=== PATIENT | female | born 1975 | race Caucasian/White ===

== ENCOUNTER → 2018-01-20 16:18 | Outpatient (CLI) | payer OTHER, SELFPAY ==
[2018-01-27 12:24] LABS: HPV Reflexed? NOT INDICATED
== END ==
PROVIDERS: Visit Provider Obstetrics & Gynecology
DX: Z12.4 Encounter for screening for malignant neoplasm of cervix (principal)
CPT/HCPCS: 88175; G0145

== ENCOUNTER → 2018-04-05 16:50 | Outpatient (CLI) | payer OTHER, SELFPAY ==
--- NOTE | 2018-04-05 16:53 | BI_ITS ---
MAMMOGRAPHY - BILATERAL SCREENING REASON FOR EXAM: Female, 42 years old. Routine annual screening examination. PERTINENT HISTORY: Non-contributory. TECHNIQUE: Digital bilateral breast josie (3D mammographic acquisition) in the CC and MLO projections. 2-D mediolateral oblique (MLO) and craniocaudad (CC) views of both breasts were obtained. CAD: Full Field Digital Mammography with Computer Added Detection was performed. COMPARISON: Comparison is made with prior outside examination dated April 24, 2005. FINDINGS: Breast Composition: The breasts are heterogeneously dense, which may obscure small masses. There are no dominant masses or suspicious calcifications. No other significant abnormalities are identified. There has been no significant change since the prior study. BI/SCREENING MAMM (CAD), BILAT IMPRESSION: Stable bilateral screening mammogram. Yearly follow-up mammogram recommended. (A) ASSESSMENT CATEGORY: BIRADS Category 1: Negative. A letter regarding these results will be sent to the patient by the facility within 30 days. Approximately 10% of breast cancers are not detected by mammography. A normal mammogram should not delay biopsy of a clinically suspicious abnormality. [id number] Electronically Signed: Danny Ochoa MD at 8:13 EDT Tel [phone], Service support ,
== END ==
PROVIDERS: Family Provider Internal Medicine; PCP Internal Medicine; Visit Provider Obstetrics & Gynecology
DX: Z12.31 Encounter for screening mammogram for malignant neoplasm of breast (principal)
CPT/HCPCS: 77063; 77067

== ENCOUNTER → 2018-07-13 10:51 | Outpatient (CLI) | payer OTHER, SELFPAY | PROVIDERS: Family Provider Internal Medicine; PCP Internal Medicine | DX: I77.810 Thoracic aortic ectasia (principal) | CPT/HCPCS: 93306 ==

== ENCOUNTER → 2019-05-16 12:18 | Outpatient (CLI) | payer OTHER, SELFPAY ==
[2019-01-16 15:40] VITALS: BMI 39.8
--- NOTE | 2019-05-16 12:21 | BI_ITS ---
MAMMOGRAPHY - BILATERAL SCREENING REASON FOR EXAM: Female, 43 years old. Routine annual screening examination. PERTINENT HISTORY: Non-contributory. TECHNIQUE: Digital bilateral breast andrew (3D mammographic acquisition) in the CC and MLO projections. 2-D mediolateral oblique (MLO) and craniocaudad (CC) views of both breasts were obtained. CAD: Full Field Digital Mammography with Computer Added Detection was performed. COMPARISON: Comparison is made with prior study dated April 05, 2018. FINDINGS: Breast Composition: The breasts are heterogeneously dense, which may obscure small masses. There are no dominant masses or suspicious calcifications. No other significant abnormalities are identified. There has been no significant change since the prior study. BI/SCREEN MAMM (CAD) W/ANDREW BILAT IMPRESSION: Stable bilateral screening mammogram. Yearly follow-up mammogram recommended. (A) ASSESSMENT CATEGORY: BIRADS Category 1: Negative. A letter regarding these results will be sent to the patient by the facility within 30 days. Approximately 10% of breast cancers are not detected by mammography. A normal mammogram should not delay biopsy of a clinically suspicious abnormality. [id number] Electronically Signed: Danny Ochoa, at 13:47 EDT , Service support ,
== END ==
PROVIDERS: Family Provider Internal Medicine; PCP Internal Medicine; Referring Provider Obstetrics & Gynecology; Visit Provider Obstetrics & Gynecology
DX: Z12.31 Encounter for screening mammogram for malignant neoplasm of breast (principal)
CPT/HCPCS: 77063; 77067

== ENCOUNTER → 2020-06-14 15:11 | Outpatient (CLI) | payer OTHER, SELFPAY ==
[2019-01-16 15:40] VITALS: BMI 39.8
[2020-06-19 20:21] LABS: HPV Reflexed? NOT INDICATED
== END ==
PROVIDERS: PCP Internal Medicine; Visit Provider Obstetrics & Gynecology
DX: Z12.4 Encounter for screening for malignant neoplasm of cervix (principal)
CPT/HCPCS: 88175; G0145

== ENCOUNTER → 2021-08-19 15:57 | Outpatient (CLI) | payer OTHER, SELFPAY ==
[2021-08-19 17:38] LABS: Hematocrit 35.9 % (37-47); Hemoglobin 11.3 g/dL (12.0-15.0); Mean Corp Hgb Conc 31.5 g/dL (32-36); Mean Corpuscular Hgb 27.4 pg (27.0-32.0); Mean Corpuscular Volume 86.9 fL (81-99); Platelet Count 267 K/mm3 (150-450); RBC Distribution Width CV 15.8 % (11.6-14.6); Red Blood Count 4.13 M/mm3 (4.2-5.4); White Blood Count 5.9 K/mm3 (4.4-11.0)
[2021-08-19 18:06] LABS: ALB/GLOB Ratio 0.9 RATIO (0.9-2.4); AST(SGOT) 17 U/L (15-37); Alanine Aminotransfer ALT/SGPT 25 U/L (13-56); Albumin, Serum 3.2 g/dL (3.2-5.0); Alkaline Phosphatase 62 U/L (45-117); Anion Gap 7 (5-15); BUN 16 mg/dL (7-18); BUN/Creat Ratio 18.7 RATIO (10-20); Calcium,Total 8.7 mg/dL (8.5-10.1); Chloride 105 mmol/L (98-107); Creatinine, Serum 0.86 mg/dL (0.55-1.02); EST Glomerular Filtration Rate 76 mL/min (>60); Est Glom Filt Rate - Afr Amer 92 mL/min (>60); Ferritin 7 ng/mL (8-252); Globulin 3.7 g/dL (2.2-4.2); Glucose 97 mg/dL (74-106); Iron 26 ug/dL (50-170); Magnesium 2.1 mg/dL (1.6-2.6); Protein, Total 6.9 g/dL (6.4-8.2); Sodium Level 141 mmol/L (136-145)
== END ==
PROVIDERS: PCP Internal Medicine; Referring Provider Nurse Practitioner Family; Visit Provider Nurse Practitioner Family
DX: G25.81 Restless legs syndrome (principal); E61.1 Iron deficiency
CPT/HCPCS: 36415; 80053; 82728; 83540; 83735; 85027

== ENCOUNTER 2024-06-30 09:22 | Outpatient (CLI) | payer SELFPAY ==
[2024-06-30] MEDS: 0.9% NaCl Peripheral Flush Adult/Peds IV (10:09)
[2024-06-30] MEDS: 0.9% Normal Saline (100mL Bag) 100 ML 15 ML IV (10:10)
[2024-06-30] MEDS: Ferric Carboxymaltose (Injectafer) 750 MG in 0.9% NaCl 250 ML 795 MG IV (10:10)
[2024-06-30 10:11] VITALS: BP 97/64; PULSE 66; RESP 16; O2SAT 100
[2024-06-30 11:12] VITALS: BP 97/51; PULSE 61; RESP 16
== END 2024-06-30 23:59 | disposition home or self-care (01) ==
PROVIDERS: PCP Internal Medicine; Referring Provider Internal Medicine; Visit Provider Internal Medicine
DX: D50.9 Iron deficiency anemia, unspecified (principal)
CPT/HCPCS: 96365; J1439; J7050; A4216

== ENCOUNTER 2024-07-14 10:48 | Outpatient (CLI) | payer SELFPAY ==
[2024-07-14 11:15] VITALS: BP 98/59; PULSE 70; RESP 16; TEMP 36.8; O2SAT 97; BMI 39.4
[2024-07-14] MEDS: 0.9% NaCl Peripheral Flush Adult/Peds IV (11:17)
[2024-07-14] MEDS: Ferric Carboxymaltose (Injectafer) 750 MG in 0.9% NaCl 250 ML 795 MG IV (11:43)
[2024-07-14] MEDS: 0.9% NaCl IVPB Med Flush (250 mL) 15 ML IV (11:43)
[2024-07-14 12:17] VITALS: BP 89/55; PULSE 62; RESP 16; O2SAT 100
== END 2024-07-14 23:59 | disposition home or self-care (01) ==
PROVIDERS: PCP Internal Medicine; Referring Provider Internal Medicine; Visit Provider Internal Medicine
DX: D50.9 Iron deficiency anemia, unspecified (principal)
CPT/HCPCS: 96365; J1439; J7050; A4216

== ENCOUNTER → 2024-11-07 | Outpatient (CLI) | payer MEDICAID, SELFPAY | END | disposition home or self-care (01) | PROVIDERS: PCP Internal Medicine; Referring Provider Physician Assistant Surgical; Visit Provider Physician Assistant Surgical | DX: R30.0 Dysuria (principal) | CPT/HCPCS: 87086; 87088 ==

== ENCOUNTER 2025-05-04 06:47 | Outpatient (CLI) | payer MEDICAID, SELFPAY ==
--- OUTSIDE RECORDS SUMMARY | 2025-05-04 06:52 | XMS RPT_ITS | CCD ---
Author Organization [facility] Care Team Providers Care Registered Radiographer Name Role Phone SivanMindyBessy Unavailable Silvano Schultz R Unavailable Unavailab le Messenger, Heather Unavailable Unavailable LongMarcion L Unavailable Unavailable Manchak, Savannah Unavailable Unavailable Unavailable Unavailable Sivan, Bessy Unavailable Vadmi Lemons Unavailable Silvano Schultz R Unavailable Unavailab le Gravius, Evelia Unavailable Unavailable LongMarcion L Unavailable Unavailable Manchak, Savannah Unavailable Unavailable Messenger, Heather Unavailable Unavailable Unavailable Unavailable Gravius, Evelia Unavailable Unavailable LongMarcion L Unavailable Unavailable Manchak, Savannah Unavailable Unavailable Messenger, Heather Unavailable Unavailable Sivan DO Bessy Unavailable Vadim Lemons Unavailable Vikas Schultzoster R Unavailable Unavailab le Gravius DRIVER ENGINEER, Evelia Unavailable Unavailable Chinyere Link RN Unavailable Unavailable Manchak PURVI Savannah Unavailable Unavailable Messenger RNHeather Unavailable Unavailable Unavailable Unavailable Sivan DO Bessy Unavailable Slarb BI ARCHITECT, Ashlie Unavailable Unavailable Lalitha Irvin CNP Unavailable Lalitha Irvin CNP Unavailable [place] BI ARCHITECT, Johnnie Unavailable Unavailable Sivan DO Bessy K Primary Care Provider [phone] BESSY FINNEGAN Primary Care Unavailable BEAU THEODORE Attending Unavailable EBSSY FINNEGAN Primary Care Unavailable BEAU THEODORE Referring Unavailable BEAU THEODORE Attending Unavailable Earnest Kohlery Attending Unavailable Tico WHITEHEAD, Thee Referring Unavailable Sivan, Bessy Primary Care Unavailable Sivan, Bessy Attending Unavailable Sivan, Bessy Referring Unavailable Sivan, Bessy Primary Care Unavailable Sivan, Bessy Attending Unavailable Sivan, Bessy Referring Unavailable Sivan, Bessy Primary Care Unavailable Sivan, Bessy Attending Unavailable Sivan, Bessy Primary Care Unavailable Karen Loving Attending Unavailable Sivan, Bessy Referring Unavailable Sivan, Bessy Primary Care Unavailable Humphrey Brush Attending Unavailable Sivan, Bessy Referring Unavailable Sivna, Bessy Primary Care Unavailable Tico WHITEHEAD, Thee Attending Unavailable Sivan, Bessy Referring Unavailable Sivan, Bessy Primary Care Unavailable Sivan DO, Bessy Watkins Primary Care Provider Abigail ALEJANDRE, Beau Merino Unavailable DEBBIE PRESCOTT Attending Unavailable SIVAN, BESSY WATKINS Primary Care Unavailab le Allergies Allergy Classification Reported Allergen(s) Allergy Type Date of Onset Reaction(s) Facility (20 sources) NSAIDs; Translations: [NSAIDs] allergy to substance 09-08-20 [facility] Work Phone: (2 sources) NSAIDs; Translations: [NSAIDS (NON-STEROIDAL ANTI-INFLAMMATO RY DRUG)] Drug Intolerance 09-08-20 24 Other: See Comments [facility] NEGATED: Highlighted row has been ruled out! (1 source) allergy to substance 05-30-20 13 [facility] Work Phone: NEGATED: Highlighted row has been ruled out! (1 source) drug allergy 02-02-20 17 [facility] Work Phone: Medications Current Medications Medication Drug Class(es) Dates Sig (Normalized) Sig (Original) Calcium Citrate / Vitamin D (3 sources) take 1260 mg by mouth once Calcium Citrate-Vitamin D (CALCIUM CITRATE + PO) Take 1,260 mg by mouth. Active Cyanocobalamin 1500 MCG tablet dispersible (3 sources) Cyanocobalamin 1 500 MCG tablet dispersible Take by mouth. Active ergocalciferol 0.05 mg oral capsule (3 sources) Provitamin D2 Compound take 1 capsule by mouth once daily ergocalciferol (Vitamin D-2) 50 MCG (1999) capsule Take 5,000 Units by mouth daily. Active hydroCHLOROthiazide 25 mg oral tablet (20 sources) Thiazide Diuretic Start: take 2 tablets by mouth once daily hydroCHLOROthiazide 25 mg oral tablet 2 (two) Tablet qd for 180 days Quantity: 90 {Tablet} Refills: 0 Ordered: 23-Jul-2023 Sivan DOBessy DOEricaBessy Start : 23-Jul-2023 Active Start: 06-18-2023 take 2 tablets by ne [facility] once daily hydroCHLOROthiazide 25 mg oral tablet 2 (two) Tablet qd for 180 days Quantity: 90 {Tablet} Refills: 0 Ordered: 18-Jun-2023 Sivan DOBessy DOEricaBessy Start : 18-Jun-2023 Active Start: 05-28-2023 take 2 tablets by [facility] once daily hydroCHLOROthiazide 25 mg oral tablet 2 (two) Tablet qd for 180 days Quantity: 90 {Tablet} Refills: 0 Ordered: 28-May-2023 Sivan DOBessy DOEricaBessy Start : 28-May-2023 Active Start: 03-03-2023 take 2 tablets by [facility] once daily hydroCHLOROthiazide 25 mg oral tablet 2 (two) Tablet qd for 180 days Quantity: 90 {Tablet} Refills: 0 Ordered: 03-Mar-2023 Sivan DOBessy DOEricaBessy Start : 03-Mar-2023 Active Start: 01-12-2022 take 2 tablets by [facility] once daily hydroCHLOROthiazide 25 MG Oral Tablet 2 (two) Tablet qd for 180 days Quantity: 90 {Tablet} Refills: 3 Ordered: 12-Jan-2022 Evelia Marin CMA Start : 12-Jan-2022 Active Start: 12-09-2021 take 2 tablets by ne ut once daily hydroCHLOROthiazide 25 MG Oral Tablet 2 (two) Tablet qd for 90 days Quantity: 180 {Tablet} Refills: 0 Ordered: 09-Dec-2021 Sivan DOeBssy DO Bessy Start : 09-Dec-2021 Active Comments: Mail order. Start: 07-10-2020 take 2 tablets by ne [facility] once daily hydroCHLOROthiazide 25 MG Oral Tablet 2 (two) Tablet qd for 90 days Quantity: 180 {Tablet} Refills: 3 Ordered: 10-Jul-2020 Bessy Finnegan DO, DO, Kathleen Start : 10-Jul-2020 Active Comments: Mail order. Start: 07-10-2019 take 2 tablets by mo [facility] once daily hydroCHLOROthiazide 25 MG Oral Tablet 2 (two) Tablet qd for 90 days Quantity: 180 {Tablet} Refills: 3 Ordered: 10-Jul-2019 Bessy Finnegan DO, DO, Kathleen Start : 10-Jul-2019 Active Comments: Mail order. Start: 07-06-2018 End: 08-05-2018 take 2 tablets by mouth once daily HydroCHLOROthiazide 25 MG Oral Tablet 2 (two) Tablet qd for 0 days Quantity: 180 {Tablet} Refills: 3 Ordered: 06-Jul-2018 Bessy Finnegan DO, DO, Kathleen Start : 06-Jul-2018 End : 05-Aug-2018 Inactive Comments: Mail order. take 1 tablet by [facility] once daily hydrochlorothiazide 25 mg tablet Take 25 mg by mouth once daily. 1 1/2 pills daily Active hydroCHLOROthiaz riya (HYDRODiuril) 25 MG tablet Indications: Calcium Nephrolithiasis Take 12.5 mg by mouth daily. Active Comment on above: Mail order. Magnesium (1 source) take 1 tablet by mouth twice daily Magnesium 200 mg tab Take 1 tablet by mouth twice daily. Active rOPINIRole 0.5 mg oral tablet (3 sources) Nonergot Dopamine Agonist Start: 4 take 1 tablet by mouth three times daily rOPINIRole (Requip) 0.5 MG tablet Take 0.5 mg by mouth 3 times daily. 08/13/2024 Active traZODone hydrochloride 50 mg oral tablet (1 source) Serotonin Reuptake Inhibitor Start: 5 traZODone (DESYREL) 50 mg tablet 04/26/2025 Active Completed/Discontinued Medications Medication Drug Class(es) Dates Sig (Normalized) Sig (Original) acetaminophen 500 mg / diphenhydrAMINE hydrochloride 25 mg oral tablet (20 sources) Histamine-1 Receptor Antagonist Start: 02-01-2017 End: 02-03-2017 take 1 tablet by mouth every eight hours in the evening Tylenol PM Extra Strength 500-25 MG Oral Tablet 1 (one) Tablet q8hrs for 2 days Refills: 0 Ordered: 15-Apr-2017 Charlette Walton Start : 01-Feb-2017 End : 03-Feb-2017 Inactive acetaminophen 300 mg / HYDROcodone bitartrate 5 mg oral tablet (20 sources) Opioid Agonist Start: 05-10-2013 End: 05-30-2013 take 1 tablet by mouth every six hours as needed VICODIN, 5-300MG (Oral Tablet) 1 Tablet q 6 hours prn for 0 days Quantity: 20 {Tablet} Refills: 0 Ordered: 30-May-2013 Start : 10-May-2013 End : 30-May-2013 Inactive Comments: twenty Comment on above: twenty amitriptyline hydrochloride 25 mg oral tablet (20 sources) Tricyclic Antidepressant Start: 05-04-2016 take 1 tablet by mouth once daily Amitriptyline HCl 25 MG Oral Tablet 1 (one) Tablet qd for 90 days Quantity: 90 {Tablet} Refills: 1 Ordered: 12-Jan-2022 Bessy Finnegan DO, DO, Kathleen Start : 12-Jan-2022 Active take 1 tablet by jenniffer th once daily at bedtime amitriptyline 50 mg tablet Take 50 mg by mouth daily at bedtime. Active amoxicillin 875 mg / clavulanate 125 mg oral tablet (20 sources) Penicillin-class Antibacterial Start: 09-19-2020 End: 09-29-2020 take 1 tablet by mouth twice daily Amoxicillin-Pot Clavulanate 875-125 MG Oral Tablet 1 (one) Tablet bid for 10 days Quantity: 20 {Tablet} Refills: 0 Ordered: 19-Sep-2020 Bessy Finnegan DO, DO, Kathleen Start : 19-Sep-2020 End : 29-Sep-2020 Inactive Start: 09-01-2016 End: 09-15-2016 take 1 tablet by mouth twice daily Augmentin 875-125 MG Oral Tablet 1 (one) Tablet bid for 14 days Quantity: 28 {Tablet} Refills: 0 Ordered: 01-Sep-2016 Charlette Walton Start : 01-Sep-2016 End : 15-Sep-2016 Inactive 24 hr buPROPion hydrochloride 150 mg extended release oral tablet (20 sources) Aminoketone Start: 07-20-2023 take 1 tablet by mouth once daily Wellbutrin XL 150 mg oral Tablet, Extended Release 24 hr 1 Tablet ER 24HR qd for 90 days Quantity: 90 {Tablet} Refills: 0 Ordered: 20-Jul-2023 Sivan Bessy SivanBessy tamez DO Start : 20-Jul-2023 Active Start: 08-20-2022 take 1 tablet by jenniffer th once daily Wellbutrin XL 150 MG Oral Tablet Extended Release 24 Hour 1 Tablet ER 24HR qd for 90 days Quantity: 90 {Tablet} Refills: 3 Ordered: 20-Aug-2022 Sivan Bessy SivanBessy tamez DO Start : 20-Aug-2022 Active Start: 01-12-2022 take 1 tablet by jenniffer th once daily Wellbutrin XL 150 MG Oral Tablet Extended Release 24 Hour 1 Tablet ER 24HR qd for 90 days Quantity: 90 {Tablet} Refills: 3 Ordered: 12-Jan-2022 Evelia Marin CMA Start : 12-Jan-2022 Active Start: 09-19-2018 take 1 tablet by jenniffer th once daily Wellbutrin XL 150 MG Oral Tablet Extended Release 24 Hour 1 Tablet ER 24HR qd for 90 days Quantity: 90 {Tablet} Refills: 0 Ordered: 09-Dec-2021 SivanBessy tamez DO SivanBessy tamez DO Start : 09-Dec-2021 Active Comments: Mail order. Comment on above: Mail order. cefdinir 300 mg oral capsule (20 sources) Cephalosporin Antibacterial Start: 02-02-20 17 End: 02-09-20 17 take 1 capsule by mouth twice daily Cefdinir 300 MG Oral Capsule 1 (one) Capsule bid for 7 days Quantity: 14 {QS} Refills: 0 Ordered: 01-Feb-2017 Isabelle Charlette Start : 01-Feb-2017 End : 08-Feb-2017 Inactive cholecalciferol 0.125 mg oral tablet (20 sources) Vitamin D Start: 07-18-20 14 End: 08-17-20 14 take 1 tablet by mouth once daily VITAMIN D3, 5000UNIT (Oral Tablet Chewable) 1 (one) Tablet Chewable qd for 30 days Refills: 0 Ordered: 21-Sep-2014 SivanBessy tamez DO, DO, Kathleen Start : 18-Jul-2014 End : 17-Aug-2014 Inactive Start: 07-18-2014 End: 08-17-2014 take 1 tablet by mouth once daily VITAMIN D3, 5000UNIT (Oral Tablet Chewable) 1 (one) Tablet Chewable qd for 30 days Refills: 0 Ordered: 21-Sep-2014 Bessy Finnegan DO, DO, Kathleen Start : 18-Jul-2014 End : 17-Aug-2014 Inactive ciprofloxacin 500 mg oral tablet (20 sources) Quinolone Antimicrobial Start: 05-10-2013 End: 05-24-2013 take 1 tablet by mouth twice daily CIPRO, 500MG (Oral Tablet) 1 Tablet bid for 0 days Quantity: 20 {Tablet} Refills: 0 Ordered: 24-May-2013 Heather Basilio RN Start : 10-May-2013 End : 24-May-2013 Inactive desoximetasone 0.5 mg/ml topical cream (20 sources) Corticosteroid Start: 04-28-2017 End: 06-30-2017 Topicort 0.05 % External Cream 1 (one) Cream apply to affected area bid for 0 days Quantity: 15 {Gram} Refills: 0 Ordered: 30-Jun-2017 Heather Basilio RN Start : 28-Apr-2017 End : 30-Jun-2017 Inactive 24 hr desvenlafaxine succinate 100 mg extended release oral tablet (20 sources) Serotonin and Norepinephrine Reuptake Inhibitor Start: 08-17-2022 take 1 tablet by mouth once daily in the morning Pristiq 100 MG Oral Tablet Extended Release 24 Hour 1 (one) Tablet qam for 90 days Quantity: 90 {Tablet} Refills: 3 Ordered: 17-Aug-2022 Bessy Finnegan DO, DO, Kathleen Start : 17-Aug-2022 Active Start: 01-12-2022 take 1 tablet by jenniffer th once daily in the morning Pristiq 100 MG Oral Tablet Extended Release 24 Hour 1 (one) Tablet qam for 90 days Quantity: 90 {Tablet} Refills: 3 Ordered: 12-Jan-2022 Evelia Marin CMA Start : 12-Jan-2022 Active Start: 12-09-2021 take 1 tablet by jenniffer th once daily in the morning Pristiq 100 MG Oral Tablet Extended Release 24 Hour 1 (one) Tablet qam for 90 days Quantity: 90 {Tablet} Refills: 0 Ordered: 09-Dec-2021 Bessy Finnegan DO, DO, Kathleen Start : 25-Fei-2022 Active Comments: Mail order. Start: 01-14-2021 take 1 tablet by jenniffer th once daily in the morning Pristiq 100 MG Oral Tablet Extended Release 24 Hour 1 (one) Tablet qam for 0 days Quantity: 90 {Tablet} Refills: 1 Ordered: 14-Jan-2021 Sivan Bessy SivanMindy tamez DOeen Start : 14-Jan-2021 Active Comments: Mail order. total dose is 150 mg Start: 07-26-2020 take 1 tablet by jenniffer th once daily in the morning Pristiq 100 MG Oral Tablet Extended Release 24 Hour 1 (one) Tablet qam for 0 days Quantity: 90 {Tablet} Refills: 1 Ordered: 26-Jul-2020 Sivan DO, Bessy SivanMindy tamez DOeen Start : 26-Jul-2020 Active Comments: Mail order. total dose is 150 mg Start: 07-10-2020 take 1 tablet by jenniffer th once daily in the morning Pristiq 100 MG Oral Tablet Extended Release 24 Hour 1 (one) Tablet qam for 0 days Quantity: 90 {Tablet} Refills: 1 Ordered: 10-Jul-2020 Sivan , Bessy SivanMindy tamez DOeen Start : 10-Jul-2020 Active Comments: Mail order. Start: 06-28-2020 take 1 tablet by jenniffer th once daily in the morning Pristiq 100 MG Oral Tablet Extended Release 24 Hour 1 (one) Tablet qam for 0 days Quantity: 30 {Tablet} Refills: 3 Ordered: 28-Jun-2020 Sivan DO, Bessy Sivan DO, Bessy Start : 28-Jun-2020 Active Start: 09-13-2018 End: 01-12-2022 take 1 tablet by mouth once daily Pristiq 50 MG Oral Tablet Extended Release 24 Hour 1 (one) Tablet qd for 0 days Quantity: 30 {Tablet} Refills: 3 Ordered: 12-Jan-2022 Evelia Marin CMA Start : 26-Jul-2020 End : 12-Jan-2022 Inactive Comments: total dose is 150mg Comment on above: pt has a copay card and it actually cheeper for name brand vs generic. So as long as her copay card works she wants to keep th rx at [facility]. Mail order. Mail order. total do se is 150 mg total dose is 150mg docusate sodium 100 mg oral capsule (20 sources) Start: 05-04-2016 End: 01-12-2022 take 1-2 capsules by mouth once daily as needed Colace 100 MG Oral Capsule 1-2 Capsule Capsule qd prn for 0 days Quantity: 60 {Capsule} Refills: 0 Ordered: 12-Jan-2022 Evelia Marin CMA Start : 04-May-2016 End : 12-Jan-2022 Inactive End: 04-30-2025 take 1 capsule by mouth every twelve hours as needed docusate sodium (COLACE) 100 mg capsule Take 100 mg by mouth twice daily as needed. 04/30/2025 Discontinued (Course of therapy completed) ferrous sulfate 325 mg oral tablet (20 sources) Start: 07-05-2017 End: 01-12-2022 take 1 tablet by mouth once daily Iron 325 (65 Fe) MG Oral Tablet 1 (one) Tablet Tablet daily for 0 days Quantity: 30 {Tablet} Refills: 5 Ordered: 12-Jan-2022 Evelia Marin CMA Start : 05-Jul-2017 End : 12-Jan-2022 Inactive fluconazole 150 mg oral tablet (20 sources) Azole Antifungal Start: 12-18-2015 End: 09-01-2016 Fluconazole 150 MG Oral Tablet 1 (one) Tablet Tablet take times one then repeat in 2days for 0 days Quantity: 2 {Tablet} Refills: 0 Ordered: 01-Sep-2016 Ashlie Mart LPN Start : 18-Dec-2015 End : 01-Sep-2016 Discontinued frovatriptan 2.5 mg oral tablet (20 sources) Serotonin-1b and Serotonin-1d Receptor Agonist Start: 01-28-2015 End: 09-01-2016 Frova 2.5 MG Oral Tablet 4 Tablet uad for 30 days Refills: 0 Ordered: 01-Sep-2016 Ashlie Mart LPN Start : 28-Jan-2015 End : 01-Sep-2016 Discontinued Comments: takes 4 days prior to period Comment on above: takes 4 days prior t o period ketoprofen 75 mg oral capsule (20 sources) Nonsteroidal Anti-inflammatory Drug Start: 01-12-2022 Ketoprofen 75 MG Oral Capsule 1 (one) Capsule prn for 30 days Refills: 0 Ordered: 12-Jan-2022 Bessy Finnegan DO, DO, Kathleen Start : 12-Jan-2022 Active Start: 01-22-2014 KETOPROFEN, 75 MG (Oral Capsule) 1 (one) Capsule prn for 30 days Refills: 0 Ordered: 22-Jan-2014 Bessy Finnegan DO, DO, Kathleen Start : 22-Jan-2014 Active KETOPROFEN ORAL Take by mouth. Active magnesium oxide 200 mg oral tablet (20 sources) Start: 07-18-2014 End: 05-15-2022 take 1 tablet by mouth twice daily Mag-200 200 MG Oral Tablet 1 (one) Tablet Tablet bid for 0 days Quantity: 60 {Tablet} Refills: 0 Ordered: 15-May-2022 Ashlie Mart LPN Start : 18-Jul-2014 End : 15-May-2022 Inactive meclizine hydrochloride 12.5 mg oral tablet (20 sources) Antiemetic Start: 05-30-2013 End: 09-01-2016 ANTIVERT, 12.5MG (Oral Tablet) 1 Tablet Tablet q 6-8 hrs prn for dizziness for 0 days Quantity: 30 {Tablet} Refills: 0 Ordered: 30-May-2013 David Mart LPNa Start : 30-May-2013 End : 01-Sep-2016 Discontinued Comments: This order discontinued per [facility]. Comment on above: This order discontin ued per [facility]. meperidine hydrochloride 50 mg oral tablet (20 sources) Opioid Agonist Start: 05-24-2013 End: 05-30-2013 DEMEROL, 50MG (Oral Tablet) 1 Tablet X 1 for 0 days Quantity: 1 {Tablet} Refills: 0 Ordered: 30-May-2013 Start : 24-May-2013 End : 30-May-2013 Inactive Comments: ONE Comment on above: ONE mometasone furoate 0.05 mg/actuat metered dose nasal spray (20 sources) Corticosteroid Start: 05-30-2013 End: 01-22-2014 NASONEX, 50MCG/ACT (Nasal Suspension) 2 (two) Puff(s) daily for 0 days Quantity: 1 {Suspension} Refills: 0 Ordered: 22-Jan-2014 Heather Basilio RN Start : 30-May-2013 End : 22-Jan-2014 Inactive MVI (1 source) MVI Active nadolol 20 mg oral tablet (20 sources) beta-Adrenergic Maris Start: 01-12-2022 take 0.5 tablet by mouth once daily Nadolol 20 MG Oral Tablet 1/2 Tablet qd for 30 days Refills: 0 Ordered: 12-Jan-2022 Bessy Finnegan DO Sivan Bessy LEE Start : 12-Jan-2022 Active Start: 06-30-2017 End: 10-21-2017 take 0.5 tablet by mouth once daily Nadolol 20 MG Oral Tablet 1/2 Tablet qd for 30 days Refills: 0 Ordered: 21-Oct-2017 Chinyere Link RN Start : 30-Jun-2017 End : 21-Oct-2017 Inactive Start: 07-12-2016 nadolol (CORGA RD) 40 mg tablet 07/12/2016 Active take 1 tablet by jenniffer th once daily nadolol (Corgard) 20 MG tablet Take 20 mg by mouth daily. Active naratriptan 2.5 mg oral tablet (1 source) Serotonin-1b and Serotonin-1d Receptor Agonist Start: 06-30-2016 End: 04-30-2025 naratriptan (AMERGE) 2.5 mg tablet 06/30/2016 04/30/2025 Discontinued (Course of therapy completed) nystatin (20 sources) Polyene Antifungal Start: 07-11-2015 End: 09-01-2016 Nystatin Powder apply to affected areas Powder Powder bid for 0 days Quantity: 1 {Bottle} Refills: 0 Ordered: 01-Sep-2016 David Mart LPNa Start : 11-Jul-2015 End : 01-Sep-2016 Discontinued polyethylene glycol 3350 648653 mg / potassium chloride 2980 mg / sodium bicarbonate 6720 mg / sodium chloride 5840 mg / sodium sulfate 01326 mg powder for oral solution (1 source) Osmotic Laxative Start: 04-30-2025 End: 04-30-2025 peg 3350-electrolytes (GAVILYTE-C) 240-22.72-6.72 -5.84 gram solution Indications: Special screening for malignant neoplasms, colon Take 4,000 mL by mouth one time only for 1 dose. 4000 mL 04/30/2025 04/30/2025 Discontinued (Clinical Decision) microencapsulated potassium chloride 20 meq extended release oral tablet (20 sources) Start: 05-11-2016 End: 06-10-2016 take 1 tablet by mouth once daily KLOR-CON M20, 20MEQ (Oral Tablet Extended Release) 1 (one) Tablet ER qd for 30 days Quantity: 30 {Tablet} Refills: 0 Ordered: 02-Jul-2016 Bessy Finnegan DO, DO, Kathleen Start : 11-May-2016 End : 10-Jun-2016 Inactive predniSONE 10 mg oral tablet (20 sources) Start: 07-24-2016 End: 07-31-2016 take 3 tablets by mouth once daily at mealtime PredniSONE 10 MG Oral Tablet 3 (three) Tablet daily for 7 days Quantity: 21 {Tablet} Refills: 0 Ordered: 24-Jul-2016 Charlette Walton Start : 24-Jul-2016 End : 31-Jul-2016 Inactive Comments: with food Start: 07-11-2015 End: 07-23-2015 PREDNISONE, 20MG (Oral Table t) 1 (one) Tablet bid for 2 days then qd for 4 days then 1/2 tab daily for 4days for 12 days Quantity: 12 {Tablet} Refills: 0 Ordered: 11-Jul-2015 Bessy Finnegan DO, DO, Kathleen Start : 11-Jul-2015 End : 23-Jul-2015 Inactive Comment on above: with food prochlorperazine 10 mg oral tablet (20 sources) Phenothiazine Start: 01-22-2014 End: 09-01-2016 take 1 tablet by mouth once daily COMPAZINE, 10MG (Oral Tablet) 1 (one) Tablet qd for 30 days Refills: 0 Ordered: 04-May-2016 Kimo Savannah LOJA Start : 28-Jan-2015 End : 04-May-2016 Inactive End: 04-30-2025 take 1 tablet by mouth every six hours as needed prochlorperazine 10 mg tablet Take 10 mg by mouth every 6 hours as needed. 04/30/2025 Discontinued (Course of therapy completed) promethazine hydrochloride 25 mg oral tablet (20 sources) Phenothiazine Start: 05-24-2013 End: 05-30-2013 take 1 tablet by mouth every eight hours as needed PROMETHAZINE HCL, 25MG (Oral Tablet) 1 Tablet Q 8 HR PRN for 0 days Quantity: 1 {Tablet} Refills: 0 Ordered: 30-May-2013 Start : 24-May-2013 End : 30-May-2013 Inactive rizatriptan 10 mg oral tablet (20 sources) Serotonin-1b and Serotonin-1d Receptor Agonist Start: 01-12-2022 take 9 mg by mouth every month Maxalt 10 MG Oral Tablet 1 Tablet qd for migraine for 90 days Quantity: 27 {Tablet} Refills: 0 Ordered: 12-Jan-2022 Sivan LEE Bessy Finnegan DO Bessy Start : 12-Jan-2022 Active Comments: or up to 9 monthly pt wants dissolvable Start: 06-05-2013 take 9 mg by mouth every month MAXALT, 10MG (Oral Tablet) 1 Tablet qd for migraine for 90 days Quantity: 27 {Tablet} Refills: 0 Ordered: 05-Jun-2013 Sivan LEE Bessy Finnegan DO Bessy Start : 05-Jun-2013 Active Comments: or up to 9 monthly pt wants dissolvable Start: 01-09-2008 End: 04-30-2025 rizatriptan benzoate(MAXALT- PLUMBER MAINTENANCE 10 MG TAB, RAPID DISSOLVE) Indications: Migraine, unspecified, without mention of intractable migraine without mention of status migrainosus as directed 9 2 01/09/2008 04/30/2025 Discontinued (Course of therapy completed) Comment on above: or up to 9 monthly p t wants dissolvable sulfamethoxazole 800 mg / trimethoprim 160 mg oral tablet (20 sources) Dihydrofolate Reductase Inhibitor Antibacterial, Sulfonamide Antimicrobial Start: 05-15-20 End: 05-25-20 take 1 tablet by mouth twice daily Bactrim DS 800-160 MG Oral Tablet 1 (one) Tablet twice daily for 10 days for 10 days Quantity: 20 {Tablet} Refills: 0 Ordered: 15-May-2022 Lalitha Irvin CNP Start : 15-May-2022 End : 25-May-2022 Inactive Start: 12-23-2015 End: 01-02-2016 take 1 tablet by mouth twice daily BACTRIM DS, 800-160MG (Oral Tablet) 1 (one) Tablet bid for 10 days Quantity: 20 {Tablet} Refills: 0 Ordered: 23-Dec-2015 Chinyere Link RN Start : 23-Dec-2015 End : 02-Jan-2016 Inactive 0.5 ml SUMAtriptan 12 mg/ml jet injector (2 sources) Serotonin-1b and Serotonin-1d Receptor Agonist Start: 01-22-2014 End: 09-01-2016 Sumavel DosePro 6 MG/0.5ML Subcutaneous Solution Jet-injector 1 (one) Device qd for 30 days Refills: 0 Ordered: 01-Sep-2016 Barron BYRNESDavida Start : 22-Jan-2014 End : 01-Sep-2016 Discontinued End: 04-30-2025 SUMATRIPTAN SUCCINATE (SUMAV EL DOSEPRO SUBCUTANEOUS) Inject subcutaneously. 04/30/2025 Discontinued (Course of therapy completed) Sumavel DosePro 6 MG/0.5ML Subcutaneous Solution Jet-injector (20 sources) Start: 01-22-2014 End: 09-01-2016 Sumavel DosePro 6 MG/0.5ML Subcutaneous Solution Jet-injector 1 (one) Device qd for 30 days Refills: 0 Ordered: 01-Sep-2016 Barron BYRNES Ashlie Start : 22-Jan-2014 End : 01-Sep-2016 Discontinued terconazole 8 mg/ml vaginal cream (20 sources) Azole Antifungal Start: 12-18-2015 End: 06-30-2017 Terconazole 0.8 % Vaginal Cream apply to skin Cream Cream bid for 0 days Quantity: 15 {Gram} Refills: 0 Ordered: 30-Jun-2017 Heather Basilio RN Start : 18-Dec-2015 End : 30-Jun-2017 Inactive triamcinolone acetonide 1 mg/ml topical cream (20 sources) Corticosteroid Start: 09-20-2018 Triamcinolone Acetonide 0.1 % External Cream apply to affectede area Cream bid sparingly for 0 days Quantity: 15 {Gram} Refills: 1 Ordered: 20-Sep-2018 Savannah Malin CMA Start : 20-Sep-2018 Active Start: 06-30-2017 Triamcinolone Acetonide 0.1 % External Cream apply to affectede area Cream bid sparingly for 0 days Quantity: 15 {Gram} Refills: 1 Ordered: 30-Jun-2017 Bessy Finnegan DO, DO, Kathleen Start : 30-Jun-2017 Active Start: 02-01-2017 End: 06-30-2017 Triamcinolone Acetonide 0.1 % External Ointment 1 (one) Ointment daily prn for 0 days Quantity: 1 {Tube} Refills: 1 Ordered: 30-Jun-2017 Heather Basilio RN Start : 01-Feb-2017 End : 30-Jun-2017 Inactive Problems Active Problems Problem Classification Problem Date Documented Date Episodic/Chronic Abdominal pain (20 sources) Left flank pain; Translations: [Left flank pain] 01-05-2018 Episodic Adjustment disorders (16 sources) Grief finding; Translations: [Grieving] Onset: 6 01-12-2022 Chronic Administrative/social admission (3 sources) First encounter by subject; Translations: [Persons encountering health services in other specified circumstances] Onset: 4 09-08-2024 Episodic Allergic reactions (20 sources) Contact dermatitis due to poison yessica; Translations: [Poison yessica] 01-05-2018 Episodic Anxiety disorders (20 sources) Anxiety; Translations: [Anxiety] 08-21-2015 Chronic Comment on above: stable seeing counselor Aortic; peripheral; and visceral artery aneurysms (20 sources) Thoracic aneurysm without mention of rupture; Translations: [Dilatation of thoracic aorta] Onset: 8 01-05-2018 Chronic Comment on above: followed by cardio - dr Tyler Cardiac and circulatory congenital anomalies (20 sources) Cerebral arteriovenous malformation; Translations: [Arteriovenous malformation of brain] 01-05-2018 Chronic Comment on above: sees neurology -Tiana diana and manages migraines too Complications of surgical procedures or medical care (20 sources) Other and unspecified postsurgical nonabsorption; Translations: [NONABSORPTION, INTESTINAL POSTSURGICAL] 01-05-2018 Chronic Complications of surgical procedures or medical care (20 sources) Other iatrogenic hypotension Episodic Conditions associated with dizziness or vertigo (20 sources) Vertigo; Translations: [VERTIGO] 01-05-2018 Episodic Deficiency and other anemia (18 sources) Iron deficiency anemia; Translations: [Iron Deficiency Anemia,Unspecified (280.9)] Episodic Diabetes mellitus without complication (20 sources) Hyperglycemia Episodic Fluid and electrolyte disorders (20 sources) Hypokalemia; Translations: [Hypopotassemia] Resolved: 9 01-05-2018 Episodic Headache, including migraine (20 sources) Migraine with aura; Translations: [Migraine with aura and without status migrainosus, not intractable] Onset: 8 01-05-2018 Chronic Comment on above: stable - sees neuro Headache, including migraine (20 sources) Headache, including migraine Immunizations and screening for infectious disease (2 sources) Patient encounter status; Translations: [Encounter for screening for human papillomavirus (HPV)] Onset: 5 04-30-2025 Episodic Malaise and fatigue (16 sources) Fatigue; Translations: [Chronic fatigue] 09-19-2020 Chronic Comment on above: h/o mono in past, ge t back on keto, stress managment Malaise and fatigue (20 sources) Fatigue; Translations: [Fatigue] Onset: 5 Resolved: 9 01-05-2018 Episodic Comment on above: h/o mono=-- chronic fatigue?-- seenotes under hyperparathyroid, chronic pain fatiguing ?- with jt pain h/o mono in past, ge t back on keto, stress managment Menopausal disorders (2 sources) Perimenopausal state; Translations: [Menopausal and female climacteric states] 04-30-2025 Chronic Mood disorders (20 sources) Depressive disorder; Translations: [Depressive disorder] 01-05-2018 Chronic Comment on above: stalbe Mycoses (20 sources) Candidiasis of skin; Translations: [Yeast dermatitis] 01-05-2018 Episodic Nonspecific chest pain (8 sources) Precordial pain; Translations: [Precordial pain] Onset: 4 09-08-2024 Episodic Nutritional deficiencies (20 sources) Vitamin D deficiency; Translations: [Vitamin D deficiency] 01-05-2018 Chronic Open wounds of extremities (13 sources) Injury of lower extremity; Translations: [Leg wound, right, initial encounter] 05-15-2022 Episodic Comment on above: -start bactrim-f/u i f symptoms worsen or develop fever, do warm compresses, elevation, continue bactroban topicalhit on [place] while on scooter, has been 5 days and feels warmer, getting more red. Other circulatory disease (20 sources) Iatrogenic hypotension; Translations: [Other iatrogenic hypotension] Resolved: 7 01-05-2018 Episodic Comment on above: due to bp med used f or other reasons : migraine adn kidney stones - given by specialist Other connective tissue disease (20 sources) Olecranon bursitis, left elbow; Translations: [Bursitis of olecranon of left elbow] Resolved: 7 01-05-2018 Episodic Comment on above: red hot tender, will treat as if bursitis, add antibiotic empirically and antiinflammatory Other connective tissue disease (20 sources) Pain in right leg; Translations: [Pain in bilateral legs] Resolved: 8 01-05-2018 Episodic Comment on above: thinking potassuim r eplacement will do-- wear panty hose style support stockings tjo support varicositiies and see if helps - assure drinking enough water vascular?-with vein picture she showed me - nerve? not classic presnetation. will get veins eval first then see what that sees Other ear and sense organ disorders (20 sources) Otalgia; Translations: [Otalgia] Resolved: 2 09-19-2020 Episodic Other endocrine disorders (20 sources) Hyperparathyroidism; Translations: [Hyperparathyroidism] 01-05-2018 Chronic Comment on above: can get really hot a nd bp spikes at that time -- ck PTH -- related to fatigue? can get really hot a nd bp spikes at that time -- ck PTH -- related to fatigue?saw endo - on water pill no more kidney stones Other endocrine disorders (3 sources) Secondary hyperparathyroidism of nonrenal origin; Translations: [Secondary hyperparathyroidism, not elsewhere classified] Onset: 6 08-27-2022 Chronic Other gastrointestinal disorders (20 sources) Constipation, unspecified; Translations: [Acute constipation] Resolved: 7 06-30-2017 Episodic Other hematologic conditions (20 sources) Abnormality of globulin; Translations: [Increased globulin] Resolved: 7 06-30-2017 Episodic Other infections (20 sources) History of glandular fever; Translations: [History of mononucleosis] 01-05-2018 Episodic Comment on above: based on IgG labs Other liver diseases (20 sources) ALT (SGPT) level raised; Translations: [Elevated ALT measurement] Resolved: 7 06-30-2017 Episodic Other lower respiratory disease (20 sources) Cough; Translations: [Cough] Resolved: 7 06-30-2017 Episodic Other non-traumatic joint disorders (20 sources) Hip pain; Translations: [Hip pain, bilateral] Resolved: 9 01-05-2018 Episodic Other non-traumatic joint disorders (20 sources) Multiple joint pain; Translations: [Pain, joint, multiple sites] Resolved: 9 01-05-2018 Episodic Other non-traumatic joint disorders (12 sources) Pain in right knee; Translations: [Pain in both knees, unspecified chronicity] Resolved: 9 04-06-2019 Episodic Other nutritional; endocrine; and metabolic disorders (20 sources) Hypomagnesemia; Translations: [Hypomagnesemia] 01-05-2018 Chronic Other nutritional; endocrine; and metabolic disorders (20 sources) Body mass index 30+ - obesity; Translations: [BMI 34.0-34.9,adult] Resolved: 0 01-05-2018 Chronic Other nutritional; endocrine; and metabolic disorders (20 sources) Body mass index 40+ - severely obese; Translations: [BMI 40.0-44.9, adult] 04-20-2019 Chronic Other nutritional; endocrine; and metabolic disorders (3 sources) Obesity; Translations: [Obesity, unspecified] Onset: 6 08-27-2022 Chronic Other skin disorders (20 sources) Folliculitis; Translations: [Folliculitis] Resolved: 6 05-04-2016 Episodic Comment on above: mrsa carrier and she is getting random lesion then they scar - even on hand Other skin disorders (20 sources) Eruption; Translations: [Rash] Resolved: 8 01-05-2018 Episodic Other skin disorders (20 sources) Disorder of pigmentation, unspecified; Translations: [Disorder of skin color] 04-20-2019 Episodic Other skin disorders (10 sources) Finding of color of limb; Translations: [Discoloration of skin of lower leg] 05-15-2022 Episodic Other upper respiratory disease (20 sources) Allergic rhinitis; Translations: [Allergic rhinitis] Resolved: 7 06-30-2017 Chronic Other upper respiratory disease (20 sources) Pain in throat Episodic Other upper respiratory infections (20 sources) Sore throat symptom; Translations: [Acute sinusitis] 01-05-2018 Episodic Comment on above: will treat as if str ep with all positive around her Otitis media and related conditions (20 sources) Allergic otitis media; Translations: [Non-recurrent acute allergic otitis media of both ears] 09-19-2020 Episodic Residual codes; unclassified (20 sources) Family history of diabetes mellitus; Translations: [Family history of diabetes mellitus] Episodic Residual codes; unclassified (20 sources) FH: Diabetes mellitus; Translations: [Family history of diabetes mellitus] 01-05-2018 Episodic Residual codes; unclassified (20 sources) Altered mental status; Translations: [Altered mental status] 01-05-2018 Episodic Comment on above: transient- 15 secs - confused after wards but only for about 10 secs - witnessed by 14 y/o son-- IS THIS SZ RELATED ACTIVITY FROM MIGRAINE OR AV MAL VS JUST ATYPICAL MIGRAINE Residual codes; unclassified (20 sources) Non-smoker; Translations: [Non-smoker] 04-20-2019 Episodic Unclassified (20 sources) Finding of abnormal level of heavy metals in blood; Translations: [Abnormal iron profile] Onset: 5 Resolved: 6 05-04-2016 Episodic Unclassified (20 sources) H/O: section; Translations: [FH: Diabetes mellitus] 01-05-2018 Episodic Comment on above: transient- 15 secs - confused after wards but only for about 10 secs - witnessed by 14 y/o son-- IS THIS SZ RELATED ACTIVITY FROM MIGRAINE OR AV MAL VS JUST ATYPICAL MIGRAINE Unclassified (20 sources) Unclassified (20 sources) History of mononucleosis Unclassified (20 sources) NONABSORPTION, INTESTINAL POSTSURGICAL (579.3) Unclassified (20 sources) Dilatation of thoracic aorta (441.2) Unclassified (20 sources) Pain in both knees, unspecified chronicity Unclassified (20 sources) Hip pain, bilateral Unclassified (20 sources) Arteriovenous malformation of brain Unclassified (20 sources) Migraine with aura and without status migrainosus, not intractable Unclassified (20 sources) Elevated serum globulin level Unclassified (20 sources) Constipation, acute Unclassified (20 sources) Rash of perineum Unclassified (20 sources) Non-smoker; Translations: [Non-smoker] 01-05-2018 Unclassified (20 sources) Abnormal result of iron profile testing Unclassified (20 sources) Leg pain, bilateral Unclassified (20 sources) BMI 34.0-34.9,adult Unclassified (20 sources) Calcium nephrolithiasis Unclassified (20 sources) BMI 37.0-37.9, adult Unclassified (20 sources) Nephrolithiasis (274.11) Unclassified (20 sources) BMI 40.0-44.9, adult Unclassified (20 sources) Chronic fatigue Unclassified (20 sources) Discoloration of skin of lower leg Unclassified (16 sources) Headache,Migraine (346.00) Unclassified (3 sources) Grieving Past or Other Problems Problem Classification Problem Date Documented Da te Episodic/Chronic Calculus of urinary tract (20 sources) Calcium renal calculus ; Translations: [Calcium nephrolithiasis] Onset: 6 01-05-2018 Episodic Deficiency and other anemia (20 sources) Iron deficiency anemia, unspecified; Translations: [Iron deficiency anemia] Onset: 4 01-05-2018 Episodic Genitourinary symptoms and ill-defined conditions (20 sources) Dysuria; Translations: [Dysuria] Onset: 5 01-05-2018 Episodic Other connective tissue disease (11 sources) Bursitis of olecranon of left elbow; Translations: [Olecranon bursitis of left elbow] Resolved: 7 01-05-2018 Comment on above: red hot tender, will treat as if bursitis, add antibiotic empirically and antiinflammatory Other connective tissue disease (20 sources) Pain in bilateral legs; Translations: [Leg pain, bilateral] Resolved: 8 04-20-2019 Comment on above: vascular?-with vein picture she showed me - nerve? not classic presnetation. will get veins eval first then see what that sees thinking potassuim r eplacement will do-- wear panty hose style support stockings tjo support varicositiies and see if helps - assure drinking enough water Other gastrointestinal disorders (3 sources) History of bypass of stomach; Translations: [Bariatric surgery status] Onset: 6 08-27-2022 Episodic Other non-traumatic joint disorders (20 sources) Knee pain; Translations: [Pain in both knees, unspecified chronicity] Resolved: 9 01-05-2018 Episodic Other screening for suspected conditions (not mental disorders or infectious disease) (11 sources) Abnormal iron profile; Translations: [Abnormal result of iron profile testing] Resolved: 6 05-04-2016 Otitis media and related conditions (8 sources) Otitis media and related conditions Unclassified (20 sources) Potassium deficiency Unclassified (20 sources) Gastric bypass 01-05-2018 Comment on above: 11/11/10 Unclassified (20 sources) Unspecified Diagnosis 01-05-2018 Unclassified (20 sources) BMI 36.0-36.9,adult Unclassified (20 sources) Elevated ALT measurement Unclassified (20 sources) Pain, joint, multiple sites Unclassified (20 sources) Rash Unclassified (20 sources) Poison yessica Unclassified (20 sources) Yeast dermatitis Unclassified (20 sources) SINUSITIS, ACUTE NOS (461.9) Unclassified (19 sources) Pregnancies (); Translations: [Pregnancies ()] 01-05-2018 Comment on above: 3. Unclassified (20 sources) Arteriovenous malformation of brain (747.81) Unclassified (20 sources) Olecranon bursitis of left elbow Unclassified (19 sources) Abortions/Miscarriages ; Translations: [Abortions/Miscarriage s] 01-05-2018 Comment on above: 1. Unclassified (20 sources) Patient encounter status; Translations: [Encounter for routine adult medical examination] 01-05-2018 Unclassified (20 sources) EXAMINATION, ROUTINE MEDICAL (V70.0) Unclassified (20 sources) Non-smoker; Translations: [Non-smoker] 01-05-2018 Unclassified (10 sources) Abortions/Miscarriages ; Translations: [Abortions/Miscarriage s] 09-19-2020 Comment on above: 1. Unclassified (10 sources) Pregnancies (); Translations: [Pregnancies ()] 09-19-2020 Comment on above: 3. Unclassified (1 source) Leg wound, right, initial encounter Urinary tract infections (20 sources) Acute cystitis; Translations: [ACUTE CYSTITIS] Onset: 4 Resolved: 5 01-28-2015 Episodic Urinary tract infections (10 sources) Urinary tract infections Results Test Name Value Interpretation Reference Range Facility [facility] 04-27-2025 CNOV Office Visit (OBGYWM ) ----- LUNA MAYERS ([id number]) 1975 F Date Time Provider Department 04/27/25 2:00 PM DEBBIE PRESCOTT During your visit today, we recorded the following information about you: Blood pressure Weight Height Last Period 102/64 91.2 kg 1.645 m 04/07/25 Debbie Prescott APRN.CNM 04/30/2025 12:15 PM Signed Luna is a 49 year old who presents for an annual gynecologic exam. Obstetrics and Gynecology [place] Annual Exam Subjective Recording using ambient AI software for draft documentation of the visit was discussed with the patient/authorized admissions representative; all questions welcomed and answered. Patient/authorized admissions representative agreed to proceed CHIEF COMPLAINT: Annual exam HPI: The patient is a 49-year-old female presenting for an annual exam. The patient reports regular menses, lasting 2 days each month, with intermenstrual spotting occurring approximately 2 weeks after her period, lasting a couple of days. The spotting is described as light and pinkish in color. She denies heavy bleeding, excessive pain, or discomfort. She has been experiencing hot flashes and night sweats for years, which are frequent at night but do not disrupt her sleep. She was previously prescribed progesterone in her late 30s to early 40s, which she discontinued due to worsening symptoms. She is sexually active and engaged, with no dyspareunia, postcoital bleeding, vaginal discharge, pruritus, burning, or odor. She declines STD testing. She has four children, two biological and two adopted. Her in 2020. She is currently on tirzepatide and maintains a high-protein diet, consuming 30 grams of protein with each meal. She has a history of gastric bypass surgery and has previously required iron transfusions. Previously seen by and not seen in the last several years. Age at Menarche: unknown Still get period: Yes LMP: 04/07/2025 Menses: cycles every 28 days and 3-4 days of flow Menstrual flow: Moderate Bleeding amount bothersome: No Bleeding between periods: Yes spotting in between, very light and pink Period symptoms: Breast tenderness Sexually active: Yes Contraception: Tubal Ligation Contraception frequency: Always HPV vaccine: No HPV:negative Last pap smear: unknown History of abnormal pap: No Colposcopy: No. Leep: No. Cone biopsy: No. Bothersome pelvic pain: No Last mammogram: thinks HISTORY: OB History Gravida4 Para2 Term2 Preterm0 AB2 Living4 SAB2 IAB0 Ectopic0 Multiple0 Live Births2 Network Support Specialist History LMP: 04/07/2025 (Exact Date), Having periods Age at Menarche: Age at First : Age at Menopause: Network Support Specialist History Comments: Sexual Activity: Yes; Male Contraception: Tubal Ligation PAST MEDICAL HISTORY Diagnosis Date Adjustment disorder with depressed mood Arteriovenous malformation of brain (HCC) Chronic fatigue Hyperparathyroidism (HCC) Hypomagnesemia Iron deficiency anemia Kidney stone Leg pain Other and unspecified hyperlipidemia Other forms of migraine PAST SURGICAL HISTORY Procedure Laterality Date ADENOIDECTOMY HX DELIVERY ONLY , low cervical x2 CHOLECYSTECTOMY GASTRIC BYPASS HX 11/11/2010 TUBAL LIGATION FAMILY HISTORY Problem Relation Age of Onset COPD Mother smoker other (bone cancer) Father 72 Diabetes Paternal Grandfather Social History Tobacco Use Smoking status: Never Smokeless tobacco: Never Vaping Use Vaping status: Never Used Substance Use Topics Alcohol use: No Drug use: No Current Outpatient Medications Medication Sig traZODone (DESYREL) 50 mg tablet ferrous sulfate (IRON) 325 mg (65 mg iron) tablet Take 325 mg by mouth daily with breakfast. Magnesium 200 mg tab Take 1 tablet by mouth twice daily. nadolol (CORGARD) 40 mg tablet buPROPion XL (WELLBUTRIN XL) 150 mg 24 hr tablet Take 150 mg by mouth once daily. amitriptyline 50 mg tablet Take 50 mg by mouth daily at bedtime. hydrochlorothiazide 25 mg tablet Take 25 mg by mouth once daily. 1 1/2 pills daily KETOPROFEN ORAL Take by mouth. desvenlafaxine (PRISTIQ) 50 mg ORAL 24 hr tablet Take 50 mg by mouth once daily. No current facility-administered medications for this visit. ALLERGIES Allergen Reactions Nsaids (Non-Steroid* Other: See Comments Hx of gastric bypass REVIEW OF SYSTEMS: Abdomen: No abdominal pain, nausea, vomiting, diarrhea, or constipation. No bloating, early satiety, indigestion, or increased flatulence. Bladder: No dysuria, gross hematuria, urinary frequency, urinary urgency, or incontinence. Breast: No breast lumps, nipple d/c, overlying skin changes, redness or skin retraction. Objective SENSITIVE EXAM: The sensitive examination was discussed with the Patient or Patient's Authorized Slasher Machine Operator. As applicable, any other physician (more content not included)... Normal [facility] HIGH RISK HUMAN PAPILLOMA USHA (HPV), PCR FOR DETECTION AND GENOTYPINGon 04-27-2025 HPV 16 Ag Ql (Unsp spec) Not detected Normal Not detected [facility] Comment on above: Order Comment: Speci men Type: FLUID SPECIMEN Ordering Facility: [facility] Address: [address] [place] [address] Performed By: #### H PVHRT #### [facility] CLIA [id number] [address] [place] [address] [place] HPV 18 Ag Ql (Unsp spec) Not detected Normal Not detected [facility] Comment on above: Order Comment: Speci men Type: FLUID SPECIMEN Ordering Facility: [facility] Address: [address] [place] [address] Performed By: #### H PVHRT #### [facility] CLIA [id number] [address] [place] [address] [place] HPV 31+33+35+39+45+51+52+ 56+58+59+66+68 DNA GABRIEL+probe Ql (Cvx) Not detected Normal Not detected [facility] Comment on above: Order Comment: Speci men Type: FLUID SPECIMEN Ordering Facility: [facility] Address: [address] [place] [address] Result Comment: High Risk HPV Other Type includes HPV types 31, 33, 35, 39, 45, 51, 52, 56, 58, 59, 66 and 68. Performed By: #### H PVHRT #### [facility] CLIA [id number] [address] [place] [address] [place] PAP TESTon 04-27-2025 ADEQUACY Normal [facility] Comment on above: Order Comment: Speci men Type: FLUID SPECIMEN Ordering Facility: [facility] Address: [address] [place] [address] Result Comment: Sati sfactory for interpretation. Transformation zone present Performed By: #### L [id number] #### [facility] CLIA [id number] [address] [place] [address] [place] CASE REPORT Normal [facility] Comment on above: Order Comment: Speci men Type: FLUID SPECIMEN Ordering Facility: [facility] Address: [address] [place] [address] Result Comment: Gyne cologic Cytology Report Case: [id number] Authorizing Provider: Debbie Prescott APRN.CNM Collected: 04/27/2025 02:34 PM Ordering Location: OB/Gynecology Received: 04/27/2025 04:38 PM First Screen: Jessi Castillo, CT, ASCP Specimen: Pap Test, ThinPrep, Cervix Performed By: #### L [id number] #### [facility] CLIA [id number] [address] [place] [address] [place] CLINICAL HISTORY, CYTOLOGY, HISTOPATH TECH Routine Exam Normal [facility] Comment on above: Order Comment: Speci men Type: FLUID SPECIMEN Ordering Facility: [facility] Address: [address] [place] [address] Performed By: #### L [id number] #### [facility] CLIA [id number] [address] [place] [address] [place] FINAL PERFORMING LAB Normal [facility] Comment on above: Order Comment: Speci men Type: FLUID SPECIMEN Ordering Facility: [facility] Address: [address] [place] [address] Result Comment: Tech nical component, secondary special education teacher screening performed at: [facility], [address] [place], [place] [id number] CLIA: [id number] Diagnostic interpretation performed at: [facility], [address] [place], [place] [address] CLIA# [id number] Grocery Clerk Checking: Tony Torres MD Performed By: #### L [id number] #### [facility] CLIA [id number] [address] [place], [place] [address] [place] INTERPRETATION, CYTOLOGY, HISTOPATH TECH Normal [facility] Comment on above: Order Comment: Speci men Type: FLUID SPECIMEN Ordering Facility: [facility] Address: [address] [place] [address] Result Comment: Nega tive for intraepithelial lesion or malignancy. at 1625 EDT Performed By: #### L [id number] #### [facility] CLIA [id number] [address] [place] [address] [place] LMP 04/07/2025 Normal [facility] Comment on above: Order Comment: Speci men Type: FLUID SPECIMEN Ordering Facility: [facility] Address: [address] [place] [address] Performed By: #### L [id number] #### [facility] CLIA [id number] [address] [place], [place] [id number] [place] PAP DISCLAIMER COMMENT The Pap Smear is a screening test for cervical cancer. False negative results occur with all screening tests, emphasizing the need for rescreening at recommended intervals, and clinical correlation. Normal [facility] Comment on above: Order Comment: Speci men Type: FLUID SPECIMEN Ordering Facility: [facility] Address: [address] [place] [address] Performed By: #### L [id number] #### [facility] CLIA [id number] [address] [place], [place] [id number] [place] PAP DIESEL TECHN[employer] INSTRUCTOR COMMENT This specimen has be en analyzed by the FDA-approved MegaHoot System, which uses digital imaging and an enhanced artificial intelligence image analysis algorithm to identify jenog of interest on the microscopic slide, to assist the electric motor analyst and pathologist in evaluating cells on ThinPrep Pap tests. Following analysis, jeong of interest on the microscopic slide selected by the algorithm are reviewed by a electric motor analyst. If a sample requires hierarchical review, the pathologist will review the same jeong of interest selected by the algorithm prior to final interpretation. Normal [facility] Comment on above: Order Comment: Speci men Type: FLUID SPECIMEN Ordering Facility: [facility] Address: [address] [place] [address] Performed By: #### L [id number] #### [facility] CLIA [id number] [address] [place] [address] [place] [address] [place] Neurology Visit Reporton Neurology Visit Report [facility] [address] [place] [address], [address] [place] [address] OFFICE VISIT Date of Service: 02/08/25 MR#: [id number] Acct: [id number] Name: LUNA MAYERS Rep #: [id number] : 1975 Provider: Dr. Humphrey may MD Age/Sex: 49/F Location: [facility] Status: Signed HPI HPI Chief Complaint: Details: Interim History: Luna returns today for follow-up. She has a history of depression, renal calculi, iron deficiency, gastric bypass surgery (2009), and migraine headaches. She has had headaches since she was a teenager. Her headaches are throbbing and vary in location over the calvarium. She has had headaches in the frontal head region, occipital head region and, at times, her headaches are unilateral. She has associated photophobia, phonophobia and nausea. Headaches last 1 day each. Emotional stress and menses have been triggers for her headaches. She has had visual scintillations prior to her headaches, lasting about 10 minutes. In years past, her headaches occurred about 10 days/month. She has had a significant reduction of her headache frequency with the use of nadolol and amitriptyline for headache prophylaxis. She has had about headaches since her last visit in February 2024 and these were less severe than headaches in the past. Naratriptan is of benefit for her headaches. She has previously used ketoprofen for her headaches and this was effective. She has tolerated her medications well. She has a history of depression and anxiety for which she takes Pristiq and bupropion. She has nighttime leg restlessness that is temporarily alleviated by walking. Her leg restlessness is well controlled with ropinirole 0.5 mg nightly and an [id number] iron supplementation. She has a history of iron deficiency and mild anemia. She took a course of prescription iron supplementation in the past. She reports having insomnia. She does not snore at night. She at times does not feel well rested when she awakens in the morning. She occasionally feels sleepy near the end of the day. She states that in years past she was diagnosed with sleep apnea and was treated with CPAP for a period of time. Following her gastric bypass surgery and significant weight loss, she had a follow-up sleep study and the patient reports that sleep apnea was no longer noted and CPAP was discontinued. Physical Exam: Neuro: The patient is awake and alert and responds appropriately; speech is fluent Heart: Regular rate and rhythm Supplemental Info From office records of her prior neurologist: CTA of brain/neck with/without contrast (05/20/2013): Normal. MRI brain with/without contrast (06/21/2013): Several small scattered white matter hyperintensities bilaterally that likely indicate chronic small vessel disease. Incidental finding of hypoplastic pituitary. MRA brain (06/21/2013): Negative. CMP, lipid profile, magnesium, iron, ferritin, B12, vitamin D, folate, homocystine, TSH, phosphorus (07/03/2017): Iron 48 (low), ferritin 7 (low) calcium 8.4 (low). Echo 07/13/18: Interpretation Summary The estimated ejection fraction is 65 %. Normal diastology for age. Hypermobile posterior mitral leaflet without evidence of prolapse. Trivial tricuspid valve insufficiency. Right ventricular systolic pressure estimated to be 32 mmHg. Bicuspid aortic valve with fused raphe of left and right coronary cusps. Trivial to mild aortic valve insufficiency. Mildly dilated aortic root at 3.8 cm. Compared to echo report dated 07/08/2016, aortic insufficiency and LV function have remained about the same. Aortic root has increased from 3.5 to 3.8 cm. Labs (08/19/2021): CBC: RBC 4.13 (L), Hbg 11.3 (L), Hct 35.9 (L) CMP: normal Iron: 26 (L) Ferritin: 7 (L) Magnesium: normal Assessment and Plan Assessment and Plan (1) Migraine headache with aura: Status: Chronic Qualifiers: Status migrainosus presence: without status migrainosus Intractability: not intractable Qualified Code(s): G43.109 - Migraine with aura, not intractable, without status migrainosus (2) Restless leg syndrome: Status: Chronic (3) Insomnia: Status: Acute Medications: New trazodone 50 mg PO QHS PRN 90 tabs 1RF insomnia Refilled amitriptyline take 1 tablet by mouth at bedtime 90 tabs 3RF nadolol take 1 tablet by mouth once daily 90 tabs 3RF naratriptan 2.5 mg PO every 4 hours as needed for migraine headaches up to two tablets per day. 9 tabs 0RF migraine headache ropinirole 0.5 mg PO QHS 90 tabs 3RF Plan Details Additional Comments: The patient has migraine headaches with visual aura.??? Her headaches have decreased in frequency with the use of nadolol and amitriptyline. Naratriptan is of benefit for symptomatic therapy. She has had 2 headaches since her last visit in February 2024 and these headaches were less severe than headaches in the past. She is satisfied with (more content not included)... Normal [facility] Urgent Care Visit Reporton 0 12-23-2024 Urgent Care Visit Report [facility] [address], [address] [place] [address] OFFICE VISIT Date of Service: 12/23/24 MR#: [id number] Acct: [id number] Name: LUNA MAYERS Rep #: [id number] : 1975 Provider: TANK Loving Age/Sex: 49/F Location: [facility] Status: Signed Intake Vital Signs 11/07/24 09:59 Height 5 ft 4 in Intake Visit Reasons: EAR PAIN Accompanied by: Self Is patient in pain?: Yes Pain scale (1-10): 7 Allergies No Known Allergies Allergy (Verified 12/23/24 11:32) Medications ???Medication ???Instructions ???Recorded ???Confirmed ???Type bupropion HCl 150 mg 24 hr tablet, 150 mg PO DAILY 90 days #90 tabs 02/12/21 12/23/24 History extended release hydrochlorothiazide 25 mg tablet 50 mg PO DAILY 90 days #180 tabs 0 02/12/21 12/23/24 History desvenlafaxine succinate 50 mg 100 mg PO DAILY 02/13/21 12/23/24 History tablet,extended release 24 hr amitriptyline 25 mg tablet See Rx Instructions .Route 4 12/23/24 Rx .COMPLEX #90 tabs nadolol 20 mg tablet See Rx Instructions .Route 4 12/23/24 Rx .COMPLEX #90 tabs naratriptan 2.5 mg tablet 2.5 mg PO .COMPLEX PRN migraine 12/23/24 Rx headache #27 tabs ropinirole 0.5 mg tablet 0.5 mg PO QHS #90 tabs 02/14/24 Rx ferrous sulfate 325 mg (65 mg 325 mg PO BID 06/30/24 12/23/24 Hi story iron) tablet (Feosol) Nurse's Note: Patient has Bilateral ear pain. left is the worse. Patient states Wednesday she notice like she was on a air plane and wed she started having pain in her ears. [facility] Medical History Anemia Chronic migraine Depression Fatigue History of kidney stones Iron deficiency Parathyroid abnormality Restless leg syndrome Rheumatoid arthritis Severe headache Shortness of breath Surgical History History of History of cholecystectomy History of gastric bypass Social History (Updated 07/14/22 @ 16:29 by Anisha Esparza) Smoking Status: Never smoker Electronic Cigarette Use: not used second hand exposure: No alcohol intake: current alcohol intake frequency: holidays/special occasions only Alcohol type: wine substance use type: does not use diego/denominational: [employer]ar[employer] seatbelt use: always HPI HPI Details: LUNA MAYERS, is a 49 F who presents to the office today for ear pain -sx started Wednesday/Wednesday will ears feeling clogged now with pain -Both ears left feels worse -no recent uri -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 Mild erythema) Face and sinus: normal facial exam, sinuses nontender and face symmetric Mouth: oral mucosae normal, lip normal, tongue normal, oropharynx normal and moist mucous membranes Throat: posterior oropharynx normal, tonsils normal, uvula midline and postnasal drainage Neck Neck: normal visual inspection, full ROM and no lymphadenopathy Resp Effort Inspection: normal respiratory effort, able to speak in complete sentences and symmetric chest movement Auscultation: Bilateral: Clear to Auscultation, Left: Clear to Auscultation and Right: Clear to Auscultation Cardio Rate: regular rate Rhythm: regular rhythm Heart Sounds: S1 normal and S2 normal GI Auscultation: normal bowel sounds Palpation: soft Skin General: no rashes or lesions noted and turgor normal Neuro General: patient alert, patient awake and patient oriented x3 Cognition: normal cognition Speech: speech normal Psych Appearance: grossly normal Mental Status: mental status grossly normal Attitude: cooperative Thought Process: normal Thought Content: normal Coding Level of Care Code Off vis,est,level 3 Diagnoses Nasal congestion R09.81 Acute pain of both ears H92.03 Assessment and Plan Assessment and Plan (1) Nasal congestion: Status: Acute Plan: -saline nasal spray 2 squirts each nostril every 2 hours as needed, Flonase nasal spray 1 squirt once a day, cetirizine (Zyrtec) one daily, cool mist humidifier, Tylenol and or ibuprofen as needed for fever or discomfort. -Please follow up with your Primary Care Physician for ongoing chronic problems. If symptoms change or worsen, please present to Emergency Room for further evaluation 1. See visi (more content not included)... Normal [facility] Urine Cultureon 11-09-2024 URC Mixed Gram Pos Gram Neg Org Silt Count 50,000-80,000 MIXC Mixed contaminants. Submit a new specimen if indicated. Normal [facility] Comment on above: Performed By: #### M [id number] #### [facility] [address] [place], [place], [id number] Urgent Care Visit Reporton 1 01-08-2024 Urgent Care Visit Report [facility] [address], [address] [place] [address] OFFICE VISIT Date of Service: 11/07/24 MR#: [id number] Acct: [id number] Name: LUNA MAYERS Rep #: [id number] : 1975 Provider: CHARLEY Lazo Age/Sex: 48/F Location: [facility] Status: Signed Intake Vital Signs 07/14/24 11:15 11/07/24 09:59 Height 5 ft 4 in 5 ft 4 in Intake Visit Reasons: CONCERN FOR UTI Allergies No Known Allergies Allergy (Verified 11/07/24 10:00) Medications ???Medication ???Instructions ???Recorded ???Confirmed ???Type bupropion HCl 150 mg 24 hr tablet, 150 mg PO DAILY 90 days #90 tabs 02/12/21 11/07/24 History extended release hydrochlorothiazide 25 mg tablet 50 mg PO DAILY 90 days #180 tabs 02/12/21 11/07/24 History Amberen 2 tablet PO DAILY 02/13/21 07/14/24 History desvenlafaxine succinate 50 mg 100 mg PO DAILY 02/13/21 11/07/24 History tablet,extended release 24 hr amitriptyline 25 mg tablet See Rx Instructions .Route 02/14/24 11/07/24 Rx .COMPLEX #90 tabs nadolol 20 mg tablet See Rx Instructions .Route 02/14/24 11/07/24 Rx .COMPLEX #90 tabs naratriptan 2.5 mg tablet 2.5 mg PO .COMPLEX PRN migraine 02/14/24 11/07/24 Rx headache #27 tabs ropinirole 0.5 mg tablet 0.5 mg PO QHS #90 tabs 02/14/24 11/07/24 Rx ferrous sulfate 325 mg (65 mg 325 mg PO BID 06/30/24 11/07/24 History iron) tablet (Feosol) nitrofurantoin 1 cap PO Q12H 7 days #14 caps 11/07/24 11/07/24 Rx monohydrate/macrocrystals 100 mg capsule phenazopyridine 200 mg tablet 200 mg PO TID PRN pain 6 doses #7 11/07/24 11/07/24 Rx (Pyridium) tabs Nurse's Note: Patient has burning, frequency and painful with urination for 2 days. [facility] Medical History Anemia Chronic migraine Depression Fatigue History of kidney stones Iron deficiency Parathyroid abnormality Restless leg syndrome Rheumatoid arthritis Severe headache Shortness of breath Surgical History History of History of cholecystectomy History of gastric bypass Social History (Updated 07/14/22 @ 16:29 by Anisha Esparza) Smoking Status: Never smoker Electronic Cigarette Use: not used second hand exposure: No alcohol intake: current alcohol intake frequency: holidays/special occasions only Alcohol type: wine substance use type: does not use diego/denominational: [employer]ar[employer] seatbelt use: always HPI HPI Details: LUNA MAYERS, is a 48 F who presents to the office today for complaint of burning with urination for the past 3 to 4 days. Patient denies hematuria or loss of bladder control. No fever, chills, sweats. No nausea, vomiting or diarrhea. No pelvic or abdominal pain. No other associated symptoms or alleviating/aggravating factors. ROS Const Constitutional: No other (6 system ROS completed with pertinent findings in the HPI otherwise normal.) Exam Const General: cooperative and healthy appearing Resp Effort Inspection: normal respiratory effort Auscultation: Bilateral: Clear to Auscultation Cardio Rate: regular rate Rhythm: regular rhythm GI Auscultation: normal bowel sounds General: No CVA tenderness Psych Appearance: grossly normal Mental Status: mental status grossly normal Coding Level of Care Code Off vis,new,level 3 Diagnoses Cystitis N30.90 Assessment and Plan Assessment and Plan (1) Cystitis: Status: Acute Plan: Macrobid as prescribed today. Encouraged to get plenty of rest, drink lots of clear liquids, and use Tylenol or Ibuprofen (unless contraindicated) for fever and comfort. Patient also educated on other symptomatic management techniques. To be seen in 7-10 days if no improvement; sooner if worsening of symptoms. Patient advised of potential red flags and when appropriate to report to the ED. Patient verbalized understanding and agreement with all the above. Orders: Orders POC Urinalysis Dip (Clinic) Today R30.0 - Dysuria Culture, Urine Today R30.0 - Dysuria Medications: New phenazopyridine (Pyridium) 200 mg PO TID PRN 7 tabs 0RF pain nitrofurantoin monohyd/m-cryst 100 mg administer with a meal/food; swallow whole; do not open, crush, dissolve , or chew 1 cap PO Q12H 7 days 14 caps 0RF 11/07/24 1014 Date Thee Ravi Signature: Date (if applicable) CC: Normal [facility] 36on 10-10-2024 36 Called patient and l eft message with echo results per Dr. Theodore's note. Left call back number for any questions. Normal [facility] 36 ----- Message from Beau Theodore MD sent at 10/09/2024 10:13 AM EST ----- The echo looks good other than the aorta is dilated, similar to slightly more than prior ones. Will repeat an echo next year to watch for stability. Stay on same medications. Normal [facility] Progress Noteon 10-06-2024 Progress Note The echo looks good other than the aorta is dilated, similar to slightly more than prior ones. Will repeat an echo next year to watch for stability. Stay on same medications. Normal [facility] US Heart TransthoracicOrdere d By: Matt Parker on 10-06-2024 Ao Root Index 1.57 cm/m2 [facility] Work Phone: Aortic Arch 3.1 cm [facility] [employer] [facility] Work Phone: Aortic Root 3.4 cm [facility] [facility] Work Phone: Aortic Sinus Valsalva 3.4 cm [facility] Work Phone: Aortic Sinus Valsalva Index 1.57 cm/m2 [facility] [facility] Work Phone: AR Max Velocity PISA 3.1 m/s [facility] Work Phone: AR PHT 461 ms [facility] Work Phone: Ascending Aorta 4.2 cm [facility] Work Phone: Ascending Aorta Index 1.94 cm/m2 [facility] Work Phone: AV Area by Peak Velocity 2.3 cm2 [facility] Work Phone: AV Area by VTI 2.6 cm2 [facility] Work Phone: AV Mean Gradient 5 mmHg [facility] Work Phone: AV Mean Velocity 1 m/s [facility] Work Phone: AV Peak Gradient 8 mmHg [facility] Work Phone: AV Peak Velocity 1.4 m/s [facility] Work Phone: AV Velocity Ratio 0.57 [facility] Work Phone: AV VTI 30.4 cm [facility] Work Phone: RAYA/BSA Peak Velocity 1.1 cm2/m2 [facility] Work Phone: RAYA/BSA VTI 1.2 cm2/m2 [facility] Work Phone: E/E' Lateral 7.25 [facility] Work Phone: E/E' Ratio (Averaged) 7.98 [facility] Work Phone: E/E' Septal 8.7 [facility] Work Phone: EF BP 67 % 55 - 100 % [facility] Work Phone: Fractional Shortening 2D 28 % 28 - 44 % [facility] Work Phone: Global Longitudinal Strain -17.9 % [facility] Work Phone: Global Longitudinal Strain -22.7 % [facility] Work Phone: Global Longitudinal Strain -21.1 % [facility] Work Phone: Global Longitudinal Strain -20.6 % [facility] Work Phone: Interpretation and review of laboratory results Abnormal [facility] Work Phone: IVC Diameter 2 cm [facility] Work Phone: IVSd 0.9 cm 0.6 - 0.9 cm [facility] Work Phone: LA Diameter 3.8 cm [facility] Work Phone: LA Size Index 1.76 cm/m2 [facility] [employer] Work Phone: LA Volume 2C 48 mL 22 - 52 mL [facility] Work Phone: LA Volume 4C 54 mL Abnormal 22 - 52 mL [facility] Work Phone: LA Volume A/L 54 mL [facility] [employer] Work Phone: LA Volume BP 52 mL 22 - 52 mL [facility] Work Phone: LA Volume Index 2C 22 mL/m2 16 - 34 mL/m2 [facility] Work Phone: LA Volume Index 4C 25 mL/m2 16 - 34 mL/m2 [facility] Work Phone: LA Volume Index A/L 25 mL/m2 16 - 34 mL/m2 [facility] Work Phone: LA Volume Index BP 24 ml/m2 16 - 34 ml/m2 [facility] Work Phone: LA/AO Root Ratio 1.12 [facility] Work Phone: LV E' Lateral Velocity 12 cm/s [facility] Work Phone: LV E' Septal Velocity 10 cm/s [facility] Work Phone: LV EDV A2C 124 mL [facility] Work Phone: LV EDV A4C 126 mL [facility] Work Phone: LV EDV BP 128 mL Abnormal 56 - 104 mL [facility] Work Phone: LV EDV Index A2C 57 mL/m2 [facility] Work Phone: LV EDV Index A4C 58 mL/m2 [facility] Work Phone: LV EDV Index BP 59 mL/m2 [facility] Work Phone: LV Ejection Fraction A2C 65 % [facility] Work Phone: LV Ejection Fraction A4C 71 % [facility] Work Phone: LV ESV A2C 43 mL [facility] Work Phone: LV ESV A4C 37 mL [facility] Work Phone: LV ESV BP 41 mL 19 - 49 mL [facility] Work Phone: LV ESV Index A2C 20 mL/m2 [facility] Work Phone: LV ESV Index A4C 17 mL/m2 [facility] Work Phone: LV ESV Index BP 19 mL/m2 [facility] Work Phone: LV Mass 2D 122.3 g 67 - 162 g [facility] Work Phone: LV Mass 2D Index 56.6 g/m2 43 - 95 g/m2 [facility] Work Phone: LV RWT Ratio 0.3 [facility] Work Phone: LVIDd 4.7 cm 3.9 - 5.3 cm [facility] Work Phone: LVIDd Index 2.18 cm/m2 [facility] Work Phone: LVIDs 3.4 cm [facility] Work Phone: LVIDs Index 1.57 cm/m2 [facility] Work Phone: LVOT Area 4.2 cm2 [facility] Work Phone: LVOT Cardiac Output 6.1 liter/mi nu te [facility] Work Phone: LVOT Diameter 2.3 cm [facility] Work Phone: LVOT Mean Gradient 2 mmHg [facility] Work Phone: LVOT Peak Gradient 3 mmHg [facility] Work Phone: LVOT Peak Velocity 0.8 m/s [facility] Work Phone: LVOT Stroke Volume Index 37.7 mL/m2 [facility] Work Phone: LVOT SV 81.4 ml [facility] Work Phone: LVOT VTI 19.6 cm [facility] Work Phone: LVOT:AV VTI Index 0.64 [facility] Work Phone: LVPWd 0.7 cm 0.6 - 0.9 cm [facility] Work Phone: MV A Velocity 0.39 m/s [facility] Work Phone: MV E Velocity 0.87 m/s [facility] Work Phone: MV E Wave Deceleration Time 228.4 ms [facility] Work Phone: MV E/A 2.23 [facility] Work Phone: Pulmonary Artery EDP 3 mmHg [facility] Work Phone: RA Area 4C 21.9 mL [facility] Work Phone: RA Area 4C 21.4 mL [facility] Work Phone: RV Basal Dimension 3.1 cm [facility] Work Phone: RV Free Wall Peak S' 14 cm/s [facility] Work Phone: RV Mid Dimension 2.1 cm [facility] Work Phone: Sinotubular Junction 3.4 cm [facility] Work Phone: TAPSE 2.1 cm 1.7 cm [facility] Work Phone: TR Max Velocity 2.15 m/s [facility] Work Phone: TR Peak Gradient 19 mmHg [employer] [facility] Work Phone: [facility] [facility] Work Phone: US Heart Transthoracicon Left Ventricle: Left ventricle size is normal. Normal wall thickness. Normal left ventricular systolic function. The EF by visual approximation is 65%. Normal wall motion. Right Ventricle: Right ventricle size is normal. Normal systolic function. Aortic Valve: Trileaflet. No cusp thickening. No cusp calcification. Trace regurgitation. Aorta: Normal sized sinuses of Valsalva. Mildly dilated ascending aorta. Ao ascending diameter is 4.2 cm. Normal sized STJ. Left Ventricle Left ventricle size is normal. Normal wall thickness. Normal left ventricular systolic function. The EF by visual approximation is 65%. Normal wall motion. Right Ventricle Right ventricle size is normal. Normal systolic function. Left Atrium Left atrium size is normal. Right Atrium Right atrium size is normal. IVC/SVC IVC diameter is normal and decreases greater than 50% during inspiration; therefore the estimated right atrial pressure is normal (~3 mmHg). Mitral Valve Valve structure is normal. Mild (1+) regurgitation. No stenosis noted. Tricuspid Valve Valve structure is normal. Trace regurgitation. Aortic Valve Trileaflet. No cusp thickening. No cusp calcification. Trace regurgitation. No stenosis. Pulmonic Valve Valve structure is normal. Mild (1+) regurgitation. Ascending Aorta Normal sized sinuses of Valsalva. Mildly dilated ascending aorta. Ao ascending diameter is 4.2 cm. Normal sized STJ. Pericardium No pericardial effusion. Septum No interatrial shunt visualized on color Doppler. Study Details Image quality: good. Additional technique includes myocardial strain. Blood pressure: 114/60 mmHg. No contrast was given. CV CPACS ECG 12 lead - CLINIC PERFORM EDon 09-08-2024 Sinus Bradycardia NORMAL [facility] [facility] Visiton 09-08-2024 Follow-up visit [id number] Jerel Mayers 1975 F Date Provider Department Center 09/08/2024 [id number] None Family History Problem Relation Age of Onset Diabetes Maternal Grandfather Diabetes Paternal Grandfather Family Status - Relation Status Age at Maternal Grandfather Paternal Grandfather Father Alive Mother Alive Level of Service:36125 [place] OFFICE/OUTPATIENT NEW MODERATE MDM 45 MINUTES Reason for Visit and Comments: New Patient [542] Normal [facility] Progress Noteon 09-08-2024 Progress Note [facility] Cardiology [facility] [place] [facility] [address] [facility] [address] Dept: [phone] Dept Visit type: New : 1975 Chief Complaint: Chief Complaint Patient presents with New Patient History of Present Illness: Luna Mayers is a 48 y.o. female with a history of mildly dilated ascending aorta up to 4 cm, hyperlipidemia, obesity with gastric bypass surgery in 2009, sleep apnea and migraine headaches who is coming to see me for the first time in 6 years to re-establish care. She states she has had orthostatic symptoms with low BP and she was anemic and received iron transfusions and this has helped. She also has had chest pain symptoms which is a pressure sensation in the upper left chest, which comes on randomly and is worse since her suddenly 3 years ago. She is still dealing with stress due to this. She says the chest pain occurs about once a week and lasts only 1-2 minutes when it occurs. 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 She denies any exertional component to these symptoms. EKG shows sinus bradycardia 57 beats a minute, normal QRS, normal ST and T wave segments. Past Medical History: Past Medical History: Diagnosis Date Anxiety Ascending aorta dilatation (HCC) Chest pain Depression Fatigue Headache Hyperlipidemia Hyperparathyroidism (HCC) Kidney stones Obesity Palpitations Sleep apnea Thoracic aortic aneurysm without rupture (HCC) Past Surgical History Past Surgical History: Procedure Laterality Date SECTION (HISTORICAL) CHOLECYSTECTOMY GASTRIC BYPASS KIDNEY STONE SURGERY TONSILLECTOMY AND ADENOIDECTOMY (HISTORICAL) TUBAL LIGATION Family History Family History Problem Relation Name Age of Onset Diabetes Maternal Grandfather Diabetes Paternal Grandfather Social History Social History Tobacco Use Smoking status: Never Smokeless tobacco: Never Substance Use Topics Alcohol use: No Drug use: No Allergies: Allergies Allergen Reactions Nsaids Hx of gastric bypass Medications: Current Outpatient Medications: amitriptyline (Elavil) 25 MG tablet, Take 25 mg by mouth Nightly., Disp: , Rfl: buPROPion XL (Wellbutrin XL) 150 MG 24 hr tablet, Take 150 mg by mouth daily., Disp: , Rfl: Calcium Citrate-Vitamin D (CALCIUM CITRATE + PO), Take 1,260 mg by mouth., Disp: , Rfl: Cyanocobalamin 1500 MCG tablet dispersible, Take by mouth., Disp: , Rfl: desvenlafaxine (Pristiq) 50 MG 24 hr tablet, Take 50 mg by mouth daily. Do not crush, chew, or split., Disp: , Rfl: ergocalciferol (Vitamin D-2) 50 MCG (2000 UT) capsule, Take 5,000 Units by mouth daily., Disp: , Rfl: ferrous sulfate 325 (65 Fe) MG tablet, Take 325 mg by mouth daily (with breakfast)., Disp: , Rfl: hydroCHLOROthiazide (HYDRODiuril) 25 MG tablet, Take 12.5 mg by mouth daily., Disp: , Rfl: nadolol (Corgard) 20 MG tablet, Take 20 mg by mouth daily., Disp: , Rfl: rOPINIRole (Requip) 0.5 MG tablet, Take 0.5 mg by mouth 3 times daily., Disp: , Rfl: Review of Systems: Review of Systems Constitutional: Positive for fatigue (Due to low iron, had 2 transfusions in June) and unexpected weight change (up 14 pounds in past 6 years). 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 Respiratory: Negative for apnea (resolved after bariatric surgery> lost 150 pounds) and shortness of breath. Cardiovascular: Positive for chest pain (Left sided ache, random onset, for the last three years since passed) and palpitations (Few times a week when laying down). Negative for leg swelling. Musculoskeletal: Negative for arthralgias and gait problem. Neurological: Positive for light-headedness (has low BP and orthostatic hypotension symptoms better after iron transfusions) and headaches (Chronic migraines). Negative for dizziness, syncope and weakness. Hematological: Does not bruise/bleed easily. Psychiatric/Behavioral: Positive for dysphoric mood (Since 3 years ago). The patient is not nervous/anxious. All other systems reviewed and are negative. Physical Examination: Vitals: Vitals: 09/08/24 1417 BP: 114/66 BP Location: Left arm Patient Position: Sitting BP Cuff Size: Large adult Pulse: 57 Weight: 245 lb 4.8 oz (111 kg) Height: 5' 5 (1.651 m) Body mass index is 40.82 kg/m?. Physical Exam Vitals reviewed. Constitutional: General: She is not in acute distress. Appearance: She is well-developed. She is morbidly obese. She is not ill-appearing. HENT: Mouth/Throat: Mouth: Mucous membranes are moist. Neck: Vascular: No carotid bruit, hepatojugular reflux or JVD. Cardiovascular: Rate and Rhythm: Normal rate and regular rhythm. Pulses: Normal pulses. Carotid pulses are 2+ on the right side and 2+ on the (more content not included)... Normal [employer] [facility] ASSAY, HOMOCYSTINE (66356)Or dered By: Farm Products Shipper on 06-28-2020 Homocysteine [Moles/Vol] 8.8 umol/L Normal 0.0-14.5 [facility] Work Phone: Comment on above: Please note refere nce interval change Test(s) 299906-Kcypx ium, Plasma; 807032-Mbip, Plasma or Serumwas developed and its performance characteristics determinedby [employer]. It has not been cleared or approved by the Foodand Drug Administration.PATIENT NOT FASTINGPERFORMED BY: CB LabCoTheFormTool Tultyk5584 [facility] [id number] BY: BN [facility] [address] [id number] CALCIFEDIOL (41021)Ordered B y: Farm [employer] Shipper on 06-28-2020 25-Hydroxyvitamin D2+25-Hydroxyvitamin D3 [Mass/Vol] 46.8 ng/mL Normal 30.0-100.0 [facility] Work Phone: Comment on above: Vitamin D deficiency has been defined by the [place] of[place] and an Endocrine Society practice guideline as alevel of serum 25-OH vitamin D less than 20 ng/mL (1,2).The Endocrine Society went on to further define vitamin Dinsufficiency as a level between 21 and 29 ng/mL (2).1. IOM ([place] of [employer]). 2010. Dietary reference intakes for calcium and D. [place]: The National Academies Press.2. Karlos MF, Alice CERNA, Marina JENKINS, et al. Evaluation, treatment, and prevention of vitamin D deficiency: an Endocrine Society clinical practice guideline. JCEM. 2010; 96(7):1911-30. Test(s) 532071-Wraxy ium, Plasma; 783605-Gqlv, Plasma or Serumwas developed and its performance characteristics determinedby [employer]. It has not been cleared or approved by the Foodand Drug Administration.PATIENT NOT FASTINGPERFORMED BY: [employer] [place] [id number] BY: [employer] [address] [id number] CBC, PLATELETS & AUT DIFF (2 3406)Ordered By: Farm Products Shipper on 06-28-2020 Basophils (Bld) [#/Vol] 0.0 {x10E3/uL} Normal 0.0-0.2 [facility] Work Phone: Comment on above: Test(s) 794775-Ksgpl ium, Plasma; 004611-Ryoa, Plasma or Serumwas developed and its performance characteristics determinedby [employer]. It has not been cleared or approved by the Foodand Drug Administration.PATIENT NOT FASTINGPERFORMED BY: CahootifyJane [facility] [id number] BY: Me[employer] [id number] Basophils (Bld) [#/Vol] 0.0 10*3/uL Normal 0.0-0.2 [facility]; [facility] Work Phone: Comment on above: Test(s) 461908-Pgjwc ium, Plasma; 900086-Aplc, Plasma or Serumwas developed and its performance characteristics determinedby [employer]. It has not been cleared or approved by the Foodand Drug Administration.PATIENT NOT FASTINGPERFORMED BY: Everimaging TechnologySampson Regional Medical Center [id number] BY: LabCo[address] [id number] Basophils/100 WBC (Bld) 0 % Normal [facility] Work Phone: Comment on above: Test(s) 932918-Harna ium, Plasma; 790148-Gopr, Plasma or Serumwas developed and its performance characteristics determinedby [employer]. It has not been cleared or approved by the Foodand Drug Administration.PATIENT NOT FASTINGPERFORMED BY: [employer] [address] [id number] BY: [employer] [address] [id number] Eosinophils (Bld) [#/Vol] 0.2 {x10E3/uL} Normal 0.0-0.4 [facility] Work Phone: Comment on above: Test(s) 664966-Immsi ium, Plasma; 983263-Rfep, Plasma or Serumwas developed and its performance characteristics determinedby [employer]. It has not been cleared or approved by the Foodand Drug Administration.PATIENT NOT FASTINGPERFORMED BY: [employer] [address] [id number] BY: X[employer] [id number] Eosinophils (Bld) [#/Vol] 0.2 10*3/uL Normal 0.0-0.4 [facility]; [facility] Work Phone: Comment on above: Test(s) 621595-Pssrp ium, Plasma; 596647-Xlra, Plasma or Serumwas developed and its performance characteristics determinedby [employer]. It has not been cleared or approved by the Foodand Drug Administration.PATIENT NOT FASTINGPERFORMED BY: [employer] [address] [id number] BY: Xradia[address] [id number] Eosinophils/100 WBC (Bld) 2 % Normal [facility] Work Phone: Comment on above: Test(s) 888063-Wgypp ium, Plasma; 313711-Jppj, Plasma or Serumwas developed and its performance characteristics determinedby [employer]. It has not been cleared or approved by the Foodand Drug Administration.PATIENT NOT FASTINGPERFORMED BY: LabCoRobert Wood Johnson [facility] Hospital at RahwayQcsraw0245 [facility] [id number] BY: [place] [id number] Erythrocyte distribution width (RBC) [Ratio] 13.4 % Normal 11.7-15.4 [facility] Work Phone: Comment on above: Test(s) 274115-Uonjx ium, Plasma; 483920-Mcuo, Plasma or Serumwas developed and its performance characteristics determinedby LabSopheon. It has not been cleared or approved by the Foodand Drug Administration.PATIENT NOT FASTINGPERFORMED BY: XradiaRobert Wood Johnson University Hospital at RahwayZfjyxv1144 [facility] [id number] BY: X[employer]ia[address] [id number] Hematocrit (Bld) [Volume fraction] 43.0 % Normal 34.0-46.6 [facility] Work Phone: Comment on above: Test(s) 885680-Wmfpy ium, Plasma; 091656-Rvhv, Plasma or Serumwas developed and its performance characteristics determinedby [employer]. It has not been cleared or approved by the Foodand Drug Administration.PATIENT NOT FASTINGPERFORMED BY: XradiaRobert Wood Johnson University Hospital at RahwayHkdhsp6625 [facility] [id number] BY: Memvu[address] [id number] Hemoglobin (Bld) [Mass/Vol] 14.4 g/dL Normal 11.1-15.9 [facility] Work Phone: Comment on above: Test(s) 382719-Jasgy ium, Plasma; 496158-Dkif, Plasma or Serumwas developed and its performance characteristics determinedby LabSopheon. It has not been cleared or approved by the Foodand Drug Administration.PATIENT NOT FASTINGPERFORMED BY: XradiaSarah [place] [id number] [facility] [id number] BY: Xradia[address] [id number] Immature granulocytes (Bld) [#/Vol] 0.0 {x10E3/uL} Normal 0.0-0.1 [facility] Work Phone: Comment on above: Test(s) 870071-Bfhib ium, Plasma; 494189-Wxvl, Plasma or Serumwas developed and its performance characteristics determinedby [employer]. It has not been cleared or approved by the Foodand Drug Administration.PATIENT NOT FASTINGPERFORMED BY: Xradia[address] [id number] BY: [employer] [address] [id number] Immature granulocytes (Bld) [#/Vol] 0.0 10*3/uL Normal 0.0-0.1 [facility]; [facility] Work Phone: Comment on above: Test(s) 048011-Itgoq ium, Plasma; 762725-Xrpa, Plasma or Serumwas developed and its performance characteristics determinedby [employer]. It has not been cleared or approved by the Foodand Drug Administration.PATIENT NOT FASTINGPERFORMED BY: Xradia[address] [id number] BY: Xradia[address] [id number] Immature granulocytes/100 WBC (Bld) 0 % Normal [facility] Work Phone: Comment on above: Test(s) 689073-Oitcv ium, Plasma; 737421-Wckm, Plasma or Serumwas developed and its performance characteristics determinedby [employer]. It has not been cleared or approved by the Foodand Drug Administration.PATIENT NOT FASTINGPERFORMED BY: Xradia[address] [id number] BY: X[employer]ia[address] [id number] Lymphocytes (Bld) [#/Vol] 1.7 {x10E3/uL} Normal 0.7-3.1 [facility] Work Phone: Comment on above: Test(s) 132779-Mzevv ium, Plasma; 585130-Ocgl, Plasma or Serumwas developed and its performance characteristics determinedby LabSopheon. It has not been cleared or approved by the Foodand Drug Administration.PATIENT NOT FASTINGPERFORMED BY: [employer]6370 [facility] [id number] BY: Xradia[address] [id number] Lymphocytes (Bld) [#/Vol] 1.7 10*3/uL Normal 0.7-3.1 [facility]; [facility] Work Phone: Comment on above: Test(s) 908945-Wpwid ium, Plasma; 063053-Xvag, Plasma or Serumwas developed and its performance characteristics determinedby LabSopheon. It has not been cleared or approved by the Foodand Drug Administration.PATIENT NOT FASTINGPERFORMED BY: [employer] Vuwlvg1033 [facility] [id number] BY: Xradia[address] [id number] Lymphocytes/100 WBC (Bld) 25 % Normal [facility] Work Phone: Comment on above: Test(s) 108864-Pvvpr ium, Plasma; 323548-Xvjc, Plasma or Serumwas developed and its performance characteristics determinedby [employer]. It has not been cleared or approved by the Foodand Drug Administration.PATIENT NOT FASTINGPERFORMED BY: [employer] Dsdusy3747 [facility] [id number] BY: Xradia[address] [id number] MCH (RBC) [Entitic mass] 30.8 pg Normal 26.6-33.0 [facility] Work Phone: Comment on above: Test(s) 856782-Etwqo ium, Plasma; 560165-Yyqe, Plasma or Serumwas developed and its performance characteristics determinedby [employer]. It has not been cleared or approved by the Foodand Drug Administration.PATIENT NOT FASTINGPERFORMED BY: CB [employer] Jsuajm7136 [facility] [id number] BY: Xradia[address] [id number] MCHC (RBC) [Mass/Vol] 33.5 g/dL Normal 31.5-35.7 [facility] Work Phone: Comment on above: Test(s) 372067-Dibuw ium, Plasma; 725152-Gmvb, Plasma or Serumwas developed and its performance characteristics determinedby [employer]. It has not been cleared or approved by the Foodand Drug Administration.PATIENT NOT FASTINGPERFORMED BY: twtMoblin6370 [facility] [id number] BY: Xradia[address] [id number] MCV (RBC) [Entitic vol] 92 fL Normal 79-97 [facility] Work Phone: Comment on above: Test(s) 855335-Wwpmf ium, Plasma; 813664-Yilm, Plasma or Serumwas developed and its performance characteristics determinedby [employer]. It has not been cleared or approved by the Foodand Drug Administration.PATIENT NOT FASTINGPERFORMED BY: 3D Sports TechnologyRobert Wood Johnson University Hospital at RahwayEhiqsp2051 [facility] [id number] BY: Xradia[address] [id number] Monocytes (Bld) [#/Vol] 0.5 {x10E3/uL} Normal 0.1-0.9 [facility] Work Phone: Comment on above: Test(s) 750491-Ywywi ium, Plasma; 623225-Ulzq, Plasma or Serumwas developed and its performance characteristics determinedby [employer]. It has not been cleared or approved by the Foodand Drug Administration.PATIENT NOT FASTINGPERFORMED BY: XradiaRobert Wood Johnson University Hospital at RahwayOoyggs5956 [facility] [id number] BY: Xradia[address] [id number] Monocytes (Bld) [#/Vol] 0.5 10*3/uL Normal 0.1-0.9 [facility]; [facility] Work Phone: Comment on above: Test(s) 490342-Zejmy ium, Plasma; 134949-Ckaj, Plasma or Serumwas developed and its performance characteristics determinedby LabSopheon. It has not been cleared or approved by the Foodand Drug Administration.PATIENT NOT FASTINGPERFORMED BY: [employer] [facility] [id number] BY: Xradia[address] [id number] Monocytes/100 WBC (Bld) 8 % Normal [facility] Work Phone: Comment on above: Test(s) 787572-Vpqko ium, Plasma; 405226-Ibbi, Plasma or Serumwas developed and its performance characteristics determinedby [employer]. It has not been cleared or approved by the Foodand Drug Administration.PATIENT NOT FASTINGPERFORMED BY: [employer] [facility] [id number] BY: Xradia[address] [id number] Neutrophils (Bld) [#/Vol] 4.3 {x10E3/uL} Normal 1.4-7.0 [facility] Work Phone: Comment on above: Test(s) 825130-Hcnwa ium, Plasma; 793772-Ftix, Plasma or Serumwas developed and its performance characteristics determinedby LabSophe[employer]. It has not been cleared or approved by the Foodand Drug Administration.PATIENT NOT FASTINGPERFORMED BY: twtMoblin6370 [facility] [id number] BY: Xradia[address] [id number] Neutrophils (Bld) [#/Vol] 4.3 10*3/uL Normal 1.4-7.0 [facility]; [facility] Work Phone: Comment on above: Test(s) 082114-Sbdpl ium, Plasma; 208308-Kpfy, Plasma or Serumwas developed and its performance characteristics determinedby [employer]. It has not been cleared or approved by the Foodand Drug Administration.PATIENT NOT FASTINGPERFORMED BY: [facility] Xxjcvw6938 [facility] [id number] BY: LabCoGrace [place] [id number] Neutrophils/100 WBC (Bld) 65 % Normal [facility] Work Phone: Comment on above: Test(s) 378096-Mdwpd ium, Plasma; 791304-Hqho, Plasma or Serumwas developed and its performance characteristics determinedby [employer]. It has not been cleared or approved by the Foodand Drug Administration.PATIENT NOT FASTINGPERFORMED BY: [facility] Vzphpz6403 [facility] [id number] BY: MemvuCo[address] [id number] Platelets (Bld) [#/Vol] 274 {x10E3/uL} Normal 150-450 [facility] Work Phone: Comment on above: Test(s) 635445-Cxlln ium, Plasma; 021194-Admq, Plasma or Serumwas developed and its performance characteristics determinedby [employer]. It has not been cleared or approved by the Foodand Drug Administration.PATIENT NOT FASTINGPERFORMED BY: [facility] Brojeq6725 [facility] [id number] BY: LabCo[address] [id number] Platelets (Bld) [#/Vol] 274 10*3/uL Normal 150-450 [facility]; [facility] Work Phone: Comment on above: Test(s) 976926-Cexrt ium, Plasma; 312302-Htup, Plasma or Serumwas developed and its performance characteristics determinedby [employer]. It has not been cleared or approved by the Foodand Drug Administration.PATIENT NOT FASTINGPERFORMED BY: CB [facility] Redggu9109 [facility] [id number] BY: LabKreeda Games[address] [id number] RBC (Bld) [#/Vol] 4.67 {x10E6/uL} Normal 3.77-5.28 [facility] Internal Medicine Work Phone: Comment on above: Test(s) 013190-Kamyc ium, Plasma; 665438-Ctpt, Plasma or Serumwas developed and its performance characteristics determinedby LabSopheon. It has not been cleared or approved by the Foodand Drug Administration.PATIENT NOT FASTINGPERFORMED BY: [employer]6370 [facility] [id number] BY: [employer] [id number] RBC (Bld) [#/Vol] 4.67 10*6/uL Normal 3.77-5.28 [facility]; [facility] Work Phone: Comment on above: Test(s) 425139-Qptbc ium, Plasma; 238167-Bkik, Plasma or Serumwas developed and its performance characteristics determinedby [employer]. It has not been cleared or approved by the Foodand Drug Administration.PATIENT NOT FASTINGPERFORMED BY: [employer]70 [facility] [id number] BY: Xradia[address] [id number] WBC (Bld) [#/Vol] 6.7 {x10E3/uL} Normal 3.4-10.8 [facility] Internal [facility] Work Phone: Comment on above: Test(s) 371798-Wcwab ium, Plasma; 923103-Tkvi, Plasma or Serumwas developed and its performance characteristics determinedby [employer]. It has not been cleared or approved by the Foodand Drug Administration.PATIENT NOT FASTINGPERFORMED BY: [employer]6370 [facility] [id number] BY: X[employer]ia[address] [id number] WBC (Bld) [#/Vol] 6.7 10*3/uL Normal 3.4-10.8 [facility]; [facility] Work Phone: Comment on above: Test(s) 265792-Jsctk ium, Plasma; 958023-Xush, Plasma or Serumwas developed and its performance characteristics determinedby [employer]. It has not been cleared or approved by the Foodand Drug Administration.PATIENT NOT FASTINGPERFORMED BY: [employer] Xbwril7942 [place].com[place] [id number] BY: [employer] [id number] FERRITIN (77485)Ordered By: Farm Products Shipper on 06-28-2020 Ferritin [Mass/Vol] 23 ng/mL Normal 15-150 [facility] Internal [facility] Work Phone: Comment on above: Test(s) 084432-Pmxzn ium, Plasma; 995960-Jbhe, Plasma or Serumwas developed and its performance characteristics determinedby [employer]. It has not been cleared or approved by the Foodand Drug Administration.PATIENT NOT FASTINGPERFORMED BY: [employer] Enufgr8647 [place] Softwareblin [place] [id number] BY: [employer] [place] [address] [id number] Folic Acid Serum (15506)Orde red By: Farm Products Shipper on 06-28-2020 Folate [Mass/Vol] ng/mL Normal [facility] Work Phone: Comment on above: A serum folate lori ntration of less than 3.1 ng/mL isconsidered to represent clinical deficiency. Test(s) 448967-Lwtbg ium, Plasma; 818854-Leom, Plasma or Serumwas developed and its performance characteristics determinedby [employer]. It has not been cleared or approved by the Foodand Drug Administration.PATIENT NOT FASTINGPERFORMED BY: [employer] Sdosfx7949 [place] [place] [id number] BY: [employer] [id number] IRON BINDING CAPACITY (TIBC) (32512)Ordered By: Farm Products Shipper on 06-28-2020 Iron [Mass/Vol] 75 ug/dL Normal 27-159 [facility] Internal Medicine Work Phone: Comment on above: Test(s) 991889-Kjcil ium, Plasma; 337890-Auoi, Plasma or Serumwas developed and its performance characteristics determinedby LabSopheon. It has not been cleared or approved by the Foodand Drug Administration.PATIENT NOT FASTINGPERFORMED BY: [facility] Svmtjb2597 GloboforceJane [facility] [id number] BY: [employer] [address] [id number] Iron binding capacity [Mass/Vol] 371 ug/dL Normal 250-450 [facility] Internal Medicine Work Phone: Comment on above: Test(s) 196711-Ddydt ium, Plasma; 232596-Ugll, Plasma or Serumwas developed and its performance characteristics determinedby LabSopheon. It has not been cleared or approved by the Foodand Drug Administration.PATIENT NOT FASTINGPERFORMED BY: [employer] Technologyrp Pgcoln4382 Aplos SoftwareSampson Regional Medical Center [id number] BY: [employer] [id number] Iron binding capacity.unsaturated [Mass/Vol] 296 ug/dL Normal 131-425 [facility] Internal Medicine Work Phone: Comment on above: Test(s) 637993-Louzv ium, Plasma; 335780-Nbwr, Plasma or Serumwas developed and its performance characteristics determinedby [facility]S[employer]. It has not been cleared or approved by the Foodand Drug Administration.PATIENT NOT FASTINGPERFORMED BY: [facility] Gxknri7965 Aplos SoftwareSampson Regional Medical Center [id number] BY: [employer] [address] [id number] Iron saturation [Mass fraction] 20 % Normal 15-55 [facility] Internal Medicine Work Phone: Comment on above: Test(s) 299280-Zhycn ium, Plasma; 080956-Utpd, Plasma or Serumwas developed and its performance characteristics determinedby LabSopheon. It has not been cleared or approved by the Foodand Drug Administration.PATIENT NOT FASTINGPERFORMED BY: [employer] Aterjq8335 [facility] [id number] BY: [employer] [address] [id number] Lipid Panel (54392)Ordered B y: Farm Products Shipper on 06-28-2020 Cholesterol [Mass/Vol] 181 mg/dL Normal 100-199 [facility] Work Phone: Comment on above: Test(s) 639017-Qmkuh ium, Plasma; 192395-Eutv, Plasma or Serumwas developed and its performance characteristics determinedby [employer]. It has not been cleared or approved by the Foodand Drug Administration.PATIENT NOT FASTINGPERFORMED BY: [employer]6370 Boats.comUNC Hospitals Hills[facility] [id number] BY: [employer] [address] [id number] Cholesterol in HDL [Mass/Vol] 57 mg/dL Normal [facility] Work Phone: Comment on above: Test(s) 297406-Bdcfn ium, Plasma; 882777-Lcvg, Plasma or Serumwas developed and its performance characteristics determinedby [employer]. It has not been cleared or approved by the Foodand Drug Administration.PATIENT NOT FASTINGPERFORMED BY: [employer]6370 Aplos SoftwareSampson Regional Medical Center [id number] BY: [employer] [address] [id number] Cholesterol in LDL [Mass/Vol] 100 mg/dL Abnormal 0-99 [facility] Work Phone: Comment on above: Test(s) 594006-Etqth ium, Plasma; 129509-Fovv, Plasma or Serumwas developed and its performance characteristics determinedby [employer]. It has not been cleared or approved by the Foodand Drug Administration.PATIENT NOT FASTINGPERFORMED BY: [employer]6370 ReidStackIQUNC Hospitals Hillsborough [facility] [id number] BY: Camileon Heels[address] [id number] Cholesterol in LDL/Cholesterol in HDL [Mass ratio] 1.8 {ratio} Normal 0.0-3.2 [facility] Work Phone: Comment on above: LDL/HDL Ratio Men Wo men 1/2 Avg.Risk 1.0 1.5 Avg.Risk 3.6 3.2 2X Avg.Risk 6.2 5.0 3X Avg.Risk 8.0 6.1 Test(s) 225581-Uicsg ium, Plasma; 540777-Mqbz, Plasma or Serumwas developed and its performance characteristics determinedby [employer]. It has not been cleared or approved by the Foodand Drug Administration.PATIENT NOT FASTINGPERFORMED BY: [employer]70 Aplos SoftwareSampson Regional Medical Center [id number] BY: [employer] [address] [id number] Cholesterol in VLDL [Mass/Vol] 24 mg/dL Normal 5-40 [facility] Work Phone: Comment on above: Test(s) 927690-Lzqlf ium, Plasma; 653286-Qadk, Plasma or Serumwas developed and its performance characteristics determinedby [employer]. It has not been cleared or approved by the [employer] Drug Administration.PATIENT NOT FASTINGPERFORMED BY: [employer]70 Boats.comUNC Hospitals Hillsborough [facility] [id number] BY: [employer] [address] [id number] Triglyceride [Mass/Vol] 121 mg/dL Normal 0-149 [facility] Work Phone: Comment on above: Test(s) 710115-Vqdrp ium, Plasma; 328417-Owca, Plasma or Serumwas developed and its performance characteristics determinedby [employer]. It has not been cleared or approved by the Foodand Drug Administration.PATIENT NOT FASTINGPERFORMED BY: [employer]70 [facility] [id number] BY: [employer] [id number] MAGNESIUM (54698)Ordered By: Farm Products Shipper on 06-28-2020 Magnesium [Mass/Vol] 2.1 mg/dL Normal 1.6-2.3 [facility] Internal Medicine Work Phone: Comment on above: Test(s) 734735-Pmcwt ium, Plasma; 903564-Kogm, Plasma or Serumwas developed and its performance characteristics determinedby [employer]. It has not been cleared or approved by the Foodand Drug Administration.PATIENT NOT FASTINGPERFORMED BY: 3D Sports TechnologyRobert Wood Johnson University Hospital at RahwayIefyyv1496 [facility] [id number] BY: [employer] [id number] Metabolic Panel, Comprehensi ve (77990)Ordered By: Farm Products Shipper on 06-28-2020 Albumin [Mass/Vol] 4.2 g/dL Normal 3.8-4.8 [facility] Internal Medicine Work Phone: Comment on above: Test(s) 158994-Dbibk ium, Plasma; 814831-Cygg, Plasma or Serumwas developed and its performance characteristics determinedby [employer]. It has not been cleared or approved by the Foodand Drug Administration.PATIENT NOT FASTINGPERFORMED BY: [employer]70 [facility] [id number] BY: [employer] [id number] Albumin/Globulin [Mass ratio] 1.7 {ratio} Normal 1.2-2.2 [facility] Internal Medicine Work Phone: Comment on above: Test(s) 467852-Kmbmj ium, Plasma; 211062-Kwgz, Plasma or Serumwas developed and its performance characteristics determinedby [employer]. It has not been cleared or approved by the Foodand Drug Administration.PATIENT NOT FASTINGPERFORMED BY: 3D Sports TechnologyRobert Wood Johnson University Hospital at RahwayYlzcqm0350 [facility] [id number] BY: [employer] [id number] ALP [Catalytic activity/Vol] 64 [iU]/L Normal 39-117 [facility] Internal Medicine Work Phone: Comment on above: Test(s) 071082-Llvos ium, Plasma; 229225-Egno, Plasma or Serumwas developed and its performance characteristics determinedby [employer]. It has not been cleared or approved by the Foodand Drug Administration.PATIENT NOT FASTINGPERFORMED BY: [facility] Kegjpa4494 [facility] [id number] BY: [place]radiaGrace [place] [id number] ALP [Catalytic activity/Vol] 64 U/L Normal 39-117 [facility]; [facility] Work Phone: Comment on above: Test(s) 557556-Kdpdp ium, Plasma; 428241-Gtmx, Plasma or Serumwas developed and its performance characteristics determinedby [employer]. It has not been cleared or approved by the Foodand Drug Administration.PATIENT NOT FASTINGPERFORMED BY: [facility] Bjjuei0667 [facility] [id number] BY: [employer] [id number] ALT [Catalytic activity/Vol] 20 [iU]/L Normal 0-32 [facility] Work Phone: Comment on above: Test(s) 977683-Eaail ium, Plasma; 487434-Gwfi, Plasma or Serumwas developed and its performance characteristics determinedby [employer]. It has not been cleared or approved by the Foodand Drug Administration.PATIENT NOT FASTINGPERFORMED BY: [facility] Tamosz8436 [facility] [id number] BY: [employer] [id number] ALT [Catalytic activity/Vol] 20 U/L Normal 0-32 [facility]; [facility] Work Phone: Comment on above: Test(s) 422116-Vypsx ium, Plasma; 371451-Ktpj, Plasma or Serumwas developed and its performance characteristics determinedby [employer]. It has not been cleared or approved by the Foodand Drug Administration.PATIENT NOT FASTINGPERFORMED BY: [facility] Iaykvv3050 [facility] [id number] BY: Memvu[address] [id number] AST [Catalytic activity/Vol] 22 [iU]/L Normal 0-40 [facility] Work Phone: Comment on above: Test(s) 835582-Xxkmj ium, Plasma; 885679-Vypj, Plasma or Serumwas developed and its performance characteristics determinedby LabSopheon. It has not been cleared or approved by the Foodand Drug Administration.PATIENT NOT FASTINGPERFORMED BY: [employer]6370 [facility] [id number] BY: [employer] [id number] AST [Catalytic activity/Vol] 22 U/L Normal 0-40 [facility]; [facility] Internal Medicine Work Phone: Comment on above: Test(s) 611673-Zayix ium, Plasma; 352991-Pzzb, Plasma or Serumwas developed and its performance characteristics determinedby [employer]Sophe[employer]. It has not been cleared or approved by the Foodand Drug Administration.PATIENT NOT FASTINGPERFORMED BY: [employer]6370 [facility] [id number] BY: X[employer] [id number] Bilirubin [Mass/Vol] 0.2 mg/dL Normal 0.0-1.2 [facility] Internal Medicine Work Phone: Comment on above: Test(s) 818948-Cikdh ium, Plasma; 648153-Huny, Plasma or Serumwas developed and its performance characteristics determinedby [employer]. It has not been cleared or approved by the Foodand Drug Administration.PATIENT NOT FASTINGPERFORMED BY: [employer] Aralya7428 [facility] [id number] BY: X[employer]ia[address] [id number] Calcium [Mass/Vol] 9.5 mg/dL Normal 8.7-10.2 [facility] Internal Medicine Work Phone: Comment on above: Test(s) 372787-Ahnim ium, Plasma; 339837-Srez, Plasma or Serumwas developed and its performance characteristics determinedby [employer]. It has not been cleared or approved by the Foodand Drug Administration.PATIENT NOT FASTINGPERFORMED BY: [facility] Fsytop9703 [facility] [id number] BY: [employer] [id number] Chloride [Moles/Vol] 102 mmol/L Normal 96-106 [facility] Work Phone: Comment on above: Test(s) 567427-Ndquu ium, Plasma; 391272-Vspi, Plasma or Serumwas developed and its performance characteristics determinedby [employer]Sophe[employer]. It has not been cleared or approved by the Foodand Drug Administration.PATIENT NOT FASTINGPERFORMED BY: [facility] Ajcjwh9170 [facility] [id number] BY: [employer] [id number] CO2 [Moles/Vol] 26 mmol/L Normal 20-29 [facility] Internal Medicine Work Phone: Comment on above: Test(s) 888329-Cnqae ium, Plasma; 172773-Cxxo, Plasma or Serumwas developed and its performance characteristics determinedby [employer]. It has not been cleared or approved by the Foodand Drug Administration.PATIENT NOT FASTINGPERFORMED BY: [facility] Ecdych6217 [facility] [id number] BY: [employer] [id number] Creatinine [Mass/Vol] 1.11 mg/dL Abnormal 0.57-1.00 [facility] Internal Medicine Work Phone: Comment on above: Test(s) 928270-Lduyp ium, Plasma; 129316-Pisp, Plasma or Serumwas developed and its performance characteristics determinedby [employer]. It has not been cleared or approved by the Foodand Drug Administration.PATIENT NOT FASTINGPERFORMED BY: CB [facility] Pffxts2061 [facility] [id number] BY: X[employer]ia[address] [id number] GFR/1.73 sq M predicted among blacks CKD-EPI (S/P/Bld) [Vol rate/Area] 70 mL/min/1.73 Normal [facility] Work Phone: Comment on above: Test(s) 401074-Qenlg ium, Plasma; 679689-Kxyv, Plasma or Serumwas developed and its performance characteristics determinedby [employer]. It has not been cleared or approved by the Foodand Drug Administration.PATIENT NOT FASTINGPERFORMED BY: Everimaging TechnologySampson Regional Medical Center [id number] BY: [employer] [address] [id number] GFR/1.73 sq M predicted among non-blacks CKD-EPI (S/P/Bld) [Vol rate/Area] 61 mL/min/1.73 Normal [facility] Work Phone: Comment on above: Test(s) 097668-Ayyvx ium, Plasma; 662743-Yxxm, Plasma or Serumwas developed and its performance characteristics determinedby [employer]. It has not been cleared or approved by the Foodand Drug Administration.PATIENT NOT FASTINGPERFORMED BY: H2Mob ReidStackIQUNC [facility] [id number] BY: [employer] [id number] Globulin (S) [Mass/Vol] 2.5 g/dL Normal 1.5-4.5 [facility] Internal Medicine Work Phone: Comment on above: Test(s) 366288-Bunun ium, Plasma; 528036-Bqlg, Plasma or Serumwas developed and its performance characteristics determinedby [employer]. It has not been cleared or approved by the Foodand Drug Administration.PATIENT NOT FASTINGPERFORMED BY: [employer] [facility] [id number] BY: Camileon Heels[address] [id number] Glucose [Mass/Vol] 100 mg/dL Abnormal 65-99 [facility] Internal Medicine Work Phone: Comment on above: Test(s) 108835-Txlrk ium, Plasma; 029274-Bebq, Plasma or Serumwas developed and its performance characteristics determinedby LabKreeda Gamesrp. It has not been cleared or approved by the Foodand Drug Administration.PATIENT NOT FASTINGPERFORMED BY: LabKreeda GamesRobert Wood Johnson University Hospital at RahwayFiyhdh3243 [facility] [id number] BY: [address] [id number] Potassium [Moles/Vol] 3.7 mmol/L Normal 3.5-5.2 [facility] Internal Medicine Work Phone: Comment on above: Test(s) 988565-Uenct ium, Plasma; 557587-Tuny, Plasma or Serumwas developed and its performance characteristics determinedby LabSopheon. It has not been cleared or approved by the Foodand Drug Administration.PATIENT NOT FASTINGPERFORMED BY: XradiaRobert Wood Johnson University Hospital at RahwayIxkigt1695 [facility] [id number] BY: [employer] [id number] Protein [Mass/Vol] 6.7 g/dL Normal 6.0-8.5 [facility] Internal Medicine Work Phone: Comment on above: Test(s) 633373-Dofjk ium, Plasma; 854921-Ired, Plasma or Serumwas developed and its performance characteristics determinedby LabKreeda Gamesrp. It has not been cleared or approved by the Foodand Drug Administration.PATIENT NOT FASTINGPERFORMED BY: XradiaRobert Wood Johnson University Hospital at RahwayBlykba1516 [facility] [id number] BY: Memvu[address] [id number] Sodium [Moles/Vol] 141 mmol/L Normal 134-144 [facility] Internal Medicine Work Phone: Comment on above: Test(s) 844731-Qbsqm ium, Plasma; 347830-Jypu, Plasma or Serumwas developed and its performance characteristics determinedby [employer]Sopheon. It has not been cleared or approved by the Foodand Drug Administration.PATIENT NOT FASTINGPERFORMED BY: XradiaRobert Wood Johnson University Hospital at RahwayXwdhbl8303 [facility] [id number] BY: BN [facility] [address] [id number] Urea nitrogen [Mass/Vol] 15 mg/dL Normal 6-24 [facility] Work Phone: Comment on above: Test(s) 127602-Jfevw ium, Plasma; 776612-Brhp, Plasma or Serumwas developed and its performance characteristics determinedby [employer]. It has not been cleared or approved by the Foodand Drug Administration.PATIENT NOT FASTINGPERFORMED BY: [employer] [facility] [id number] BY: [employer] [address] [id number] Urea nitrogen/Creatinine [Mass ratio] 14 mg/mg Normal 9-23 [facility] Work Phone: Comment on above: Test(s) 389641-Zjbmb ium, Plasma; 681630-Hwhe, Plasma or Serumwas developed and its performance characteristics determinedby [employer]. It has not been cleared or approved by the Foodand Drug Administration.PATIENT NOT FASTINGPERFORMED BY: [employer] [facility] [id number] BY: [employer] [address] [id number] PARATHORMONE (38456)Ordered By: Farm Products Shipper on 06-28-2020 Parathyrin.intact [Mass/Vol] 34 pg/mL Normal 15-65 [facility] Internal Medicine Work Phone: Comment on above: Test(s) 055284-Tmcri ium, Plasma; 138849-Ffcw, Plasma or Serumwas developed and its performance characteristics determinedby [employer]. It has not been cleared or approved by the Foodand Drug Administration.PATIENT NOT FASTINGPERFORMED BY: [employer]70 [facility] [id number] BY: Camileon Heels[address] [id number] Phosphorus (72380)Ordered By : Farm Products Shipper on 06-28-2020 Phosphate [Mass/Vol] 2.8 mg/dL Abnormal 3.0-4.3 [facility] Internal Medicine Work Phone: Comment on above: Test(s) 710114-Idgwb ium, Plasma; 117184-Znjt, Plasma or Serumwas developed and its performance characteristics determinedby [employer]. It has not been cleared or approved by the Foodand Drug Administration.PATIENT NOT FASTINGPERFORMED BY: [employer] Ohwfte4304 Boats.comUNC Hospitals Hillsborough Campus [id number] BY: [employer] [id number] RETICULOCYTE COUNT MANUL (85 044)Ordered By: Farm Products Shipper on 06-28-2020 Reticulocytes/100 RBC (Bld) 0.8 % Normal 0.6-2.6 [facility] Internal Medicine Work Phone: Comment on above: Test(s) 935377-Rggcx ium, Plasma; 686734-Pkzh, Plasma or Serumwas developed and its performance characteristics determinedby [employer]. It has not been cleared or approved by the Foodand Drug Administration.PATIENT NOT FASTINGPERFORMED BY: twtMoblin6370 Boats.comUNC Hospitals Hillsborough Campus [id number] BY: [employer] [id number] TSH (58969)Ordered By: [email or web address] International Guest Coordinator on 06-28-2020 TSH Qn 1.200 {uIU/mL} Normal 0.450-4.50 0 [facility] Internal Medicine Work Phone: Comment on above: Test(s) 253208-Johcw ium, Plasma; 913954-Rdyi, Plasma or Serumwas developed and its performance characteristics determinedby [employer]. It has not been cleared or approved by the Foodand Drug Administration.PATIENT NOT FASTINGPERFORMED BY: [employer] Nwlbvw6481 Boats.comUNC Hospitals Hills[facility] Campus [id number] BY: [employer] [address] [id number] VITAMIN A (76173)Ordered By: Farm Products Shipper on 06-28-2020 Retinol [Mass/Vol] 54.8 ug/dL Normal 20.1-62.0 [facility] Internal Medicine Work Phone: Comment on above: Reference intervals for vitamin A determined from [facility] internal[facility]. Individuals with vitamin A less than 20 ug/dL are consideredvitamin A deficient and those with serum concentrations less than10 ug/dL are considered severely deficient. .This test was developed and its performance characteristicsdetermined by [employer]. It has not been cleared or approvedby the Food and Drug Administration. Test(s) 251231-Bzobx ium, Plasma; 291159-Dztc, Plasma or Serumwas developed and its performance characteristics determinedby [employer]. It has not been cleared or approved by the Foodand Drug Administration.PATIENT NOT FASTINGPERFORMED BY: [employer]ang[employer]6370 Aplos Softwareblin [place] [id number] BY: Xradia[address] [id number] VITAMIN B-12 (CYANOCOBALAMIN ) (62966)Ordered By: Farm Products Shipper on 06-28-2020 Cobalamin (Vitamin B12) [Mass/Vol] 838 pg/mL Normal 232-1245 [facility] Internal Medicine Work Phone: Comment on above: Test(s) 299373-Vwqur ium, Plasma; 374140-Opln, Plasma or Serumwas developed and its performance characteristics determinedby [employer]. It has not been cleared or approved by the Foodand Drug Administration.PATIENT NOT FASTINGPERFORMED BY: twtMoblin6370 Boats.comDublin [place] [id number] BY: Xradia[address] [id number] ZINC, BLOOD (71210)Ordered B y: Farm Products Shipper on 06-28-2020 Zinc [Mass/Vol] 63 ug/dL Normal 56-134 [facility] Internal Medicine Work Phone: Comment on above: Detection Limit = 5 Test(s) 213520-Ebznq ium, Plasma; 862950-Gtan, Plasma or Serumwas developed and its performance characteristics determinedby [employer]. It has not been cleared or approved by the Foodand Drug Administration.PATIENT NOT FASTINGPERFORMED BY: [employer] Ctncku4161 Reid RoadDublin [place] [id number] BY: LabCoHealthSouth - Specialty Hospital of UnionJcxretissq8544 [facility] [id number] PROGRESSon 05-09-2019 Protein mass conc HNO ID: [id number] Author: Horacio Hernandez Service: ? Author Type: Physician Type: Progress Notes Filed: 05/09/2019 7:42 AM Note Text: I spent 20+ minutes in the visit, with more than 50% of the total bbfv-so-izgl time of the visit in counseling / coordination of care. She presents with complaints of discoloration of the lower extremities and discomfort. Most of her discomfort is being described as her bones aching generally femoral and somewhat tibial levels. Discoloration seems to be more in the lateral aspects of the thighs. Past history includes gastric bypass surgery and a history of some palpitations and slightly enlarged ascending aorta. There is also a history of headaches. On exam she is an obese area pleasant woman, BMI in the 38 range. She complains of discoloration on the lateral aspects of her thighs and indeed has some venous distention and some of these areas is very superficial. Not quite sure if this is just a lot of reticular veins or varicosities that are fairly small. Doesn't seem to make much difference in terms of distention how she positioned herself. From an arterial standpoint she has adequate perfusion to her feet and palpable pedal pulses. From a body habitus standpoint she has very heavy thighs with more normal shape to the calf and feet level. Mild edema is probably present at the ankle level. There is no varicosities below the knee and really not much in terms of venous abnormalities below the knee although she does have a fairly good Palm at this point. We talked a lot about her discomfort and the only suggestion I have for her is continued weight loss as well as possibility of some compression stockings. These would need to be thigh high would definitely be difficult to fit and where given her body habitus. She could have a venous reflux study but she would be a very difficult patient to get any meaningful information due to her size. At some junction she has a lot more varicosities that are present on a daily basis we might give reflux ultrasound to try but currently her best bet is just to stick with some compression stockings she can find something that comes close to fitting. We'll be happy to see her in the future but right now more of a neuropathy or musculoskeletal issues and anything from a circulatory standpoint. Record created with voice recognition technology The patient is currently taking a statin: No. Reason: Not being treated for arterial disease The patient is currently taking aspirin: No not being treated for arterial disease Normal [facility] CNOVon 05-04-2019 CNOV Office Visit (KIMBERLYNA ) ----- LUNA MAYERS ([id number]) 1975 F Date Time Provider Department 05/04/19 3:30 PM HORACIO HERNANDEZ During your visit today, we recorded the following information about you: Pulse Respiration Blood pressure Weight 74/minute 16/minute 108/70 104.3 kg Height 1.651 m Horacio Hernandez MD 05/09/2019 7:42 AM Signed I spent 20+ minutes in the visit, with more than 50% of the total hlhz-ly-dchz time of the visit in counseling / coordination of care. She presents with complaints of discoloration of the lower extremities and discomfort. Most of her discomfort is being described as her bones aching generally femoral and somewhat tibial levels. Discoloration seems to be more in the lateral aspects of the thighs. Past history includes gastric bypass surgery and a history of some palpitations and slightly enlarged ascending aorta. There is also a history of headaches. On exam she is an obese area pleasant woman, BMI in the 38 range. She complains of discoloration on the lateral aspects of her thighs and indeed has some venous distention and some of these areas is very superficial. Not quite sure if this is just a lot of reticular veins or varicosities that are fairly small. Doesn't seem to make much difference in terms of distention how she positioned herself. From an arterial standpoint she has adequate perfusion to her feet and palpable pedal pulses. From a body habitus standpoint she has very heavy thighs with more normal shape to the calf and feet level. Mild edema is probably present at the ankle level. There is no varicosities below the knee and really not much in terms of venous abnormalities below the knee although she does have a fairly good Palm at this point. We talked a lot about her discomfort and the only suggestion I have for her is continued weight loss as well as possibility of some compression stockings. These would need to be thigh high would definitely be difficult to fit and where given her body habitus. She could have a venous reflux study but she would be a very difficult patient to get any meaningful information due to her size. At some junction she has a lot more varicosities that are present on a daily basis we might give reflux ultrasound to try but currently her best bet is just to stick with some compression stockings she can find something that comes close to fitting. We'll be happy to see her in the future but right now more of a neuropathy or musculoskeletal issues and anything from a circulatory standpoint. Record created with voice recognition technology The patient is currently taking a statin: No. Reason: Not being treated for arterial disease The patient is currently taking aspirin: No not being treated for arterial disease Referring Provider: BESSY FINNEGAN [[id number]] Allergies As of Date: 05/04/2019 (No Known Allergies) Date Reviewed: 05/04/2019 Reviewed by: Rolanda Ventura LPN - Fully Assessed Reason for Visit: New Patient Evaluation [154] Cmt: Rfd by Dr. Finnegan for leg pain,swelling AND discoloration. Primary Visit Diagnosis:Pain in both lower extremities [M79.604, M79.605] Other Visit Diagnosis:Discoloration of skin of lower leg [L81.9] Prescriptions as of 05/04/2019 Sig: MAGNESIUM 200 MG TABLET Take 1 tablet by mouth twice * NADOLOL 40 MG TABLET NARATRIPTAN 2.5 MG TABLET BUPROPION XL 150 MG TAB Take 150 mg by mouth once rima* AMITRIPTYLINE 50 MG TABLET Take 50 mg by mouth daily at * HYDROCHLOROTHIAZIDE 25 MG TAB* Take 25 mg by mouth once mayra* KETOPROFEN ORAL Take by mouth. PROCHLORPERAZINE MALEATE 10 M* Take 10 mg by mouth every 6 h* DESVENLAFAXINE SUCCINATE ER 5* Take 50 mg by mouth once mayra* MAXALT-PLUMBER MAINTENANCE 10 MG DISINTEGRATI* as directed FERROUS SULFATE 325 MG (65 MG* Take 325 mg by mouth daily wi* DOCUSATE SODIUM 100 MG CAPSULE Take 100 mg by mouth twice da* SUMAVEL DOSEPRO SUBCUTANEOUS Inject subcutaneously. Problem List As Of Date 05/04/2019 Noted Resolved ADJUSTMENT DISORDER WITH DEPRESSED MOOD [F43.21]INVALID FOR* COMMON MIGRAINE W/O MENTN INTRACT [G43.009] INVALID FOR* Disposition: Return if symptoms worsen or fail to improve. Follow-up and Disposition History Recorded Letter Text Encounter Status:Closed by HORACIO HERNANDEZ MD on 05/09/19 Normal [facility] CALCIFEDIOL (03875)Ordered B y: Farm Products Shipper on 04-06-2019 25-Hydroxyvitamin D2+25-Hydroxyvitamin D3 mass conc 40.4 ng/mL Normal 30.0-100.0 [facility] Work Phone: Comment on above: Vitamin D deficiency has been defined by the [place] of[place]icine and an Endocrine Society practice guideline as alevel of serum 25-OH vitamin D less than 20 ng/mL (1,2).The Endocrine Society went on to further define vitamin Dinsufficiency as a level between 21 and 29 ng/mL (2).1. IOM ([place] of Medicine). 2010. Dietary reference intakes for calcium and D. [place]: The National Academies Press.2. Karlos MF, [place], Marina JENKINS, et al. Evaluation, treatment, and prevention of vitamin D deficiency: an Endocrine Society clinical practice guideline. JCEM. 2010; 96(7):1911-30. PATIENT NOT FASTINGP ERFORMED BY: [employer]70 Aplos SoftwareSampson Regional Medical Center [id number] BY: Meus[employer] [id number] Ferritin (91932)Ordered By: Farm Products Shipper on 04-06-2019 Ferritin mass conc 29 ng/mL Normal 15-150 [facility] Internal Medicine Work Phone: Comment on above: PATIENT NOT FASTINGP ERFORMED BY: [employer] Tjnvuo1482 [address] [facility] [id number] BY: Me[employer] [id number] Folic Acid Serum (76072)Orde red By: Farm Products Shipper on 04-06-2019 Folate mass conc ng/mL Normal Comprehe nsive Internal Medicine Work Phone: Comment on above: A serum folate lori ntration of less than 3.1 ng/mL isconsidered to represent clinical deficiency. PATIENT NOT FASTINGP ERFORMED BY: CB [facility] Zqxydk3669 Reid RoadDublin [place] [id number] BY: Memvu[address] [id number] Iron Binding Capacity (TIBC) (86887)Ordered By: Farm Products Shipper on 04-06-2019 Iron binding capacity mass conc 363 ug/dL Normal 250-450 [facility] Work Phone: Comment on above: PATIENT NOT FASTINGP ERFORMED BY: CB [facility] Cwisap5546 Reid RoadDublin [place] [id number] BY: Memvu[address] [id number] Iron binding capacity.unsaturated mass conc 170 ug/dL Normal 131-425 [facility] Work Phone: Comment on above: PATIENT NOT FASTINGP ERFORMED BY: CB [facility] Mvuhyg2207 Reid RoadDublin [place] [id number] BY: Lab[address] [id number] Iron mass conc 193 ug/dL Abnormal 27-159 Comprehens velma Internal Medicine Work Phone: Comment on above: PATIENT NOT FASTINGP ERFORMED BY: CB [facility] Cqfpna7180 Reid RoadDublin [place] [id number] BY: [facility] [address] [id number] Iron saturation mass fraction 53 % Normal 15-55 [facility] Work Phone: Comment on above: PATIENT NOT FASTINGP ERFORMED BY: CB [facility] Bdxnwr8238 Reid RoadDublin [place] [id number] BY: [address] [id number] Methymalonic Acid, Serum (83 921)Ordered By: Farm Products Shipper on 04-06-2019 Methylmalonate molar conc 178 nmol/L Normal 0-378 [facility] Work Phone: Comment on above: PATIENT NOT FASTINGP ERFORMED BY: SOFIE Archuleta6370 [facility] [id number] BY: Xradia[address] [id number] Methymalonic Acid, Serum (31748) [facility] Normal [facility] Work Phone: Comment on above: This test was develo ped and its performance characteristicsdetermined by [employer]. It has not been cleared or approvedby the Food and Drug Administration. PATIENT NOT FASTINGP ERFORMED BY: SOFIE RowleyKreeda Gamesgely ArchuletaUceild1528 [facility] [id number] BY: Xradia[address] [id number] TSH (THYROID STIMULATING HOR YAAKOV) (47106)Ordered By: Farm Products Shipper on 04-06-2019 Thyrotropin Qn 1.060 {uIU/mL} Normal 0.450-4.50 0 [facility] Work Phone: Comment on above: PATIENT NOT FASTINGP ERFORMED BY: SOFIE Archuleta6370 [facility] [id number] BY: Xradia[address] [id number] Vitamin B-12 (cyanocobalamin ) (42341)Ordered By: Farm Products Shipper on 04-06-2019 Cobalamin (Vitamin B12) mass conc 1472 pg/mL Abnormal 232-1245 [facility] Work Phone: Comment on above: PATIENT NOT FASTINGP ERFORMED BY: SOFIE [employer] Lgnklm7331 [facility] [id number] BY: Xradia[address] [id number] Metabolic Panel, Basic (8004 8)Ordered By: Farm Products Shipper on 02-16-2018 Calcium mass conc 9.0 mg/dL Normal 8.7-10.2 Compreh ensive Internal Medicine Work Phone: Comment on above: PATIENT NOT FASTINGP ERFORMED BY: CB [facility] Tbqtoj4921 Reid RoadDublin [place] [id number] Chloride molar conc 100 mmol/L Normal 96-106 Compr ehensive Internal Medicine Work Phone: Comment on above: PATIENT NOT FASTINGP ERFORMED BY: CB [facility] Zdjsoa1722 [address] Roadblin [place] [id number] CO2 molar conc 25 mmol/L Normal 18-29 Comprehens velma Internal Medicine Work Phone: Comment on above: PATIENT NOT FASTINGP ERFORMED BY: CB [facility] Rorfac9921 [address] Roadblin [place] [id number] Creatinine mass conc 1.12 mg/dL Abnormal 0.57-1.00 Comp rehensive Internal Medicine Work Phone: Comment on above: PATIENT NOT FASTINGP ERFORMED BY: CB [facility] Ippqqe1851 [address] [facility] [place] [id number] GFR/1.73 sq M predicted among blacks CKD-EPI vol rate/area (S/P/Bld) 71 mL/min/1.73 Normal Comprehensiv e Internal Medicine Work Phone: Comment on above: PATIENT NOT FASTINGP ERFORMED BY: CB [facility] Kwhloo3718 [address] RoadCritical Access Hospitalin [place] [id number] GFR/1.73 sq M predicted among non-blacks CKD-EPI vol rate/area (S/P/Bld) 61 mL/min/1.73 Normal [facility] Work Phone: Comment on above: PATIENT NOT FASTINGP ERFORMED BY: CB [facility] Nfbcpx6817 [address] RoadCritical Access Hospitalin [place] [id number] Glucose mass conc 82 mg/dL Normal 65-99 Compreh ensive Internal Medicine Work Phone: Comment on above: PATIENT NOT FASTINGP ERFORMED BY: CB [facility] Izjorf3237 [address] Roadblin [place] [id number] Potassium molar conc 3.7 mmol/L Normal 3.5-5.2 Comp rehensive Internal Medicine Work Phone: Comment on above: PATIENT NOT FASTINGP ERFORMED BY: CB [facility] Lplqwd2678 [address] RoadDublin [place] [id number] Sodium molar conc 141 mmol/L Normal 134-144 Compreh ensive Internal Medicine Work Phone: Comment on above: PATIENT NOT FASTINGP ERFORMED BY: CB [facility] Umqdus3799 [address] RoadDublin [place] [id number] Urea nitrogen mass conc 17 mg/dL Normal 6-24 [facility] Work Phone: Comment on above: PATIENT NOT FASTINGP ERFORMED BY: CB [facility] Nwumvm1021 [address] RoadDublin [place] [id number] Urea nitrogen/Creatinine mass ratio 15 mg/mg Normal 9-23 [facility] Work Phone: Comment on above: PATIENT NOT FASTINGP ERFORMED BY: CB [facility] Tktite4019 [address] RoadDublin [place] [id number] PARATHORMONE (78036)Ordered By: Farm Products Shipper on 02-16-2018 Parathyrin.intact mass conc 27 pg/mL Normal 15-65 [facility] Work Phone: Comment on above: PATIENT NOT FASTINGP ERFORMED BY: CB [facility] Pbvmmr1382 [address] RoadDublin [place] [id number] URVASHI (ANTINUCLEAR ANTIBODY) ( 19931)Ordered By: Farm Products Shipper on 10-21-2017 Nuclear Ab Ql (S) Negative Normal Compreh ensive Internal Medicine Work Phone: Comment on above: PATIENT NOT FASTINGP ERFORMED BY: CB [facility] Ahbbcp5008 Reid RoadDublin [place] [id number] BY: [address] [id number] Nuclear Ab Ql (S) Negative Normal Compreh ensive Internal Medicine; [facility] Work Phone: Comment on above: PATIENT NOT FASTINGP ERFORMED BY: CB [facility] Rtemeg3193 [address] RoadDublin [place] [id number] BY: [facility] [address] [id number] C-REACTIVE PROTEIN (43644)Or dered By: Farm Products Shipper on 10-21-2017 CRP mass conc 0.4 mg/L Normal 0.0-4.9 Comprehensi Internal Medicine Work Phone: Comment on above: PATIENT NOT FASTINGP ERFORMED BY: [employer]70 [facility] [id number] BY: Xradia[address] [id number] CALCIFIDIOL (10354) VIT D 25 Ordered By: Farm Products Shipper on 10-21-2017 25-Hydroxyvitamin D2+25-Hydroxyvitamin D3 mass conc 39.8 ng/mL Normal 30.0-100.0 [facility] Internal Medicine Work Phone: Comment on above: Vitamin D deficiency has been defined by the [place] ofMer[facility] Hospitalcine and an Endocrine Society practice guideline as alevel of serum 25-OH vitamin D less than 20 ng/mL (1,2).The Endocrine Society went on to further define vitamin Dinsufficiency as a level between 21 and 29 ng/mL (2).1. IOM ([place] of [place]). 2010. Dietary reference intakes for calcium and D. [place]: The National Academies Press.2. Karlos MF, Alice CERNA, Marina JENKINS, et al. Evaluation, treatment, and prevention of vitamin D deficiency: an Endocrine Society clinical practice guideline. JCEM. 2010; 96(7):1911-30. PATIENT NOT FASTINGP ERFORMED BY: [employer]6370 [facility] [id number] BY: Xradia[address] [id number] CBC (AUTO) (92172)Ordered By : Farm Products Shipper on 10-21-2017 Erythrocyte distribution width Auto Ratio (RBC) 14.2 % Normal 12.3-15.4 [facility] Internal Medicine Work Phone: Erythrocyte distribution width Ratio (RBC) 14.2 % Normal 12.3-15.4 [facility] Internal Medicine Work Phone: Comment on above: PATIENT NOT FASTINGP ERFORMED BY: [employer] Azdobb6779 [facility] [id number] BY: Xradia[address] [id number] Hematocrit Auto Volume Fraction (Bld) 40.6 % Normal 34.0-46.6 Comprehens [facility] Internal Medicine Work Phone: Hematocrit Volume Fraction (Bld) 40.6 % Normal 34.0-46.6 [facility] Work Phone: Comment on above: PATIENT NOT FASTINGP ERFORMED BY: SOFIE XradiaSarah [place] [id number] [facility] [id number] BY: Xradia[address] [id number] Hemoglobin mass conc (Bld) 13.5 g/dL Normal 11.1-15.9 [facility] Work Phone: Comment on above: Please note refere nce interval change PATIENT NOT FASTINGP ERFORMED BY: SOFIE [employer]ia Yocwfb3014 [facility] [id number] BY: Xradia[address] [id number] MCH Auto Entitic mass (RBC) 28.6 pg Normal 26.6-33.0 [facility] Work Phone: MCH Entitic mass (RBC) 28.6 pg Normal 26.6-33.0 [facility] Work Phone: Comment on above: PATIENT NOT FASTINGP ERFORMED BY: SOFIE XradiaSarah [place] [id number] [facility] [id number] BY: Xradia[address] [id number] MCHC Auto mass conc (RBC) 33.3 g/dL Normal 31.5-35.7 [facility] Work Phone: MCHC mass conc (RBC) 33.3 g/dL Normal 31.5-35.7 Comp rehensive Internal Medicine Work Phone: Comment on above: PATIENT NOT FASTINGP ERFORMED BY: SOFIE XradiaSarah [place] [id number] [facility] [id number] BY: [address] [id number] MCV Auto Entitic volume (RBC) 86 fL Normal 79-97 [facility] Work Phone: MCV Entitic volume (RBC) 86 fL Normal 79-97 [facility] Work Phone: Comment on above: PATIENT NOT FASTINGP ERFORMED BY: SOFIE [facility] Ybuiuj5274 [facility] [id number] BY: [address] [id number] Platelets #/vol (Bld) 321 {x10E3/uL} Normal 150-379 [facility] Work Phone: Comment on above: PATIENT NOT FASTINGP ERFORMED BY: SOFIE [employer]Co Mxqvkl8545 [facility] [id number] BY: [address] [id number] Platelets (Bld) [#/Vol] 321 10*3/uL Normal 150-379 [facility]; [facility] Work Phone: Comment on above: PATIENT NOT FASTINGP ERFORMED BY: SOFIE [employer]Co Jlcqyn9868 [facility] [id number] BY: [address] [id number] Platelets Auto #/vol (Bld) 321 {x10E3/uL} Normal 150-379 [facility] Work Phone: RBC #/vol (Bld) 4.72 {x10E6/uL} Normal 3.77-5.28 Comp [facility] Internal Medicine Work Phone: Comment on above: PATIENT NOT FASTINGP ERFORMED BY: SOFIE [facility] Bsdten1881 [facility] [id number] BY: [address] [id number] RBC (Bld) [#/Vol] 4.72 10*6/uL Normal 3.77-5.28 [facility]; [facility] Work Phone: Comment on above: PATIENT NOT FASTINGP ERFORMED BY: SOFIE HalleyKreeda Games Uzggrh0515 [facility] [id number] BY: [address] [id number] RBC Auto #/vol (Bld) 4.72 {x10E6/uL} Normal 3.77-5.28 [facility] Work Phone: WBC #/vol (Bld) 7.8 {x10E3/uL} Normal 3.4-10.8 [facility] Internal Medicine Work Phone: Comment on above: PATIENT NOT FASTINGP ERFORMED BY: XradiaSarah [place] [id number] [facility] [id number] BY: [address] [id number] WBC (Bld) [#/Vol] 7.8 10*3/uL Normal 3.4-10.8 [facility]; [facility] Internal Medicine Work Phone: Comment on above: PATIENT NOT FASTINGP ERFORMED BY: SOFIE Xradia Wirivc3424 [facility] [id number] BY: [address] [id number] WBC Auto #/vol (Bld) 7.8 {x10E3/uL} Normal 3.4-10.8 [facility] Work Phone: CCP ANTIBODY ([id number])Ordered By: Farm Products Shipper on 10-21-2017 Cyclic citrullinated peptide IgA+IgG IA Qn 6 {units} Normal 0-19 Comprehens [facility] Internal Medicine Work Phone: Comment on above: Negative <20 Weak po sitive 20 - 39 Moderate positive 40 - 59 Strong positive >59 PATIENT NOT FASTINGP ERFORMED BY: LabKreeda Games Nmcumu2575 [facility] [id number] BY: Camileon Heels[address] [id number] CMV IGM ANTBDY (64009)Ordere d By: Farm Products Shipper on 10-21-2017 CMV IgM IA Qn <30.0 Normal 0.0-29.9 Comprehensi Internal Medicine Work Phone: Comment on above: Negative <30.0 Equiv ocal 30.0 - 34.9 Positive >34.9 A positive result is generally indicative of acute infection, reactivation or persistent IgM production. PATIENT NOT FASTINGP ERFORMED BY: [employer]70 [address] [facility] [id number] BY: [employer] [address] [id number] EB ANTIBODY VIRAL CAPSID (86 665) [id number] By: Farm Products Shipper on 10-21-2017 EBV capsid IgG IA Qn (S) 579.0 U/mL Abnormal 0.0-17.9 [facility] Internal Medicine Work Phone: Comment on above: Negative <18.0 Equiv ocal 18.0 - 21.9 Positive >21.9 PATIENT NOT FASTINGP ERFORMED BY: [employer] Tllmtd7192 [facility] [id number] BY: Camileon Heels[address] [id number]; can review on 10/28 EBV capsid IgM IA Qn (S) <36.0 Normal 0.0-35.9 [facility] Work Phone: Comment on above: Negative <36.0 Equiv ocal 36.0 - 43.9 Positive >43.9 PATIENT NOT FASTINGP ERFORMED BY: [employer]6370 [facility] [id number] BY: Xradia[address] [id number]; can review on 10/28 EBV early IgG Qn (S) <9.0 Normal 0.0-8.9 [facility] Work Phone: Comment on above: Negative < 9.0 Equiv ocal 9.0 - 10.9 Positive >10.9 PATIENT NOT FASTINGP ERFORMED BY: [employer]70 [address] [facility] [id number] BY: Xradia[address] [id number]; can review on 10/28 EBV nuclear IgG IA Qn (S) 93.9 U/mL Abnormal 0.0-17.9 [facility] Work Phone: Comment on above: Negative <18.0 Equiv ocal 18.0 - 21.9 Positive >21.9 PATIENT NOT FASTINGP ERFORMED BY: Searchd[employer]on [facility] [id number] BY: Xradia[address] [id number]; can review on 10/28 Service comment Interp (Unsp spec) SPRCS Normal [facility] Work Phone: Comment on above: EBV Interpretation C walsh . Interpretation EBV-IgM EA(D)-IgG VCA-IgG EBNA-IgG . EBV Seronegative - - - - Early Phase + - - - Acute Primary + +or- + - Infection Convalescence/Past - +or- + + Infection Reactivated +or- + + + Infection + Antibody Present - Antibody Absent PATIENT NOT FASTINGP ERFORMED BY: [employer]6370 [facility] [id number] BY: Xradia[address] [id number]; can review on 10/28 Folate ([id number])Ordered By: stem [employer] Guest Coordinator on 10-21-2017 Folate mass conc ng/mL Normal Comprehe nsive Internal Medicine Work Phone: Comment on above: A serum folate lori ntration of less than 3.1 ng/mL isconsidered to represent clinical deficiency. PATIENT NOT FASTINGP ERFORMED BY: [employer]6370 [facility] [id number] BY: Xradia[address] [id number] METABOLIC PANEL, COMPREHENSI VE (46637)Ordered By: Farm Products Shipper on 10-21-2017 Albumin mass conc 4.3 g/dL Normal 3.5-5.5 Compreh ensive Internal Medicine Work Phone: Comment on above: PATIENT NOT FASTINGP ERFORMED BY: CB [facility] Aeojes8862 [address] RoadDublin [place] [id number] BY: Lab[address] [id number] Albumin/Globulin mass ratio 1.4 {ratio} Normal 1.2-2.2 [facility] Work Phone: Comment on above: PATIENT NOT FASTINGP ERFORMED BY: CB [facility] Dbgfjr9139 Reid RoadDublin [place] [id number] BY: LabCo[address] [id number] ALP [Catalytic activity/Vol] 60 U/L Normal 39-117 [facility]; [facility] Work Phone: Comment on above: PATIENT NOT FASTINGP ERFORMED BY: CB [facility] Ecbotc3253 [address] RoadDublin [place] [id number] BY: Lab[address] [id number] ALP enzyme act/vol 60 [iU]/L Normal 39-117 Compre [facility] Internal Medicine Work Phone: Comment on above: PATIENT NOT FASTINGP ERFORMED BY: CB [facility] Xyvaze9801 [address] RoadDuin [place] [id number] BY: [facility] [address] [id number] ALT [Catalytic activity/Vol] 34 U/L Abnormal 0-32 [facility]; [facility] Work Phone: Comment on above: PATIENT NOT FASTINGP ERFORMED BY: CB [facility] Qyujyu7773 [address] RoadDublin [place] [id number] BY: Lab[address] [id number] ALT enzyme act/vol 34 [iU]/L Abnormal 0-32 Compre hensive Internal Medicine Work Phone: Comment on above: PATIENT NOT FASTINGP ERFORMED BY: SOFIE [facility] Kpacjn6789 [address] RoadDublin [place] [id number] BY: LabCo[address] [id number] AST [Catalytic activity/Vol] 25 U/L Normal 0-40 [facility]; [facility] Work Phone: Comment on above: PATIENT NOT FASTINGP ERFORMED BY: SOFIE [facility] Fkmzmz0405 [address] RoadDublin [place] [id number] BY: Lab[address] [id number] AST enzyme act/vol 25 [iU]/L Normal 0-40 [facility] Internal Medicine Work Phone: Comment on above: PATIENT NOT FASTINGP ERFORMED BY: SOFIE [facility] Skbfvy5429 Reid RoadUNC Hospitals Hillsborough Campus [id number] BY: Lab[address] [id number] Bilirubin [Mass/Vol] mg/dL Normal 0.0-1.2 [facility]; [facility] Internal Medicine Work Phone: Comment on above: PATIENT NOT FASTINGP ERFORMED BY: SOFIE [facility] [id number] Reid Roadblin [place] [id number] BY: [address] [id number] Bilirubin mass conc mg/dL Normal 0.0-1.2 [facility] Internal Medicine Work Phone: Comment on above: PATIENT NOT FASTINGP ERFORMED BY: SOFIE [facility] Ejaneh[address] [facility] [place] [id number] BY: [address] [id number] Calcium mass conc 9.1 mg/dL Normal 8.7-10.2 [facility] Internal Medicine Work Phone: Comment on above: PATIENT NOT FASTINGP ERFORMED BY: SOFIE [facility] [id number] [address] [facility] [id number] BY: [facility] [address] [id number] Chloride molar conc 99 mmol/L Normal 96-106 Compr ehensive Internal Medicine Work Phone: Comment on above: PATIENT NOT FASTINGP ERFORMED BY: CB [facility] Lncinl5618 Reid RoadUNC Hospitals Hillsborough Campus [id number] BY: BN [facility] [address] [id number] CO2 molar conc 25 mmol/L Normal 18-29 Comprehens [facility] Internal Medicine Work Phone: Comment on above: PATIENT NOT FASTINGP ERFORMED BY: CB [facility] Ebters0981 Reid RoadUNC Hospitals Hills[facility] [id number] BY: [facility] [address] [id number] Creatinine mass conc 0.98 mg/dL Normal 0.57-1.00 [facility] Work Phone: Comment on above: PATIENT NOT FASTINGP ERFORMED BY: CB [facility] [id number] [address] [facility] [id number] BY: [facility] [address] [id number] GFR/1.73 sq M predicted among blacks CKD-EPI vol rate/area (S/P/Bld) 83 mL/min/1.73 Normal Comprehensiv e Internal Medicine Work Phone: Comment on above: PATIENT NOT FASTINGP ERFORMED BY: CB [facility] [id number] [address] [facility] [id number] BY: [facility] [address] [id number] GFR/1.73 sq M predicted among non-blacks CKD-EPI vol rate/area (S/P/Bld) 72 mL/min/1.73 Normal [facility] Medicine Work Phone: Comment on above: PATIENT NOT FASTINGP ERFORMED BY: CB [facility] Nsxrpx7421 Reid [facility] [place] [id number] BY: [address] [id number] Globulin Calculated mass conc (S) 3.0 g/dL Normal 1.5-4.5 [facility] Work Phone: Globulin mass conc (S) 3.0 g/dL Normal 1.5-4.5 [facility] Work Phone: Comment on above: PATIENT NOT FASTINGP ERFORMED BY: [place] [id number] [facility] [id number] BY: [address] [id number] Glucose mass conc 84 mg/dL Normal 65-99 Compreh ensive Internal Medicine Work Phone: Comment on above: PATIENT NOT FASTINGP ERFORMED BY: [place] [id number] [facility] [id number] BY: [address] [id number] Potassium molar conc 3.4 mmol/L Abnormal 3.5-5.2 Comp rehensive Internal Medicine Work Phone: Comment on above: Client Requested [place] g PATIENT NOT FASTINGP ERFORMED BY: [place] [id number] [facility] [id number] BY: [address] [id number] Protein mass conc 7.3 g/dL Normal 6.0-8.5 Compreh ensive Internal Medicine Work Phone: Comment on above: PATIENT NOT FASTINGP ERFORMED BY: LabYesenia [place] [id number] [facility] [id number] BY: [address] [id number] Sodium molar conc 142 mmol/L Normal 134-144 Compreh ensive Internal Medicine Work Phone: Comment on above: PATIENT NOT FASTINGP ERFORMED BY: Lab[address] Streetblin [place] [id number] BY: LabCo[address] [id number] Urea nitrogen mass conc 19 mg/dL Normal 6-24 [facility] Internal Medicine Work Phone: Comment on above: PATIENT NOT FASTINGP ERFORMED BY: SOFIE [facility] Endgrz3063 Reid RoadDublin [place] [id number] BY: [facility] [address] [id number] Urea nitrogen/Creatinine mass ratio 19 mg/mg Normal 9- [facility] Internal Medicine Work Phone: Comment on above: PATIENT NOT FASTINGP ERFORMED BY: SOFIE [facility] [id number] [address] [facility] [id number] BY: [facility] [address] [id number] RHEUMATOID FACTOR-QUANT (869 11)Ordered By: Farm Products Shipper on 10-21-2017 Rheumatoid factor Qn [IU]/mL Normal 0.0-13.9 [facility] Work Phone: Comment on above: PATIENT NOT FASTINGP ERFORMED BY: SOFIE [facility] [id number] [address] [facility] [id number] BY: LabCo[address] [id number] Rheumatoid factor Qn [IU]/mL Normal 0.0-13.9 Comp rehensive Internal Medicine; [facility] Internal Medicine Work Phone: Comment on above: PATIENT NOT FASTINGP ERFORMED BY: CB [facility] Hjpkoy1289 Reid RoadDuSampson Regional Medical Center [id number] BY: LabCo[address] [id number] SED RATE ERYTHROCYTE ([id number]) Ordered By: Farm Products Shipper on 10-21-2017 ESR Velocity (Bld) 9 mm/h Normal 0-32 Compre [facility] Internal Medicine Work Phone: Comment on above: PATIENT NOT FASTINGP ERFORMED BY: SOFIE [facility] Kawphq6450 Reid [facility]in [place] [id number] BY: Camileon HeelsKenneth V[place] 559717 [facility] [id number] TSH ([id number])Ordered By: StorPooldominick m [employer] Guest Coordinator on 10-21-2017 Thyrotropin Qn 0.766 {uIU/mL} Normal 0.450-4.50 0 [facility] Internal Medicine Work Phone: Comment on above: PATIENT NOT FASTINGP ERFORMED BY: [employer] [id number] [facility] [id number] BY: [employer] [id number] VITAMIN B-12 (CYANOCOBALAMIN ) ([id number])Ordered By: Farm Products Shipper on 10-21-2017 Cobalamin (Vitamin B12) mass conc 902 pg/mL Normal 232-1245 [facility] Medicine Work Phone: Comment on above: Please note refere nce interval change PATIENT NOT FASTINGP ERFORMED BY: [employer] Gaaexh5436 [facility] [id number] BY: Camileon Heels [id number] [id number] Comprehensive Metabolic Prof ilOrdered By: Farm Products Shipper on 07-03-2017 Comprehensive metabolic 2000 panel 0.85 mg/dL Normal 0.55-1.02 Comprehensi ve Internal Medicine Work Phone: Comment on above: The validity of the calculated GFR AND GFRAA in patients over70 years has not been determined. Clinical correlation isessential. Comprehensive metabolic 2000 panel 3.5 mmol/L Normal 3.5-5.1 Comprehensi ve Internal Medicine Work Phone: Comprehensive metabolic 2000 panel 140 mmol/L Normal 136-145 Comprehensi ve Internal Medicine Work Phone: Comprehensive metabolic 2000 panel 0.30 mg/dL Normal 0.20-1.00 Comprehensi ve Internal Medicine Work Phone: Comprehensive metabolic 2000 panel 30 U/L Normal 12-78 Comprehensi ve Internal Medicine Work Phone: Comprehensive metabolic 2000 panel 51 U/L Normal 45-117 Comprehensi ve Internal Medicine Work Phone: Comprehensive metabolic 1999 panel 19 U/L Normal 15-37 Comprehensi ve Internal Medicine Work Phone: Comprehensive metabolic 1999 panel 8.4 mg/dL Abnormal 8.5-10.1 Comprehensi ve Internal Medicine Work Phone: Comprehensive metabolic 1999 panel 95 mL/min Normal Comprehensi ve Internal Medicine Work Phone: Comment on above: GFR Calc Comprehensive metabolic 1999 panel 106 mmol/L Normal 98-107 Comprehensi ve Internal Medicine Work Phone: Comprehensive metabolic 1999 panel 14 mg/dL Normal 7-18 Comprehensi ve Internal Medicine Work Phone: Comprehensive metabolic 1999 panel 84 mg/dL Normal 70-110 Comprehensi ve Internal Medicine Work Phone: Comprehensive metabolic 1999 panel 1.0 {RATIO} Normal 0.9-2.4 Comprehensi ve Internal Medicine Work Phone: Comprehensive metabolic 1999 panel 4 1 Abnormal 5-15 Comprehensi ve Internal Medicine Work Phone: Comprehensive metabolic 1999 panel 3.4 g/dL Normal 2.3-3.5 Comprehensi ve Internal Medicine Work Phone: Comprehensive metabolic 1999 panel 3.3 g/dL Abnormal 3.4-5.0 Comprehensi ve Internal Medicine Work Phone: Comprehensive metabolic 1999 panel 6.7 g/dL Normal 6.4-8.2 Comprehensi ve Internal Medicine Work Phone: Comprehensive metabolic 1999 panel 16.4 {RATIO} Normal 10-20 Comprehensi ve Internal Medicine Work Phone: Comprehensive metabolic 1999 panel 78 mL/min Normal Comprehensi ve Internal Medicine Work Phone: Comment on above: Non- GFR Calc Comprehensive metabolic 1999 panel 30.0 mmol/L Normal 21.0-32.0 Comprehensi ve Internal Medicine Work Phone: FerritinOrdered By: Wolfgang francis on 07-03-2017 Ferritin mass conc 7 ng/mL Abnormal 8-252 Compre hensive Internal Medicine Work Phone: Folates, (Folic Acid)Ordered By: Farm Products Shipper on 07-03-2017 FOLATES 24.00 ng/mL Abnormal 3.1-17.5 [facility] Medicine Work Phone: Hemoglobin [id number] By: [employer] Guest Coordinator on 07-03-2017 Hemoglobin A1c/Hemoglobin.total mass fraction (Bld) 5.3 % Normal 4.2-6.3 Comprehensiv e Internal Medicine Work Phone: HomocysteineOrdered By: Syst em [employer] Guest Coordinator on 07-03-2017 HOMOCYSTEINE 6.2 umol/L Normal 3.2-10.7 Comprehensiv e Internal Medicine Work Phone: IronOrdered By: System Manag er on 07-03-2017 Iron mass conc 48 ug/dL Abnormal 50-170 Comprehens [facility] Internal Medicine Work Phone: Lipid ProfileOrdered By: Hayley tem [employer] Guest Coordinator on 07-03-2017 Cholesterol in HDL mass conc 65 mg/dL Normal [facility] Internal Medicine Work Phone: Comment on above: The drugs N-Acetylcy steine and Metamizole may falsely deressthis assay. Reference Range HDL <40 mg/dL Low HDL Cholesterol HDL >or= 60 mg/dL High HDL Cholesterol Cholesterol in LDL mass conc 83 mg/dL Normal 0-130 [facility] Work Phone: Cholesterol in VLDL mass conc 12 mg/dL Normal 5-40 [facility] Medicine Work Phone: Cholesterol mass conc 160 mg/dL Normal Com prehensive Internal Medicine Work Phone: Comment on above: <200 mg/dL Desirable 200-240 mg/dL Borderline >240 mg/dL High Risk Triglyceride mass conc 58 mg/dL Normal [facility] Medicine Work Phone: Comment on above: The drugs N-Acetylcy steine and Metamizole may falsely deressthis assay.Serum Triglycerides Reference Interval Normal <150 mg/dL Borderline high 150 - 199 mg/dL High 200 - 499 mg/dL Very High > or = 500 mg/dL MagnesiumOrdered By: Farm Products Shipper on 07-03-2017 Magnesium mass conc 2.2 mg/dL Normal 1.8-2.4 Compr ensive Internal Medicine Work Phone: Miscellaneous Lab ProcedureO rdered By: [employer] Shipper on 07-03-2017 [facility] LAB TEST Normal Comprehensi Internal Medicine Work Phone: Comment on above: TEST RESULT UNITS RE FERENCE INTERVALChromium, Plasma 1.1 ug/L 0.1 - 2.1 Detection Limit = 0.1 TESTING PERFORMED AT [facility]. ORIGINAL REPORT ON FILE IN LAB CONTAINS ADDITIONAL TEST SITE INFORMATION. PTH,INTACTOrdered By: Farm Products Shipper on 07-03-2017 PTH,Intact 55 pg/mL Normal 14-72 [facility] Internal Medicine Work Phone: PhosphorusOrdered By: Farm [employer] Shipper on 07-03-2017 Phosphate mass conc 3.0 mg/dL Normal 2.5-4.9 Compr [facility] Internal Medicine Work Phone: Thyroid Stim Hormone (TSH)Or dered By: Farm [employer] Shipper on 07-03-2017 Thyrotropin Qn 1.12 {uIU/mL} Normal 0.358-3.74 Compreh ensive Internal Medicine Work Phone: Vitamin A, RetinolOrdered By : Farm Products Shipper on 07-03-2017 Retinol mass conc 53 ug/dL Normal 20-65 Compreh ensive Internal Medicine Work Phone: Comment on above: Performed at: [facility] [address] [id number] Director: Jewel Felipe MD, Phone: [phone] Vitamin Q57Hlazmwd By: Yady merino [employer] Guest Coordinator on 07-03-2017 Cobalamin (Vitamin B12) mass conc 428 pg/mL Normal 211-911 [facility] Internal Medicine Work Phone: Vitamin D,25 HydroxyOrdered By: Farm Products Shipper on 07-03-2017 Vitamin D 25-OH 39.3 ng/mL Normal Comprehen sive Internal Medicine Work Phone: Comment on above: Vitamin D 25(OH) Sta tus Range Deficiency <20 ng/mL (50nmol/L) Insuffciency 20 - 30 ng/mL (50 - 75 nmol/L) Sufficiency 30 - 100 ng/mL (75 - 250 nmol/L) Toxicity >100 ng/mL (>250 nmol/L) Zinc, Plasma or SerumOrdered By: Farm Products Shipper on 07-03-2017 Zinc mass conc 67 ug/dL Normal 56-134 Comprehens [facility] Internal Medicine Work Phone: Comment on above: Detection Limit = 5 PTH,INTACTOrdered By: Farm Products Shipper on 11-02-2016 PTH,Intact 57 pg/mL Normal 14-72 [facility] Internal Medicine Work Phone: Comprehensive Metabolic Prof ilOrdered By: Farm Products Shipper on 10-23-2016 Comprehensive metabolic 2000 panel 7.0 g/dL Normal 6.4-8.2 Comprehensi ve Internal Medicine Work Phone: Comprehensive metabolic 2000 panel 19.0 {RATIO} Normal 10-20 Comprehensi ve Internal Medicine Work Phone: Comprehensive metabolic 2000 panel 75 mL/min Normal Comprehensi ve Internal Medicine Work Phone: Comment on above: GFR Calc Comprehensive metabolic 2000 panel 62 mL/min Normal Comprehensi ve Internal Medicine Work Phone: Comment on above: Non- GFR Calc Comprehensive metabolic 2000 panel 1.05 mg/dL Abnormal 0.55-1.02 Comprehensi ve Internal Medicine Work Phone: Comment on above: The validity of the calculated GFR AND GFRAA in patients over70 years has not been determined. Clinical correlation isessential. Comprehensive metabolic 2000 panel 20 mg/dL Abnormal 7-18 Comprehensi ve Internal Medicine Work Phone: Comprehensive metabolic 2000 panel 89 mg/dL Normal 70-110 Comprehensi ve Internal Medicine Work Phone: Comprehensive metabolic 2000 panel 49 U/L Normal 12-78 Comprehensi ve Internal Medicine Work Phone: Comprehensive metabolic 1999 panel 51 U/L Normal 45-117 Comprehensi ve Internal Medicine Work Phone: Comprehensive metabolic 1999 panel 8 1 Normal 5-15 Comprehensi ve Internal Medicine Work Phone: Comprehensive metabolic 1999 panel 31 U/L Normal 15-37 Comprehensi ve Internal Medicine Work Phone: Comment on above: Slight Hemolysis, Re sult may be falsely increased. Comprehensive metabolic 1999 panel 29.0 mmol/L Normal 21.0-32.0 Comprehensi ve Internal Medicine Work Phone: Comprehensive metabolic 1999 panel 0.30 mg/dL Normal 0.20-1.00 Comprehensi ve Internal Medicine Work Phone: Comprehensive metabolic 1999 panel 140 mmol/L Normal 136-145 Comprehensi ve Internal Medicine Work Phone: Comprehensive metabolic 1999 panel 8.9 mg/dL Normal 8.5-10.1 Comprehensi ve Internal Medicine Work Phone: Comprehensive metabolic 1999 panel 3.5 g/dL Normal 3.4-5.0 Comprehensi ve Internal Medicine Work Phone: Comprehensive metabolic 1999 panel 4.3 mmol/L Normal 3.5-5.1 Comprehensi ve Internal Medicine Work Phone: Comment on above: Slight Hemolysis, Re sult may be falsely increased. Comprehensive metabolic 1999 panel 1.0 {RATIO} Normal 0.9-2.4 Comprehensi ve Internal Medicine Work Phone: Comprehensive metabolic 2000 panel 103 mmol/L Normal 98-107 Comprehensi ve Internal Medicine Work Phone: Vitamin D,25 HydroxyOrdered By: Farm Products Shipper on 10-23-2016 Vitamin D 25-OH 39.2 ng/mL Normal Comprehen [facility] Internal Medicine Work Phone: Comment on above: Vitamin D 25(OH) Sta tus Range Deficiency <20 ng/mL (50nmol/L) Insuffciency 20 - 30 ng/mL (50 - 75 nmol/L) Sufficiency 30 - 100 ng/mL (75 - 250 nmol/L) Toxicity >100 ng/mL (>250 nmol/L) CHICHO CULTURE-OTHER (35451)Ord ered By: Farm Products Shipper on 09-01-2016 Bacteria identified Respiratory culture Nom (Unsp spec) Final report Normal [facility] Medicine Work Phone: Comment on above: PATIENT NOT FASTINGP ERFORMED BY: LabKre[employer] [id number] [facility] [id number] Information: SRC:TH Bacteria identified Respiratory culture Nom (Unsp spec) RRF Normal [facility] Internal Medicine Work Phone: Comment on above: Routine respiratory kurt PATIENT NOT FASTINGP ERFORMED BY: LabK[employer] [id number] [facility] [id number] Information: SRC:TH Rapid Strep Test, Office ([phone])on 09-01-2016 S. pyogenes Ag EIA Ql (Throat) Negative Normal [facility]; [facility] Work Phone: Rapid Strep Test, Office ([phone])Ordered By: Jay Ward on 09-01-2016 S. pyogenes Ag IA Ql (Unsp spec) Negative Normal [facility] Medicine Work Phone: CBC W/Diff, AutomatedOrdered By: Farm Products Shipper on 05-09-2016 Absolute Lymph 1.46 {X10_3/ul} Normal 0.83-4.51 Compr ehensive Internal Medicine Work Phone: Absolute Neut 4.4 {X10_3/uL} Normal 2.0-7.7 Compreh ensive Internal Medicine Work Phone: Basophils/100 WBC Auto (Bld) 0.3 % Normal 0-1 [facility] Work Phone: Eosinophils/100 WBC Auto (Bld) 2.0 % Normal 0-5 [facility] Work Phone: Erythrocyte distribution width Auto Ratio (RBC) 13.8 % Normal 11.6-14.6 [facility] Work Phone: Hematocrit Auto Volume Fraction (Bld) 43.7 % Normal 37-47 Comprehens [facility] Internal Medicine Work Phone: Hemoglobin mass conc (Bld) 15.1 g/dL Abnormal 12.0-15.0 [facility] Internal Medicine Work Phone: IM GRAN % 0.200 % Normal 0.0-0.9 [facility] Internal Medicine Work Phone: Comment on above: IG% - Immature Granu locytes (promyelocytes, myelocytes andmetamyelocytes) > 1% indicates that a LEFT SHIFT is Present. Lymphocytes/100 WBC Auto (Bld) 22.4 % Normal 19-41 [facility] Internal Medicine Work Phone: MCH Auto Entitic mass (RBC) 30.8 pg Normal 27.0-32.0 [facility] Internal Medicine Work Phone: MCHC Auto mass conc (RBC) 34.6 {g/gl} Normal 32-36 [facility] Internal Medicine Work Phone: MCV Auto Entitic volume (RBC) 89.2 fL Normal 81-99 [facility] Work Phone: Monocytes/100 WBC Auto (Bld) 8.1 % Normal 0-10 [facility] Internal Medicine Work Phone: Neutrophils/100 WBC Auto (Bld) 67.0 % Normal 47-70 [facility] Internal Medicine Work Phone: Platelet mean volume Auto Entitic volume (Bld) 10.2 fL Normal 6.2-12.0 [facility] Internal Medicine Work Phone: Platelets Auto #/vol (Bld) 258 10*3/uL Normal 150-450 [facility] Internal Medicine Work Phone: RBC Auto #/vol (Bld) 4.90 {M/mm3} Normal 4.2-5.4 Co mprehensive Internal Medicine Work Phone: RDW SD 44.2 fL Abnormal 35.1-43.9 [facility] Internal Medicine Work Phone: WBC Auto #/vol (Bld) 6.5 10*3/uL Normal 4.4-11.0 [facility] prehensive Internal Medicine Work Phone: Comprehensive Metabolic Prof ilOrdered By: Farm Products Shipper on 05-09-2016 metabolic 1999 panel 1.0 {RATIO} Normal 0.9-2.4 Comprehensi ve Internal Medicine Work Phone: Comprehensive metabolic 1999 panel 82 mg/dL Normal 70-110 Comprehensi ve Internal Medicine Work Phone: Comprehensive metabolic 1999 panel 6 1 Normal 5-15 Comprehensi ve Internal Medicine Work Phone: Comprehensive metabolic 1999 panel 30.0 mmol/L Normal 21.0-32.0 Comprehensi ve Internal Medicine Work Phone: Comprehensive metabolic 1999 panel 104 mmol/L Normal 98-107 Comprehensi ve Internal Medicine Work Phone: Comprehensive metabolic 1999 panel 3.4 mmol/L Abnormal 3.5-5.1 Comprehensi ve Internal Medicine Work Phone: Comprehensive metabolic 1999 panel 140 mmol/L Normal 136-145 Comprehensi ve Internal Medicine Work Phone: Comprehensive metabolic 1999 panel 14 mg/dL Normal 7-18 Comprehensi ve Internal Medicine Work Phone: Comprehensive metabolic 1999 panel 0.60 mg/dL Normal 0.20-1.00 Comprehensi ve Internal Medicine Work Phone: Comprehensive metabolic 1999 panel 62 U/L Normal 12-78 Comprehensi ve Internal Medicine Work Phone: Comprehensive metabolic 1999 panel 54 U/L Normal 50-136 Comprehensi ve Internal Medicine Work Phone: Comprehensive metabolic 1999 panel 33 U/L Normal 15-37 Comprehensi ve Internal Medicine Work Phone: Comprehensive metabolic 1999 panel 0.90 mg/dL Normal 0.55-1.20 Comprehensi ve Internal Medicine Work Phone: Comment on above: The validity of the calculated GFR AND GFRAA in patients over70 years has not been determined. Clinical correlation isessential. Comprehensive metabolic 2000 panel 74 mL/min Normal Comprehensi ve Internal Medicine Work Phone: Comment on above: Non- GFR Calc Comprehensive metabolic 1999 panel 8.7 mg/dL Normal 8.5-10.1 Comprehensi ve Internal Medicine Work Phone: Comprehensive metabolic 2000 panel 90 mL/min Normal Comprehensi ve Internal Medicine Work Phone: Comment on above: GFR Calc Comprehensive metabolic 2000 panel 3.6 g/dL Abnormal 2.3-3.5 Comprehensi ve Internal Medicine Work Phone: Comprehensive metabolic 2000 panel 15.6 {RATIO} Normal 10-20 Comprehensi ve Internal Medicine Work Phone: Comprehensive metabolic 2000 panel 7.1 g/dL Normal 6.4-8.2 Comprehensi ve Internal Medicine Work Phone: Comprehensive metabolic 2000 panel 3.5 g/dL Normal 3.4-5.0 Comprehensi ve Internal Medicine Work Phone: FerritinOrdered By: Wolfgang francis on 05-09-2016 Ferritin mass conc 30 ng/mL Normal 8-252 [facility]pre [facility] Internal [facility] Work Phone: Folates, (Folic Acid)Ordered By: Farm Products Shipper on 05-09-2016 FOLATES 39.90 ng/mL Abnormal 3.1-17.5 [facility] Work Phone: HomocysteineOrdered By: Syst em [employer] Guest Coordinator on 05-09-2016 HOMOCYSTEINE 4.5 umol/L Normal 3.2-10.7 Comprehensiv e Internal Medicine Work Phone: Iron Binding Capacity,TotalO rdered By: Farm Products Shipper on 05-09-2016 Iron binding capacity mass conc 343 ug/dL Normal 250-450 [facility] Work Phone: Lipid ProfileOrdered By: Sykalpana tem International Guest Coordinator on 05-09-2016 Cholesterol in HDL mass conc 53 mg/dL Normal [facility] Work Phone: Comment on above: The drugs N-Acetylcy steine and Metamizole may falsely deressthis assay. Reference Range HDL <40 mg/dL Low HDL Cholesterol HDL >or= 60 mg/dL High HDL Cholesterol Cholesterol in LDL mass conc 92 mg/dL Normal 0-130 [facility] Work Phone: Cholesterol in VLDL mass conc 13 mg/dL Normal 5-40 [facility] Work Phone: Cholesterol mass conc 158 mg/dL Normal Com prehensive Internal Medicine Work Phone: Comment on above: <200 mg/dL Desirable 200-240 mg/dL Borderline >240 mg/dL High Risk Triglyceride mass conc 63 mg/dL Normal [facility] Medicine Work Phone: Comment on above: The drugs N-Acetylcy steine and Metamizole may falsely deressthis assay.Serum Triglycerides Reference Interval Normal <150 mg/dL Borderline high 150 - 199 mg/dL High 200 - 499 mg/dL Very High > or = 500 mg/dL MagnesiumOrdered By: Farm Products Shipper on 05-09-2016 Magnesium mass conc 1.9 mg/dL Normal 1.8-2.4 [facility] ehensive Internal Medicine Work Phone: Miscellaneous Lab ProcedureO rdered By: Farm Products Shipper on 05-09-2016 MIS LAB TEST Normal Comprehensi ve Internal Medicine Work Phone: Comment on above: TEST RESULT UNITS RE FERENCE INTERVALChromium, Plasma 0.6 ug/L 0.1 - 2.1The specimen was not submitted to the testing laboratoryin the preferred certified metal free transfer tube. As 2015, serum or plasma samples not submitted in thecertified metal free transfer tubes will be rejected fortrace metal analysis. Detection Limit = 0.1 TESTING PERFORMED AT [facility]. ORIGINAL REPORT ON FILE IN LAB CONTAINS ADDITIONAL TEST SITE INFORMATION. PTH,INTACTOrdered By: Farm Products Shipper on 05-09-2016 PTH,Intact 65 pg/mL Normal 14-72 [facility] Work Phone: PhosphorusOrdered By: Farm Products Shipper on 05-09-2016 Phosphate mass conc 2.9 mg/dL Normal 2.5-4.9 Compr ehensive Internal Medicine Work Phone: Protein Electroph, SOrdered By: Farm Products Shipper on 05-09-2016 Albumin mass conc Normal 3.2-5.6 [facility] [place] ensive Internal Medicine Work Phone: Comment on above: RESULT UNITS REFEREN CE INTERVAL 3.5 g/dL 2.9 - 4.4 Albumin/Globulin mass ratio Normal 0.7-2.0 [facility] Internal Medicine Work Phone: Comment on above: RESULT UNITS REFEREN CE INTERVAL 1.1 0.7 - 1.7Please note:Protein electrophoresis scan will follow via computer, mail,or shop mechanic helper delivery.P E Interpretation, S:The SPE pattern appears essentially unremarkable. Evidenceof monoclonal protein is not apparent. BETA GLOBULIN 1.1 g/dL Normal 0.7-1.3 Comprehensi Internal Medicine Work Phone: Globulin Calculated mass conc (S) Normal 2.0-4.5 [facility] Internal Medicine Work Phone: Comment on above: RESULT UNITS REFEREN CE INTERVAL 3.1 g/dL 2.2 - 3.9 M-SPIKE Normal 0.1-0.4 [facility] Internal Medicine Work Phone: Comment on above: Not Observed RESULT UNITS REFEREN CE INTERVAL 1.2 g/dL 0.4 - 1.8 RESULT UNITS REFEREN CE INTERVAL 0.7 g/dL 0.4 - 1.0 RESULT UNITS REFEREN CE INTERVAL 0.2 g/dL 0.0 - 0.4 NOTE: Comment Normal [facility] Internal Medicine Work Phone: Comment on above: The SPE pattern appe ars essentially unremarkable. Evidenceof monoclonal protein is not apparent. Protein electrophore sis scan will follow via computer,mail, or shop mechanic helper delivery. Protein mass conc Comment Normal [facility] Internal [facility] Work Phone: Comment on above: Protein electrophore sis scan will follow via computer,mail, or shop mechanic helper delivery. Protein mass conc Normal 6.0-8.5 [facility] Internal Medicine Work Phone: Comment on above: RESULT UNITS REFEREN CE INTERVAL 6.6 g/dL 6.0 - 8.5 Thyroid Stim Hormone (TSH)Or dered By: Farm Products Shipper on 05-09-2016 Thyrotropin Qn 1.57 {uIU/mL} Normal 0.358-3.74 Compreh ensive Internal Medicine Work Phone: Vitamin A, RetinolOrdered By : Farm Products Shipper on 05-09-2016 Retinol mass conc 39 ug/dL Normal 20-65 Compreh ensive Internal Medicine Work Phone: Vitamin D05Iglblih By: Yady m [employer] Guest Coordinator on 05-09-2016 Cobalamin (Vitamin B12) mass conc 1085 pg/mL Abnormal 211-911 [facility] Work Phone: Vitamin D,25 HydroxyOrdered By: Farm Products Shipper on 05-09-2016 Vitamin D 25-OH 51.9 ng/mL Normal Comprehen sive Internal Medicine Work Phone: Comment on above: Vitamin D 25(OH) Sta tus Range Deficiency <20 ng/mL (50nmol/L) Insuffciency 20 - 30 ng/mL (50 - 75 nmol/L) Sufficiency 30 - 100 ng/mL (75 - 250 nmol/L) Toxicity >100 ng/mL (>250 nmol/L) Zinc, Plasma or SerumOrdered By: Farm Products Shipper on 05-09-2016 Zinc mass conc 68 ug/dL Normal 56-134 Comprehens velma Internal Medicine Work Phone: Comment on above: The specimen was not submitted to the testing laboratoryin the preferred certified metal free transfer tube. Asof June 15, 2016, serum or plasma samples not submitted inthe certified metal free transfer tubes will be rejectedfor trace metal analysis. Detection Limit = 5 Aerobic Bacterial Culture (8 6101)Ordered By: Farm Products Shipper on 12-19-2015 Bacteria identified Aer cx Nom (Unsp spec) Final report Abnormal [facility] Work Phone: Comment on above: rt upper thigh; KENN ENT NOT FASTINGPERFORMED BY: [facility] Vgxoaf6320 [facility] [id number] Information: SRC:BRIGETTE [id number] RIGHT UPP ER THIGH Bacteria identified Cx Nom (Unsp spec) Staphylococcus aureus Abnormal Compreh ensive Internal Medicine Work Phone: Comment on above: Heavy growthBased on resistance to penicillin and susceptibility to oxacillinthis isolate would be susceptible to:* Penicillinase-stable penicillins; such as: Cloxacillin Dicloxacillin Nafcillin* Beta-lactam/beta-lactamase inhibitor combinations; such as: Amoxicillin-clavulanic acid Ampicillin-sulbactam* Antistaphylococcal cephems; such as: Cefaclor Cefuroxime* Antistaphylococcal carbapenems; such as: Imipenem Meropenem rt upper thigh; KENN ENT NOT FASTINGPERFORMED BY: [facility] Kzgjsh5953 [facility] [id number] Information: SRC:BRIGETTE [id number] RIGHT UPP ER THIGH Other Antibiotic [facility] prehensive Internal Medicine Work Phone: Comment on above: S = Susceptible; I = Intermediate; R = Resistant P = Positive; N = Negative MICS are expressed in micrograms per mL Antibiotic RSLT#1 RSLT#2 RSLT#3 RSLT#4Ciprofloxacin SClindamycin SErythromycin RGentamicin SLevofloxacin SLinezolid SMoxifloxacin SOxacillin SPenicillin RQuinupristin/Dalfopristin SRifampin STetracycline STrimethoprim/Sulfa SVancomycin S rt upper thigh; KENN ENT NOT FASTINGPERFORMED BY: [facility] Dbnjok1288 [facility] [id number] Information: SRC:BRIGETTE Y68694 RIGHT UPP ER THIGH CALCIFIDIOL (65924) VIT D 25 Ordered By: Farm Products Shipper on 08-21-2015 25-Hydroxyvitamin D2+25-Hydroxyvitamin D3 mass conc 47.3 ng/mL Normal 30.0-100.0 [facility] Work Phone: Comment on above: Vitamin D deficiency has been defined by the [place] of[place]icine and an Endocrine Society practice guideline as alevel of serum 25-OH vitamin D less than 20 ng/mL (1,2).The Endocrine Society went on to further define vitamin Dinsufficiency as a level between 21 and 29 ng/mL (2).1. IOM ([place] of Medicine). 2010. Dietary reference intakes for calcium and D. [place]: The National Academies Press.2. Karlos MF, Alice CERNA, Marina JENKINS, et al. Evaluation, treatment, and prevention of vitamin D deficiency: an Endocrine Society clinical practice guideline. JCEM. 2010; 96(7):1911-30. send results to dr valery cid; PATIENT NOT FASTINGPERFORMED BY: CB [facility] Vimqob0553 Reid Roadblin [place] [id number] CBC, PLATELETS & AUT DIFF (6 2094)Ordered By: Farm Products Shipper on 08-21-2015 Basophils #/vol (Bld) 0.0 {x10E3/uL} Normal 0.0-0.2 [facility] Work Phone: Comment on above: PATIENT NOT FASTINGP ERFORMED BY: CB [facility] Zdgzsp5800 Reid RoadDublin [place] [id number] Information: [id number] Basophils (Bld) [#/Vol] 0.0 10*3/uL Normal 0.0-0.2 [facility]; [facility] Work Phone: Comment on above: PATIENT NOT FASTINGP ERFORMED BY: CB [facility] Sebtub1027 Reid RoadCritical Access Hospitalin [place] [id number] Information: [id number] Basophils Auto #/vol (Bld) 0.0 {x10E3/uL} Normal 0.0-0.2 [facility] Work Phone: Basophils/100 WBC (Bld) 0 % Normal [facility] Work Phone: Comment on above: PATIENT NOT FASTINGP ERFORMED BY: CB [facility] Xgpfln0106 Reid RoadDublin [place] [id number] Information: [id number] Basophils/100 WBC Auto (Bld) 0 % Normal [facility] Work Phone: Eosinophils #/vol (Bld) 0.2 {x10E3/uL} Normal 0.0-0.4 [facility] Work Phone: Comment on above: PATIENT NOT FASTINGP ERFORMED BY: CB [facility] Moyrwr1081 [address] Planar Antennasblin [place] [id number] Information: [id number] Eosinophils (Bld) [#/Vol] 0.2 10*3/uL Normal 0.0-0.4 [facility]; [facility] Work Phone: Comment on above: PATIENT NOT FASTINGP ERFORMED BY: SOFIE [facility] Fqypyc7187 [facility] [id number] Information: [id number] Eosinophils Auto #/vol (Bld) 0.2 {x10E3/uL} Normal 0.0-0.4 [facility] Work Phone: Eosinophils/100 WBC (Bld) 2 % Normal [facility] Work Phone: Comment on above: PATIENT NOT FASTINGP ERFORMED BY: SOFIE Sibleylin6370 [facility] [id number] Information: [id number] Eosinophils/100 WBC Auto (Bld) 2 % Normal [facility] Work Phone: Erythrocyte distribution width Auto Ratio (RBC) 16.5 % Abnormal 12.3-15.4 [facility] Work Phone: Erythrocyte distribution width Ratio (RBC) 16.5 % Abnormal 12.3-15.4 [facility] Work Phone: Comment on above: PATIENT NOT FASTINGP ERFORMED BY: SOFIE LabDavid SibleyStuusy3393 [facility] [id number] Information: [id number] Hematocrit Auto Volume Fraction (Bld) 39.0 % Normal 34.0-46.6 [facility] Internal Medicine Work Phone: Hematocrit Volume Fraction (Bld) 39.0 % Normal 34.0-46.6 [facility] Internal Medicine Work Phone: Comment on above: PATIENT NOT FASTINGP ERFORMED BY: SOFIE LabRutRobert Wood Johnson University Hospital at RahwayBrjoqh7894 [facility] [id number] Information: [id number] Hemoglobin mass conc (Bld) 12.6 g/dL Normal 11.1-15.9 [facility] Work Phone: Comment on above: PATIENT NOT FASTINGP ERFORMED BY: SOFIE Archuleta6370 [facility] [id number] Information: [id number] Immature granulocytes #/vol (Bld) 0.0 {x10E3/uL} Normal 0.0-0.1 [facility] Work Phone: Comment on above: PATIENT NOT FASTINGP ERFORMED BY: SOFIE [address] [id number] Information: [id number] Immature granulocytes (Bld) [#/Vol] 0.0 10*3/uL Normal 0.0-0.1 [facility]; [facility] Work Phone: Comment on above: PATIENT NOT FASTINGP ERFORMED BY: [address] [id number] Information: [id number],[id number] Immature granulocytes/100 WBC (Bld) 0 % Normal [facility] Work Phone: Comment on above: PATIENT NOT FASTINGP ERFORMED BY: SOFIE Bravo[address] [id number] Information: [id number],[id number] Lymphocytes #/vol (Bld) 2.3 {x10E3/uL} Normal 0.7-3.1 [facility] Work Phone: Comment on above: PATIENT NOT FASTINGP ERFORMED BY: [place] [id number] [facility] [id number] Information: [id number],[id number] Lymphocytes (Bld) [#/Vol] 2.3 10*3/uL Normal 0.7-3.1 [facility]; [facility] Work Phone: Comment on above: PATIENT NOT FASTINGP ERFORMED BY: [address] [id number] Information: [id number] Lymphocytes Auto #/vol (Bld) 2.3 {x10E3/uL} Normal 0.7-3.1 [facility] Work Phone: Lymphocytes/100 WBC (Bld) 29 % Normal [facility] Work Phone: Comment on above: PATIENT NOT FASTINGP ERFORMED BY: SOFIE [place] 1160270 [facility] [id number] Information: [id number] Lymphocytes/100 WBC Auto (Bld) 29 % Normal [facility] Work Phone: MCH Auto Entitic mass (RBC) 25.3 pg Abnormal 26.6-33.0 [facility] Work Phone: MCH Entitic mass (RBC) 25.3 pg Abnormal 26.6-33.0 [facility] Work Phone: Comment on above: PATIENT NOT FASTINGP ERFORMED BY: SOFIE [address] [id number] Information: [id number] MCHC Auto mass conc (RBC) 32.3 g/dL Normal 31.5-35.7 [facility] Work Phone: MCHC mass conc (RBC) 32.3 g/dL Normal 31.5-35.7 [facility] Internal Medicine Work Phone: Comment on above: PATIENT NOT FASTINGP ERFORMED BY: SOFIE [place] [id number] [facility] [id number] Information: [id number] MCV Auto Entitic volume (RBC) 78 fL Abnormal 79-97 [facility] Work Phone: MCV Entitic volume (RBC) 78 fL Abnormal 79-97 [facility] Work Phone: Comment on above: PATIENT NOT FASTINGP ERFORMED BY: SOFIE [place] 1160270 [facility] [id number] Information: [id number] Monocytes #/vol (Bld) 0.7 {x10E3/uL} Normal 0.1-0.9 [facility] Work Phone: Comment on above: PATIENT NOT FASTINGP ERFORMED BY: SOFIE Archuleta6370 [facility] [id number] Information: [id number] Monocytes (Bld) [#/Vol] 0.7 10*3/uL Normal 0.1-0.9 [facility]; [facility] Work Phone: Comment on above: PATIENT NOT FASTINGP ERFORMED BY: SOFIE Bravo Jmgxvm[address] [id number] Information: [id number],[id number] Monocytes Auto #/vol (Bld) 0.7 {x10E3/uL} Normal 0.1-0.9 [facility] Work Phone: Monocytes/100 WBC (Bld) 8 % Normal [facility] Work Phone: Comment on above: PATIENT NOT FASTINGP ERFORMED BY: SOFIE Bravo Fpojzg[address] [id number] Information: [id number] Monocytes/100 WBC Auto (Bld) 8 % Normal [facility] Work Phone: Neutrophils #/vol (Bld) 5.0 {x10E3/uL} Normal 1.4-7.0 [facility] Work Phone: Comment on above: PATIENT NOT FASTINGP ERFORMED BY: SOFIE B[address] [id number] Information: [id number] Neutrophils (Bld) [#/Vol] 5.0 10*3/uL Normal 1.4-7.0 [facility]; [facility] Work Phone: Comment on above: PATIENT NOT FASTINGP ERFORMED BY: SOFIE Bravo Saeyju7688 [facility] [id number] Information: [id number] Neutrophils Auto #/vol (Bld) 5.0 {x10E3/uL} Normal 1.4-7.0 [facility] Work Phone: Neutrophils/100 WBC (Bld) 61 % Normal [facility] Work Phone: Comment on above: PATIENT NOT FASTINGP ERFORMED BY: SOFIE Vera [facility] [id number] Information: [id number] Neutrophils/100 WBC Auto (Bld) 61 % Normal [facility] Work Phone: Platelets #/vol (Bld) 334 {x10E3/uL} Normal 150-379 [facility] Work Phone: Comment on above: PATIENT NOT FASTINGP ERFORMED BY: SOFIE Tran Sibleylin6370 [facility] [id number] Information: [id number] Platelets (Bld) [#/Vol] 334 10*3/uL Normal 150-379 [facility]; [facility] Work Phone: Comment on above: PATIENT NOT FASTINGP ERFORMED BY: SOFIE Tran Sibleylin6370 [facility] [id number] Information: [id number] Platelets Auto #/vol (Bld) 334 {x10E3/uL} Normal 150-379 [facility] Work Phone: RBC #/vol (Bld) 4.99 {x10E6/uL} Normal 3.77-5.28 [facility] Internal Medicine Work Phone: Comment on above: PATIENT NOT FASTINGP ERFORMED BY: SOFIE Bravo Wbxalh1434 [facility] [id number] Information: [id number] RBC (Bld) [#/Vol] 4.99 10*6/uL Normal 3.77-5.28 [facility] Internal Medicine; [facility] Work Phone: Comment on above: PATIENT NOT FASTINGP ERFORMED BY: SOFIE RolweyYesenia [place] [id number] [facility] [id number] Information: [id number] RBC Auto #/vol (Bld) 4.99 {x10E6/uL} Normal 3.77-5.28 [facility] Internal Medicine Work Phone: WBC #/vol (Bld) 8.2 {x10E3/uL} Normal 3.4-10.8 [facility] Internal Medicine Work Phone: Comment on above: PATIENT NOT FASTINGP ERFORMED BY: SOFIE [facility] Pvzqhn7798 [address] RoadDublin [place] [id number] Information: [id number] WBC (Bld) [#/Vol] 8.2 10*3/uL Normal 3.4-10.8 [facility] Internal Medicine; [facility] Internal Medicine Work Phone: Comment on above: PATIENT NOT FASTINGP ERFORMED BY: SOFIE [facility] Vhphai8006 [address] RoadDuin [place] [id number] Information: [id number] WBC Auto #/vol (Bld) 8.2 {x10E3/uL} Normal 3.4-10.8 [facility] Internal Medicine Work Phone: FERRITIN ([id number])Ordered By: Farm Products Shipper on 08-21-2015 Ferritin mass conc 12 ng/mL Abnormal 15-150 [facility] Internal Medicine Work Phone: Comment on above: PATIENT NOT FASTINGP ERFORMED BY: SOFIE [facility] Oryqvt0277 [address] Who-Sells-it.comCritical Access Hospitalin [place] [id number] IRON BINDING CAPACITY (TIBC) (45609)Ordered By: Farm Products Shipper on 08-21-2015 Iron binding capacity mass conc 405 ug/dL Normal 250-450 [facility] Internal Medicine Work Phone: Comment on above: PATIENT NOT FASTINGP ERFORMED BY: CB [facility] Vwysxa7238 [address] RoadDublin [place] [id number] Iron binding capacity.unsaturated mass conc 321 ug/dL Normal 150-375 [facility] Internal Medicine Work Phone: Comment on above: PATIENT NOT FASTINGP ERFORMED BY: CB [facility] Ztmera1650 [address] RoadDublin [place] [id number] Iron mass conc 84 ug/dL Normal 35-155 Comprehens velma Internal Medicine Work Phone: Comment on above: PATIENT NOT FASTINGP ERFORMED BY: CB [facility] Jxthzf4806 [address] RoadDublin [place] [id number] Iron saturation mass fraction 21 % Normal 15-55 [facility] Work Phone: Comment on above: PATIENT NOT FASTINGP ERFORMED BY: CB [facility] Idkcib0898 [address] RoadDublin [place] [id number] METABOLIC PANEL, COMPREHENSI VE ([id number])Ordered By: Farm Products Shipper on 08-21-2015 Albumin mass conc 4.1 g/dL Normal 3.5-5.5 Compreh ensive Internal Medicine Work Phone: Comment on above: send results to dr valery cid; PATIENT NOT FASTINGPERFORMED BY: CB [facility] Szxnig5315 [address] RoadDublin [place] [id number] Albumin/Globulin mass ratio 1.6 {ratio} Normal 1.1-2.5 [facility] Work Phone: Comment on above: send results to dr valery cid; PATIENT NOT FASTINGPERFORMED BY: CB [facility] Nipzmr9656 [address] RoadDublin [place] [id number] ALP [Catalytic activity/Vol] 73 U/L Normal 39-117 [facility]; [facility] Work Phone: Comment on above: send results to dr valery cid; PATIENT NOT FASTINGPERFORMED BY: CB [facility] Sktsue3210 [address] RoadDublin [place] [id number] ALP enzyme act/vol 73 [iU]/L Normal 39-117 [facility]pre [facility] Internal [facility] Work Phone: Comment on above: send results to dr valery cid; PATIENT NOT FASTINGPERFORMED BY: CB [facility] Vxwhgg1246 [address] RoadDublin [place] [id number] ALT [Catalytic activity/Vol] 35 U/L Abnormal 0-32 [facility]; [facility] Work Phone: Comment on above: send results to dr valery cid; PATIENT NOT FASTINGPERFORMED BY: CB [facility] Fynync7721 [address] RoadDublin [place] [id number] ALT enzyme act/vol 35 [iU]/L Abnormal 0-32 [facility] Internal Medicine Work Phone: Comment on above: send results to dr valery cid; PATIENT NOT FASTINGPERFORMED BY: CB [facility] Yzctse9742 [address] RoadDublin [place] [id number] AST [Catalytic activity/Vol] 30 U/L Normal 0-40 [facility]; [facility] Work Phone: Comment on above: send results to dr valery cid; PATIENT NOT FASTINGPERFORMED BY: CB [facility] Dpjloo3132 [address] RoadDublin [place] [id number] AST enzyme act/vol 30 [iU]/L Normal 0-40 [facility] Internal Medicine Work Phone: Comment on above: send results to dr valery cid; PATIENT NOT FASTINGPERFORMED BY: CB [facility] Odscpp5102 [address] RoadDublin [place] [id number] Bilirubin [Mass/Vol] mg/dL Normal 0.0-1.2 [facility]; [facility] Work Phone: Comment on above: send results to dr valery cid; PATIENT NOT FASTINGPERFORMED BY: CB [facility] Dlaleb1541 [address] RoadDublin [place] [id number] Bilirubin mass conc mg/dL Normal 0.0-1.2 [facility] Work Phone: Comment on above: send results to dr valery cid; PATIENT NOT FASTINGPERFORMED BY: CB [facility] Rhvatb0297 [address] RoadDublin [place] [id number] Calcium mass conc 9.3 mg/dL Normal 8.7-10.[address] [facility] Work Phone: Comment on above: send results to dr valery cid; PATIENT NOT FASTINGPERFORMED BY: CB [facility] Cnoiwa0991 [address] RoadDublin [place] [id number] Chloride molar conc 98 mmol/L Normal 97-108 Compr ensive Internal Medicine Work Phone: Comment on above: send results to dr valery cid; PATIENT NOT FASTINGPERFORMED BY: CB [facility] Tbhshl8536 [address] RoadDublin [place] [id number] CO2 molar conc 27 mmol/L Normal 18-29 Comprehens velma Internal Medicine Work Phone: Comment on above: send results to dr valery cid; PATIENT NOT FASTINGPERFORMED BY: CB [facility] Pmbclz9822 [address] RoadDublin [place] [id number] Creatinine mass conc 1.01 mg/dL Abnormal 0.57-1.00 [facility] Internal Medicine Work Phone: Comment on above: send results to dr valery cid; PATIENT NOT FASTINGPERFORMED BY: CB [facility] Llpspe4993 [address] RoadDuin [place] [id number] GFR/1.73 sq M predicted among blacks CKD-EPI vol rate/area (S/P/Bld) 82 mL/min/1.73 Normal Comprehensiv e Internal Medicine Work Phone: Comment on above: send results to dr valery cid; PATIENT NOT FASTINGPERFORMED BY: CB [facility] Tgfvwv7663 [address] RoadDuin [place] [id number] GFR/1.73 sq M predicted among non-blacks CKD-EPI vol rate/area (S/P/Bld) 71 mL/min/1.73 Normal [facility] Work Phone: Comment on above: send results to dr valery cid; PATIENT NOT FASTINGPERFORMED BY: CB [facility] Xchjib6315 [address] RoadDuin [place] [id number] Globulin Calculated mass conc (S) 2.6 g/dL Normal 1.5-4.5 [facility] Work Phone: Globulin mass conc (S) 2.6 g/dL Normal 1.5-4.5 [facility] Work Phone: Comment on above: send results to dr valery cid; PATIENT NOT FASTINGPERFORMED BY: CB [facility] Txlbtk4108 [address] RoadDublin [place] [id number] Glucose mass conc 78 mg/dL Normal 65-99 Compreh ensive Internal Medicine Work Phone: Comment on above: send results to dr valery cid; PATIENT NOT FASTINGPERFORMED BY: CB [facility] Jnxkfl0859 [address] RoadDublin [place] [id number] Potassium molar conc 3.9 mmol/L Normal 3.5-5.2 Comp rehensive Internal Medicine Work Phone: Comment on above: send results to dr valery cid; PATIENT NOT FASTINGPERFORMED BY: CB [facility] Bgaoyh8033 [address] RoadDublin [place] [id number] Protein mass conc 6.7 g/dL Normal 6.0-8.5 Compreh ensive Internal Medicine Work Phone: Comment on above: send results to dr valery cid; PATIENT NOT FASTINGPERFORMED BY: CB [facility] Mririt4834 [address] RoadDublin [place] [id number] Sodium molar conc 140 mmol/L Normal 134-144 Compreh ensive Internal Medicine Work Phone: Comment on above: send results to dr valery cid; PATIENT NOT FASTINGPERFORMED BY: CB [facility] Gvsgvr1600 [address] RoadDublin [place] [id number] Urea nitrogen mass conc 15 mg/dL Normal 6-20 [facility] Work Phone: Comment on above: send results to dr valery cid; PATIENT NOT FASTINGPERFORMED BY: CB [facility] Eslrvh8608 [address] RoadDublin [place] [id number] Urea nitrogen/Creatinine mass ratio 15 mg/mg Normal 8-20 [facility] Work Phone: Comment on above: send results to dr valery cid; PATIENT NOT FASTINGPERFORMED BY: CB [facility] Qoinsj2183 [address] RoadDublin [place] [id number] PARATHORMONE ([id number])Ordered By: Farm Products Shipper on 08-21-2015 Parathyrin.intact mass conc 36 pg/mL Normal 15-65 [facility] Work Phone: Comment on above: send results to dr valery cid; PATIENT NOT FASTINGPERFORMED BY: [facility] Srevws7684 [facility] [id number] CBC, PLATELETS & AUT DIFF (0 9732)Ordered By: Farm Products Shipper on 01-28-2015 Basophils #/vol (Bld) 0.0 {x10E3/uL} Normal 0.0-0.2 [facility] Work Phone: Comment on above: PATIENT NOT FASTINGP ERFORMED BY: LabCoRobert Wood Johnson University Hospital at RahwayJzfddd0831 [facility] [id number] BY: Xradia[address] [id number] Information: [id number] Basophils (Bld) [#/Vol] 0.0 10*3/uL Normal 0.0-0.2 [facility]; [facility] Work Phone: Comment on above: PATIENT NOT FASTINGP ERFORMED BY: LabKreeda GamesRobert Wood Johnson University Hospital at RahwayVyaouz5035 [facility] [id number] BY: Xradia[address] [id number] Information: [id number] Basophils Auto #/vol (Bld) 0.0 {x10E3/uL} Normal 0.0-0.2 Comprehensive Internal Medicine Work Phone: Basophils/100 WBC (Bld) 0 % Normal [facility] Work Phone: Comment on above: PATIENT NOT FASTINGP ERFORMED BY: XradiaRobert Wood Johnson University Hospital at RahwayDfbawj1966 [facility] [id number] BY: Xradia[address] [id number] Information: [id number] Basophils/100 WBC Auto (Bld) 0 % Normal [facility] Work Phone: Eosinophils #/vol (Bld) 0.2 {x10E3/uL} Normal 0.0-0.4 [facility] Work Phone: Comment on above: PATIENT NOT FASTINGP ERFORMED BY: CB [facility] Jxhrcm1021 [facility] [id number] BY: Xradia[address] [id number] Information: [id number] Eosinophils (Bld) [#/Vol] 0.2 10*3/uL Normal 0.0-0.4 [facility]; [facility] Work Phone: Comment on above: PATIENT NOT FASTINGP ERFORMED BY: CB [facility] Adwanp9394 [facility] [id number] BY: Xradia[address] [id number] Information: [id number] Eosinophils Auto #/vol (Bld) 0.2 {x10E3/uL} Normal 0.0-0.4 [facility] Work Phone: Eosinophils/100 WBC (Bld) 2 % Normal [facility] Work Phone: Comment on above: PATIENT NOT FASTINGP ERFORMED BY: CB [facility] Uqonho6721 [facility] [id number] BY: Xradia[address] [id number] Information: 938010,[id number] Eosinophils/100 WBC Auto (Bld) 2 % Normal [facility] Work Phone: Erythrocyte distribution width Auto Ratio (RBC) 16.8 % Abnormal 12.3-15.4 [facility] Work Phone: Erythrocyte distribution width Ratio (RBC) 16.8 % Abnormal 12.3-15.4 [facility] Work Phone: Comment on above: PATIENT NOT FASTINGP ERFORMED BY: CB [facility] Ygyuun1126 [facility] [id number] BY: [address] [id number] Information: [id number],[id number] Hematocrit Auto Volume Fraction (Bld) 34.6 % Normal 34.0-46.6 [facility] Internal Medicine Work Phone: Hematocrit Volume Fraction (Bld) 34.6 % Normal 34.0-46.6 [facility] Work Phone: Comment on above: PATIENT NOT FASTINGP ERFORMED BY: CB [facility] Ffvzmg9822 [facility] [id number] BY: [address] [id number] Information: [id number],[id number] Hemoglobin mass conc (Bld) 10.6 g/dL Abnormal 11.1-15.9 [facility] Work Phone: Comment on above: PATIENT NOT FASTINGP ERFORMED BY: CB [facility] Txefei7196 [facility] [id number] BY: Xradia[address] [id number] Information: 576622,[id number] Immature granulocytes #/vol (Bld) 0.0 {x10E3/uL} Normal 0.0-0.1 [facility] Work Phone: Comment on above: PATIENT NOT FASTINGP ERFORMED BY: CB [facility] Jyzork3179 [facility] [id number] BY: [address] [id number] Information: [id number],[id number] Immature granulocytes (Bld) [#/Vol] 0.0 10*3/uL Normal 0.0-0.1 [facility]; [facility] Work Phone: Comment on above: PATIENT NOT FASTINGP ERFORMED BY: CB [facility] Zfbtdp2510 [facility] [id number] BY: [address] [id number] Information: 994314,[id number] Immature granulocytes/100 WBC (Bld) 0 % Normal [facility] Work Phone: Comment on above: PATIENT NOT FASTINGP ERFORMED BY: Cvent [facility] Mfreoz9627 [facility] [id number] BY: Xradia[address] [id number] Information: [id number],[id number] Lymphocytes #/vol (Bld) 2.2 {x10E3/uL} Normal 0.7-3.1 [facility] Work Phone: Comment on above: PATIENT NOT FASTINGP ERFORMED BY: Cvent [facility] Rzddtv0606 [facility] [id number] BY: Xradia[address] [id number] Information: [id number],[id number] Lymphocytes (Bld) [#/Vol] 2.2 10*3/uL Normal 0.7-3.1 [facility]; [facility] Work Phone: Comment on above: PATIENT NOT FASTINGP ERFORMED BY: [employer] Technologyrp Bkoiys2186 [facility] [id number] BY: Xradia[address] [id number] Information: 905200,[id number] Lymphocytes Auto #/vol (Bld) 2.2 {x10E3/uL} Normal 0.7-3.1 [facility] Work Phone: Lymphocytes/100 WBC (Bld) 29 % Normal [facility] Work Phone: Comment on above: PATIENT NOT FASTINGP ERFORMED BY: [employer] Kgpktk5748 [facility] [id number] BY: Xradia[address] [id number] Information: 500048,Q48484 Lymphocytes/100 WBC Auto (Bld) 29 % Normal [facility] Work Phone: MCH Auto Entitic mass (RBC) 22.2 pg Abnormal 26.6-33.0 [facility] Work Phone: MCH Entitic mass (RBC) 22.2 pg Abnormal 26.6-33.0 [facility] Work Phone: Comment on above: PATIENT NOT FASTINGP ERFORMED BY: [facility] Yhngpk0492 [facility] [id number] BY: [address] [id number] Information: 718696,[id number] MCHC Auto mass conc (RBC) 30.6 g/dL Abnormal 31.5-35.7 [facility] Work Phone: MCHC mass conc (RBC) 30.6 g/dL Abnormal 31.5-35.7 [facility] Internal Medicine Work Phone: Comment on above: PATIENT NOT FASTINGP ERFORMED BY: LabKre[employer] Kkxhfn[address] [id number] BY: [address] [id number] Information: 746119,[id number] MCV Auto Entitic volume (RBC) 72 fL Abnormal 79-97 [facility] Work Phone: MCV Entitic volume (RBC) 72 fL Abnormal 79-97 [facility] Work Phone: Comment on above: PATIENT NOT FASTINGP ERFORMED BY: LabKreeda GamesSarah Ville [id number] [facility] [id number] BY: [address] [id number] Information: 841248,[id number] Monocytes #/vol (Bld) 0.5 {x10E3/uL} Normal 0.1-0.9 [facility] Work Phone: Comment on above: PATIENT NOT FASTINGP ERFORMED BY: [facility] Pwvfpf5923 [facility] [id number] BY: [address] [id number] Information: [id number],[id number] Monocytes (Bld) [#/Vol] 0.5 10*3/uL Normal 0.1-0.9 [facility]; [facility] Work Phone: Comment on above: PATIENT NOT FASTINGP ERFORMED BY: SOFIE [facility] Tkxtzu0134 [facility] [id number] BY: [address] [id number] Information: 129179,[id number] Monocytes Auto #/vol (Bld) 0.5 {x10E3/uL} Normal 0.1-0.9 [facility] Work Phone: Monocytes/100 WBC (Bld) 7 % Normal [facility] Work Phone: Comment on above: PATIENT NOT FASTINGP ERFORMED BY: [facility] Eqrscv7295 [facility] [id number] BY: Memvu[address] [id number] Information: 810733,[id number] Monocytes/100 WBC Auto (Bld) 7 % Normal [facility] Work Phone: Neutrophils #/vol (Bld) 4.7 {x10E3/uL} Normal 1.4-7.0 [facility] Work Phone: Comment on above: PATIENT NOT FASTINGP ERFORMED BY: [facility] Bvcsfy6177 [facility] [id number] BY: [address] [id number] Information: 140400,[id number] Neutrophils (Bld) [#/Vol] 4.7 10*3/uL Normal 1.4-7.0 [facility]; [facility] Work Phone: Comment on above: PATIENT NOT FASTINGP ERFORMED BY: [facility] Vnvmyn1443 [facility] [id number] BY: [address] [id number] Information: 192089,K11486 Neutrophils Auto #/vol (Bld) 4.7 {x10E3/uL} Normal 1.4-7.0 [facility] Work Phone: Neutrophils/100 WBC (Bld) 62 % Normal [facility] Work Phone: Comment on above: PATIENT NOT FASTINGP ERFORMED BY: SOFIE [facility] Odzwac5585 [facility] [id number] BY: Xradia[address] [id number] Information: 507883,O10993 Neutrophils/100 WBC Auto (Bld) 62 % Normal [facility] Work Phone: Platelets #/vol (Bld) 354 {x10E3/uL} Normal 150-379 [facility] Work Phone: Comment on above: PATIENT NOT FASTINGP ERFORMED BY: SOFIE [facility] Aeckdv5426 [facility] [id number] BY: Xradia[address] [id number] Information: 395241,[id number] Platelets (Bld) [#/Vol] 354 10*3/uL Normal 150-379 [facility]; [facility] Work Phone: Comment on above: PATIENT NOT FASTINGP ERFORMED BY: Cvent LabKreeda Gamesrp Jpxdaf8991 [facility] [id number] BY: Xradia[address] [id number] Information: 471695,F74841 Platelets Auto #/vol (Bld) 354 {x10E3/uL} Normal 150-379 [facility] Work Phone: RBC #/vol (Bld) 4.78 {x10E6/uL} Normal 3.77-5.28 Comp rehensive Internal Medicine Work Phone: Comment on above: PATIENT NOT FASTINGP ERFORMED BY: Cvent [facility] Zbnsxi9358 [facility] [id number] BY: [address] [id number] Information: 591472,[id number] RBC (Bld) [#/Vol] 4.78 10*6/uL Normal 3.77-5.28 [facility] Internal Medicine; [facility] Work Phone: Comment on above: PATIENT NOT FASTINGP ERFORMED BY: [facility] Xothzo2378 [facility] [id number] BY: [address] [id number] Information: 090848,[id number] RBC Auto #/vol (Bld) 4.78 {x10E6/uL} Normal 3.77-5.28 [facility] Work Phone: WBC #/vol (Bld) 7.6 {x10E3/uL} Normal 3.4-10.8 [facility] Internal Medicine Work Phone: Comment on above: PATIENT NOT FASTINGP ERFORMED BY: [facility] Kmhqlg0553 [facility] [id number] BY: [address] [id number] Information: 498778,[id number] WBC (Bld) [#/Vol] 7.6 10*3/uL Normal 3.4-10.8 [facility] Internal Medicine; [facility] Internal Medicine Work Phone: Comment on above: PATIENT NOT FASTINGP ERFORMED BY: [facility] Wmubnx1143 [facility] [id number] BY: [address] [id number] Information: 559813,[id number] WBC Auto #/vol (Bld) 7.6 {x10E3/uL} Normal 3.4-10.8 [facility] Work Phone: GERARDO TEST, DIRECT (81914)O rdered By: Farm Products Shipper on 01-28-2015 Direct antiglobulin test.poly specific reagent Ql (RBC) Negative Normal [facility] Work Phone: Comment on above: PATIENT NOT FASTINGP ERFORMED BY: CB [facility] Nzbafc3276 Reid RoadDublin [place] [id number] BY: Xradia[address] [id number] Direct antiglobulin test.poly specific reagent Ql (RBC) Negative Normal [facility]; [facility] Work Phone: Comment on above: PATIENT NOT FASTINGP ERFORMED BY: CB [facility] Woxgtn6238 [facility] RoadUNC [facility] [id number] BY: Xradia[address] [id number] FERRITIN (34604)Ordered By: Farm [employer] Shipper on 01-28-2015 Ferritin mass conc 8 ng/mL Abnormal 15-150 [facility]pre [facility] Internal Medicine Work Phone: Comment on above: PATIENT NOT FASTINGP ERFORMED BY: CB [facility] Exjoxq9766 [facility] [id number] BY: Xradia[address] [id number] FOLIC ACID SERUM (80041)Orde red By: [employer] Shipper on 01-28-2015 Folate mass conc ng/mL Normal Comprehe nsive Internal Medicine Work Phone: Comment on above: A serum folate lori ntration of less than 3.1 ng/mL isconsidered to represent clinical deficiency. PATIENT NOT FASTINGP ERFORMED BY: CB [facility] Fkwdma6357 [facility] [id number] BY: Memvu[address] [id number] HAPTOGLOBIN (21002)Ordered B y: [employer] Shipper on 01-28-2015 Haptoglobin mass conc 117 mg/dL Normal 34-200 Com prehensive Internal Medicine Work Phone: Comment on above: PATIENT NOT FASTINGP ERFORMED BY: CB [facility] Zblynm9625 [facility] [place] [id number] BY: [facility]Corp Mbryuzvgzu7511 [facility] [id number] Hemoglobin Glyclated (HGB A1 C) (25711)Ordered By: [employer] Shipper on 01-28-2015 Hemoglobin A1c/Hemoglobin.total mass fraction (Bld) 5.4 % Normal 4.8-5.6 Comprehensiv e Internal Medicine Work Phone: Comment on above: . Increased risk for diabetes: 5.7 - 6.4 Diabetes: >6.4 Glycemic control for adults with diabetes: <7.0 PATIENT NOT FASTINGP ERFORMED BY: SOFIE [facility] Ibmzwz0672 [facility] [id number] Information: [id number] IRON BINDING CAPACITY (TIBC) (62811)Ordered By: Farm [employer] Shipper on 01-28-2015 Iron binding capacity mass conc 447 ug/dL Normal 250-450 [facility] Work Phone: Comment on above: PATIENT NOT FASTINGP ERFORMED BY: CB [facility] Ekxiia9900 [facility] [id number] BY: [facility] [address] [id number] Iron binding capacity.unsaturated mass conc 425 ug/dL Abnormal 150-375 [facility] Work Phone: Comment on above: PATIENT NOT FASTINGP ERFORMED BY: CB [facility] Ckjluk2066 [facility] [id number] BY: [facility] [address] [id number] Iron mass conc 22 ug/dL Abnormal 35-155 Comprehens velma Internal Medicine Work Phone: Comment on above: PATIENT NOT FASTINGP ERFORMED BY: CB [facility] Xahgxe6636 [facility] [id number] BY: [facility] [address] [id number] Iron saturation mass fraction 5 % Abnormal 15-55 [facility] Work Phone: Comment on above: PATIENT NOT FASTINGP ERFORMED BY: [facility] Krissz9610 [address] Roadblin [place] [id number] BY: [address] [id number] LDH (LD) (LACTATE DEHYDROGEN ASE) (86624)Ordered By: Farm [employer] Shipper on 01-28-2015 LDH [Catalytic activity/Vol] 176 U/L Normal 119-226 [facility]; [facility] Work Phone: Comment on above: PATIENT NOT FASTINGP ERFORMED BY: [facility] Aswumh2520 [facility] [id number] BY: [address] [id number] LDH enzyme act/vol 176 [iU]/L Normal 119-226 [facility] Internal Medicine Work Phone: Comment on above: PATIENT NOT FASTINGP ERFORMED BY: LabKreeda GamesRobert Wood Johnson University Hospital at RahwaySgjonk8134 [facility] [id number] BY: [address] [id number] Methymalonic Acid, Serum (83 921)Ordered By: Farm [employer] Shipper on 01-28-2015 Methylmalonate molar conc 200 nmol/L Normal 0-378 [facility] Work Phone: Comment on above: PATIENT NOT FASTINGP ERFORMED BY: [facility] Wgmtky1971 [facility] [id number] BY: [address] [id number] RETICULOCYTE COUNT [facility] (85 044)Ordered By: Farm [employer] Shipper on 01-28-2015 Reticulocytes/100 RBC (Bld) 1.1 % Normal 0.6-2.6 [facility] Work Phone: Comment on above: PATIENT NOT FASTINGP ERFORMED BY: [facility] Seqqoy9713 [facility] [id number] BY: [address] [id number] Reticulocytes/100 RBC Auto (Bld) 1.1 % Normal 0.6-2.6 [facility] Work Phone: VITAMIN B-12 (CYANOCOBALAMIN ) (83694)Ordered By: Farm [employer] Shipper on 01-28-2015 Cobalamin (Vitamin B12) mass conc 916 pg/mL Normal 211-946 [facility] Work Phone: Comment on above: PATIENT NOT FASTINGP ERFORMED BY: CB [facility] Usqdsl6067 [facility] [id number] BY: BN [facility] Dlmmflhgci4102 [facility] [id number] BMPOrdered By: System Manage r on 10-06-2014 Calcium mass conc 8.9 mg/dL Normal 8.5-10.1 Compreh ensive Internal Medicine Work Phone: Chloride molar conc 106 mmol/L Normal 98-107 Compr ehensive Internal Medicine Work Phone: CO2 molar conc 27.0 mmol/L Normal 21.0-32.0 Comprehen sive Internal Medicine Work Phone: Creatinine mass conc 1.1 mg/dL Abnormal 0.6-1.0 Comp rehensive Internal Medicine Work Phone: GFR/1.73 sq M predicted among non-blacks MDRD vol rate/area (S/P/Bld) 59 mL/min/{1.73_m2} Abnormal Comprehe nsive Internal Medicine Work Phone: Glucose mass conc 83 mg/dL Normal 70-110 Compreh ensive Internal Medicine Work Phone: Potassium molar conc 3.8 mmol/L Normal 3.5-5.1 Comp rehensive Internal Medicine Work Phone: Sodium molar conc 140 mmol/L Normal 136-145 Compreh ensive Internal Medicine Work Phone: Urea nitrogen mass conc 13 mg/dL Normal 7-18 [facility] Work Phone: BMP 7 1 Normal 5-15 [facility] Work Phone: BMP 11.8 {RATIO} Normal 10-20 Comprehensiv e Internal Medicine Work Phone: BMP 72 mL/min Normal [facility] Work Phone: CBCOrdered By: System Manage r on 10-06-2014 Erythrocyte distribution width Auto Ratio (RBC) 17.6 % Abnormal 11.6-14.6 [facility] Work Phone: Hematocrit Auto Volume Fraction (Bld) 33.3 % Abnormal 37-47 Comprehens velma Internal Medicine Work Phone: Hemoglobin mass conc (Bld) 10.1 g/dL Abnormal 12.0-15.0 [facility] Work Phone: MCH Auto Entitic mass (RBC) 22.2 pg Abnormal 27.0-32.0 [facility] Work Phone: MCHC Auto mass conc (RBC) 30.3 {g/gl} Abnormal 32-36 [facility] Work Phone: MCV Auto Entitic volume (RBC) 73.3 fL Abnormal 81-99 [facility] Work Phone: Platelet mean volume Auto Entitic volume (Bld) 10.3 fL Normal 6.2-12.0 [facility] Work Phone: Platelets Auto #/vol (Bld) 332 10*3/uL Normal 150-450 [facility] Work Phone: RBC Auto #/vol (Bld) 4.54 {M/mm3} Normal 4.2-5.4 Co mprehensive Internal Medicine Work Phone: WBC Auto #/vol (Bld) 5.6 10*3/uL Normal 4.4-11.0 [facility] prehensive Internal Medicine Work Phone: CBC 46.1 fL Abnormal 35.1-43.9 [facility] Work Phone: DCOrdered By: Farm [employer] Shipper on 10-06-2014 DC Normal [facility] Work Phone: Comment on above: MICROCYTOSIS 2+ PTOrdered By: Farm [employer] Shipper on 10-06-2014 INR Coag RelTime (PPP) 1.1 {INR} Normal [facility] Work Phone: PT 14.0 s Normal 11.7-14.9 [facility] Work Phone: PTTOrdered By: System Manage r on 10-06-2014 aPTT Coag time (Bld) 28.1 s Normal 24.1-36.2 Comp rehensive Internal Medicine Work Phone: CBC W/AUTO DIFF WBC (21862)O rdered By: [employer] Shipper on 09-21-2014 Basophils #/vol (Bld) 0.0 {x10E3/uL} Normal 0.0-0.2 [facility] Work Phone: Comment on above: PATIENT NOT FASTINGP ERFORMED BY: SOFIE [address] [id number] Information: 455290,M10982 Basophils (Bld) [#/Vol] 0.0 10*3/uL Normal 0.0-0.2 [facility]; [facility] Work Phone: Comment on above: PATIENT NOT FASTINGP ERFORMED BY: SOFIE [place] 1160270 [facility] [id number] Information: 642650,W36397 Basophils Auto #/vol (Bld) 0.0 {x10E3/uL} Normal 0.0-0.2 [facility] Work Phone: Basophils/100 WBC (Bld) 0 % Normal [facility] Work Phone: Comment on above: PATIENT NOT FASTINGP ERFORMED BY: [address] [id number] Information: 108379,N72852 Basophils/100 WBC Auto (Bld) 0 % Normal [facility] Work Phone: Eosinophils #/vol (Bld) 0.2 {x10E3/uL} Normal 0.0-0.4 [facility] Work Phone: Comment on above: PATIENT NOT FASTINGP ERFORMED BY: [place] 4708470 [facility] [id number] Information: 771779,Y68784 Eosinophils (Bld) [#/Vol] 0.2 10*3/uL Normal 0.0-0.4 [facility]; [facility] Work Phone: Comment on above: PATIENT NOT FASTINGP ERFORMED BY: SOFIE Sibleylin6370 [facility] [id number] Information: 594466,C55131 Eosinophils Auto #/vol (Bld) 0.2 {x10E3/uL} Normal 0.0-0.4 [facility] Work Phone: Eosinophils/100 WBC (Bld) 2 % Normal [facility] Work Phone: Comment on above: PATIENT NOT FASTINGP ERFORMED BY: SOFIE Archuleta6370 [facility] [id number] Information: 482712,M34073 Eosinophils/100 WBC Auto (Bld) 2 % Normal [facility] Work Phone: Erythrocyte distribution width Auto Ratio (RBC) 17.1 % Abnormal 12.3-15.4 [facility] Work Phone: Erythrocyte distribution width Ratio (RBC) 17.1 % Abnormal 12.3-15.4 [facility] Work Phone: Comment on above: PATIENT NOT FASTINGP ERFORMED BY: SOFIE [address] [place] [address] [id number] Information: 243261,H07312 Hematocrit Auto Volume Fraction (Bld) 34.9 % Normal 34.0-46.6 [facility] Internal Medicine Work Phone: Hematocrit Volume Fraction (Bld) 34.9 % Normal 34.0-46.6 [facility] Work Phone: Comment on above: PATIENT NOT FASTINGP ERFORMED BY: SOFIE LabDavid SibleyFoervg3864 [facility] [id number] Information: 342640,M11053 Hemoglobin mass conc (Bld) 10.4 g/dL Abnormal 11.1-15.9 [facility] Work Phone: Comment on above: PATIENT NOT FASTINGP ERFORMED BY: [facility]6370 [facility] [id number] Information: 967652,Z97494 Immature granulocytes #/vol (Bld) 0.0 {x10E3/uL} Normal 0.0-0.1 [facility] Work Phone: Comment on above: PATIENT NOT FASTINGP ERFORMED BY: [address] [id number] Information: 730862,[id number] Immature granulocytes (Bld) [#/Vol] 0.0 10*3/uL Normal 0.0-0.1 [facility]; [facility] Work Phone: Comment on above: PATIENT NOT FASTINGP ERFORMED BY: [address] [id number] Information: 303579,X66892 Immature granulocytes/100 WBC (Bld) 0 % Normal [facility] Work Phone: Comment on above: PATIENT NOT FASTINGP ERFORMED BY: [address] [id number] Information: 566201,I26479 Lymphocytes #/vol (Bld) 2.1 {x10E3/uL} Normal 0.7-3.1 [facility] Work Phone: Comment on above: PATIENT NOT FASTINGP ERFORMED BY: [address] [id number] Information: 041109,[id number] Lymphocytes (Bld) [#/Vol] 2.1 10*3/uL Normal 0.7-3.1 [facility]; [facility] Work Phone: Comment on above: PATIENT NOT FASTINGP ERFORMED BY: [place] 4708470 [facility] [id number] Information: 417930,R53823 Lymphocytes Auto #/vol (Bld) 2.1 {x10E3/uL} Normal 0.7-3.1 [facility] Work Phone: Lymphocytes/100 WBC (Bld) 22 % Normal [facility] Work Phone: Comment on above: PATIENT NOT FASTINGP ERFORMED BY: SOFIE HalleyNmgely Mcsjji8373 [facility] [id number] Information: 560734,Z12367 Lymphocytes/100 WBC Auto (Bld) 22 % Normal [facility] Work Phone: MCH Auto Entitic mass (RBC) 21.6 pg Abnormal 26.6-33.0 [facility] Work Phone: MCH Entitic mass (RBC) 21.6 pg Abnormal 26.6-33.0 [facility] Work Phone: Comment on above: PATIENT NOT FASTINGP ERFORMED BY: SOFIE [address] [id number] Information: 892921,J08602 MCHC Auto mass conc (RBC) 29.8 g/dL Abnormal 31.5-35.7 [facility] Work Phone: MCHC mass conc (RBC) 29.8 g/dL Abnormal 31.5-35.7 [facility] Internal Medicine Work Phone: Comment on above: PATIENT NOT FASTINGP ERFORMED BY: [facility] [address] [id number] Information: [id number] MCV Auto Entitic volume (RBC) 73 fL Abnormal 79-97 [facility] Work Phone: MCV Entitic volume (RBC) 73 fL Abnormal 79-97 [facility] Work Phone: Comment on above: PATIENT NOT FASTINGP ERFORMED BY: SOFIE [address] [id number] Information: [id number] Monocytes #/vol (Bld) 0.7 {x10E3/uL} Normal 0.1-0.9 [facility] Work Phone: Comment on above: PATIENT NOT FASTINGP ERFORMED BY: [facility]6370 [facility] [id number] Information: [id number] Monocytes (Bld) [#/Vol] 0.7 10*3/uL Normal 0.1-0.9 [facility]; [facility] Work Phone: Comment on above: PATIENT NOT FASTINGP ERFORMED BY: [place] [id number] [facility] [id number] Information: [id number] Monocytes Auto #/vol (Bld) 0.7 {x10E3/uL} Normal 0.1-0.9 [facility] Work Phone: Monocytes/100 WBC (Bld) 8 % Normal [facility] Work Phone: Comment on above: PATIENT NOT FASTINGP ERFORMED BY: [place] [id number] [facility] [id number] Information: [id number] Monocytes/100 WBC Auto (Bld) 8 % Normal [facility] Work Phone: Neutrophils #/vol (Bld) 6.5 {x10E3/uL} Normal 1.4-7.0 [facility] Work Phone: Comment on above: PATIENT NOT FASTINGP ERFORMED BY: [place] [id number] [facility] [id number] Information: [id number] Neutrophils (Bld) [#/Vol] 6.5 10*3/uL Normal 1.4-7.0 [facility]; [facility] Work Phone: Comment on above: PATIENT NOT FASTINGP ERFORMED BY: [place] [id number] [facility] [id number] Information: [id number] Neutrophils Auto #/vol (Bld) 6.5 {x10E3/uL} Normal 1.4-7.0 [facility] Work Phone: Neutrophils/100 WBC (Bld) 68 % Normal [facility] Work Phone: Comment on above: PATIENT NOT FASTINGP ERFORMED BY: SOFIE Vera [facility] [id number] Information: [id number] Neutrophils/100 WBC Auto (Bld) 68 % Normal [facility] Work Phone: Platelets #/vol (Bld) 364 {x10E3/uL} Normal 150-379 [facility] Work Phone: Comment on above: PATIENT NOT FASTINGP ERFORMED BY: SOFIE Sibleylin6370 [facility] [id number] Information: [id number] Platelets (Bld) [#/Vol] 364 10*3/uL Normal 150-379 [facility]; [facility] Work Phone: Comment on above: PATIENT NOT FASTINGP ERFORMED BY: SOFIE Sibleylin6370 [facility] [id number] Information: [id number] Platelets Auto #/vol (Bld) 364 {x10E3/uL} Normal 150-379 [facility] Work Phone: RBC #/vol (Bld) 4.81 {x10E6/uL} Normal 3.77-5.28 [facility] Internal Medicine Work Phone: Comment on above: PATIENT NOT FASTINGP ERFORMED BY: SOFIE Sibleylin6370 [facility] [id number] Information: [id number] RBC (Bld) [#/Vol] 4.81 10*6/uL Normal 3.77-5.28 [facility] Internal Medicine; [facility] Work Phone: Comment on above: PATIENT NOT FASTINGP ERFORMED BY: SOFIE Sibleylin6370 [facility] [id number] Information: [id number] RBC Auto #/vol (Bld) 4.81 {x10E6/uL} Normal 3.77-5.28 [facility] Work Phone: WBC #/vol (Bld) 9.5 {x10E3/uL} Normal 3.4-10.8 [facility] Phone: Comment on above: PATIENT NOT FASTINGP ERFORMED BY: SOFIE [facility] Odushd[address] RoadCritical Access Hospitalin [place] [id number] Information: [id number] WBC (Bld) [#/Vol] 9.5 10*3/uL Normal 3.4-10.8 [facility] Internal Medicine; [facility] Work Phone: Comment on above: PATIENT NOT FASTINGP ERFORMED BY: SOFIE [facility] [id number] [facility] [id number] Information: [id number] WBC Auto #/vol (Bld) 9.5 {x10E3/uL} Normal 3.4-10.8 [facility] Work Phone: MAGNESIUM ([id number])Ordered By: Farm [employer] Shipper on 09-21-2014 Magnesium mass conc 2.0 mg/dL Normal 1.6-2.6 [facility] Work Phone: Comment on above: PATIENT NOT FASTINGP ERFORMED BY: [facility] [id number] [facility] [id number] URINE CHICHO CULTURE-IDENTIFICA [place] ([id number])Ordered By: [employer] Shipper on 09-21-2014 Bacteria identified Cx Nom (U) Escherichia coli Abnormal [facility] Work Phone: Comment on above: Greater than 100,000 colony forming units per mL PATIENT NOT FASTINGP ERFORMED BY: [facility] Warkyp[address] [facility] [place] [id number] Information: [id number] Bacteria identified Cx Nom (U) Final report Abnormal [facility] Work Phone: Comment on above: PATIENT NOT FASTINGP ERFORMED BY: [facility] [id number] [facility] [place] [id number] Information: [id number] Other Antibiotic susc [facility] prehensive Internal Medicine Work Phone: Comment on above: S = Susceptibl e; I = Intermediate; R = Resistant P = Positive; N = Negative MICS are expressed in micrograms per mL Antibiotic RSLT#1 RSLT#2 RSLT#3 RSLT#4Amoxicillin/Clavulanic Acid SAmpicillin RCefepime SCeftriaxone SCefuroxime SCephalothin RCiprofloxacin RErtapenem SGentamicin SImipenem SLevofloxacin RNitrofurantoin SPiperacillin RTetracycline STobramycin STrimethoprim/Sulfa S PATIENT NOT FASTINGP ERFORMED BY: SOFIE [facility] [id number] Reid RoadDuSampson Regional Medical Center [id number] Information: [id number] Urinalysis, Office ([id number])Or dered By: Heather Basilio on 09-21-2014 Bilirubin Ql (U) Negative Normal Comprehe nsive Internal Medicine Work Phone: Bilirubin Ql (U) Negative Normal Comprehe nsive Internal Medicine; [facility] Work Phone: Glucose Test strip (U) [Mass/Vol] Negative Normal [facility]; [facility] Work Phone: Glucose Test strip mass conc (U) Negative Normal [facility] Work Phone: Hemoglobin Ql (U) Negative Normal Compreh ensive Internal Medicine Work Phone: Hemoglobin Ql (U) Negative Normal Compreh ensive Internal Medicine; [facility] Work Phone: Hemoglobin Test strip Ql (U) Negative Normal [facility] Work Phone: Ketones Ql (U) Negative Normal Comprehens velma Internal Medicine Work Phone: Ketones Ql (U) Negative Normal Comprehens [facility]; [facility] Work Phone: Leukocyte esterase Test strip Ql (U) Moderate Normal [facility] Work Phone: Nitrite Ql (U) Positive Normal Comprehens [facility] Work Phone: Nitrite Ql (U) Positive Normal Comprehens [facility]; [facility] Work Phone: Nitrite Test strip Ql (U) Positive Normal [facility] Work Phone: pH (U) 6.5 [pH] Normal [facility] Work Phone: pH Test strip (U) 6.5 [pH] Normal Compreh ensive Internal Medicine Work Phone: Protein Ql (U) Negative Normal Comprehens [facility] Work Phone: Protein Ql (U) Negative Normal Comprehens [facility]; [facility] Work Phone: Protein Test strip Ql (U) Negative Normal [facility] Work Phone: Specific gravity Relative Density (U) 1.010 1 Normal Comprehensi ve Internal Medicine Work Phone: Urobilinogen mass/time (24H U) Normal Normal [facility] Work Phone: Vitamin D Hydroxy ([id number])Ord ered By: Farm [employer] Shipper on 09-21-2014 25-Hydroxyvitamin D2+25-Hydroxyvitamin D3 mass conc 33.5 ng/mL Normal 30.0-100.0 [facility] Work Phone: Comment on above: Vitamin D deficiency has been defined by the [place] of[place] and an Endocrine Society practice guideline as alevel of serum 25-OH vitamin D less than 20 ng/mL (1,2).The Endocrine Society went on to further define vitamin Dinsufficiency as a level between 21 and 29 ng/mL (2).1. IOM ([place] of [employer]). 2010. Dietary reference intakes for calcium and D. [place]: The National Academies Press.2. Karlos MF, [place], Marina JENKINS, et al. Evaluation, treatment, and prevention of vitamin D deficiency: an Endocrine Society clinical practice guideline. JCEM. 2010; 96(7):1911-30. PATIENT NOT FASTINGP ERFORMED BY: LabCoRobert Wood Johnson University Hospital at RahwayBduuup8162 [facility] [id number] VITAOrdered By: System Manag er on 07-06-2014 NAZ 40 ug/dL Normal 18-77 [facility] Work Phone: Comment on above: Performed at: - L [address] [id number] Director: Jewel Felipe MD, Phone: [phone] [id number] By: System Leho r on 06-30-2014 Hemoglobin A1c/Hemoglobin.total mass fraction (Bld) 4.9 % Normal 4.2-6.3 Comprehensiv e [facility] Medicine Work Phone: Q12Gkwilbu By: System Manage r on 06-30-2014 Cobalamin (Vitamin B12) mass conc 702 pg/mL Normal 211-911 [facility] Work Phone: CBCDOrdered By: [employer] er on 06-30-2014 Erythrocyte distribution width Auto Ratio (RBC) 17.5 % Abnormal 11.6-14.6 [facility] Work Phone: Hematocrit Auto Volume Fraction (Bld) 34.8 % Abnormal 37-47 Comprehens [facility] Work Phone: Hemoglobin mass conc (Bld) 10.4 g/dL Abnormal 12.0-15.0 [facility] Work Phone: MCH Auto Entitic mass (RBC) 22.1 pg Abnormal 27.0-32.0 [facility] Work Phone: MCHC Auto mass conc (RBC) 29.9 {g/gl} Abnormal 32-36 [facility] Work Phone: MCV Auto Entitic volume (RBC) 74.0 fL Abnormal 81-99 [facility] Work Phone: Platelet mean volume Auto Entitic volume (Bld) 9.6 fL Normal 6.2-12.0 [facility] Work Phone: Platelets Auto #/vol (Bld) 303 10*3/uL Normal 150-450 [facility] Work Phone: RBC Auto #/vol (Bld) 4.70 {M/mm3} Normal 4.2-5.4 Co mprehensive [facility] Work Phone: WBC Auto #/vol (Bld) 5.9 10*3/uL Normal 4.4-11.0 Com prehensive Internal Medicine Work Phone: CBCD 2.9 % Normal 0-5 [facility] Work Phone: CBCD 0.2 % Normal 0-1 [facility] Work Phone: CBCD 0.000 % Normal 0.0-0.9 [facility] Work Phone: Comment on above: IG% - Immature Granu locytes (promyelocytes, myelocytes andmetamyelocytes) > 1% indicates that a LEFT SHIFT is Present. CBCD 3.8 {X10_3/uL} Normal 2.0-7.7 Comprehens [facility] Work Phone: CBCD 1.39 {X10_3/ul} Normal 0.83-4.51 Comprehen sive Internal Medicine Work Phone: CBCD COMMENT Normal [facility] Work Phone: Comment on above: 1+ HYPO CBCD 47.4 fL Abnormal 35.1-43.9 [facility] Work Phone: CBCD 65.2 % Normal 47-70 [facility] Work Phone: CBCD 23.7 % Normal 19-41 [facility] Work Phone: CBCD 8.0 % Normal 0-10 [facility] Work Phone: CMPOrdered By: System Manage r on 06-30-2014 Albumin mass conc 3.6 g/dL Normal 3.4-5.0 Compreh ensive Internal Medicine Work Phone: Albumin/Globulin mass ratio 0.9 {RATIO} Normal 0.9-2.4 [facility] Work Phone: ALP enzyme act/vol 79 U/L Normal 45-117 Compre [facility] Work Phone: ALT enzyme act/vol 36 U/L Normal 12-78 Compre [facility] [place] Internal [facility] Work Phone: AST enzyme act/vol 25 U/L Normal 15-37 [facility] [place] Work Phone: Bilirubin mass conc 0.30 mg/dL Normal 0.00-1.00 Compr ehensive Internal Medicine Work Phone: Calcium mass conc 8.8 mg/dL Normal 8.5-10.1 Compreh ensive Internal Medicine Work Phone: Chloride molar conc 107 mmol/L Normal 98-107 Compr ehensive Internal Medicine Work Phone: CO2 molar conc 30.0 mmol/L Normal 21.0-32.0 Comprehen sive Internal Medicine Work Phone: Creatinine mass conc 1.1 mg/dL Abnormal 0.6-1.0 Comp rehensive Internal Medicine Work Phone: GFR/1.73 sq M predicted among non-blacks MDRD vol rate/area (S/P/Bld) 59 mL/min/{1.73_m2} Abnormal Comprehe nsive Internal Medicine Work Phone: Globulin Calculated mass conc (S) 3.8 g/dL Normal 2.7-4.2 [facility] Work Phone: Glucose mass conc 86 mg/dL Normal 70-110 Compreh ensive Internal Medicine Work Phone: Potassium molar conc 3.5 mmol/L Normal 3.5-5.1 Comp rehensive Internal Medicine Work Phone: Protein mass conc 7.4 g/dL Normal 6.4-8.2 Compreh ensive Internal Medicine Work Phone: Sodium molar conc 141 mmol/L Normal 136-145 Compreh ensive Internal Medicine Work Phone: Urea nitrogen mass conc 11 mg/dL Normal 7-18 [facility] Work Phone: Urea nitrogen/Creatinine mass ratio 10.0 {RATIO} Normal 10-20 [facility] Work Phone: CMP 72 mL/min Normal [facility] Work Phone: CMP 4 1 Abnormal 5-15 [facility] Work Phone: FEOrdered By: Farm [employer] Shipper on 06-30-2014 FE 23 ug/dL Abnormal 50-170 [facility] Work Phone: FEROrdered By: System Manage r on 06-30-2014 IAM 5 ng/mL Abnormal 8-252 [facility] Work Phone: FOLOrdered By: System Manage r on 06-30-2014 FOL 30.50 ng/mL Abnormal 3.1-17.5 [facility] Work Phone: HOMOOrdered By: System Manag er on 06-30-2014 HOMO 4.9 umol/L Normal 3.2-10.7 [facility] Work Phone: LIPIDOrdered By: System Kiana cade on 06-30-2014 Cholesterol in HDL mass conc 52 mg/dL Normal [facility] Work Phone: Comment on above: Reference RangeHDL < 40 mg/dL Low HDL CholesterolHDL >or= 60 mg/dL High HDL Cholesterol Cholesterol in LDL mass conc 84 mg/dL Normal 0-130 [facility] Work Phone: Cholesterol mass conc 155 mg/dL Normal Com prehensive Internal Medicine Work Phone: Comment on above: <200 mg/dL Desirable 200-240 mg/dL Borderline>240 mg/dL High Risk Triglyceride mass conc 95 mg/dL Normal 0-199 [facility] Work Phone: Comment on above: Serum Triglycerides Reference IntervalNormal <150 mg/dLBorderline high 150 - 199 mg/dLHigh 200 - 499 mg/dLVery High > or = 500 mg/dL LIPID 19 mg/dL Normal 5-40 [facility] Work Phone: MGOrdered By: [employer] Shipper on 06-30-2014 Magnesium mass conc 1.7 mg/dL Abnormal 1.8-2.4 Compr ehensive Internal Medicine Work Phone: MISCOrdered By: System Manag er on 06-30-2014 MISC Normal [facility] Work Phone: Comment on above: TEST RESULT LIMITSCh romium, Plasma 0.6 ug/L 0.1 - 2.1Detection Limit = 0.1 TEST ING PERFORMED AT [facility]. ORIGINAL REPORT ONFILE IN LAB CONTAINS ADDITIONAL TEST SITE INFORMATION. PHOSOrdered By: System Manag er on 06-30-2014 PHOS 2.9 mg/dL Normal 2.5-4.9 [facility] Work Phone: PTHINOrdered By: System Kiana cade on 06-30-2014 PTHIN 104 pg/mL Abnormal 14-72 [facility] Work Phone: TSHOrdered By: System Manage r on 06-30-2014 Thyrotropin Qn 2.32 {uIU/mL} Normal 0.358-3.74 Compreh ensive Internal Medicine Work Phone: VITDOrdered By: System Manag er on 06-30-2014 VITD 39.9 mg/mL Normal [facility] Work Phone: Comment on above: Vitamin D 25(OH) Sta tus RangeDeficiency <20 ng/mL (50nmol/L)Insuffciency 20 - 30 ng/mL (50 - 75 nmol/L)Sufficiency 30 - 100 ng/mL (75 - 250 nmol/L)Toxicity >100 ng/mL (>250 nmol/L) ZIOrdered By: Farm Products Shipper on 06-30-2014 ZI 96 ug/dL Normal 56-134 [facility] Work Phone: Comment on above: PLASMA NOT FROMCELLS. May cause falseelevation of plasmalevels due to intracellulartransfer into the plasma.It is recommeded tocentrifuge the royal blue-stoppered Vacutainerimmediately after collectionand to separate the plasmafrom the cells. Storeplasma in a plastic trans-iam tube for shipment tot laboratory.Detection Limit = 5 ABDOMEN/PELVIS WITHOUT CONTO rdered By: [employer] Shipper on 05-10-2013 ABDOMEN/PELVIS WITHOUT CONT See Note Normal [facility] Work Phone: Comment on above: PROCEDURE: CT ABDOME N AND PELVIS WITHOUT CONTRAST REASON FOR EXAM: Female, 37 years old. Left flank pain and hematuria. RADIATION DOSAGE (If Supplied By Facility): CTDIvol = ( 23.94 ) mGy, DLP=( 1234.26 ) mGycm TECHNIQUE: Transaxial images were obtained from the dome of thediaphragmto the symphysis pubis without oral contrast, and without intravenouscontrast. Multiplanar coronal and sagittal images were reformatted. COMPARISON: Comparison is made with prior study dated July. FINDINGS:The visualized lung bases are unremarkable. The visualized portions oftheheart are within normal limits. Normal liver. The patient is status post cholecystectomy. Normalspleen.Normal pancreas. Normal bilateral adrenal glands. Normal right kidney. There is a mild degree of left hydronephrosis.Milddegree of left perinephric stranding, as well as dilatation of the leftureter. There is a 4-mm calculus in the distal portion of the leftureterjust proximal to the ureterovesical junction. The patient is status post gastric bypass surgery and subtotalgastrectomy.Normal small intestine. Normal colon. The appendix is visualized andappears normal. Normal abdominal aorta. Normal inferior vena cava. Normalretroperitoneum. Normal urinary bladder. Follicles are seen in the left ovary. Normal abdominal wall. Disk space narrowing at the L5-S1 level. IMPRESSION:Left hydroureter and left hydronephrosis secondary to a 4-mm calculus inthe distal portion of the left ureter just proximal to the ureterovesicaljunction. Signed:Danny Ochoa M.D.May 10, 2013 at 12:12:35 PM [id number] Signed GP/GP If you are the referring physician and would like to consult with theradiologist who provided this interpretation, please contact Brandee Junior at [phone]. If this radiologist is unavailable, youwill be directed to another radiologist to assist. If you are a patient with a question regarding this report, pleasecontactyour referring physician directly. Professional Interpretation Provided By: [employer], Phone , These documents contain legally protected and confidential healthinformation intended only for the use of the individual or entity namedabove. If you are not the intended recipient, you are hereby notifiedthatany disclosure, copying, distribution, or other use of these documents isstrictly prohibited. If you have received this information in error,pleasenotify the sender immediately and arrange for the return or destructionofthese documents. Dictated on 05/10/13 1212 by Gabriela ALEJANDRE,Manuelranscribed on 05/10/13 1226 by ITS IMPORTSign by Danny Ochoa MD on 05/10/13 1227 Sign by: Danny Ochoa MD CBCMDOrdered By: Wolfgang mohamud on 05-10-2013 Erythrocyte distribution width Auto Ratio (RBC) 17.4 % Abnormal 11.6-14.6 [facility] Work Phone: Hematocrit Auto Volume Fraction (Bld) 30.6 % Abnormal 37-47 Comprehens [facility] Work Phone: Hemoglobin mass conc (Bld) 8.8 g/dL Abnormal 12.0-15.0 [facility] Work Phone: MCH Auto Entitic mass (RBC) 21.0 pg Abnormal 27.0-32.0 [facility] Work Phone: MCHC Auto mass conc (RBC) 28.8 g/dL Abnormal 32-36 [facility] Work Phone: MCV Auto Entitic volume (RBC) 73.0 fL Abnormal 81-99 [facility] Work Phone: Platelet mean volume Auto Entitic volume (Bld) 11.1 fL Normal 6.2-12.0 [facility] Work Phone: Platelets Auto #/vol (Bld) 324 10*3/uL Normal 150-450 [facility] Work Phone: RBC Auto #/vol (Bld) 4.19 {M/mm3} Abnormal 4.2-5.4 [facility] Work Phone: WBC Auto #/vol (Bld) 10.2 {k/mm3} Normal 4.4-11.0 Co [facility] Internal Medicine Work Phone: CBCMD 0.4 % Normal 0-1 [facility] Work Phone: CBCMD 45.0 fL Abnormal 35.1-43.9 [facility] Work Phone: CBCMD 71.0 % Abnormal 47-70 [facility] Work Phone: CBCMD 14.9 % Abnormal 19-41 [facility] Work Phone: CBCMD 11.4 % Abnormal 0-10 [facility] Work Phone: CBCMD 2.1 % Normal 0-5 [facility] Work Phone: CBCMD 0.20 % Abnormal 0.0-0.0 [facility] Work Phone: CBCMD 7.3 3/uL Normal 2.0-7.7 [facility] Work Phone: CBCMD ADEQUATE Normal [facility] Work Phone: CBCMD LARGE Normal [facility] Work Phone: CBCMD RARE Normal [facility] Work Phone: CMPOrdered By: System Manage r on 05-10-2013 Albumin mass conc 3.6 g/dL Normal 3.4-5.0 Compreh ensive Internal Medicine Work Phone: ALT enzyme act/vol 25 U/L Normal 12-78 Compre [facility] Internal [facility] Work Phone: AST enzyme act/vol 17 U/L Normal 15-37 Compre [facility] Work Phone: Calcium mass conc 8.8 mg/dL Normal 8.5-10.1 Compreh ensive Internal Medicine Work Phone: Chloride molar conc 108 mmol/L Abnormal 98-107 Compr ehensive Internal Medicine Work Phone: CO2 molar conc 27.0 mmol/L Normal 21.0-32.0 Comprehen sive Internal Medicine Work Phone: Creatinine mass conc 1.0 mg/dL Normal 0.6-1.0 Comp rehensive Internal Medicine Work Phone: GFR/1.73 sq M predicted among non-blacks MDRD vol rate/area (S/P/Bld) 67 mL/min/{1.73_m2} Normal Comprehe nsive Internal Medicine Work Phone: Globulin Calculated mass conc (S) 3.2 g/dL Normal 2.7-4.2 [facility] Work Phone: Glucose mass conc 82 mg/dL Normal 70-110 Compreh ensive Internal Medicine Work Phone: Potassium molar conc 4.4 mmol/L Normal 3.5-5.1 Comp rehensive Internal Medicine Work Phone: Protein mass conc 6.8 g/dL Normal 6.4-8.2 Compreh ensive Internal Medicine Work Phone: Sodium molar conc 144 mmol/L Normal 136-145 Compreh ensive Internal Medicine Work Phone: Urea nitrogen mass conc 8 mg/dL Normal 7-18 [facility] Work Phone: CMP 81 mL/min Normal [facility] Work Phone: CMP 8.0 {RATIO} Abnormal 10-20 [facility] Work Phone: CMP 1.1 {RATIO} Normal 0.9-2.4 [facility] Work Phone: CMP 0.40 mg/dL Normal 0.00-1.00 [facility] Work Phone: CMP 97 U/L Normal 50-136 [facility] Work Phone: CMP 9 1 Normal 5-15 [facility] Work Phone: URINE CHICHO CULTURE-EDUARDA COL C OUNT ([id number])Ordered By: Farm Products Shipper on 05-10-2013 Bacteria identified Cx Nom (U) Escherichia coli Normal [facility] Work Phone: Comment on above: 25,000-50,000 colony forming units per mL PATIENT NOT FASTINGP ERFORMED BY: SOFIE [employer] [address] [facility] [facility] [place] [id number] Information: SRC:UR [id number] Bacteria identified Cx Nom (U) Final report Normal [facility] Work Phone: Comment on above: PATIENT NOT FASTINGP ERFORMED BY: [employer] [id number] [place] [facility] [place] [id number] Information: SRC:UR [id number] Other [facility]iotic [facility]Asp[facility] prehensive Internal [facility] Work Phone: Comment on above: S = Susceptibl e; I = Intermediate; R = Resistant P = Positive; N = Negative MICS are expressed in micrograms per mL Antibiotic RSLT#1 RSLT#2 RSLT#3 RSLT#4Amoxicillin/Clavulanic Acid IAmpicillin RCefazolin SCefepime SCeftriaxone SCefuroxime SCephalothin ICiprofloxacin SESBL NErtapenem SGentamicin SImipenem SLevofloxacin SNitrofurantoin SPiperacillin RTetracycline STobramycin STrimethoprim/Sulfa S PATIENT NOT FASTINGP ERFORMED BY: [employer] [id number] [place] [email or web address] [facility] [id number] Information: SRC:UR [id number] Urinalysis, Office ([id number])Or dered By: Savannah Malin on 05-10-2013 Bilirubin Ql (U) Negative Normal Compre[facility] Work Phone: Bilirubin Ql (U) Negative Normal Comprehe ns[facility]; [facility] Work Phone: Glucose Test strip (U) [Mass/Vol] Negative Normal [facility]; [facility] Work Phone: Glucose Test strip mass conc (U) Negative Normal [facility] Work Phone: Hemoglobin Ql (U) Non Hemolyzed Moderate Normal [facility] Work Phone: Hemoglobin Test strip Ql (U) Non Hemolyzed Moderate Normal Comprehen s[facility] Work Phone: Ketones Ql (U) Negative Normal Comprehens [facility] Work Phone: Ketones Ql (U) Negative Normal [facility]prehens [facility]; [facility] Work Phone: Leukocyte esterase Test strip Ql (U) Large Normal [facility] Work Phone: Nitrite Ql (U) Positive Normal [facility] Work Phone: Nitrite Ql (U) Positive Normal [facility]prehens [facility]; [facility] Work Phone: Nitrite Test strip Ql (U) Positive Normal [facility] Work Phone: pH (U) 6.0 [pH] Normal [facility] Work Phone: pH Test strip (U) 6.0 [pH] Normal Compreh ensive [facility] Work Phone: Protein Ql (U) 100 mg/dL Normal Comprehens [facility] Work Phone: Protein Test strip Ql (U) 100 mg/dL Normal [facility] Work Phone: Specific gravity Relative Density (U) 1.015 1 Normal Comprehensi ve [facility] Work Phone: Urobilinogen mass/time (24H U) Normal Normal [facility] Work Phone: Blood Glucose , Office ([phone])Ordered By: Leela Moreno on 10-24-2012 Glucose Glucometer molar conc (BldC) 108 1 Normal [facility] Work Phone: HgA1C , Office ([id number])Ordere d By: Leela Moreno on 10-24-2012 Hemoglobin A1c/Hemoglobin.total mass fraction (Bld) 5.7 % Normal 4.6 - 7.1 Comprehens[facility] e [facility] Work Phone: LIPIDOrdered By: Wolfgang mohamud on 10-15-2012 Cholesterol in HDL mass conc 49 mg/dL Normal [facility] Work Phone: Comment on above: Reference Range HDL <40 mg/dL Low HDL Cholesterol HDL >or= 60 mg/dL High HDL Cholesterol Cholesterol in LDL mass conc 78 mg/dL Normal 0-130 [facility] Work Phone: Cholesterol in VLDL mass conc 22 mg/dL Normal 5-40 [facility] Work Phone: Cholesterol mass conc 149 mg/dL Normal Com prehensive [facility] Work Phone: Comment on above: <200 mg/dL Desirable 200-240 mg/dL Borderline >240 mg/dL High Risk Triglyceride mass conc 112 mg/dL Normal [facility] Work Phone: Comment on above: Serum Triglycerides Reference Interval Normal <150 mg/dL Borderline high 150 - 199 mg/dL High 200 - 499 mg/dL Very High > or = 500 mg/dL GLUCOSE ([id number])Ordered By: Megan Malik on 06-10-2012 Glucose mass conc 110 mg/dL Abnormal 75 - 105 Compreh ensive [facility] Work Phone: Hemoglobin Glyclated (HGB A1 C) ([id number])Ordered By: Stefany Malik on 06-10-2012 Hemoglobin A1c/Hemoglobin.total mass fraction (Bld) 5.8 % Normal 4.6 - 7.1 Comprehens[facility] e [facility] Work Phone: Vital Signs Date Time Vital Sign Value Performing Clinician Facility 04-27-2025 14:04-0400 Body height 164.5 cm Debbie Prescott APRN.CNM Work Phone: [facility] 04-27-2025 14:04-0400 Body mass index (BMI) [Ratio] 33.71 kg/m2 Debbie Prescott APRN.CNM Work Phone: [facility] 04-27-2025 14:04-0400 Body weight 91.17 kg Debbie Prescott APRN.CNM Work Phone: [facility] 04-27-2025 14:04-0400 Diastolic blood pressure 64 mm[Hg] Debbie Prescott APRN.CNM Work Phone: [facility] 04-27-2025 14:04-0400 Systolic blood pressure 102 mm[Hg] Debbie Prescott APRN.CNM Work Phone: [facility] 10-06-2024 10:47-0500 Body height 165.1 cm Beau Theodore MD Work Phone: [facility] 10-06-2024 10:47-0500 Body mass index (BMI) [Ratio] 40.77 kg/m2 Beau Theodore MD Work Phone: [facility] 10-06-2024 10:47-0500 Body weight 111.13 kg Beau Theodore MD Work Phone: [facility] 09-08-2024 14:17-0400 Body height 165.1 cm Beau Theodore MD Work Phone: [facility] 09-08-2024 14:17-0400 Body mass index (BMI) [Ratio] 40.82 kg/m2 Beau Theodore MD Work Phone: [facility] 09-08-2024 14:17-0400 Body weight 111.27 kg Beau Theodore MD Work Phone: [facility] 09-08-2024 14:17-0400 Diastolic blood pressure 66 mm[Hg] Beau Theodore MD Work Phone: [facility] 09-08-2024 14:17-0400 Heart rate 57 /min Beau Theodore MD Work Phone: [facility] 09-08-2024 14:17-0400 Systolic blood pressure 114 mm[Hg] Beau Theodore MD Work Phone: [facility] 05-28-2023 09:08-0400 Body height 165.1 cm Johnnie Golden LPN [facility]; [facility] Work Phone: 05-28-2023 09:08-0400 Body mass index (BMI) [Ratio] 39.98 kg/m2 [facility]; [facility] Work Phone: 05-28-2023 09:08-0400 Body surface area Derived from formula 2.14 m2 [facility]; [facility] Work Phone: 05-28-2023 09:08-0400 Body temperature 96.9 [degF] [facility]; [facility] Work Phone: 05-28-2023 09:08-0400 Body weight 108.98 kg [facility]; [facility] Work Phone: 05-28-2023 09:08-0400 Diastolic blood pressure 60 mm[Hg] [facility]; [facility] Work Phone: Comment on above: Patient Position: Sitting; Cuff Location : Left Arm; Cuff Size: Standard 05-28-2023 09:08-0400 Heart rate 69 /min [facility]; [facility] Work Phone: Comment on above: Pattern: Regular 05-28-2023 09:08-0400 Respiratory rate 18 /min [facility]; [facility] Work Phone: Comment on above: Pattern: Unlabored 05-28-2023 09:08-0400 SaO2% (BldA) [Mass fraction] 95 % [facility]; [facility] Work Phone: Comment on above: Room air 05-28-2023 09:08-0400 Systolic blood pressure 108 mm[Hg] [facility]; [facility] Work Phone: Comment on above: Patient Position: Sitting; Cuff Location : Left Arm; Cuff Size: Standard 05-15-2022 09:57-0400 Body height 165.1 cm Ashlie Mart [facility]; [facility] Work Phone: 05-15-2022 09:57-0400 Body mass index (BMI) [Ratio] 43.27 kg/m2 Ashlie Carlosrb BI ARCHITECT [facility]; [facility] Work Phone: 05-15-2022 09:57-0400 Body surface area Derived from formula 2.21 m2 Ashlie Gonzalezrb BI ARCHITECT [facility]; [facility] Work Phone: 05-15-2022 09:57-0400 Body temperature 97.3 [degF] Ashlie Gonzalezrb BI ARCHITECT [facility]; [facility] Work Phone: 05-15-2022 09:57-0400 Body weight 117.94 kg Ashlie Carlosrb BI ARCHITECT [facility]; [facility] Work Phone: 05-15-2022 09:57-0400 Diastolic blood pressure 84 mm[Hg] Ashlie Carlosrb BI ARCHITECT [facility]; [facility] Work Phone: Comment on above: Patient Position: Sitting; Cuff Location : Left Arm; Cuff Size: Standard 05-15-2022 09:57-0400 Heart rate 55 /min Ashlie Gonzalezrb BI ARCHITECT [facility]; [facility] Work Phone: Comment on above: Pattern: Regular 05-15-2022 09:57-0400 Respiratory rate 17 /min Ashlie Carlosrb BI ARCHITECT [facility]; [facility] Work Phone: Comment on above: Pattern: Unlabored 05-15-2022 09:57-0400 SaO2% (BldA) [Mass fraction] 99 % Ashlie Slarb BI ARCHITECT [facility]; [facility] Work Phone: Comment on above: Room air 05-15-2022 09:57-0400 Systolic blood pressure 124 mm[Hg] Ashlie Slarb BI ARCHITECT [facility]; [facility] Work Phone: Comment on above: Patient Position: Sitting; Cuff Location : Left Arm; Cuff Size: Standard 01-12-2022 10:22-0500 Body height 165.1 cm Bessy Sivan DO Work Phone: [facility]; [facility] Work Phone: Comment on above: partial vs taken as this is phone encoun ter due to covid 01-12-2022 10:22-0500 Body mass index (BMI) [Ratio] 41.16 kg/m2 Bessy Sivan DO Work Phone: [facility]; [facility] Work Phone: Comment on above: partial vs taken as this is phone encoun ter due to covid 01-12-2022 10:22-0500 Body surface area Derived from formula 2.17 m2 Bessy Arreguinon DO Work Phone: [facility]; [facility] Work Phone: Comment on above: partial vs taken as this is phone encoun ter due to covid 01-12-2022 10:22-0500 Body weight 112.21 kg Bessy Arreguinon DO Work Phone: [facility]; [facility] Work Phone: Comment on above: partial vs taken as this is phone encoun ter due to covid 01-12-2022 10:22-0500 Diastolic blood pressure 80 mm[Hg] Bessy Sivan DO Work Phone: [facility]; [facility] Work Phone: Comment on above: Patient Position: Sitting partial vs taken as this is phone encounter due to covid 01-12-2022 10:22-0500 Heart rate 80 /min Bessy Sivan DO Work Phone: [facility]; [facility] Work Phone: Comment on above: Pattern: Regular partial vs taken as this is phone encounter due to covid 01-12-2022 10:22-0500 Systolic blood pressure 130 mm[Hg] Bsesy Sivan DO Work Phone: [facility]; [facility] Work Phone: Comment on above: Patient Position: Sitting partial vs taken as this is phone encounter due to covid 09-19-2020 13:48-0500 BMI (Body Mass Index) 41.16 kg/m2 E[facility] Work Phone: Comment on above: no vs taken as this is phone encounter d ue to covid 09-19-2020 13:48-0500 Body weight 112.21 kg Evelia Gravius [facility] Work Phone: Comment on above: no vs taken as this is phone encounter d ue to covid 09-19-2020 13:48-0500 BSA (Body Surface Area) 2.17 m2 Evelia Gravius [facility] Work Phone: Comment on above: no vs taken as this is phone encounter d ue to covid 09-19-2020 13:48-0500 Height 165.1 cm Evelia Gravius [facility] Work Phone: Comment on above: no vs taken as this is phone encounter d ue to covid 07-26-2020 13:42-0400 BMI (Body Mass Index) 41.16 kg/m2 Evelia Gravius [facility] Work Phone: Comment on above: no vs taken as this is phone encounter d ue to covid 07-26-2020 13:42-0400 Body weight 112.21 kg Evelia Gravius [facility] Work Phone: Comment on above: no vs taken as this is phone encounter d ue to covid 07-26-2020 13:42-0400 BSA (Body Surface Area) 2.17 m2 Evelia Gravius [facility] Work Phone: Comment on above: no vs taken as this is phone encounter d ue to covid 07-26-2020 13:42-0400 Height 165.1 cm Evelia Gravius [facility] Work Phone: Comment on above: no vs taken as this is phone encounter d ue to covid 06-28-2020 13:37-0400 BMI (Body Mass Index) 41.16 kg/m2 Evelia Gravius [facility] Work Phone: 06-28-2020 13:37-0400 Body Temperature 97.5 [degF] Evelia Marin [facility] Com[facility] e [facility] Work Phone: Comment on above: Method: Infrared 06-28-2020 13:37-0400 Body weight 112.21 kg Evelia Marin CMA [facility] Work Phone: 06-28-2020 13:37-0400 BP Diastolic 68 mm[Hg] Evelia Marin CMA [facility] Work Phone: Comment on above: Patient Position: Sitting; Cuff Location : Left Arm; Cuff Size: Standard 06-28-2020 13:37-0400 BP Systolic 132 mm[Hg] Evelia Marin CMA [facility] Work Phone: Comment on above: Patient Position: Sitting; Cuff Location : Left Arm; Cuff Size: Standard 06-28-2020 13:37-0400 BSA (Body Surface Area) 2.17 m2 Evelia Marin [facility] Work Phone: 06-28-2020 13:37-0400 Height 165.1 cm Evelia Marin CMA [facility] Work Phone: 06-28-2020 13:37-0400 Pulse (Heart Rate) 92 /min Evelia Marin CMA [facility] Work Phone: Comment on above: Pattern: Regular 06-28-2020 13:37-0400 Pulse Oximetry 98 % Bessy Sivan [facility] Work Phone: Comment on above: Room air 06-28-2020 13:37-0400 Respiratory Rate 16 /min Evelia Marin CMA Com[facility] Work Phone: Comment on above: Pattern: Unlabored 06-28-2020 13:37-0400 SaO2% (BldA) [Mass fraction] 98 % Evelia Marin [facility]; [facility] Work Phone: Comment on above: Room air 04-20-2019 10:21-0400 BMI (Body Mass Index) 41.16 kg/m2 Evelia Marin [employer]IVER ENGINE[employer] [facility] Work Phone: 04-20-2019 10:21-0400 Body Temperature 96.7 [degF] Evelia Marin CMA Com[facility] Work Phone: Comment on above: Method: Temporal 04-20-2019 10:0400 Body weight 112.21 kg Evelia Marin CMA [facility] Work Phone: 04-20-2019 10:-0400 BP Diastolic 64 mm[Hg] Evelia Marin CMA [facility] Work Phone: Comment on above: Patient Position: Sitting; Cuff Location : Left Arm; Cuff Size: Standard 04-20-2019 10:0400 BP Systolic 100 mm[Hg] Evelia Marin CMA [facility] Work Phone: Comment on above: Patient Position: Sitting; Cuff Location : Left Arm; Cuff Size: Standard 04-20-2019 10:0400 BSA (Body Surface Area) 2.17 m2 Evelia Marin CMA [facility] Work Phone: 04-20-2019 10:040 Height 165.1 cm Evelia Marin CMA [facility] Work Phone: 04-20-2019 10:-0400 Pulse (Heart Rate) 63 /min Evelia Marin CMA [facility] Work Phone: Comment on above: Pattern: Regular 04-20-2019 10:-0400 Pulse Oximetry 94 % Bessy Finnegan [facility] Work Phone: Comment on above: Room air 04-20-2019 10:0400 Respiratory Rate 18 /min Evelia Marin CMA Com[facility] Work Phone: Comment on above: Pattern: Unlabored 04-20-2019 10:21-0400 SaO2% (BldA) [Mass fraction] 94 % Evelia Marin [facility]; [facility] Work Phone: Comment on above: Room air 04-20-2019 10:0400 Weight 112.21 kg Bessy Finnegan [facility] Work Phone: 01-05-2018 16:04-0500 BMI (Body Mass Index) 37.67 kg/m2 Heather Basilio RN [facility] Work Phone: 01-05-2018 16:04-0500 Body weight 102.68 kg Heather Basilio RN [facility] Work Phone: 01-05-2018 16:04-0500 BP Diastolic 60 mm[Hg] Heather Basilio RN [facility] Work Phone: Comment on above: Patient Position: Sitting; Cuff Location : Left Arm; Cuff Size: Standard 01-05-2018 16:04-0500 BP Systolic 110 mm[Hg] Heather Basilio RN [facility] Work Phone: Comment on above: Patient Position: Sitting; Cuff Location : Left Arm; Cuff Size: Standard 01-05-2018 16:04-0500 BSA (Body Surface Area) 2.09 m2 Heather Basilio RN [facility] Work Phone: 01-05-2018 16:04-0500 Height 165.1 cm Heather Basilio RN [facility] Work Phone: 01-05-2018 16:04-0500 Pulse (Heart Rate) 79 /min Heather Basilio RN [facility] Work Phone: Comment on above: Pattern: Regular 01-05-2018 16:04-0500 Pulse Oximetry 99 % Bessy Finnegan [facility] Work Phone: Comment on above: Room air 01-05-2018 16:04-0500 Respiratory Rate 18 /min Heather Basilio RN Comprehens[facility] Work Phone: Comment on above: Pattern: Unlabored 01-05-2018 16:04-0500 SaO2% (BldA) [Mass fraction] 99 % Heather Basilio RN [facility]; [facility] Work Phone: Comment on above: Room air 01-05-2018 16:04-0500 Weight 102.68 kg Bessy Finnegan [facility] Work Phone: 10-28-2017 12:54-0500 BMI (Body Mass Index) 36.28 kg/m2 Heather Basilio RN [facility] Work Phone: 10-28-2017 12:54-0500 Body weight 98.88 kg Heather Basilio RN [facility] Work Phone: 10-28-2017 12:54-0500 BP Diastolic 78 mm[Hg] Heather Basilio RN [facility] Work Phone: Comment on above: Patient Position: Sitting; Cuff Location : Left Arm; Cuff Size: Large 10-28-2017 12:54-0500 BP Systolic 118 mm[Hg] Heather Basilio RN [facility] Work Phone: Comment on above: Patient Position: Sitting; Cuff Location : Left Arm; Cuff Size: Large 10-28-2017 12:54-0500 BSA (Body Surface Area) 2.05 m2 Heather Basilio RN [facility] Work Phone: 10-28-2017 12:54-0500 Height 165.1 cm Heather Basilio RN [facility] Work Phone: 10-28-2017 12:54-0500 Pulse (Heart Rate) 98 /min Heather Basilio RN [facility] Work Phone: Comment on above: Pattern: Regular 10-28-2017 12:54-0500 Pulse Oximetry 96 % Bessy Finnegan [facility] Work Phone: Comment on above: Room air 10-28-2017 12:54-0500 Respiratory Rate 18 /min Heather Basilio RN Com[facility] Work Phone: Comment on above: Pattern: Unlabored 10-28-2017 12:54-0500 SaO2% (BldA) [Mass fraction] 96 % Heather Basilio RN [facility]; [facility] Work Phone: Comment on above: Room air 10-28-2017 12:54-0500 Weight 98.88 kg Bessy Finnegan [facility] Work Phone: 10-21-2017 13:04-0500 BMI (Body Mass Index) 36.28 kg/m2 Chinyere Link RN [facility] Work Phone: Comment on above: up nine pounds 10-21-2017 13:04-0500 Body Temperature 98 [degF] Chinyere Link RN [facility] Work Phone: Comment on above: Method: Temporal up nine pounds 10-21-2017 13:04-0500 Body weight 98.88 kg Chinyere Link RN [facility] Work Phone: Comment on above: up nine pounds 10-21-2017 13:04-0500 BP Diastolic 72 mm[Hg] Chinyere Link RN [facility] Work Phone: Comment on above: Patient Position: Sitting; Cuff Location : Left Arm; Cuff Size: Standard up nine pounds 10-21-2017 13:04-0500 BP Systolic 124 mm[Hg] Chinyere Link RN [facility] Work Phone: Comment on above: Patient Position: Sitting; Cuff Location : Left Arm; Cuff Size: Standard up nine pounds 10-21-2017 13:04-0500 BSA (Body Surface Area) 2.05 m2 Chinyere Link RN [facility] Work Phone: Comment on above: up nine pounds 10-21-2017 13:04-0500 Height 165.1 cm Chinyere Link RN [facility] Work Phone: Comment on above: up nine pounds 10-21-2017 13:04-0500 Pulse (Heart Rate) 89 /min Chinyere Link RN [facility] Work Phone: Comment on above: Pattern: Regular up nine pounds 10-21-2017 13:04-0500 Pulse Oximetry 97 % Bessy Finnegan [facility] Work Phone: Comment on above: Room air up nine pounds 10-21-2017 13:04-0500 Respiratory Rate 16 /min Chinyere Link RN [facility] Work Phone: Comment on above: Pattern: Unlabored up nine pounds 10-21-2017 13:04-0500 SaO2% (BldA) [Mass fraction] 97 % Chinyere Link RN [facility]; [facility] Work Phone: Comment on above: Room air up nine pounds 10-21-2017 13:04-0500 Weight 98.88 kg Bessy Finnegan [facility] Work Phone: Comment on above: up nine pounds 06-30-2017 16:11-0400 BMI (Body Mass Index) 34.82 kg/m2 Heather Basilio RN [facility] Work Phone: 06-30-2017 16:11-0400 Body Temperature 95.9 [degF] Heather Basilio RN [facility] Work Phone: Comment on above: Method: Temporal 06-30-2017 16:11-0400 Body weight 94.92 kg Heather Basilio RN [facility] Work Phone: 06-30-2017 16:11-0400 BP Diastolic 60 mm[Hg] Heather Basilio RN [facility] Work Phone: Comment on above: Patient Position: Sitting; Cuff Location : Left Arm; Cuff Size: Large 06-30-2017 16:11-0400 BP Systolic 122 mm[Hg] Heather Basilio RN [facility] Work Phone: Comment on above: Patient Position: Sitting; Cuff Location : Left Arm; Cuff Size: Large 06-30-2017 16:11-0400 BSA (Body Surface Area) 2.02 m2 Heather Basilio RN [facility] Work Phone: 06-30-2017 16:11-0400 Height 165.1 cm Heather Basilio RN [facility] Work Phone: 06-30-2017 16:11-0400 Pulse (Heart Rate) 64 /min Heather Basilio RN [facility] Work Phone: Comment on above: Pattern: Regular 06-30-2017 16:11-0400 Pulse Oximetry 98 % Bessy Finnegan [facility] Work Phone: Comment on above: Room air 06-30-2017 16:11-0400 Respiratory Rate 18 /min Heather Basilio RN [facility] Work Phone: Comment on above: Pattern: Unlabored 06-30-2017 16:11-0400 SaO2% (BldA) [Mass fraction] 98 % Heather Basilio RN [facility]; [facility] Work Phone: Comment on above: Room air 06-30-2017 16:11-0400 Weight 94.92 kg Bessy Crespo [facility] Work Phone: 02-01-2017 09:30-0400 BMI (Body Mass Index) 35.16 kg/m2 Savannah Malin [facility] Work Phone: 02-01-2017 09:30-0400 Body weight 95.85 kg Savannah Malin [facility] Work Phone: 02-01-2017 09:30-0400 BP Diastolic 74 mm[Hg] Savannah Malin [facility] Work Phone: Comment on above: Patient Position: Sitting; Cuff Location : Left Arm; Cuff Size: Standard 02-01-2017 09:30-0400 BP Systolic 122 mm[Hg] Savannah Malin [facility] Work Phone: Comment on above: Patient Position: Sitting; Cuff Location : Left Arm; Cuff Size: Standard 02-01-2017 09:30-0400 BSA (Body Surface Area) 2.03 m2 Savannah Malin [facility] Work Phone: 02-01-2017 09:30-0400 Height 165.1 cm Savannah Malin [facility] Work Phone: 02-01-2017 09:30-0400 Pulse (Heart Rate) 68 /min Savannah Malin [facility] Work Phone: Comment on above: Pattern: Regular 02-01-2017 09:30-0400 Pulse Oximetry 97 % Bessy Finnegan [facility] Work Phone: Comment on above: Room air 02-01-2017 09:30-0400 Respiratory Rate 16 /min Savannah Malin [facility] Work Phone: Comment on above: Pattern: Unlabored 02-01-2017 09:30-0400 SaO2% (BldA) [Mass fraction] 97 % Savannah Malin [facility]; [facility] Work Phone: Comment on above: Room air 02-01-2017 09:30-0400 Weight 95.85 kg Bessy Finnegan [facility] Work Phone: 09-01-2016 08:12-0400 BMI (Body Mass Index) 35.11 kg/m2 Ashlie Slarb [employer] ARCHITECT [facility] Internal Medicine Work Phone: 09-01-2016 08:12-0400 Body Temperature 97.7 [degF] Ashlie Slarb BI ARCHITECT [facility] Work Phone: 09-01-2016 08:12-0400 Body weight 95.71 kg Ashlie Slarb BI ARCHITECT [facility] Work Phone: 09-01-2016 08:12-0400 BP Diastolic 76 mm[Hg] Ashlie Slarb BI ARCHITECT [facility] Work Phone: Comment on above: Patient Position: Sitting; Cuff Location : Left Arm; Cuff Size: Standard 09-01-2016 08:12-0400 BP Systolic 112 mm[Hg] Ashlie Slarb BI ARCHITECT [facility] Work Phone: Comment on above: Patient Position: Sitting; Cuff Location : Left Arm; Cuff Size: Standard 09-01-2016 08:12-0400 BSA (Body Surface Area) 2.02 m2 Ashlie Slarb BI ARCHITECT [facility] Work Phone: 09-01-2016 08:12-0400 Height 165.1 cm Ashlie Slarb BI ARCHITECT [facility] Work Phone: 09-01-2016 08:12-0400 Pulse (Heart Rate) 68 /min Ashlie Slarb BI ARCHITECT [facility] Work Phone: Comment on above: Pattern: Regular 09-01-2016 08:12-0400 Pulse Oximetry 97 % Bessy Finnegan [facility] Internal Medicine Work Phone: Comment on above: Room air 09-01-2016 08:12-0400 Respiratory Rate 16 /min Ashlie Slarb BI ARCHITECT [facility] Work Phone: Comment on above: Pattern: Unlabored 09-01-2016 08:12-0400 SaO2% (BldA) [Mass fraction] 97 % Ashlie Slarb BI ARCHITECT [facility]; [facility] Work Phone: Comment on above: Room air 09-01-2016 08:12-0400 Weight 95.71 kg Bessy Finnegan [facility] Work Phone: 07-24-2016 09:11-0400 BMI (Body Mass Index) 37.28 kg/m2 Ashlie Slarb BI ARCHITECT [facility] Work Phone: 07-24-2016 [id number] Body Temperature 97.8 [degF] Ashlie Slarb BI ARCHITECT [facility] Work Phone: 07-24-2016 09:11-0400 Body weight 101.61 kg Ashlie Slarb BI ARCHITECT [facility] Work Phone: 07-24-2016 09:11-0400 BP Diastolic 68 mm[Hg] Ashlie Slarb BI ARCHITECT [facility] Work Phone: Comment on above: Patient Position: Sitting; Cuff Location : Left Arm; Cuff Size: Standard 07-24-2016 09:11-0400 BP Systolic 102 mm[Hg] Ashlie Slarb BI ARCHITECT [facility] Work Phone: Comment on above: Patient Position: Sitting; Cuff Location : Left Arm; Cuff Size: Standard 07-24-2016 09:11-0400 BSA (Body Surface Area) 2.08 m2 Ashlie Slarb BI ARCHITECT [facility] Work Phone: 07-24-2016 09:11-0400 Height 165.1 cm Ashlie Slarb BI ARCHITECT [facility] Work Phone: 07-24-2016 09:11-0400 Pulse (Heart Rate) 64 /min Ashlie Slarb BI ARCHITECT [facility] Work Phone: Comment on above: Pattern: Regular 07-24-2016 09:11-0400 Pulse Oximetry 98 % Bessy Finnegan [facility] Work Phone: Comment on above: Room air 07-24-2016 09:11-0400 Respiratory Rate 17 /min Ashlie Slarb BI ARCHITECT [facility] Work Phone: Comment on above: Pattern: Unlabored 07-24-2016 09:11-0400 SaO2% (BldA) [Mass fraction] 98 % Ashlie Mart LPN [facility]; [facility] Work Phone: Comment on above: Room air 07-24-2016 09:11-0400 Weight 101.61 kg Bessy Finnegan [facility] Internal Medicine Work Phone: 05-04-2016 16:10-0400 BMI (Body Mass Index) 37.28 kg/m2 [facility] Work Phone: 05-04-2016 16:10-0400 Body weight 101.61 [facility] Work Phone: 05-04-2016 16:10-0400 BP Diastolic 68 mm[Hg] [facility] Work Phone: Comment on above: Patient Position: Sitting; Cuff Location : Left Arm; Cuff Size: Standard 05-04-2016 16:10-0400 BP Systolic 114 mm[Hg] [facility] Work Phone: Comment on above: Patient Position: Sitting; Cuff Location : Left Arm; Cuff Size: Standard 05-04-2016 16:10-0400 BSA (Body Surface Area) 2.08 m2 [facility] Work Phone: 05-04-2016 16:10-0400 Height 165.1 cm [facility] Work Phone: 05-04-2016 16:10-0400 Pulse (Heart Rate) 68 /min [facility] Work Phone: Comment on above: Pattern: Regular 05-04-2016 16:10-0400 Pulse Oximetry 97 % Bessy Finnegan [facility] Internal Medicine Work Phone: Comment on above: Room air 05-04-2016 16:10-0400 Respiratory Rate 16 /min [facility] Work Phone: Comment on above: Pattern: Unlabored 05-04-2016 16:10-0400 SaO2% (BldA) [Mass fraction] 97 % Savannah Malin CMA [facility]; [facility] Work Phone: Comment on above: Room air 05-04-2016 16:10-0400 Weight 101.61 kg Bessy Finnegan [facility] Work Phone: 12-18-2015 13:30-0500 BMI (Body Mass Index) 41.27 kg/m2 Heather Basilio RN [facility] Work Phone: 12-18-2015 13:30-0500 Body weight 112.49 kg Heather Basilio RN [facility] Work Phone: 12-18-2015 13:30-0500 BP Diastolic 78 mm[Hg] Heather Basilio RN [facility] Work Phone: Comment on above: Patient Position: Sitting; Cuff Location : Left Arm; Cuff Size: Large 12-18-2015 13:30-0500 BP Systolic 120 mm[Hg] Heather Basilio RN [facility] Work Phone: Comment on above: Patient Position: Sitting; Cuff Location : Left Arm; Cuff Size: Large 12-18-2015 13:30-0500 BSA (Body Surface Area) 2.17 m2 Heather Basilio RN [facility] Work Phone: 12-18-2015 13:30-0500 Height 165.1 cm Heather Basilio RN [facility] Work Phone: 12-18-2015 13:30-0500 Pulse (Heart Rate) 69 /min Heather Basilio RN [facility] Work Phone: Comment on above: Pattern: Regular 12-18-2015 13:30-0500 Pulse Oximetry 94 % Bessy Finnegan [facility] Work Phone: Comment on above: Room air 12-18-2015 13:30-0500 Respiratory Rate 18 /min Heather Basilio RN [facility] Work Phone: Comment on above: Pattern: Unlabored 12-18-2015 13:30-0500 SaO2% (BldA) [Mass fraction] 94 % Heather Basilio RN [facility]; [facility] Work Phone: Comment on above: Room air 12-18-2015 13:30-0500 Weight 112.49 kg Bessy Finnegan [facility] Work Phone: 08-21-2015 11:30-0400 BMI (Body Mass Index) 43.35 kg/m2 Chinyere Link RN [facility] Work Phone: 08-21-2015 11:30-0400 Body Temperature 97.3 [degF] Chinyere Link RN [facility] Work Phone: Comment on above: Method: Temporal 08-21-2015 11:30-0400 Body weight 118.16 kg Chinyere Link RN [facility] Work Phone: 08-21-2015 11:30-0400 BP Diastolic 78 mm[Hg] Chinyere Link RN [facility] Work Phone: Comment on above: Patient Position: Sitting; Cuff Location : Left Arm; Cuff Size: Standard 08-21-2015 11:30-0400 BP Systolic 136 mm[Hg] Chinyere Lnik RN [facility] Work Phone: Comment on above: Patient Position: Sitting; Cuff Location : Left Arm; Cuff Size: Standard 08-21-2015 11:30-0400 BSA (Body Surface Area) 2.21 m2 Chinyere Link RN [facility] Work Phone: 08-21-2015 11:30-0400 Height 165.1 cm Chinyere Link RN [facility] Work Phone: 08-21-2015 11:30-0400 Pulse (Heart Rate) 73 /min Chinyere Link RN [facility] Work Phone: Comment on above: Pattern: Regular 08-21-2015 11:30-0400 Respiratory Rate 16 /min Chinyere Link RN [facility] Work Phone: Comment on above: Pattern: Unlabored 08-21-2015 11:30-0400 Weight 118.16 kg Bessy Arreguinon [facility] Work Phone: 07-11-2015 12:51-0400 BMI (Body Mass Index) 45.01 kg/m2 Chinyere Link RN [facility] Work Phone: 07-11-2015 12:51-0400 Body Temperature 97.3 [degF] Chinyere Link RN [facility] Work Phone: Comment on above: Method: Temporal 07-11-2015 12:51-0400 Body weight 122.7 kg Chinyere Link RN [facility] Work Phone: 07-11-2015 12:51-0400 BP Diastolic 70 mm[Hg] Chinyere Link RN [facility] Work Phone: Comment on above: Patient Position: Sitting; Cuff Location : Left Arm; Cuff Size: Standard 07-11-2015 12:51-0400 BP Systolic 128 mm[Hg] Chinyere Link RN [facility] Work Phone: Comment on above: Patient Position: Sitting; Cuff Location : Left Arm; Cuff Size: Standard 07-11-2015 12:51-0400 BSA (Body Surface Area) 2.25 m2 Chinyere Link RN [facility] Work Phone: 07-11-2015 12:51-0400 Height 165.1 cm Chinyere Link RN [facility] Work Phone: 07-11-2015 12:51-0400 Pulse (Heart Rate) 72 /min Chinyere Link RN [facility] Work Phone: Comment on above: Pattern: Regular 07-11-2015 12:51-0400 Respiratory Rate 16 /min Chinyere Link RN [facility] Work Phone: Comment on above: Pattern: Unlabored 07-11-2015 12:51-0400 Weight 122.7 kg Bessy Finnegan [facility] Work Phone: 01-28-2015 13:05-0400 BMI (Body Mass Index) 45.01 kg/m2 Heather Basilio RN [facility] Work Phone: 01-28-2015 13:05-0400 Body weight 122.7 kg Heather Basilio RN [facility] Work Phone: 01-28-2015 13:05-0400 BP Diastolic 62 mm[Hg] Heather Basilio RN [facility] Work Phone: Comment on above: Patient Position: Sitting; Cuff Location : Left Arm; Cuff Size: Large 01-28-2015 13:05-0400 BP Systolic 118 mm[Hg] Heather Basilio RN [facility] Work Phone: Comment on above: Patient Position: Sitting; Cuff Location : Left Arm; Cuff Size: Large 01-28-2015 13:05-0400 BSA (Body Surface Area) 2.25 m2 Heather Basilio RN [facility] Work Phone: 01-28-2015 13:05-0400 Height 165.1 cm Heather Basilio RN [facility] Work Phone: 01-28-2015 13:05-0400 Pulse (Heart Rate) 52 /min Heather Basilio RN [facility] Work Phone: Comment on above: Pattern: Regular 01-28-2015 13:05-0400 Pulse Oximetry 97 % Bessy Finnegan [facility] Work Phone: Comment on above: Room air 01-28-2015 13:05-0400 Respiratory Rate 20 /min Heather Basilio RN [facility] Work Phone: Comment on above: Pattern: Unlabored 01-28-2015 13:05-0400 SaO2% (BldA) [Mass fraction] 97 % Heather Basilio RN [facility]; [facility] Work Phone: Comment on above: Room air 01-28-2015 13:05-0400 Weight 122.7 kg Bessy Finnegan [facility] Work Phone: 09-21-2014 10:17-0500 BMI (Body Mass Index) 47.49 kg/m2 Heather Basilio RN [facility] Work Phone: 09-21-2014 10:17-0500 Body weight 129.45 kg Heather Basilio RN [facility] Work Phone: 09-21-2014 10:17-0500 BP Diastolic 60 mm[Hg] Heather Basilio RN [facility] Work Phone: Comment on above: Patient Position: Sitting; Cuff Location : Left Arm; Cuff Size: Large 09-21-2014 10:17-0500 BP Systolic 122 mm[Hg] Heather Basilio RN [facility] Work Phone: Comment on above: Patient Position: Sitting; Cuff Location : Left Arm; Cuff Size: Large 09-21-2014 10:17-0500 BSA (Body Surface Area) 2.3 m2 Heather Basilio RN [facility] Work Phone: 09-21-2014 10:17-0500 Height 165.1 cm Heather Basilio RN [facility] Work Phone: 09-21-2014 10:17-0500 Pulse (Heart Rate) 76 /min Heather Basilio RN [facility] Work Phone: Comment on above: Pattern: Regular 09-21-2014 10:17-0500 Pulse Oximetry 96 % Bessy Finnegan [facility] Work Phone: Comment on above: Room air 09-21-2014 10:17-0500 Respiratory Rate 18 /min Heather Basilio RN [facility] Work Phone: Comment on above: Pattern: Unlabored 09-21-2014 10:17-0500 SaO2% (BldA) [Mass fraction] 96 % Heather Basilio RN [facility]; [facility] Work Phone: Comment on above: Room air 09-21-2014 10:17-0500 Weight 129.45 kg Bessy Sivan [facility] Work Phone: 07-18-2014 15:34-0400 BMI (Body Mass Index) 47.49 kg/m2 Bessy Finnegan DO Work Phone: [facility] Work Phone: 07-18-2014 15:34-0400 Body weight 129.45 kg Bessy Finnegan DO Work Phone: [facility] Work Phone: 07-18-2014 15:34-0400 BP Diastolic 64 mm[Hg] Bessy Sivan DO Work Phone: [facility] Work Phone: Comment on above: Patient Position: Sitting; Cuff Location : Left Arm; Cuff Size: Large 07-18-2014 15:34-0400 BP Systolic 120 mm[Hg] Bessy Finnegan DO Work Phone: [facility] Work Phone: Comment on above: Patient Position: Sitting; Cuff Location : Left Arm; Cuff Size: Large 07-18-2014 15:34-0400 BSA (Body Surface Area) 2.3 m2 Bessy Finnegan DO Work Phone: [facility] Work Phone: 07-18-2014 15:34-0400 Height 165.1 cm Bessy Finnegan DO Work Phone: [facility] Work Phone: 07-18-2014 15:34-0400 Pulse (Heart Rate) 79 /min Bessy Finnegan DO Work Phone: [facility] Work Phone: Comment on above: Pattern: Regular 07-18-2014 15:34-0400 Pulse Oximetry 95 % Bessy Finnegan [facility] Work Phone: Comment on above: Room air 07-18-2014 15:34-0400 Respiratory Rate 20 /min Bessy Finnegan DO Work Phone: [facility] Work Phone: Comment on above: Pattern: Unlabored 07-18-2014 15:34-0400 SaO2% (BldA) [Mass fraction] 95 % Bessy Finnegan DO Work Phone: [facility]; [facility] Work Phone: Comment on above: Room air 07-18-2014 15:34-0400 Weight 129.45 kg Bessy Finnegan [facility] Work Phone: 06-27-2014 13:59-0400 BMI (Body Mass Index) 47.79 kg/m2 Heather Basilio RN [facility] Work Phone: 06-27-2014 13:59-0400 Body weight 130.27 kg Heather Basilio RN [facility] Work Phone: 06-27-2014 13:59-0400 BP Diastolic 82 mm[Hg] Heather Basilio RN [facility] Work Phone: Comment on above: Patient Position: Sitting; Cuff Location : Left Arm; Cuff Size: Large 06-27-2014 13:59-0400 BP Systolic 120 mm[Hg] Heather Basilio RN [facility] Work Phone: Comment on above: Patient Position: Sitting; Cuff Location : Left Arm; Cuff Size: Large 06-27-2014 13:59-0400 BSA (Body Surface Area) 2.31 m2 Heather Basilio RN [facility] Work Phone: 06-27-2014 13:59-0400 Height 165.1 cm Heather Basilio RN [facility] Work Phone: 06-27-2014 13:59-0400 Pulse (Heart Rate) 103 /min Heather Basilio RN [facility] Work Phone: Comment on above: Pattern: Regular 06-27-2014 13:59-0400 Pulse Oximetry 98 % Bessy Finnegan [facility] Work Phone: Comment on above: Room air 06-27-2014 13:59-0400 Respiratory Rate 20 /min Heather Basilio RN [facility] Work Phone: Comment on above: Pattern: Unlabored 06-27-2014 13:59-0400 SaO2% (BldA) [Mass fraction] 98 % Heather Basilio RN [facility]; [facility] Work Phone: Comment on above: Room air 06-27-2014 13:59-0400 Weight 130.27 kg Bessy Finnegan [facility] Work Phone: 01-22-2014 13:21-0400 BMI (Body Mass Index) 47.82 kg/m2 Heather Basilio RN [facility] Work Phone: 01-22-2014 13:21-0400 Body weight 130.35 kg Heather Basilio RN [facility] Work Phone: 01-22-2014 13:21-0400 BP Diastolic 62 mm[Hg] Heather Basilio RN [facility] Work Phone: Comment on above: Patient Position: Sitting; Cuff Location : Left Arm; Cuff Size: Large 01-22-2014 13:21-0400 BP Systolic 142 mm[Hg] Heather Basilio RN [facility] Work Phone: Comment on above: Patient Position: Sitting; Cuff Location : Left Arm; Cuff Size: Large 01-22-2014 13:-0400 BSA (Body Surface Area) 2.31 m2 Heather Basilio RN [facility] Work Phone: 01-22-2014 13:040 Height 165.1 cm Heather Basilio RN [facility] Work Phone: 01-22-2014 13:21-0400 Pulse (Heart Rate) 92 /min Heather Basilio RN [facility] Work Phone: Comment on above: Pattern: Regular 01-22-2014 13:-0400 Pulse Oximetry 98 % Bessy Finnegan [facility] Work Phone: Comment on above: Room air 01-22-2014 13:21-0400 Respiratory Rate 18 /min Heather Basilio RN [facility] Work Phone: Comment on above: Pattern: Unlabored 01-22-2014 13:21-0400 SaO2% (BldA) [Mass fraction] 98 % Heather Basilio RN [facility]; [facility] Work Phone: Comment on above: Room air 01-22-2014 13:21-0400 Weight 130.35 kg Bessy Finnegan [facility] Work Phone: 05-30-2013 16:09-0400 BMI (Body Mass Index) 46.18 kg/m2 Bessy Finnegan [facility] Work Phone: 05-30-2013 16:09-0400 Body weight 125.87 kg Bessy Finnegan [facility] Work Phone: 05-30-2013 16:09-0400 BP Diastolic 68 mm[Hg] Bessy Finnegan [facility] Work Phone: Comment on above: Patient Position: Sitting; Cuff Location : Left Arm; Cuff Size: Standard 05-30-2013 16:09-0400 BP Systolic 100 mm[Hg] Bessy Finnegan [facility] Work Phone: Comment on above: Patient Position: Sitting; Cuff Location : Left Arm; Cuff Size: Standard 05-30-2013 16:09-0400 BSA (Body Surface Area) 2.27 m2 Bessy Finnegan [facility] Work Phone: 05-30-2013 16:09-0400 Height 165.1 cm Bessy Finnegan [facility] Work Phone: 05-30-2013 16:09-0400 Pulse (Heart Rate) 87 /min Bessy Finnegan [facility] Work Phone: Comment on above: Pattern: Regular 05-30-2013 16:09-0400 Respiratory Rate 16 /min Bessy Finnegan [facility] Work Phone: 05-30-2013 16:09-0400 Weight 125.87 kg Bessy Finnegan [facility] Work Phone: 05-24-2013 16:41-0400 BMI (Body Mass Index) 46.18 kg/m2 Heather Basilio RN [facility] Work Phone: 05-24-2013 16:41-0400 Body weight 125.87 kg Heather Basilio RN [facility] Work Phone: 05-24-2013 16:41-0400 BP Diastolic 62 mm[Hg] Heather Basilio RN [facility] Work Phone: Comment on above: Patient Position: Sitting; Cuff Location : Left Arm; Cuff Size: Large 05-24-2013 16:41-0400 BP Systolic 118 mm[Hg] Heather Basilio RN [facility] Work Phone: Comment on above: Patient Position: Sitting; Cuff Location : Left Arm; Cuff Size: Large 05-24-2013 16:41-0400 BSA (Body Surface Area) 2.27 m2 Heather Basilio RN [facility] Work Phone: 05-24-2013 16:41-0400 Height 165.1 cm Heather Basilio RN [facility] Work Phone: 05-24-2013 16:41-0400 Pulse (Heart Rate) 60 /min Heather Basilio RN [facility] Work Phone: Comment on above: Pattern: Regular 05-24-2013 16:41-0400 Respiratory Rate 18 /min Heather Basilio RN [facility] Work Phone: Comment on above: Pattern: Unlabored 05-24-2013 16:41-0400 Weight 125.87 kg Bessy Finnegan [facility] Work Phone: 05-10-2013 09:50-0400 BMI (Body Mass Index) 46.93 kg/m2 Gosia Nobles [facility] Work Phone: 05-10-2013 09:50-0400 Body Temperature 98 [degF] Gosia Nobles [facility] Work Phone: 05-10-2013 09:50-0400 Body weight 127.92 kg Gosia Nobles [facility] Work Phone: 05-10-2013 09:50-0400 BP Diastolic 70 mm[Hg] Gosia Nobles [facility] Work Phone: Comment on above: Patient Position: Sitting; Cuff Location : Left Arm; Cuff Size: Large 05-10-2013 09:50-0400 BP Systolic 122 mm[Hg] Gosia Nobles [facility] Medicine Work Phone: Comment on above: Patient Position: Sitting; Cuff Location : Left Arm; Cuff Size: Large 05-10-2013 09:50-0400 BSA (Body Surface Area) 2.29 m2 Gosia Nobles [facility] Work Phone: 05-10-2013 09:50-0400 Height 165.1 cm Gosia Nobles [facility] Work Phone: 05-10-2013 09:50-0400 Pulse (Heart Rate) 66 /min Gosia Guevaraensiv e [facility] Work Phone: Comment on above: Pattern: Regular 05-10-2013 09:50-0400 Respiratory Rate 18 /min Gosia Nobles [facility] Work Phone: Comment on above: Pattern: Unlabored 05-10-2013 09:50-0400 Weight 127.92 kg Bessy Finnegan [facility] Work Phone: 10-24-2012 13:29-0500 BMI (Body Mass Index) 45.15 kg/m2 Heather Basilio RN [facility] Work Phone: 10-24-2012 13:29-0500 Body Temperature 98 [degF] Heather Basilio RN [facility] Work Phone: Comment on above: Method: Oral 10-24-2012 13:29-0500 Body weight 123.07 kg Heather Basilio RN [facility] Work Phone: 10-24-2012 13:29-0500 BP Diastolic 88 mm[Hg] Heather Basilio RN [facility] Work Phone: Comment on above: Patient Position: Sitting; Cuff Location : Left Arm; Cuff Size: Large 10-24-2012 13:29-0500 BP Systolic 138 mm[Hg] Heather Basilio RN [facility] Work Phone: Comment on above: Patient Position: Sitting; Cuff Location : Left Arm; Cuff Size: Large 10-24-2012 13:29-0500 BSA (Body Surface Area) 2.25 m2 Heather Basilio RN [facility] Work Phone: 10-24-2012 13:29-0500 Height 165.1 cm Heather Bsailio RN [facility] Work Phone: 10-24-2012 13:29-0500 Pulse (Heart Rate) 64 /min Heather Basilio RN [facility] Work Phone: Comment on above: Pattern: Regular 10-24-2012 13:29-0500 Respiratory Rate 20 /min Heather Basilio RN [facility] Work Phone: Comment on above: Pattern: Unlabored 10-24-2012 13:29-0500 Weight 123.07 kg Bessy Finnegan [facility] Work Phone: 06-10-2012 13:33-0400 BMI (Body Mass Index) 43.16 kg/m2 Heather Basilio RN [facility] Work Phone: 06-10-2012 13:33-0400 Body weight 117.65 kg Heather Basilio RN [facility] Work Phone: 06-10-2012 13:33-0400 BP Diastolic 82 mm[Hg] Heather Basilio RN [facility] Work Phone: Comment on above: Patient Position: Sitting; Cuff Location : Left Arm; Cuff Size: Large 06-10-2012 13:33-0400 BP Systolic 142 mm[Hg] Heather Basilio RN [facility] Work Phone: Comment on above: Patient Position: Sitting; Cuff Location : Left Arm; Cuff Size: Large 06-10-2012 13:33-0400 BSA (Body Surface Area) 2.21 m2 Heather Basilio RN [facility] Work Phone: 06-10-2012 13:33-0400 Height 165.1 cm Heather Basilio RN [facility] Work Phone: 06-10-2012 13:33-0400 Pulse (Heart Rate) 64 /min Heather Basilio RN [facility] Work Phone: Comment on above: Pattern: Regular 06-10-2012 13:33-0400 Respiratory Rate 18 /min Heather Basilio RN [facility] Work Phone: Comment on above: Pattern: Unlabored 06-10-2012 13:33-0400 Weight 117.65 kg Bessy Finnegan [facility] Work Phone: Encounters Encounter Date Encounter Type Care Provider Facility Start: 04-27-2025 End: 04-27-2025 Patient encounter procedure Debbie Prescott APRN.CNM Work Phone: OB/Gynecology Comment on above: Encounter for gyneco logical examination (general) (routine) without abnormal findings (Primary Dx); Screening for cervical cancer; Encounter for screening for human papillomavirus (HPV); Encounter for screening mammogram for breast cancer; Special screening for malignant neoplasms, colon; Perimenopausal; Vasomotor symptoms due to menopause Start: 04-27-2025 End: 04-27-2025 Patient encounter status Debbie Prescott YUSUF Work Phone: [facility] Start: 04-27-2025 End: 04-27-2025 ambulatory DEBBIE PRESCOTT Facility:[facility] Start: 04-27-2025 Encounter for gynecological examination (general) (routine) without abnormal findings DEBBIE PRESCOTT [facility] Start: 04-27-2025 ambulatory Bessy Finnegan Facilit y:[facility] Start: 02-08-2025 End: 02-08-2025 ambulatory Humphrey Brush Facility[facility] Start: 12-23-2024 End: 12-23-2024 ambulatory Karen Fabienne Facility:[facility] Start: 11-07-2024 End: 11-07-2024 ambulatory Thee WHITEHEAD Facility:[facility] Start: 11-07-2024 End: 11-07-2024 ambulatory Thee WHITEHEAD Facility:[facility] Start: 10-06-2024 End: 10-06-2024 Subsequent hospital visit by physician Beau Theodore MD Work Phone: [facility] Comment on above: Ascending aorta dila tation (HCC); Precordial pain Start: 10-06-2024 End: 10-06-2024 ambulatory BESSY SIVAN [facility] Start: 09-08-2024 End: 09-08-2024 Office outpatient new 45 minutes Beau Theodore MD Work Phone: [facility] - [facility] Comment on above: Precordial pain (Meeta charlette Dx); Encounter to establish care with new doctor; Ascending aorta dilatation (HCC) Start: 09-08-2024 End: 09-08-2024 ambulatory BESSY ARREGUINON [facility] Start: 07-14-2024 End: 07-14-2024 ambulatory Bessy Sivan Facility:[facility] Start: 06-30-2024 End: 06-30-2024 ambulatory Bessycharisma Finnegan Facility:[facility] Start: 05-28-2023 End: 05-28-2023 Office outpatient visit 15 minutes Bessy Sivan DO Work Phone: [facility] Start: 05-15-2022 End: 05-15-2022 Office outpatient visit 10 minutes Bessy Sivan DO Work Phone: [facility] Start: 01-12-2022 End: 01-12-2022 Office outpatient visit 25 minutes Bessy Sivan DO Work Phone: [facility] Start: 01-12-2022 Review Bessy Espinosa n DO Work Phone: [facility] Start: 09-19-2020 End: 09-19-2020 Office outpatient visit 15 minutes Bessy Finnegan [facility] Start: 07-26-2020 End: 07-26-2020 Office outpatient visit 15 minutes Bessy Finnegan [facility] Start: 06-28-2020 End: 06-28-2020 Office outpatient visit 25 minutes Bessy Finnegan [facility] Start: 04-20-2019 End: 04-20-2019 Office outpatient visit 25 minutes Bessy Finnegan [facility] Start: 04-06-2019 End: 04-06-2019 Phone Encounter Bessy Finnegan [facility] Start: 01-05-2018 End: 01-05-2018 Office outpatient visit 25 minutes Bessy Finnegan [facility] Start: 10-28-2017 End: 10-29-2017 Office outpatient visit 15 minutes Bessy Finnegan [facility] Start: 10-21-2017 End: 10-21-2017 Office outpatient visit 15 minutes Bessy Finnegan [facility] Start: 07-05-2017 End: 07-05-2017 Phone Encounter Bessy Finnegan [facility] Start: 06-30-2017 End: 06-30-2017 Office outpatient visit 25 minutes Bessy Finnegan [facility] Start: 04-27-2017 End: 04-27-2017 Phone Encounter Bessy Crespo [facility] Start: 02-01-2017 End: 02-01-2017 Office outpatient visit 15 minutes Bessy Finnegan [facility] Start: 09-01-2016 End: 09-01-2016 Office outpatient visit 15 minutes Bessy Finnegan [facility] Start: 07-24-2016 End: 07-24-2016 Office outpatient visit 10 minutes Bessy Finnegan [facility] Start: 05-11-2016 End: 05-11-2016 Phone Encounter Bessyrigoberto Arreguindashawn Cresp[facility] Start: 05-04-2016 End: 05-04-2016 Office outpatient visit 25 minutes Bessy [facility] Start: 12-23-2015 End: 12-23-2015 Phone Encounter Bessy Finnegan [facility] Start: 12-18-2015 End: 12-18-2015 Phone Encounter Bessyrigoberto Arreguindashawn [facility] Start: 12-18-2015 End: 12-18-2015 Office outpatient visit 15 minutes Bessy [facility] Start: 08-23-2015 End: 08-23-2015 Lab Order Bessy Sivan [facility] Start: 08-21-2015 End: 08-21-2015 Office outpatient visit 25 minutes Bessy [facility] Start: 07-11-2015 End: 07-11-2015 Office outpatient visit 10 minutes Bessy [facility] Start: 01-28-2015 End: 01-28-2015 Office outpatient visit 25 minutes Bessy [facility] Start: 10-09-2014 End: 10-09-2014 Phone Encounter Bessyrigoberto Arreguindashawn Cresp[facility] Start: 09-21-2014 End: 09-21-2014 Office outpatient visit 15 minutes Bessy [facility] Start: 07-18-2014 End: 07-18-2014 Office outpatient visit 15 minutes Bessy Sivan [facility] Start: 06-27-2014 End: 06-27-2014 Office outpatient visit 25 minutes Bessy [facility] Start: 01-22-2014 End: 01-22-2014 Patient encounter Bessyrigoberto Arreguindashawn [facility]resp[facility] Start: 05-30-2013 End: 05-30-2013 Office outpatient visit 25 minutes Bessy [facility] Start: 05-24-2013 End: 05-24-2013 Patient encounter Bessy Sivandashawn Crespo [facility] Start: 05-10-2013 End: 05-11-2013 Patient encounter Bessy Sivandashawn [facility]resp[facility] Start: 10-24-2012 End: 10-24-2012 Patient encounter Bessy Sivan [facility] Start: 06-10-2012 End: 06-10-2012 Patient encounter Bessy Sivandashawn [facility]resp[facility] Start: 06-10-2012 End: 06-10-2012 Patient encounter status Bessy Finnegan DO Work Phone: [facility] Patient encounter status Evelia Guzman MA [facility] Work Phone: Patient encounter status Evelia Guzman MA [facility] Work Phone: Patient encounter status Ashlie Mart BI ARCHITECT [facility] Work Phone: Patient encounter status Johnnie Golden BI ARCHITECT [facility] Work Phone: Procedures Date Procedure Procedure Detail Performing Clinician Start: 10-06-2024 Echo tthrc r-t 2d w/wom-mode compl spec&colr d Beau Theodore MD Work Phone: Start: 09-08-2024 Ecg routine ecg w/least 12 lds w/i&r Beau Theodore MD Work Phone: Start: 05-03-2023 End: 05-03-2023 Neurology Visit Report Procedure Note: See Note; NOTES: [facility] [address], [address] [place] [address] OFFICE VISIT Date of Service: 05/03/23 MR#: [id number] Acct: [id number] Name: LUNA MAYERS Rep #: [id number] : 1975 Provider: Dr. Humphrey may MD Age/Sex: 47/F Location: [facility] Status: Signed Intake Vital Signs 05/03/23 08:55 Height 5 ft 5.5 in Weight: 244 lb 6 oz BMI 40.0 BP 110/64 Blood Pressure Location Lt brachial Position Sitting Respiration 17 Pulse 83 Pulse Source Monitor Temp 98.4 F Temp Source Temporal Pulse Oximetry (%) 94 Oxygen Delivery Method room air Intake Visit Reasons: 6 M FU Chief Complaint: Visual Specialist Required: No Accompanied by: Self Allergies No Known Allergies Allergy (Verified 05/03/23 08:58) PFSH Medical History Anemia Chronic migraine Depression Fatigue History of kidney stones Iron deficiency Parathyroid abnormality Restless leg syndrome Rheumatoid arthritis Severe headache Shortness of breath Surgical History History of History of cholecystectomy History of gastric bypass Social History (Updated 07/14/22 @ 16:29 by Anisha Esparza) Smoking Status: Never smoker Electronic Cigarette Use: not used second hand exposure: No alcohol intake: current alcohol intake frequency: holidays/special occasions only Alcohol type: wine substance use type: does not use diego/denominational: [employer] seatbelt use: always HPI HPI Chief Complaint: Details: Interim History: Luna returns today for follow-up. She has a history of depression, renal calculi, iron deficiency, gastric bypass surgery (2009) and migraines. She has had headaches since she was a teenager. Her headaches are throbbing and vary in location over the calvarium. She has had headaches in the frontal head region, occipital head region and, at times, her headaches are unilateral. She has associated photophobia, phonophobia and nausea. Headaches last 1 day each. Emotional stress and menses are triggers for her headaches. She has had visual scintillations prior to her headaches, lasting about 10 minutes. In years past, her headaches occurred about 10 days/month. She has had a significant reduction of her headache frequency with the use of nadolol and amitriptyline for headache prophylaxis. She has had 1 severe headache since her last visit in June 2022 and mild headaches occur about 1 day/month and are typically associated with her menses. Naratriptan is of benefit for her headaches. She has previously used ketoprofen for her headaches. She is tolerating her medications well. She has a history of depression and anxiety for which she takes Pristiq and bupropion. She has taken magnesium for musculoskeletal pain. She has nighttime leg restlessness that is temporarily alleviated by walking. Her leg restlessness is well controlled with ropinirole 0.5 mg nightly and an awjq-tsi-vchzaql iron supplementation. She has a history of iron deficiency and mild anemia. She took a course of prescription iron supplementation in the past. Physical Exam: Neuro: The patient is awake and alert and responds appropriately; speech is fluent; motor strength is 5/5 in the foot dorsiflexors bilaterally Heart: Regular rate and rhythm Supplemental Info From office records of her prior neurologist: CTA of brain/neck with/without contrast (05/20/2013): Normal. MRI brain with/without contrast (06/21/2013): Several small scattered white matter hyperintensities bilaterally that likely indicate chronic small vessel disease. Incidental finding of hypoplastic pituitary. MRA brain (06/21/2013): Negative. CMP, lipid profile, magnesium, iron, ferritin, B12, vitamin D, folate, homocystine, TSH, phosphorus (07/03/2017): Iron 48 (low), ferritin 7 (low) calcium 8.4 (low). Echo 07/13/18: Interpretation Summary The estimated ejection fraction is 65 %. Normal diastology for age. Hypermobile posterior mitral leaflet without evidence of prolapse. Trivial tricuspid valve insufficiency. Right ventricular systolic pressure estimated to be 32 mmHg. Bicuspid aortic valve with fused raphe of left and right coronary cusps. Trivial to mild aortic valve insufficiency. Mildly dilated aortic root at 3.8 cm. Compared to echo report dated 07/08/2016, aortic insufficiency and LV function have remained about the same. Aortic root has increased from 3.5 to 3.8 cm. Labs (08/19/2021): CBC: RBC 4.13 (L), Hbg 11.3 (L), Hct 35.9 (L) CMP: normal Iron: 26 (L) Ferritin: 7 (L) Magnesium: normal Coding Level of Care Code Off vis,est,level 2 Diagnoses Migraine headache with aura G43.109 Intractability: not intractable Status migrainosus presence: without status migrainosus Restless leg syndrome G25.81 Assessment and Plan Assessment and Plan (1) Migraine headache with aura: Status: Chronic Qualifiers: Intractability: not intractable Status migrainosus presence: without status migrainosus Qualified Code(s): G43.109 - Migraine with aura, not intractable, without status migrainosus (2) Restless leg syndrome: Status: Chronic Medications: New ropinirole 0.5 mg PO QHS 90 tabs 3RF Refilled amitriptyline take 1 tablet by mouth at bedtime 90 tabs 3RF nadolol take 1 tablet by mouth once daily 90 tabs 3RF naratriptan 2.5 mg PO every 4 hours as needed for migraine headaches up to two tablets per day. 9 tabs 3RF migraine headache Discontinued ropinirole Discontinued Reason: Order Changed take 1 tablet by mouth qhs 90 tabs 0RF Plan Details Additional Comments: The patient has migraine headaches with visual aura.??? Her headaches have decreased in frequency with the use of nadolol and amitriptyline. Naratriptan is of benefit for symptomatic therapy. She has had 1 severe headache since her last visit in June 2022. Milder headaches occur about 1 day/month and are associated with her menses. She is satisfied with her current level of headache control. - Amitriptyline 25mg nightly will be continued for headache prophylaxis. - Nadolol 20mg daily will be continued for headache prophylaxis. - Naratriptan 2.5 mg every 4 hours as needed up to 2 tablets/day will be continued. She has nighttime restless leg syndrome which is adequately controlled with ropinirole at an increased dose of 0.5 mg nightly and an iqod-otq-bzxiwgj iron supplement. She has a history of iron deficiency anemia and previously completed a course of prescription ferrous sulfate. - Ropinirole 0.5 mg nightly will be continued. - I will have her continue intermittent use of ckes-sbw-lgwaboc iron supplementation. I will have her return for reassessment in 10 months. 05/03/23 0924 <Electronically signed by Humphrey Brush MD> Date Humphrey Brush MD Cosigner Signature: Date (if applicable) CC: Bessy Finnegan DO Work Phone: Start: 07-14-2022 End: 07-14-2022 Neurology Visit Report Procedure Note: See Note; NOTES: [facility] [address] [place] [address], [address] [place] [address] OFFICE VISIT Date of Service: 07/14/22 MR#: [id number] Acct: [id number] Name: MAYERSLUNA Rep #: [id number] 1 : 1975 Provider: Dr. Humphrey may MD Age/Sex: 46/F Location: [facility] Status: Signed Intake Vital Signs 07/14/22 16:22 Height 5 ft 5.5 in Weight: 244 lb 6 oz BMI 40.0 BP 106/64 Blood Pressure Location Lt brachial Position Sitting Respiration 16 Pulse 61 Pulse Source Monitor Temp 99.1 F Temp Source Temporal Pulse Oximetry (%) 96 Oxygen Delivery Method simple mask Intake Visit Reasons: 1 Y FU Chief Complaint: F/U Migraines Visual Specialist Required: No Accompanied by: Self Is patient in pain?: No Allergies No Known Allergies Allergy (Verified 07/14/22 16:28) Medications bupropion HCl 150 mg 24 hr tablet, extended release 150 mg PO DAILY 90 days #90 tabs 02/12/21 [History Confirmed 07/14/22] hydrochlorothiazide 25 mg tablet 50 mg PO DAILY 90 days #180 tabs 02/12/21 [History Confirmed 07/14/22] Amberen 2 tablet PO DAILY 02/13/21 [History Confirmed 07/14/22] desvenlafaxine succinate 50 mg tablet,extended release 24 hr 100 mg PO DAILY 02/13/21 [History Confirmed 07/14/22] magnesium 200 mg tablet 400 mg PO DAILY PRN 02/13/21 [History Confirmed 07/14/22] ferrous sulfate 325 mg (65 mg iron) tablet,delayed release 325 mg PO BID #60 tabs 08/20/21 [Rx Confirmed 07/14/22] amitriptyline 25 mg tablet See Rx Instructions .Route .COMPLEX #90 tabs 07/14/22 [Rx] nadolol 20 mg tablet See Rx Instructions .Route .COMPLEX #90 tabs 07/14/22 [Rx] naratriptan 2.5 mg tablet 2.5 mg PO .COMPLEX PRN migraine headache #9 tabs 07/14/22 [Rx] ropinirole 0.25 mg tablet See Rx Instructions .Route .COMPLEX #90 tabs 07/14/22 [Rx] PFSH Medical History Anemia Chronic migraine Depression Fatigue History of kidney stones Iron deficiency Parathyroid abnormality Restless leg syndrome Rheumatoid arthritis Severe headache Shortness of breath Surgical History History of History of cholecystectomy History of gastric bypass Social History (Updated 07/14/22 @ 16:29 by Anisha Esparza) Smoking Status: Never smoker Electronic Cigarette Use: not used second hand exposure: No alcohol intake: current alcohol intake frequency: holidays/special occasions only Alcohol type: wine substance use type: does not use diego/denominational: [employer]ar[employer] seatbelt use: always HPI HPI Chief Complaint: F/U Migraines Details: Interim History: Luna returns today for follow-up. She has a history of depression, renal calculi, iron deficiency, gastric bypass surgery (2009) and migraines. She has been experiencing headaches since she was a teenager. Her headaches are throbbing and vary in location over the calvarium. She has had headaches in the frontal head region, occipital head region and, at times, her headaches are unilateral. She experiences associated photophobia, phonophobia, and nausea. Headaches last 1 to 2 days each. Emotional stress and menses are triggers for her headaches. She has had visual scintillations prior to her headaches, lasting about 10 minutes. In years past, her headaches occurred about 10 days/month. She has had a significant reduction of her headache frequency with the use of nadolol and amitriptyline for headache prophylaxis. She has had 1 severe headache since December 2021 and 1 milder headache occurring about once per month around the time of her menses. Naratriptan is of benefit for her headaches. She has previously used ketoprofen for her headaches. She is tolerating her medications well. She has a history of depression and anxiety for which she takes Pristiq and bupropion. She takes magnesium for musculoskeletal pain. For the past several years, she has been experiencing leg restlessness. Her leg restlessness occurs only at nighttime and is temporarily alleviated by walking. Her leg restlessness is well controlled with ropinirole and intermittent lnlv-xgf-pnbahkq iron supplementation (daily use of iron supplementation causes constipation). She has a history of iron deficiency and mild anemia. She did take a course of prescription iron supplementation in the past. Physical Exam: Neuro: The patient is awake and alert and responds appropriately; speech is fluent Heart: Regular rate and rhythm Supplemental Info From office records of her prior neurologist: CTA of brain/neck with/without contrast (05/20/2013): Normal. MRI brain with/without contrast (06/21/2013): Several small scattered white matter hyperintensities bilaterally that likely indicate chronic small vessel disease. Incidental finding of hypoplastic pituitary. MRA brain (06/21/2013): Negative. CMP, lipid profile, magnesium, iron, ferritin, B12, vitamin D, folate, homocystine, TSH, phosphorus (07/03/2017): Iron 48 (low), ferritin 7 (low) calcium 8.4 (low). Echo 07/13/18: Interpretation Summary The estimated ejection fraction is 65 %. Normal diastology for age. Hypermobile posterior mitral leaflet without evidence of prolapse. Trivial tricuspid valve insufficiency. Right ventricular systolic pressure estimated to be 32 mmHg. Bicuspid aortic valve with fused raphe of left and right coronary cusps. Trivial to mild aortic valve insufficiency. Mildly dilated aortic root at 3.8 cm. Compared to echo report dated 07/08/2016, aortic insufficiency and LV function have remained about the same. Aortic root has increased from 3.5 to 3.8 cm. Labs (08/19/2021): CBC: RBC 4.13 (L), Hbg 11.3 (L), Hct 35.9 (L) CMP: normal Iron: 26 (L) Ferritin: 7 (L) Magnesium: normal Coding Level of Care Code Off vis,est,level 2 Diagnoses Migraine headache with aura G43.109 Intractability: not intractable Status migrainosus presence: without status migrainosus Restless leg syndrome G25.81 Iron deficiency E61.1 Assessment and Plan Assessment and Plan (1) Migraine headache with aura: Status: Chronic Qualifiers: Intractability: not intractable Status migrainosus presence: without status migrainosus Qualified Code(s): G43.109 - Migraine with aura, not intractable, without status migrainosus (2) Restless leg syndrome: Status: Chronic (3) Iron deficiency: Status: Chronic Plan Details Additional Comments: The patient has migraine headaches with visual aura.??? Her headaches have decreased in frequency with the use of nadolol and amitriptyline. Naratriptan is of benefit for symptomatic therapy. She has had 1 severe headache since December 2021. Milder headaches occur about once per month around the time of her menses and last 1 to 2 days each. She is satisfied with her current level of headache control. - Amitriptyline 25mg nightly and nadolol 20mg daily will be continued for headache prophylaxis. - Naratriptan 2.5 mg daily as needed will be continued for symptomatic therapy. She has nighttime restless leg syndrome which is adequately controlled with ropinirole and as needed use of vlac-xmu-pmtrwtk iron supplementation. She has a history of iron deficiency anemia and completed a course of prescription ferrous sulfate. - Ropinirole 0.25 mg nightly will be continued. - I will have her continue intermittent use of sxqk-ddf-kwyhrgz iron supplementation (daily use of iron supplementation causes constipation). I will have her return for reassessment in 6 months. 07/14/221826 <Electronically signed by Humphrey Brush MD> Date Humphrey Brush MD Cosigner Signature: Date (if applicable) CC: Dr. Bessy Finnegan, DO Bessy Finnegan DO Work Phone: Start: 08-19-2021 End: 08-20-2021 Neurology Visit Report Comments: See Note; NOTES: [facility] [address] [place] [address] OFFICE VISIT Date of Service: 08/19/21 MR#: [id number] Acct: [id number] Name: LUNA MAYERS Joie Rep #: [id number] 1 : 1975 Provider: TANK joshua Age/Sex: 45/F Location: [facility] Status: Signed Intake Vital Signs 08/19/21 15:29 BP 100/58 L Blood Pressure Location Lt brachial Position Sitting Pulse 65 Pulse Source Monitor Pulse Oximetry (%) 98 Oxygen Delivery Method room air Intake Visit Reasons: 6 M FU Chief Complaint: F/U Migraines Visual Specialist Required: No Accompanied by: Self Is patient in pain?: No Allergies No Known Allergies Allergy (Verified 08/19/21 15:29) Medications bupropion HCl 150 mg 24 hr tablet, extended release 150 mg PO DAILY 90 Days #90 tablet 02/12/21 [History Confirmed 08/19/21] hydrochlorothiazide 25 mg tablet 50 mg PO DAILY 90 Days #180 tablet 02/12/21 [History Confirmed 08/19/21] Amberen 2 tablet PO DAILY 02/13/21 [History Confirmed 08/19/21] desvenlafaxine succinate 50 mg tablet,extended release 24 hr 100 mg PO DAILY tablet 02/13/21 [History Confirmed 08/19/21] magnesium 200 mg tablet 400 mg PO DAILY PRN tablet 02/13/21 [History Confirmed 08/19/21] amitriptyline 25 mg tablet 25 mg PO QHS 90 Days #90 tablet 08/18/21 [Rx Confirmed 08/19/21] nadolol 20 mg tablet 20 mg PO DAILY #90 tablet 08/19/21 [Rx Confirmed 08/19/21] naratriptan 2.5 mg tablet 2.5 mg PO .COMPLEX PRN #9 tablet 08/19/21 [Rx Confirmed 08/19/21] ropinirole 0.25 mg tablet 0.25 mg PO QHS #30 tab 08/19/21 [Rx Confirmed 08/19/21] ferrous sulfate 325 mg (65 mg iron) tablet,delayed release 325 mg PO BID #60 tab 08/20/21 [Rx] [facility] Medical History (Updated 08/19/21 @ 15:54 by Bárbara Del Castillo AUDIOVISUAL AIDS TECHNICIAN, AUDIOVISUAL AIDS TECHNICIAN-C) Anemia Chronic migraine Depression Fatigue History of kidney stones Iron deficiency Parathyroid abnormality Restless leg syndrome Rheumatoid arthritis Severe headache Shortness of breath Surgical History History of History of cholecystectomy History of gastric bypass Social History Smoking Status: Never smoker Electronic Cigarette Use: not used second hand exposure: No alcohol intake: current alcohol intake frequency: holidays/special occasions only Alcohol type: wine substance use type: does not use HPI HPI Chief Complaint: F/U Migraines Details: Interim History: Luna returns today for follow-up. She has a history of depression, renal calculi, iron deficiency, gastric bypass surgery (2009) and migraines. She has been experiencing headaches since she was a teenager. Her headaches are throbbing and vary in location over the calvarium. She has had headaches in the frontal head region, occipital head region and, at times, her headaches are unilateral. She experiences associated photophobia, phonophobia, and nausea. Typically her headaches last about 1 day. Emotional stress and menses are triggers for her headaches. She experiences visual scintillations prior to her headaches, lasting about 10 minutes. She denies having hearing loss, vision change (apart from her transient visual auras), numbness or weakness. In years past, her headaches occurred about 10 days/month. When seen by her previous neurologist, she was prescribed nadolol and amitriptyline for headache prophylaxis, which resulted in a significant reduction in her headache frequency. She now experiences migraines only during her menses, typically resulting in 3-6 migraine days per month. Naratriptan is of benefit for her headaches. She has previously used ketoprofen for her headaches. She is tolerating her medications well. She has a history of depression and anxiety which are well controlled with Pristiq and bupropion. She takes magnesium for musculoskeletal pain. For the past several years, she has been experiencing leg restlessness. Her leg restlessness occurs only at nighttime and is temporarily alleviated by walking. She has never received prescription management for restless leg syndrome. She has felt able to control this symptom without medication until recent months, when her leg restlessness became more disruptive. She does report a history of iron deficiency. She has taken iron supplements in the past, but not in recent months. She has not had recent lab work to assess her iron deficiency. Physical Exam: General: Well-developed, well-nourished, obese female in no acute distress. Neuro: The patient is awake and alert and responds appropriately; speech is fluent; language function is within normal limits; PERRL, 3mm bilaterally; EOMI; no nystagmus; gait is unremarkable HEENT: Normocephalic; atraumatic Neck: No bruits Heart: Regular rate and rhythm Extremities: No cyanosis or edema ROS Const Constitutional: Positive for headache(s) and abnormal sleep pattern (disrupted by RLS); No fatigue, frequent falls or weakness Eyes Eyes: No change in vision ENT ENT: Positive for headache(s); No dizziness/vertigo Resp Respiratory: No cough Gastro GI: Positive for nausea/dyspepsia (migraine associated) Musc Musculoskeletal: Positive for restless legs; No muscle weakness Skin Skin: No rash Neuro Neurology: Positive for headache(s) and restless legs; No unsteady gait/balance, dizziness, weakness or frequent falls Psych Psychiatric: Positive for abnormal sleep pattern (disrupted by RLS) Endo Endocrine: No fatigue Supplemental Info From office records of her prior neurologist: CTA of brain/neck with/without contrast (05/20/2013): Normal. MRI brain with/without contrast (06/21/2013): Several small scattered white matter hyperintensities bilaterally that likely indicate chronic small vessel disease. Incidental finding of hypoplastic pituitary. MRA brain (06/21/2013): Negative. CMP, lipid profile, magnesium, iron, ferritin, B12, vitamin D, folate, homocystine, TSH, phosphorus (07/03/2017): Iron 48 (low), ferritin 7 (low) calcium 8.4 (low). Echo 07/13/18: Interpretation Summary The estimated ejection fraction is 65 %. Normal diastology for age. Hypermobile posterior mitral leaflet without evidence of prolapse. Trivial tricuspid valve insufficiency. Right ventricular systolic pressure estimated to be 32 mmHg. Bicuspid aortic valve with fused raphe of left and right coronary cusps. Trivial to mild aortic valve insufficiency. Mildly dilated aortic root at 3.8 cm. Compared to echo report dated 07/08/2016, aortic insufficiency and LV function have remained about the same. Aortic root has increased from 3.5 to 3.8 cm. Labs (08/19/2021): CBC: RBC 4.13 (L), Hbg 11.3 (L), Hct 35.9 (L) CMP: normal Iron: 26 (L) Ferritin: 7 (L) Magnesium: normal Coding Level of Care Code Off vis,est,level 4 Diagnoses Migraine headache with aura G43.109 Status migrainosus presence: without status migrainosus Intractability: not intractable Restless leg syndrome G25.81 Iron deficiency E61.1 Assessment and Plan Assessment and Plan (1) Migraine headache with aura: Status: Chronic Qualifiers: Status migrainosus presence: without status migrainosus Intractability: not intractable Qualified Code(s): G43.109 - Migraine with aura, not intractable, without status migrainosus (2) Restless leg syndrome: Status: Acute (3) Iron deficiency: Status: Acute Orders: Orders: Comprehensive Metabolic Profil 08/19/21 G25.81, E61.1 Iron 08/19/21 G25.81, E61.1 Ferritin 08/19/21 G25.81, E61.1 Magnesium 08/19/21 G25.81, E61.1 CBC-Complete Blood Cnt No Diff 08/19/21 G25.81, E61.1 Plan - Bárbara Del Castillo AUDIOVISUAL AIDS TECHNICIAN, AUDIOVISUAL AIDS TECHNICIAN-C: The patient has migraine headaches with visual aura. Her headaches have decreased in frequency with the use of nadolol and amitriptyline. Naratriptan is of benefit for acute headache management. She feels her headaches are adequately controlled and she is satisfied with her current level of headache control. She typically experiences migraines only during her menstrual cycle, amounting to approximately 3-6 headache days per month. I will have her continue amitriptyline 25mg nightly, nadolol 20mg daily and naratriptan 2.5mg PRN. We discussed pre-medication with NSAIDs in the 2-3 days prior to starting her menstrual cycles; patient may try this with OTC naproxen if migraines become more prominent. She also reports nighttime leg restlessness that has been ongoing for several years and has become more bothersome in recent months. She has a history of iron deficiency anemia, which may be contributing to her leg restlessness. Ropinirole 0.25mg QHS will be initiated for her leg restlessness. Titration to a higher dose will be considered based on patient response. Conservative measures for alleviating/reducing leg restlessness were also discussed with the patient, including exercise, caffeine reduction, warm water soaks/showers, and stretching/massage. A CBC, CMP, iron, ferritin, and magnesium were ordered and completed today (08/19/2021); these revealed anemia and iron and ferritin deficiencies. I will have her begin ferrous sulfate 365mg BID for her iron deficiency. Possible side effects of constipation were discussed with the patient, and it was recommended that she begin Miralax or OTC stool softener daily should these symptoms occur. I will have her return for reassessment in 2 months. Patient was advised to contact our office sooner with any questions or concerns. Thank you for this consultation. Plan Details Other Medications: New: ropinirole administer 1-3 hours before bedtime 0.25 mg PO QHS 30 tabs 1RF Refilled: nadolol 20 mg PO DAILY 90 tabs 0RF naratriptan 2.5 mg PO every 4 hours as needed for migraine headaches up to two tablets per day. 9 tabs 1RF migraine headache Additional Comments: Greater than 30 minutes were spent by me on today's visit. This time includes coordinating care, reviewing labs/records/history, interpretation of test results, and counseling patient/family. This also includes time spent with the patient for exam, treatment plan, and education as well as documenting clinical information in the electronic health record. 08/20/21 1446 <Electronically signed by Bárbara Del Castillo NP AUDIOVISUAL AIDS TECHNICIAN- C> Date Bárbara Del Castillo NP AUDIOVISUAL AIDS TECHNICIAN-C Cosigner Signature: Date (if applicable) CC: Dr. Bessy Finnegan, DO Bessy Finnegan DO Work Phone: Start: 02-13-2021 End: 02-13-2021 Neurology Visit Report Comments: See Note; NOTES: [facility] [address] [place] [address] OFFICE VISIT Date of Service: 02/13/21 MR#: [id number] Acct: [id number] Name: LUNA MAYERS Rep #: [id number] : 1975 Provider: Dr. Humphrey may MD Age/Sex: 45/F [place] [facility] [place] Status: Signed Intake Vital Signs 02/13/21 Height 5 ft 5.75 in 02/13/21 Weight: 250 lb 02/13/21 BMI 40.6 02/13/21 BP 116/72 02/13/21 Blood Pressure Location Lt brachial 02/13/21 Position Sitting 02/13/21 Pulse 77 02/13/21 Pulse Source Monitor 02/13/21 Pulse Oximetry (%) 99 02/13/21 Oxygen Delivery Method room air Intake Visit Reasons: MIGRAINES Chief Complaint: Migraines Visual Specialist Required: No Accompanied by: Self Is patient in pain?: No Allergies No Known Allergies Allergy (Verified 02/13/21 08:50) Medications bupropion HCl 150 mg 24 hr tablet, extended release 150 mg PO DAILY 90 Days #90 tablet 02/12/21 [History Confirmed 02/13/21] hydrochlorothiazide 25 mg tablet 50 mg PO DAILY 90 Days #180 tablet 02/12/21 [History Confirmed 02/13/21] Amberen 2 tablet PO DAILY 02/13/21 [History] amitriptyline 25 mg tablet 25 mg PO QHS 90 Days #90 tablet 02/13/21 [Rx Confirmed 02/13/21] desvenlafaxine succinate 50 mg tablet,extended release 24 hr 100 mg PO DAILY tablet 02/13/21 [History Confirmed 02/13/21] magnesium 200 mg tablet 400 mg PO DAILY PRN tablet 02/13/21 [History Confirmed 02/13/21] nadolol 20 mg tablet 20 mg PO DAILY #90 tablet 02/13/21 [Rx Confirmed 02/13/21] naratriptan 2.5 mg tablet 2.5 mg PO .COMPLEX PRN #9 tablet 02/13/21 [Rx Confirmed 02/13/21] [facility] Medical History (Updated 02/13/21 @ 10:[address] Humphrey Brush MD) Anemia (Acute) Depression (Acute) Fatigue (Acute) History of kidney stones (Acute) Parathyroid abnormality (Acute) Rheumatoid arthritis (Acute) Severe headache (Acute) Shortness of breath (Acute) Chronic migraine (Chronic) Surgical History History of (Acute) History of cholecystectomy (Acute) History of gastric bypass (Acute) Social History (Updated 02/13/21 @ 10:[address] Humphrey Brsuh MD) Smoking Status: Never smoker Electronic Cigarette Use: not used second hand exposure: No alcohol intake: current alcohol intake frequency: holidays/special occasions only Alcohol type: wine substance use type: does not use HPI HPI Chief Complaint: Migraines Details: History: The patient is a 45-year-old right-handed woman with a past medical history of renal calculi and gastric bypass surgery in 2010 who presents for evaluation of headaches. She has been experiencing headaches since she was a teenager. Her headaches are throbbing headaches which vary in location over the calvarium. She has had headaches in the frontal head region, occipital head region and, at times, her headaches are unilateral. She experiences associated photophobia and phonophobia. She has associated nausea. Typically her headaches last about 1 day. Emotional stress and menses are triggers for her headaches. She experiences visual scintillations lasting about 10 minutes prior to her headaches. She denies having hearing loss, vision change (apart from her transient visual auras), numbness or weakness. In years past, her headaches occurred about 10 days/month. She has seen a neurologist and was prescribed nadolol and amitriptyline for headache prophylaxis and she has had a significant reduction in her headache frequency. Her headaches now occur about once every 2 months. Naratriptan is of benefit for her headaches. She has also used ketoprofen for her headaches (she no longer receives prescriptions for this medication stating this is no longer available from the associate professor of art history). She is tolerating her medications well. She has a history of depression and anxiety which are well controlled with Pristiq and bupropion. She takes magnesium for musculoskeletal pain. Due to change in insurance coverage issues, she no longer follows up with her prior neurologist. Past Medical History: As above. There is no history of hypertension, diabetes mellitus, heart disease, lung disease, stroke, seizure, thyroid disease, cancer or renal insufficiency. Family History: Negative for cerebral aneurysm, headache, seizure and stroke. Social History: She does not smoke tobacco. There is no history of alcohol or illicit drug use. Review of Systems: As above. The patient has not had any recent fever, rash, weight change, chest pain, shortness of breath, gastrointestinal problems or urinary problems. Physical Exam: General: Well-developed, well-nourished, obese female in no acute distress. Neuro: The patient is awake and alert and responds appropriately; speech is fluent; language function is within normal limits Cranial nerves: PERRL, 3mm bilaterally; EOMI; visual jeong are full; visual acuity is 20/20 bilaterally; face is symmetrical; tongue is midline; there are no deficits to pinprick Cerebellar system: No nystagmus or dysmetria Deep tendon reflexes: +2 at the knees and ankles, +1 at the left biceps, absent at the right biceps, +2 at the right triceps, trace at the left triceps, +2 at the left brachioradialis and +1 at the right brachioradialis; plantar responses are downward bilaterally Motor: Strength 5/5 in the biceps bilaterally, abductor pollicis brevis muscles bilaterally, first dorsal interosseous muscles bilaterally, quadriceps bilaterally and foot dorsiflexors bilaterally; no drift Sensory: There are no deficits to soft touch, vibration, or pinprick Gait: Unremarkable HEENT: Normocephalic; atraumatic; tympanic membranes are clear Neck: No bruits Heart: Regular rate and rhythm Extremities: No cyanosis or edema; dorsalis pedis pulses are +2 bilaterally ROS Const Constitutional: Positive for headache(s) and other (10 ROS negative unless otherwise noted); no fatigue, fever(s) or weight change ENT ENT: Positive for headache(s) Cardio Cardiology: No chest pain at rest, chest pain with exertion or shortness of breath Gastro GI: No change in bowel habits, constipation, diarrhea or nausea/dyspepsia Genitourinary-Female: No difficulty urinating, urinary incontinence, urinary frequency, urinary urgency, urinary hesitancy, urinary retention or blood in urine Musc Musculoskeletal: Positive for joint pain, back pain and other (Arthritis, Sciatica, Leg Pain @night) Skin Skin: No dry skin, redness or rash Neuro Neurology: Positive for headache(s) and restless legs Psych Psychiatric: Positive for anxiety, Positive for depression Endo Endocrine: No fatigue Donovan/Lymp Hematologic/Lymphatic: Positive for easy bruising Supplemental Info From office records of her prior neurologist: CTA of brain/neck with/without contrast (05/20/2013): Normal. MRI brain with/without contrast (06/21/2013): Several small scattered white matter hyperintensities bilaterally that likely indicate chronic small vessel disease. Incidental finding of hypoplastic pituitary. MRA brain (06/21/2013): Negative. CMP, lipid profile, magnesium, iron, ferritin, B12, vitamin D, folate, homocystine, TSH, phosphorus (07/03/2017): Iron 48 (low), ferritin 7 (low) calcium 8.4 (low). Echo 07/13/18 Interpretation Summary The estimated ejection fraction is 65 %. Normal diastology for age. Hypermobile posterior mitral leaflet without evidence of prolapse. Trivial tricuspid valve insufficiency. Right ventricular systolic pressure estimated to be 32 mmHg. Bicuspid aortic valve with fused raphe of left and right coronary cusps. Trivial to mild aortic valve insufficiency. Mildly dilated aortic root at 3.8 cm. Compared to echo report dated 07/08/2016, aortic insufficiency and LV function have remained about the same. Aortic root has increased from 3.5 to 3.8 cm. Assessment Plan Problems 1. Migraine with aura and without status migrainosus, not intractable G43.109 Plan The patient has migraine headaches with visual aura. Her headaches have decreased in frequency with the use of nadolol and amitriptyline and are adequately controlled with naratriptan and she is satisfied with her current level of headache control. She experiences headaches about once every 2 months. I will have her continue amitriptyline 25 mg nightly, nadolol 20 mg daily and naratriptan 2.5 mg every 4 hours as needed up to 2 tablets daily. She takes bupropion and Pristiq for anxiety and depression and the symptoms are well controlled. I will have her return for reassessment in 6 months. Medications New: nadolol 20 mg PO DAILY 90 tabs 1RF amitriptyline 25 mg PO QHS 90 days 90 tabs 1RF naratriptan 2.5 mg PO every 4 hours as needed for migraine headaches up to two tablets per day. 9 tabs 1RF migraine headache Coding Level of Care Code Off vis,new,level 4 Diagnoses Migraine with aura and without status migrainosus, not intractable G43.109 ?Status migrainosus presence: without status migrainosus ?Intractability: not intractable 02/13/21 1032 <Electronically signed by Humphrey Brush MD> Date Humphrey Brush MD Cosigner Signature: Date (if applicable) CC: Bessy Finnegan DO Work Phone: Start: 05-16-2019 End: 05-16-2019 SCREEN MAMM (CAD) W/ANDREW BILAT Comments: See Note; NOTES: [facility] Imaging Services [address] [place] [address] SCREEN MAMM (CAD) W/ANDREW BILAT MR#: [id number] Acct: [id number] Name: LUNA MAYERS Rep #: [id number] : 1975 F 43 From: Danny Ochoa MD PCP: Bessy Finnegan DO Status: REG CLI Study: SCREEN MAMM (CAD) W/ANDREW BILAT Date of Exam: 05/16/19 Exam# [id number] Ordering Dr: Griffin Sorto MD MAMMOGRAPHY - BILATERAL SCREENING REASON FOR EXAM: Female, 43 years old. Routine annual screening examination. PERTINENT HISTORY: Non-contributory. TECHNIQUE: Digital bilateral breast andrew (3D mammographic acquisition) in the CC and MLO projections. 2-D mediolateral oblique (MLO) and craniocaudad (CC) views of both breasts were obtained. CAD: Full Field Digital Mammography with Computer Added Detection was performed. COMPARISON: Comparison is made with prior study dated April 05, 2018. FINDINGS: Breast Composition: The breasts are heterogeneously dense, which may obscure small masses. There are no dominant masses or suspicious calcifications. No other significant abnormalities are identified. There has been no significant change since the prior study. BI/SCREEN MAMM (CAD) W/ANDREW BILAT IMPRESSION: Stable bilateral screening mammogram. Yearly follow-up mammogram recommended. (A) ASSESSMENT CATEGORY: BIRADS Category 1: Negative. A letter regarding these results will be sent to the patient by the facility within 30 days. Approximately 10% of breast cancers are not detected by mammography. A normal mammogram should not delay biopsy of a clinically suspicious abnormality. [id number] Electronically Signed: Danny Ochoa, at 13:47 EDT , Service support , CC: Griffin Sorto MD; Bessy Finnegan DO Retail Sales Merchandiser Development: Signed Bessy Finnegan Start: 01-16-2019 End: 01-16-2019 Urgent Care Visit Report Comments: See Note; NOTES: [facility] [address] [place] [address] [address] [place] [address] OFFICE VISIT Date of Service: 01/16/19 MR#: [id number] Acct: [id number] Name: LUNA MAYERS Rep #: [id number] : 1975 Provider: Donald WHITEHEAD Age/Sex: 43/F Location: [facility] Status: Signed Intake Vital Signs01/16/19 Body Mass Index (BMI) 39.8 01/16/19 Height 5 ft 4 in Intake Visit Reasons: EAR ACHE Chief Complaint: ear ache Visual Specialist Required: No Accompanied by: self Is patient in pain?: No Allergies No Known Allergies Allergy (Unverified 01/16/19 15:40) Medications amitriptyline 25 mg tablet PO 90 Days #90 tab 10/16/18 [History Confirmed 10/16/18] bupropion HCl XL 150 mg 24 hr tablet, extended release PO 90 Days #90 tab 10/16/18 [History Confirmed 10/16/18] desvenlafaxine succinate ER 25 mg tablet,extended release 24 hr 25 mg PO DAILY 10/16/18 [History Confirmed 10/16/18] hydrochlorothiazide 25 mg tablet PO 90 Days #180 tab 10/16/18 [History Confirmed 10/16/18] nadolol 20 mg tablet 20 mg PO DAILY 10/16/18 [History Confirmed 10/16/18] amoxicillin 875 mg-potassium clavulanate 125 mg tablet 1 tab PO BID #20 tab 01/16/19 [Rx Confirmed 01/16/19] PFSH Medical History Anemia (Acute) Fatigue (Acute) History of kidney stones (Acute) Severe headache (Acute) Shortness of breath (Acute) Surgical History History of (Acute) History of cholecystectomy (Acute) History of gastric bypass (Acute) Social History Smoking Status: Never smoker alcohol intake: never HPI HPI Chief Complaint: ear ache Details: LUNA MAYERS, is a 43 F who presents to the office today for initial evaluation 3-day history of right earache/pressure with muffled hearing. Patient states having a long-standing history of chronic recurrent otitis media, but was unable to get in with her primary care physician today. She notes associated chills though no complaints of fever, sweats, rash, cough, chest pressure/shortness of breath/wheeze, or sore throat. She has taken no [id number] products to assist with her symptoms. She is a non-smoker, noting no other members in household with similar complaints. She notes no other associated symptoms and no other alleviating or aggravating factors. ROS Const Constitutional: No other (ROS negative x10 other than as noted above) Exam Const General: cooperative, healthy appearing, uncomfortable, no acute distress Nutritional Appearance: obese Orientation: alert, awake, oriented x3 HENMT Head: normal to inspection Ears: hearing grossly normal bilaterally, external ears normal, TM normal on the left, EAC's normal, TM abnormal bulging on the right and with fluid behind the TM on the right Nose: external nose normal, nares normal, septum normal, no nasal discharge Face and sinus: normal facial exam, sinuses nontender, face symmetric Mouth: oral mucosae normal, lip normal, tongue normal Teeth and gingiva: dentition normal, gingiva normal Throat: posterior oropharynx normal, tonsils normal, uvula midline Eyes General: appearance normal, both eyes and all related structures Neck Neck: normal visual inspection, full ROM, no meningeal signs, supple, lymphadenopathy (Bilateral anterior cervical node swelling and tender to palpation) Neck mass: No Thyroid: thyroid normal Chest Chest palpation AND inspection: normal inspection of the chest Resp Effort AND Inspection: normal respiratory effort, able to speak in complete sentences Auscultation: Bilateral: Clear to Auscultation Cardio Palpation: normal PMI Rate: regular rate Rhythm: regular rhythm Heart Sounds: S1 normal, S2 normal, no gallops, no murmurs, no rubs Pulses: radial pulses present GI Inspection: normal to inspection Palpation: soft, no hepatosplenomegaly Skin General: no rashes or lesions noted Neuro General: alert, awake, oriented x3, gait normal Cognition: normal cognition Speech: speech normal Gait: normal gait Motor: muscle tone normal throughout Sensory Exam: no sensory deficits noted Psych Appearance: grossly normal Mental Status: mental status grossly normal Mood: congruent mood Affect: normal affect Speech and Movement: speech and movement normal Attitude: cooperative Thought Process: normal Thought Content: normal Judgment: judgment good Assessment AND Plan Problems 1. Right otitis media H66.91 Plan Augmentin as prescribed today. Clear fluids, rest, Advil/Tylenol as needed for symptomatic relief. Follow-up with PCP in 3-5 days if no improvement, sooner should symptoms worsen or any other concerns develop. Patient states acknowledging understanding all the above. This note was generated with [employer] software. It may contain incorrect words, spelling, and punctuation that were not noted in checking the note before signing. Medications New: Coding Level of Care Code Off vis,new,level 3 Diagnoses Right otitis media H66.91 01/16/19 1556 <Electronically signed by Donald WHITEHEAD> Date Donald WHITEHEAD Cosigner Signature: Date (if applicable) CC: Bessy Finnegan Start: 10-16-2018 End: 10-16-2018 Urgent Care Visit Report Comments: See Note; NOTES: [address] [address] OFFICE VISIT Date of Service: 10/16/18 MR#: [id number] Acct: [id number] Name: LUNA MAYERS Joie Rep #: [id number] : 1975 Provider: CHARLEY Caicedo Age/Sex: 42/F Location: [facility] Status: Signed Intake Vital Signs10/16/18 Height 5 ft 4 in 10/16/18 Weight: 232 lb 10/16/18 Body Mass Index (BMI) 39.8 10/16/18 Blood Pressure 122/84 H Intake Visit Reasons: SINUS INFECTION Chief Complaint: nasal congestion, headache, sore throat Visual Specialist Required: No Accompanied by: SELF Is patient in pain?: No Allergies No Known Allergies Allergy (Unverified 10/16/18 08:45) Medications amitriptyline 25 mg tablet PO 90 Days #90 tab 10/16/18 [History Confirmed 10/16/18] bupropion HCl XL 150 mg 24 hr tablet, extended release PO 90 Days #90 tab 10/16/18 [History Confirmed 10/16/18] desvenlafaxine succinate ER 25 mg tablet,extended release 24 hr 25 mg PO DAILY 10/16/18 [History Confirmed 10/16/18] hydrochlorothiazide 25 mg tablet PO 90 Days #180 tab 10/16/18 [History Confirmed 10/16/18] nadolol 20 mg tablet 20 mg PO DAILY 10/16/18 [History Confirmed 10/16/18] PFSH Medical History Anemia (Acute) Fatigue (Acute) History of kidney stones (Acute) Severe headache (Acute) Shortness of breath (Acute) Surgical History History of (Acute) History of cholecystectomy (Acute) History of gastric bypass (Acute) Social History Smoking Status: Never smoker alcohol intake: never HPI HPI Chief Complaint: nasal congestion, headache, sore throat Details: LUNA MAYERS, is a 42 F who presents to the office today for what she thinks is a sinus infection. She flew to [place] 10/01/2018. A few days before she took mucinex for sinus drainage/pressure a few days before that and for the next 2 week, but symptoms have only worsened. She now c/o headache,frontal and behind eyes and nose. (different than her migraines). Thick green nasal and PND. Increased coughing, productive of same. Feels warm flushed. Tylenol seems to help. No nausea, vomiting, or chills. 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 She can often beat it with otc meds, but not this time. ROS Const Constitutional: Positive for fatigue and headache(s); no body ache, chills, fever(s), night sweats, change in appetite, weakness, frequent falls or excessive sweating Eyes Eyes: No visual disturbances, light sensitivity, eye pain or change in vision ENT ENT: Positive for ear pain (pressure, left mainly), sore throat (from drainage.), nasal discharge and headache(s); no ear discharge, hearing loss, dizziness/vertigo, difficulty swallowing or neck pain Resp Respiratory: Positive for cough and shortness of breath (mild); no chest congestion, hemoptysis or wheezing Cardio Cardiology: No shortness of breath, irregular heart rhythm, lightheadedness, chest pain at rest, chest pain with exertion, generalized swelling, orthopnea, palpitations or excessive sweating Gastro GI: No difficulty swallowing, abdominal pain, bloating, change in bowel habits, diarrhea, blood in stool, Black,tarry stools, nausea/dyspepsia or vomiting Genitourinary-Female: No burning urination, urinary frequency, urinary urgency, blood in urine or Vaginal Itching Musc Musculoskeletal: No joint pain, back pain, numbness, tingling or neck pain Skin Skin: No lesions, itching or rash Neuro Neurology: Positive for headache(s); no visual disturbances, numbness, tingling, abnormal speech, confusion, unsteady gait/balance, dizziness, weakness, frequent falls, loss of vision or memory loss Psych Psychiatric: No change in appetite, No confusion, No memory loss, Positive for anxiety (on medication), Positive for depression, No panic attacks, No hallucinations, No Thoughts of harming yourself/Others Endo Endocrine: Positive for fatigue; no cold intolerance, excessive sweating, flushing, heat intolerance or increased thirst/drinking Aller/Imm Allergy/Immunologic: No wheezing, itchy eyes, food intolerance, seasonal allergy symptoms or hives Donovan/Lymp Hematologic/Lymphatic: No easy bruising Exam Const General: cooperative, no acute distress Nutritional Appearance: overweight Orientation: alert, oriented x3 [facility] Head: normal to inspection, normocephalic Ears: hearing grossly normal bilaterally, external ears normal, no periauricular adenopathy, EAC's normal, TM abnormal (bilaterally) dull and with fluid behind the TM Nose: external nose normal, nasal discharge (noted bilaterally) purulent Face and sinus: normal facial exam, sinus tenderness (frontal) Mouth: oral mucosae normal, oropharynx normal, tongue normal Throat: postnasal drainage (lines bilaterally) Eyes General: appearance normal, both eyes and all related structures Visual Jeong: normal visual jeong by confrontation Eyelids: eyelids normal Conjunctivae: conjunctivae normal Sclera: sclerae normal Pupils: PERRL, normal by confrontation, accommodation normal EOM: EOM intact bilaterally Direct ophthalmoscopy: normal light reflex, no papilledema, no photophobia, fundi normal bilaterally Neck Neck: normal visual inspection, full ROM, no meningeal signs, trachea midline, supple, no lymphadenopathy Neck mass: No Thyroid: thyroid normal Carotids: no bruits Lymphatic: no lymphadenopathy noted Chest Chest palpation AND inspection: normal inspection of the chest Resp Effort AND Inspection: normal respiratory effort, able to speak in complete sentences, symmetric chest movement, no audible wheezes, no cough, not labored, no respiratory distress Auscultation: Bilateral: Clear to Auscultation Cardio Rate: regular rate Rhythm: regular rhythm Heart Sounds: S1 normal, S2 normal GI Inspection: normal to inspection Auscultation: normal bowel sounds Palpation: soft, no hepatosplenomegaly, no pulsatile masses Skin General: no rashes or lesions noted Neuro General: alert, oriented x3, moves all extremities Speech: speech normal Psych Appearance: grossly normal, well kempt Mental Status: mental status grossly normal Assessment AND Plan Problems 1. Acute frontal sinusitis, recurrence not specified J01.10 2. Sinusitis, bacterial J32.9; B96.89 Plan Augmentin 875 bid x 10 days called to Jobe leonard Darren Continue Robitussin DM Consider drying up with otc antihistamines after 4-5 days. Coding Level of Care Code Off vis,new,level 3 Diagnoses Acute frontal sinusitis, recurrence not specified J01.10 Recurrence: not specified as recurrent Sinusitis, bacterial J32.9; B96.89 10/16/18 1101 <Electronically signed by Temitope WHITEHEAD> Date Temitope WHITEHEAD Cosigner Signature: Date (if applicable) CC: Bessy Finnegan Start: 07-14-2018 End: 07-14-2018 Echocardiogram Complete Comments: See Note; NOTES: [facility] Cardiovascular Services [address] [place] [address] Echo Complete 07/13/18 1100 MR#: [id number] Acct: [id number] Name: LUNA MAYERS Rep #: [id number] : 1975 42 From: Gene Machuca MD Attending Dr: Status: REG CLI Ordering Dr: BEAU THEODORE Date: 07/13/18 Location: [facility] Sex: F C Admitted: Reason For Study: Ascending Aorta Dilation Procedure This was a 2D Doppler, Color Flow transthoracic echocardiogram. Exam performed in department. Left Ventricle Normal size and thickness. The estimated ejection fraction is 65 %. Normal diastology for age. No regional wall motion abnormalities noted. Right Ventricle Normal size and thickness. Normal systolic function. Atria Normal left atrium. Normal right atrium. Normal atrial septum. Mitral Valve The mitral valve is structurally normal. No prolapse or stenosis seen. Hypermobile posterior mitral leaflet without evidence of prolapse. Tricuspid Valve Normal tricuspid valve. Trivial tricuspid valve insufficiency. Right ventricular systolic pressure estimated to be 32 mmHg. Aortic Valve Bicuspid aortic valve. There is no aortic stenosis. Trivial aortic valve insufficiency. Pulmonic Valve Normal pulmonic valve. Great Vessels Mildly dilated aortic root. Normal arch. Normal inferior vena cava. Inferior vena cava collapse with sniff. Pericardium/Pleural No pericardial effusion. MMode/2D Measurements AND Calculations LVIDd: 4.9 cm IVSd: 0.88 cm Ao root diam: 3.5 cm LVIDs: 3.0 cm LVPWd: 0.92 cm LA dimension: 3.5 cm FS: 38.3 % LAV(MOD-bp): 49.5 ml LVAd ap4: 34.5 cm2 SV(MOD-sp4): 68.2 ml LAV(MOD-bp) Indexed: 25.0 ml/m2 EDV(MOD-sp4): 115.2 ml LAV(MOD-sp2): 49.8 ml EDV(sp4-el): 122.8 ml LAV(MOD-sp4): 43.5 ml LVAs ap4: 19.4 cm2 ESV(MOD-sp4): 47.0 ml ESV(sp4-el): 48.2 ml EF(MOD-sp4): 59.2 % EF(sp4-el): 60.7 % SV(sp4-el): 74.5 ml LA A4 area: 16.9 cm2 RA A4 area: 14.4 cm2 Time Measurements MV dec time: 0.32 sec Doppler Measurements AND Calculations MV E max abelardo: 105.3 cm/sec Lat Peak E' Abelardo: 15.7 cm/sec Med Peak E' Abelardo: 14.4 cm/sec MV A max abelardo: 66.4 cm/sec E/E' lat: 6.7 E/E' med: 7.3 MV E/A: 1.6 Ao V2 max: 187.9 cm/sec LV V1 max: 105.9 cm/sec PA V2 max: 100.8 cm/sec Ao max P.1 mmHg LV V1 max P.5 mmHg TR max abelardo: 248.9 cm/sec TR max P.8 mmHg Interpretation Summary The estimated ejection fraction is 65 %. Normal diastology for age. Hypermobile posterior mitral leaflet without evidence of prolapse. Trivial tricuspid valve insufficiency. Right ventricular systolic pressure estimated to be 32 mmHg. Bicuspid aortic valve with fused raphe of left and right coronary cusps. Trivial to mild aortic valve insufficiency. Mildly dilated aortic root at 3.8 cm. Compared to echo report dated 07/08/2016, aortic insufficiency and LV function have remained about the same. Aortic root has increased from 3.5 to 3.8 cm. Ordering Physician: Beau Theodore Referring Physician: Bessy Finnegan Performed By: Magi Kirby RDCS 07/14/181721 Date Gene Machuca MD CC: Bessy Finnegan DO; BEAU THEODORE Date Dictated: 07/13/18 1100 Date Transcribed: 07/14/181721 Retail Sales Merchandiser Development: Signed Bessy Finnegan Start: 04-05-2018 End: 04-06-2018 SCREENING MAMM (CAD), BILAT Comments: See Note; NOTES: [facility] Imaging Services [address] [place] [place] [address] SCREENING MAMM (CAD), BILAT MR#: [id number] Acct: [id number] Name: LUNA MAYERS Rep #: [id number] : 1975 F 42 From: Danny Ochoa MD PCP: Bessy Finnegan DO Status: REG CLI Study: SCREENING MAMM (CAD), BILAT Date of Exam: 04/05/18 Exam# [id number] Ordering Dr: Griffin Sorto MD MAMMOGRAPHY - BILATERAL SCREENING REASON FOR EXAM: Female, 42 years old. Routine annual screening examination. PERTINENT HISTORY: Non-contributory. TECHNIQUE: Digital bilateral breast andrew (3D mammographic acquisition) in the CC and MLO projections. 2-D mediolateral oblique (MLO) and craniocaudad (CC) views of both breasts were obtained. CAD: Full Field Digital Mammography with Computer Added Detection was performed. COMPARISON: Comparison is made with prior outside examination dated April 24, 2005. FINDINGS: Breast Composition: The breasts are heterogeneously dense, which may obscure small masses. There are no dominant masses or suspicious calcifications. No other significant abnormalities are identified. There has been no significant change since the prior study. BI/SCREENING MAMM (CAD), BILAT IMPRESSION: Stable bilateral screening mammogram. Yearly follow-up mammogram recommended. (A) ASSESSMENT CATEGORY: BIRADS Category 1: Negative. A letter regarding these results will be sent to the patient by the facility within 30 days. Approximately 10% of breast cancers are not detected by mammography. A normal mammogram should not delay biopsy of a clinically suspicious abnormality. [id number] Electronically Signed: Danny Ochoa MD at 8:13 EDT Tel [phone], Service support , CC: Griffin Sorto MD; Bessy Finnegan DO Retail Sales Merchandiser Development: Signed Bessy Finnegan Start: 07-08-2016 End: 07-08-2016 Echocardiogram Complete Comments: See Note; NOTES: [facility] Cardiovascular Services [address] [place] [address] Echo Complete 07/08/16 1004 MR#: [id number] Acct: [id number] Name: LUNA MAYERS Rep #: [id number] : 1975 40 From: Gene Machuca MD Attending Dr: OUT OF TOWN DOCTOR Status: REG CLI Ordering Dr: BEAU THEODORE Date: 07/08/16 Location: [facility] Sex: F C Admitted: Reason For Study: chest pain/palpitations Procedure This was a 2D Doppler, Color Flow transthoracic echocardiogram. Exam performed in department. Left Ventricle Normal size and thickness. The estimated ejection fraction is 65 %. Normal diastology for age. No regional wall motion abnormalities noted. Right Ventricle Normal size and thickness. Normal systolic function. Atria The left atrium is mildly enlarged. Normal right atrium. Normal atrial septum. Mitral Valve The mitral valve is structurally normal. No prolapse or stenosis seen. Trivial mitral valve insufficiency. Tricuspid Valve Normal tricuspid valve. Trivial tricuspid valve insufficiency. Right ventricular systolic pressure estimated to be 31 mmHg. Aortic Valve Possible bicuspid aortic valve with fused raphe. Mild diffuse aortic valve thickening. Mild focal aortic valve thickening. There is no aortic stenosis. Mild (1+) eccentric aortic valve insufficiency. Pulmonic Valve Normal pulmonic valve. Trivial eccentric pulmonic valve insufficiency. Great Vessels Normal aortic root. Ascending aorta of 4.0 cm. Pericardium/Pleural No pericardial effusion. MMode/2D Measurements & Calculations LVIDd: 4.5 cm IVSd: 1.0 cm Ao root diam: 3.5 cm LVIDs: 2.8 cm LVPWd: 1.1 cm LA dimension: 5.0 cm RVDd: 3.7 cm FS: 38.2 % LAV(MOD-bp): 66.4 ml LA A4 area: 21.3 cm2 RA A4 area: 15.3 cm2 LAV(MOD-bp) Indexed: 32.5 ml/m2 LAV(MOD-sp2): 62.7 ml LAV(MOD-sp4): 70.2 ml Doppler Measurements & Calculations MV E max abelardo: 115.1 cm/sec Lat Peak E' Abelardo: 18.9 cm/sec Med Peak E' Abelardo: 13.5 cm/sec MV A max abelardo: 63.0 cm/sec E/E' lat: 6.1 E/E' med: 8.5 MV E/A: 1.8 Ao V2 max: 157.8 cm/sec AI max abelardo: 304.5 cm/sec LV V1 max: 105.9 cm/sec Ao max P.0 mmHg AI max P.2 mmHg LV V1 max P.5 mmHg AI dec slope: 151.4 cm/sec2 AI P1/2t: 589.0 msec PA V2 max: 97.1 cm/sec TR max abelardo: 254.5 cm/sec TR max P.0 mmHg Interpretation Summary The estimated ejection fraction is 65 %. Normal diastology for age. The left atrium is mildly enlarged. Right ventricular systolic pressure estimated to be 31 mmHg. Possible bicuspid aortic valve with fused raphe. Mild (1+) eccentric aortic valve insufficiency. Ascending aorta of 4.0 cm. Would consider a transesophageal echocardiogram if clinically indicated. There is no comparison study available. Ordering Physician: Beau Theodore Referring Physician: Bessy Finnegan M.D. Performed By: Claudia Miles, ANGIE, RVT 07/08/16 1237 Date Gene Machuca MD CC: Bessy Finnegan DO; BEAU THEODORE Date Dictated: 07/08/16 1004 Date Transcribed: 07/08/16 1237 Retail Sales Merchandiser Development: Signed Bessy Finnegan Start: 08-28-2015 End: 08-28-2015 Abdomen/Pelvis without Cont Comments: See Note; NOTES: [facility] Imaging Services [address] [place] [address] CAT Scan Report MR#: [id number] Acct: [id number] Name: LUNA MAYERS Rep #: [id number] : 1975 F 39 From: Elpidio Pretty MD PCP: OUT OF TOWN DOCTOR Status: REG CLI Study: Abdomen/Pelvis without Cont Date of Exam: 08/28/15 Exam# [id number] Ordering Dr: Shade Padilla MD STUDY: CT ABDOMEN AND PELVIS WITHOUT CONTRAST REASON FOR EXAM: Female, 39 years old. Right flank pain x2 weeks, history of renal calculi. RADIATION DOSAGE (If Supplied By Facility): CTDIvol = ( 23.52 ) mGy, DLP = ( 1221.68 ) mGycm TECHNIQUE: Transaxial images were obtained from the dome of the diaphragm to the symphysis pubis without oral contrast, and without intravenous contrast. Sagittal and coronal images were reconstructed. COMPARISON: Previous study of May 10, 2013. FINDINGS: The visualized lung bases are unremarkable. The visualized portions of the heart are within normal limits. Normal liver. There are surgical clips in the gallbladder fossa consistent with a prior cholecystectomy. Normal spleen. Normal pancreas. Normal bilateral adrenal glands. Normal right kidney. Normal left kidney. There are findings consistent with status post gastric bypass surgery and partial gastrectomy. Normal small intestine. Normal colon. The appendix is visualized and appears normal. Normal abdominal aorta. Normal inferior vena cava. Normal retroperitoneum. Normal urinary bladder. The uterus and adnexal structures are unremarkable. The fascial planes of the ischiorectal fossa are intact. No inguinal or deep pelvic adenopathy is seen. Normal abdominal wall. There is narrowing of the L5-S1 disc space with irregularity of the adjacent vertebral body endplates. IMPRESSION: 1. Status post cholecystectomy. 2. Status post gastric bypass/partial gastrectomy changes. 3. The kidneys appear normal. There is interval resolution of a left hydronephrosis, left hydroureter, and left ureteral calculus seen on the previous study. 4. Narrowing of the L5-S1 disc space with irregularity of the adjacent vertebral body endplates. Electronically Signed: Elpidio Pretty MD at 16:49 EDT Tel , Service support [phone], CC: Shade Padilla MD; Bessy Finnegan DO; OUT OF TOWN DOCTOR Retail Sales Merchandiser Development: Signed Bessy Finnegan Start: 06-13-2014 End: 06-14-2014 CTA Chest W/WO Contrast Comments: See Note; NOTES: [facility] Imaging Services [address] [place] [id number] CAT Scan Report MR#: [id number] Acct: [id number] Name: LUNA MAYERS Rep #: [id number] : 1975 F 38 From: Danny Ochoa MD PCP: Bessy Finnegan DO Status: REG CLI Study: CTA Chest W/WO Contrast Date of Exam: 06/13/14 Exam# [id number] Ordering Dr: Johnny Garcia STUDY: CTA CHEST REASON FOR EXAM: Female, 38 years old. Enlargement of the thoracic aorta. RADIATION DOSAGE (If Supplied By Facility): CTDIvol = ( 14.16 ) mGy, DLP = ( 644.64 ) mGycm TECHNIQUE: The examination was performed with the intravenous administration of 100ml ml of Isovue 370 contrast material. Post-processing of the angiographic images was performed, with multiplanar reformation and 3D reconstruction. COMPARISON: None. FINDINGS: Normal enhancement of the main pulmonary artery and right and left pulmonary arteries. Normal enhancement of the bilateral peripheral pulmonary arteries. There is no demonstrated pulmonary embolism. Normal thoracic aorta and visualized great vessels. The aortic root measures upper limits of normal at 3.9 cm. There is no demonstrated aortic dissection. Normal heart and pericardium. Normal mediastinum. Normal hilar regions. Normal visualized trachea and bronchi. The lungs are well expanded. Normal pulmonary parenchyma. Normal pleura. Normal chest wall structures. There are mild degenerative changes of thoracic spine. Surgical clips are seen in the epigastric region in keeping with the prior gastric bypass surgery. IMPRESSION: Normal CTA chest examination, without a demonstrated pulmonary embolism or arterial dissection. Electronically Signed: Danny Ochoa MD at 15:06 EDT Tel [phone], Service support [phone], CC: JOHNNY GARCIA; Bessy Finnegan DO Retail Sales Merchandiser Development: Signed Bessy Finnegan Work Phone: Start: 12-28-2005 Lipid 1996 panel - Serum or Plasma Debbie Prescott APRN.CNM Work Phone: Adenoid excision Heather parr Adenoid excision Evelia Grav ius Adenoid excision Evelia Grav ius Adenoid excision Evelia Grav ius Adenoid excision Evelia Grav ius Adenoid excision Evelia Grav ius DRIVER ENGINEER Adenoid excision Ashlie Slar b BI ARCHITECT Adenoid excision Johnnie Pryo r BI ARCHITECT Cholecystectomy Heather mohamud Comment on above: 08/11/12 Cholecystectomy Evelia Gravi us Comment on above: 08/11/12 Cholecystectomy Evelia Gravi us Comment on above: 08/11/12 Cholecystectomy Evelia Gravi us Comment on above: 08/11/12 Cholecystectomy Evelia Gravi us Comment on above: 08/11/12 Cholecystectomy Evelia Gravi us DRIVER ENGINEER Comment on above: 08/11/12 Cholecystectomy Ashlie Slarb BI ARCHITECT Comment on above: 08/11/12 Cholecystectomy Johnnie [place] BI ARCHITECT Comment on above: 08/11/12 H/O: section Section Ja smin Gravius DRIVER ENGINEER Comment on above: H/O: section Section Ja smin Gravius DRIVER ENGINEER Comment on above: H/O: section Section An gokul Slarb BI ARCHITECT Comment on above: H/O: section Section Da agusto [place] BI ARCHITECT Comment on above: Kidney stone removal Heather hong Comment on above: 05/12/13 Kidney stone removal Evelia Gravius Comment on above: 05/12/13 Kidney stone removal Evelia Gravius Comment on above: 05/12/13 Kidney stone removal Evelia Gravius Comment on above: 05/12/13 Kidney stone removal Evelia Gravius Comment on above: 05/12/13 Kidney stone removal Evelia Gravius DRIVER ENGINEER Comment on above: 05/12/13 Kidney stone removal Ashlie Slarb BI ARCHITECT Comment on above: 05/12/13 Kidney stone removal Johnnie [place] BI ARCHITECT Comment on above: 05/12/13 Ligation of fallopia n tube Heather Messenger Ligation of fallopia n tube Evelia Gravius Ligation of fallopia n tube Evelia Gravius Ligation of fallopia n tube Evelia Gravius Ligation of fallopia n tube Evelia Gravius Ligation of fallopia n tube Evelia Gravius DRIVER ENGINEER Ligation of fallopia n tube Ashlie Slarb BI ARCHITECT Ligation of fallopia n tube Johnnie [place] BI ARCHITECT Tonsillectomy Heather Huynh r Tonsillectomy Evelia Gravius Tonsillectomy Evelia Gravius Tonsillectomy Evelia Gravius Tonsillectomy Evelia Gravius Tonsillectomy Evelia Gravius DRIVER ENGINEER Tonsillectomy Ashlie Slarb L PN Tonsillectomy Johnnie [place] L PN Tubes in ears Heather Messenge r Tubes in ears Evelia Gravius Tubes in ears Evelia Gravius Tubes in ears Evelia Gravius Tubes in ears Evelia Gravius Tubes in ears Evelia Gravius DRIVER ENGINEER Tubes in ears Ashlie Slarb L PN Tubes in ears Johnnie [place] L PN Plan of Treatment Date Care Activity Detail Author Start: 2051 RSV Immunization for Adults (1 - 1-dose 75+ series) RSV Immunization for Adults (1 - 1-dose 75+ series) [facility] Start: 2026 Zoster Vaccines (1 of 2) Zoster Vaccines (1 of 2) [facility] Start: 05-06-2026 End: 05-06-2026 Patient encounter procedure 05/06/2026 4:00 PM EDT Office Visit OB/Gynecology [address] [place], [place] [id number] Debbie Prescott APRN.CNM [address] [place], [place] [id number] Annual OB/Gynecology Comment on above: Annual Start: 07-16-2025 Influenza vaccination Influenza Vaccine (Season Ended) [facility] Start: 10-06-2024 End: 10-06-2024 Patient encounter procedure 10/06/2024 10:00 AM EST Appointment [facility] [address] [place] [address] Beau Theodore MD [address] [place] [address] [address] [place], [place] [id number] [facility] Start: 09-08-2024 End: 09-08-2026 US Heart Transthoracic Transthoracic echocardiogram (TTE) complete with contrast, bubble, strain, and 3D PRN CV Echocardiography Routine Ascending aorta dilatation (HCC) Precordial pain Expected: 09/08/2024 (Approximate), Expires: 09/08/2026 [facility] Work Phone: Comment on above: Expected: 09/08/2024 (Approximate), Expi res: 09/08/2026 Start: 07-16-2024 COVID-19 Vaccine ( season) COVID-19 Vaccine () [facility] Start: 07-16-2024 Influenza vaccination Influenza Vaccine (#1) [facility] Start: 05-28-2023 Procedure Education Eprescribed prescriptions (G8553) [facility]; [facility] Work Phone: Start: 05-15-2022 Procedure Education Eprescribed prescriptions (G8553) [facility]; [facility] Work Phone: Start: 01-12-2022 Procedure Education Eprescribed prescriptions (G8553) [facility]; [facility] Work Phone: Start: 01-12-2022 Provider Instructions for Treatment [facility]; [facility] Work Phone: Start: 2021 Diabetes Screening Diabetes Screening [facility] Start: 2021 Lipid panel Lipid Screening [facility] Start: 2021 Screening for malignant neoplasm of colon [facility] Start: 09-19-2020 Procedure Education Eprescribed prescriptions (G8553) [facility] Work Phone: Start: 07-26-2020 Procedure Education Eprescribed prescriptions (G8553) [facility] Work Phone: Start: 07-26-2020 Provider Instructions for Treatment [facility] Work Phone: Start: 06-28-2020 Assay of magnesium Magnesium (76283) [facility]; [facility] Work Phone: Start: 06-28-2020 Phosphate [Mass/Vol] Phosphorus (25937) [facility] Work Phone: Start: 06-28-2020 Assay of zinc ZINC, BLOOD (00273) [facility] Work Phone: Start: 06-28-2020 Lipid panel Lipid Panel (09787) [facility] Work Phone: Start: 06-28-2020 Assay of vitamin a VITAMIN A (03772) [facility] Work Phone: Start: 06-28-2020 TSH Qn TSH (94223) [facility] Work Phone: Start: 06-28-2020 Comprehensive metabolic panel Metabolic Panel, Comprehensive (76567) [facility] Work Phone: Start: 06-28-2020 Magnesium [Mass/Vol] Magnesium (90062) [facility] Work Phone: Start: 06-28-2020 Assay of folic acid serum Folic Acid Serum (08515) [facility] Work Phone: Start: 06-28-2020 Assay of chromium CHROMIUM (97021) [facility] Work Phone: Start: 06-28-2020 Assay of homocysteine ASSAY, HOMOCYSTINE (25843) [facility] Work Phone: Start: 06-28-2020 Assay of parathormone PARATHORMONE (52215) [facility] Work Phone: Start: 06-28-2020 25 hydroxy includes fractions if performed CALCIFEDIOL (10800) [facility] Work Phone: Start: 06-28-2020 Cobalamin (Vitamin B12) [Mass/Vol] VITAMIN B-12 (CYANOCOBALAMIN) (53801) [facility] Work Phone: Start: 06-28-2020 Blood count reticulocyte automated RETICULOCYTE COUNT [facility] (21745) [facility] Work Phone: Start: 06-28-2020 Iron binding capacity IRON BINDING CAPACITY (TIBC) (70191) [facility] Work Phone: Start: 06-28-2020 Assay of iron IRON (38385) [facility]; [facility] Work Phone: Start: 06-28-2020 Iron [Mass/Vol] IRON (25140) [facility] Work Phone: Start: 06-28-2020 Ferritin [Mass/Vol] FERRITIN (99147) [facility] Work Phone: Start: 06-28-2020 Blood count complete auto&auto difrntl wbc CBC, PLATELETS & AUT DIFF (85190) [facility] Work Phone: Start: 06-28-2020 Procedure Education Eprescribed prescriptions (G8553) [facility] Work Phone: Start: 06-28-2020 Provider Instructions for Treatment Follow up in 1 month [facility] Work Phone: Start: 04-20-2019 Procedure Education Eprescribed prescriptions (G8553) [facility] Work Phone: Start: 04-20-2019 Provider Instructions for Treatment Reviewed Lab [facility] Work Phone: Start: 04-06-2019 25 hydroxy includes fractions if performed CALCIFEDIOL (69542) [facility] Work Phone: Start: 04-06-2019 Organic acid 1 quantitative Methymalonic Acid, Serum (78611) [facility] Work Phone: Start: 04-06-2019 Cobalamin (Vitamin B12) mass conc Vitamin B-12 (cyanocobalamin) (83137) [facility] Work Phone: Start: 04-06-2019 Iron binding capacity Iron Binding Capacity (TIBC) (04833) [facility] Work Phone: Start: 04-06-2019 Assay of iron Iron (60728) [facility]; [facility] Work Phone: Start: 04-06-2019 Ferritin mass conc Ferritin (50557) [facility] Work Phone: Start: 04-06-2019 Iron mass conc Iron (28532) [facility] Work Phone: Start: 04-06-2019 Assay of folic acid serum Folic Acid Serum (42476) [facility] Work Phone: Start: 04-06-2019 Thyrotropin Qn TSH (THYROID STIMULATING HORMONE) (38323) [facility] Work Phone: Start: 01-05-2018 Provider Instructions for Treatment Reviewed Lab [facility] Work Phone: Start: 10-28-2017 Provider Instructions for Treatment Reviewed Lab [facility] Work Phone: Start: 10-28-2017 Potassium molar conc POTASSIUM SERUM (96308) [facility] Work Phone: Start: 10-28-2017 Potassium serum plasma/whole blood POTASSIUM SERUM (36626) [facility]; [facility] Work Phone: Start: 10-28-2017 Assay of magnesium MAGNESIUM (89709) [facility]; [facility] Work Phone: Start: 10-28-2017 Magnesium mass conc MAGNESIUM (75698) [facility] Work Phone: Start: 10-21-2017 Procedure Education Eprescribed prescriptions (G8553) [facility] Work Phone: Start: 10-21-2017 Provider Instructions for Treatment [facility] Work Phone: Start: 10-21-2017 Antibody justice-hurd eb virus nuclear ag ebna EB ANTIBODY NUCLR ANTIGN (94599) [facility] Work Phone: Start: 06-30-2017 Hemoglobin A1c/Hemoglobin.total mass fraction (Bld) HGB A1C (23316) [facility] Work Phone: Start: 06-30-2017 Hemoglobin glycosylated a1c HGB A1C (55172) [facility]; [facility] Work Phone: Start: 06-30-2017 25 hydroxy includes fractions if performed CALCIFEDIOL (50797) [facility] Work Phone: Start: 06-30-2017 Assay of parathormone PARATHORMONE (49324) [facility] Work Phone: Start: 06-30-2017 Assay of phosphorus inorganic Phosphorus (56999) [facility]; [facility] Work Phone: Start: 06-30-2017 Phosphate mass conc Phosphorus (12895) [facility] Work Phone: Start: 06-30-2017 Assay of iron IRON (74230) [facility]; [facility] Work Phone: Start: 06-30-2017 Iron mass conc IRON (15969) [facility] Work Phone: Start: 06-30-2017 Assay of ferritin FERRITIN (26702) [facility] Work Phone: Start: 06-30-2017 Ferritin mass conc FERRITIN (18342) [facility] Work Phone: Start: 06-30-2017 Assay of zinc ZINC, BLOOD (85349) [facility] Work Phone: Start: 06-30-2017 Cobalamin (Vitamin B12) mass conc Vitamin B-12 (cyanocobalamin) (56719) [facility] Work Phone: Start: 06-30-2017 Cyanocobalamin vitamin b-12 Vitamin B-12 (cyanocobalamin) (84852) [facility]; [facility] Work Phone: Start: 06-30-2017 Assay of vitamin a VITAMIN A (71969) [facility] Work Phone: Start: 06-30-2017 Assay of thyroid stimulating hormone tsh TSH (92752) [facility]; [facility] Work Phone: Start: 06-30-2017 Comprehensive metabolic panel Metabolic Panel, Comprehensive (38795) [facility] Work Phone: Start: 06-30-2017 Thyrotropin Qn TSH (90346) [facility] Work Phone: Start: 06-30-2017 Assay of magnesium Magnesium (95123) [facility]; [facility] Work Phone: Start: 06-30-2017 Magnesium mass conc Magnesium (15725) [facility] Work Phone: Start: 06-30-2017 Lipid panel Lipid Panel (61590) [facility] Work Phone: Start: 06-30-2017 Assay of folic acid serum Folic Acid Serum (34154) [facility] Work Phone: Start: 06-30-2017 Assay of chromium CHROMIUM (86287) [facility] Work Phone: Start: 06-30-2017 Assay of homocysteine ASSAY, HOMOCYSTINE (99776) [facility] Work Phone: Start: 06-30-2017 Provider Instructions for Treatment [facility] Work Phone: Start: 02-01-2017 Patient Education Bursitis: elbow [facility] Work Phone: Start: 02-01-2017 Procedure Education Eprescribed prescriptions (G8553) [facility] Work Phone: Start: 02-01-2017 Provider Instructions for Treatment Follow up in 2 weeks [facility] Work Phone: Start: 2016 Screening for malignant neoplasm of breast [facility] Start: 09-01-2016 Patient Education Sore throat: diagnosis and treatment [facility] Work Phone: Start: 09-01-2016 Procedure Education Eprescribed prescriptions (G8553) [facility] Work Phone: Start: 09-01-2016 Provider Instructions for Treatment [facility] Work Phone: Start: 07-24-2016 Provider Instructions for Treatment [facility] Work Phone: Start: 05-04-2016 Assay of phosphorus inorganic Phosphorus (80910) [facility]; [facility] Work Phone: Start: 05-04-2016 Phosphate mass conc Phosphorus (28325) [facility] Work Phone: Start: 05-04-2016 Assay of zinc ZINC, BLOOD (43806) [facility] Work Phone: Start: 05-04-2016 Cobalamin (Vitamin B12) mass conc Vitamin B-12 (cyanocobalamin) (20396) [facility] Work Phone: Start: 05-04-2016 Cyanocobalamin vitamin b-12 Vitamin B-12 (cyanocobalamin) (44147) [facility]; [facility] Work Phone: Start: 05-04-2016 Assay of vitamin a VITAMIN A (10616) [facility] Work Phone: Start: 05-04-2016 Assay of magnesium Magnesium (80824) [facility]; [facility] Work Phone: Start: 05-04-2016 Magnesium mass conc Magnesium (02257) [facility] Work Phone: Start: 05-04-2016 Lipid panel Lipid Panel (34018) [facility] Work Phone: Start: 05-04-2016 Assay of folic acid serum Folic Acid Serum (25114) [facility] Work Phone: Start: 05-04-2016 Assay of chromium CHROMIUM (70058) [facility] Work Phone: Start: 05-04-2016 Assay of homocysteine ASSAY, HOMOCYSTINE (47732) [facility] Work Phone: Start: 05-04-2016 Chemiluminescent assay Parathyroid Hormone-related Peptide (PTH-rP) (21798) [facility] Work Phone: Start: 05-04-2016 Iron binding capacity IRON BINDING CAPACITY (TIBC) (74850) [facility] Work Phone: Start: 05-04-2016 Assay of ferritin FERRITIN (98185) [facility] Work Phone: Start: 05-04-2016 Ferritin mass conc FERRITIN (14637) [facility] Work Phone: Start: 05-04-2016 Comprehensive metabolic panel METABOLIC PANEL, COMPREHENSIVE (65216) [facility] Work Phone: Start: 05-04-2016 Blood count complete auto&auto difrntl wbc CBC W/AUTO DIFF WBC (18447) [facility] Work Phone: Start: 05-04-2016 Assay of thyroid stimulating hormone tsh TSH (19255) [facility]; [facility] Work Phone: Start: 05-04-2016 Thyrotropin Qn TSH (99617) [facility] Work Phone: Start: 05-04-2016 Protein mass conc (U) Urine Protein Electrophoresis (UPEP) (86721) [facility] Work Phone: Start: 05-04-2016 Protein electrophoretic fractj&quantj serum [facility] Work Phone: Start: 05-04-2016 Protein mass conc Serum Protein Electrophoresis (SPEP) (10124) [facility] Work Phone: Start: 05-04-2016 Patient Education Anxiety: anxiety [facility] Work Phone: Start: 05-04-2016 Procedure Education Eprescribed prescriptions (G8553) [facility] Work Phone: Start: 05-04-2016 Provider Instructions for Treatment [facility] Work Phone: Start: 12-18-2015 Culture bacterial blood aerobic w/id isolates CHICHO CULTURE-BLOOD (04731) [facility] Work Phone: Start: 12-18-2015 Procedure Education Eprescribed prescriptions (G8553) [facility] Work Phone: Start: 08-23-2015 Comprehensive metabolic panel Metabolic Panel, Comprehensive (48749) [facility] Work Phone: Comment on above: recheck in 4 weeks Start: 08-21-2015 Provider Instructions for Treatment Follow up in 6 months [facility] Work Phone: Start: 08-21-2015 Assay of iron IRON (04979) [facility]; [facility] Work Phone: Start: 08-21-2015 Iron mass conc IRON (86498) [facility] Work Phone: Start: 07-11-2015 Procedure Education Eprescribed prescriptions (G8553) [facility] Work Phone: Start: 01-28-2015 25 hydroxy includes fractions if performed CALCIFIDIOL (55678) VIT D 25 [facility] Work Phone: Start: 10-09-2014 Blood occult fecal hgb deter ia qual feces 1-3 FECAL OCCULT- Tubes sent home (31841) [facility] Work Phone: Start: 10-09-2014 Assay of iron IRON (84747) [facility]; [facility] Work Phone: Start: 10-09-2014 Iron mass conc IRON (25238) [facility] Work Phone: Start: 09-21-2014 Procedure Education Eprescribed prescriptions (G8553) [facility] Work Phone: Start: 09-21-2014 Provider Instructions for Treatment [facility] Work Phone: Start: 07-18-2014 Procedure Education Eprescribed prescriptions (G8553) [facility] Work Phone: Start: 07-18-2014 Provider Instructions for Treatment Reviewed Lab [facility] Work Phone: Start: 06-27-2014 Hemoglobin A1c/Hemoglobin.total mass fraction (Bld) Hemoglobin Glyclated (HGB A1C) (70020) [facility] Work Phone: Start: 06-27-2014 Hemoglobin glycosylated a1c Hemoglobin Glyclated (HGB A1C) (64511) [facility]; [facility] Work Phone: Start: 06-27-2014 25 hydroxy includes fractions if performed CALCIFEDIOL (53158) [facility] Work Phone: Start: 06-27-2014 Assay of parathormone PARATHORMONE (90204) [facility] Work Phone: Start: 06-27-2014 Assay of phosphorus inorganic Phosphorus (23101) [facility]; [facility] Work Phone: Start: 06-27-2014 Phosphate mass conc Phosphorus (85528) [facility] Work Phone: Start: 06-27-2014 Assay of iron IRON (97967) [facility]; [facility] Work Phone: Start: 06-27-2014 Iron mass conc IRON (65046) [facility] Work Phone: Start: 06-27-2014 Assay of ferritin FERRITIN (90991) [facility] Work Phone: Start: 06-27-2014 Ferritin mass conc FERRITIN (85799) [facility] Work Phone: Start: 06-27-2014 Assay of zinc ZINC, BLOOD (63660) [facility] Work Phone: Start: 06-27-2014 Cobalamin (Vitamin B12) mass conc Vitamin B-12 (cyanocobalamin) (64952) [facility] Work Phone: Start: 06-27-2014 Cyanocobalamin vitamin b-12 Vitamin B-12 (cyanocobalamin) (41335) [facility]; [facility] Work Phone: Start: 06-27-2014 Assay of vitamin a VITAMIN A (77219) [facility] Work Phone: Start: 06-27-2014 Assay of thyroid stimulating hormone tsh TSH (51401) [facility]; [facility] Work Phone: Start: 06-27-2014 Thyrotropin Qn TSH (87638) [facility] Work Phone: Start: 06-27-2014 Assay of magnesium Magnesium (10589) [facility]; [facility] Work Phone: Start: 06-27-2014 Comprehensive metabolic panel Metabolic Panel, Comprehensive (53008) [facility] Work Phone: Start: 06-27-2014 Magnesium mass conc Magnesium (46763) [facility] Work Phone: Start: 06-27-2014 Lipid panel Lipid Panel (21848) [facility] Work Phone: Start: 06-27-2014 Assay of folic acid serum Folic Acid Serum (31482) [facility] Work Phone: Start: 06-27-2014 Assay of chromium CHROMIUM (65093) [facility] Work Phone: Start: 06-27-2014 Blood count manual cell count each CBC with manual diff (15452) [facility] Work Phone: Start: 06-27-2014 Assay of homocysteine ASSAY, HOMOCYSTINE (02524) [facility] Work Phone: Start: 06-27-2014 Procedure Education Eprescribed prescriptions (G8553) [facility] Work Phone: Start: 06-27-2014 Provider Instructions for Treatment [facility] Work Phone: Start: 01-22-2014 Provider Instructions for Treatment Follow up in 3 weeks [facility] Work Phone: Start: 05-30-2013 Provider Instructions for Treatment [facility] Work Phone: Start: 05-24-2013 Provider Instructions for Treatment Reviewed Diagnostic Tests [facility] Work Phone: Start: 05-10-2013 Patient Education Urinary Tract Infection in Women *: bladder infection [facility] Work Phone: Start: 05-10-2013 Provider Instructions for Treatment *Antibiotic Usage Education - Female [facility] Work Phone: Start: 05-10-2013 Comprehensive metabolic panel METABOLIC PANEL, COMPREHENSIVE (58651) [facility] Work Phone: Comment on above: stat Start: 05-10-2013 Blood count manual cell count each CBC WITH MANUAL DIFF (17876) [facility] Work Phone: Start: 10-24-2012 Provider Instructions for Treatment [facility] Work Phone: Start: 10-11-2012 Lipid panel LIPID PANEL (29240) [facility] Work Phone: Start: 01-09-2012 Screening for malignant neoplasm of cervix Cervical Cancer Screening [facility] Start: 2006 Screening for malignant neoplasm of cervix [facility] Start: 1997 Screening for malignant neoplasm of cervix Pap Smear [facility] Start: 1995 DTaP/Tdap/Td Vaccines (1 - Tdap) DTaP/Tdap/Td Vaccines (1 - Tdap) [facility] Start: 1995 Hepatitis B Vaccine (1 of 3 - 19+ 3-dose series) Hepatitis B Vaccine (1 of 3 - 19+ 3-dose series) [facility] Start: 1995 Hepatitis B Vaccines (1 of 3 - 19+ 3-dose series) Hepatitis B Vaccines (1 of 3 - 19+ 3-dose series) [facility] Start: 1995 Urine microalbumin profile DTaP,Tdap,Td Vaccine (1 - Tdap) [facility] Start: 1994 Anxiety Screening Anxiety Screening [facility] Start: 1994 Depression Screening Depression Screening [facility] Start: 1994 Diabetes mellitus screening Diabetes Screening [facility] Start: 1994 Hepatitis C screening Hepatitis C Screening [facility] Start: 1994 HIV screening HIV Screening [facility] Start: 1988 Depression Monitoring Depression Monitoring [facility] Start: 1977 MMR Vaccines (1 of 1 - Standard series) MMR Vaccines (1 of 1 - Standard series) [facility] Start: 1976 HIV screening HIV Screening [facility] Start: 1976 Lipid panel Lipid Panel [facility] Start: 1976 Screening for malignant neoplasm of colon [facility] End: 05-27-2026 DBT Breast - bilateral screening MIHIR SCREENING W ANDREW Radiology Routine Encounter for gynecological examination (general) (routine) without abnormal findings Encounter for screening mammogram for breast cancer 1 Occurrences starting 04/27/2025 until 05/27/2026 [facility] Work Phone: Comment on above: 1 Occurrences starting 04/27/2025 until 05/27/2026 HIGH RISK HUMAN PAPILLOMA VIRUS (HPV), PCR FOR DETECTION AND GENOTYPING HIGH RISK HUMAN PAPILLOMA VIRUS (HPV), PCR FOR DETECTION AND GENOTYPING Lab Routine Encounter for gynecological examination (general) (routine) without abnormal findings Screening for cervical cancer Encounter for screening for human papillomavirus (HPV) 04/27/2025 2:34 PM EDT [facility] PAP TEST PAP TEST Lab [place] Encounter for gynecological examination (general) (routine) without abnormal findings Screening for cervical cancer Encounter for screening for human papillomavirus (HPV) 04/27/2025 2:34 PM EDT [facility] Work Phone: [facility] Work Phone: [facility] Work Phone: [facility] Work Phone: [facility] Work Phone: [facility] Work Phone: [facility] Work Phone: [facility] Work Phone: [facility] Work Phone: [facility]; [facility] Work Phone: Payers Date Payer Category Payer Unknown [id number] 2024 Medicaid [employer] [id number] 2024 Medicaid HMO [id number] 2024 Medicaid [id number] 2024 Self-pay Unknown [facility] Unknown [id number] Unknown [id number] Unknown [id number] Unknown [id number] Unknown [id number] Unknown [id number] Unknown [id number] Social History Date Type Detail Facility Start: 09-08-2024 End: 04-27-2025 Caffeine Use Never smoker [facility] Work Phone: Comment on above: qd Exercise History: Exercises regularly. [facility] Work Phone: Living Situation: Lives with spouse. [facility] Work Phone: Number of Child (age 0-17) Dependents: 4. [facility] Work Phone: Pets/Animals: Dog. Cat. [facility] Work Phone: Tobacco use: Never smoker. [facility] Work Phone: [facility]: [facility] Work [facility]: Living Situation: Living Situation: [facility]; [facility] Work Phone: Number of Child (age 0-17) Dependents: Number of Child (age 0-17) Dependents: [facility]; [facility] Work Phone: Pets/Animals: Pets/Animals: [facility]; [facility] Work Phone: Tobacco use: Tobacco use: [facility]; [facility] Work Phone: Start: 11-28-2011 Tobacco smoking status NHIS Never smoked tobacco [facility] Start: 09-08-2024 End: 04-27-2025 Alcoholic beverage intake Current non-drinker of alcohol (finding) [facility] Start: 09-08-2024 End: 04-27-2025 Tobacco use panel [facility] Start: 1976 Sex assigned at Not on file [facility] Start: 06-15-2022 Sex Female (finding) [facility] Start: 11-28-2011 Tobacco use and exposure Smokeless tobacco non-user [facility] National Score (1-100), lower number is lower risk 89 [facility] Clinical Notes 09-08-2024 to 04-30-2025 Patient Debbie Cortez APRN.CNM - 04/27/2025 1:57 PM Jc Theodore MD - 09/08/2024 2:30 PM EDT Note Date & Type Note Facility 04-30-2025 Debbie Lynne APRN.CNM - 04/30/2025 12:14 PM EDT Images from the original note were not included. Miralax/Dulcolax Bowel Prep For this bowel preparation, you will need to purchase the following medications at any pharmacy: Over the counter Miralax (generic name is polyethylene glycol) 8.3 oz or 238 grams Four (4) Dulcolax (generic name is Bisacodyl) tablets 3 days prior to your procedure, you need to be on a low fiber diet (Such as popcorn, beans, seeds, nuts, salad and raw vegetables, corn, fresh and dried fruit and multi-grain bread) YOU MUST BE ON CLEAR LIQUIDS FOR 2 FULL DAYS PRIOR TO YOUR COLONOSCOPY Day one which would be two days before your colonoscopy, you will need to be on clear liquids all day. You may have coffee or tea-black only (no cream), clear broths (beef, chicken or vegetable), apple juice, white grape juice, pop, Gatorade, Powerade, lemonade, Jello, popsicles, Nino-aid, and water-But nothing red or dark purple in color and no dairy products, tomato or orange juices. Day two which would be the day before your colonoscopy continue clear liquids all day as above. And follow the instructions below: 8:00 AM - Mix the Miralax with 64 oz of Gatorade or another clear liquid of choice and place in refrigerator. Most people say the drink is better cold. 4:00 PM - Take 2 of the Dulcolax tablets with 8 oz of water. 6:00 PM - Start to drink the Miralax mixture. You must finish it by midnight. 8:00 PM - Take the other 2 Dulcolax tablets with 8 oz of water. You may continue to drink clear liquids while you are taking your prep and after you finish it as long as it is before midnight. Drink lots of fluids so you don t become dehydrated. Nothing to drink after midnight the night before the procedure unless you are instructed differently by the physician or nurses. Please remember to take your normal medications the morning of the procedure with a small sip of water especially your blood pressure medications. If you are diabetic, you need to contact your physician about how to take your diabetic medications and/or insulin during the prepping period and the day of your procedure. Any questions please call: Dr. Hsu or Dr. Bustamante [phone] Ellie Johnston [phone] Dr. Gonzales [phone] [facility] nurses [phone] documented in this encounter [facility] 04-27-2025 Note HNO ID: [id number] Author: DEBBIE PRESCOTT APRN.CNM Service: ? Author Type: Antique Refinisher Type: Progress Notes Filed: 04/30/2025 12:15 Note Text: Luna is a 49 year old who presents for an annual gynecologic exam. Obstetrics and Gynecology [place] Annual Exam Subjective Recording using LoggedIn software for draft documentation of the visit was discussed with the patient/authorized admissions representative; all questions welcomed and answered. Patient/authorized admissions representative agreed to proceed CHIEF COMPLAINT: Annual exam HPI: The patient is a 49-year-old female presenting for an annual exam. The patient reports regular menses, lasting 2 days each month, with intermenstrual spotting occurring approximately 2 weeks after her period, lasting a couple of days. The spotting is described as light and pinkish in color. She denies heavy bleeding, excessive pain, or discomfort. She has been experiencing hot flashes and night sweats for years, which are frequent at night but do not disrupt her sleep. She was previously prescribed progesterone in her late 30s to early 40s, which she discontinued due to worsening symptoms. She is sexually active and engaged, with no dyspareunia, postcoital bleeding, vaginal discharge, pruritus, burning, or odor. She declines STD testing. She has four children, two biological and two adopted. Her in 2020. She is currently on tirzepatide and maintains a high-protein diet, consuming 30 grams of protein with each meal. She has a history of gastric bypass surgery and has previously required iron transfusions. Previously seen by and not seen in the last several years. Age at Menarche: unknown Still get period: Yes LMP: 04/07/2025 Menses: cycles every 28 days and 3-4 days of flow Menstrual flow: Moderate Bleeding amount bothersome: No Bleeding between periods: Yes spotting in between, very light and pink Period symptoms: Breast tenderness Sexually active: Yes Contraception: Tubal Ligation Contraception frequency: Always HPV vaccine: No HPV:negative Last pap smear: unknown History of abnormal pap: No Colposcopy: No. Leep: No. Cone biopsy: No. Bothersome pelvic pain: No Last mammogram: thinks HISTORY: OB History Gravida4 Para2 Term2 Preterm0 AB2 Living4 SAB2 IAB0 Ectopic0 Multiple0 Live Births2 Network Support Specialist History LMP: 04/07/2025 (Exact Date), Having periods Age at Menarche: Age at First : Age at Menopause: Network Support Specialist History Comments: Sexual Activity: Yes; Male Contraception: Tubal Ligation PAST MEDICAL HISTORY Diagnosis Date Adjustment disorder with depressed mood Arteriovenous malformation of brain (HCC) Chronic fatigue Hyperparathyroidism (HCC) Hypomagnesemia Iron deficiency anemia Kidney stone Leg pain Other and unspecified hyperlipidemia Other forms of migraine PAST SURGICAL HISTORY Procedure Laterality Date ADENOIDECTOMY HX DELIVERY ONLY , low cervical x2 CHOLECYSTECTOMY GASTRIC BYPASS HX 11/11/2010 TUBAL LIGATION FAMILY HISTORY Problem Relation Age of Onset COPD Mother smoker other (bone cancer) Father 72 Diabetes Paternal Grandfather Social History Tobacco Use Smoking status: Never Smokeless tobacco: Never Vaping Use Vaping status: Never Used Substance Use Topics Alcohol use: No Drug use: No Current Outpatient Medications Medication Sig traZODone (DESYREL) 50 mg tablet ferrous sulfate (IRON) 325 mg (65 mg iron) tablet Take 325 mg by mouth daily with breakfast. Magnesium 200 mg tab Take 1 tablet by mouth twice daily. nadolol (CORGARD) 40 mg tablet buPROPion XL (WELLBUTRIN XL) 150 mg 24 hr tablet Take 150 mg by mouth once daily. amitriptyline 50 mg tablet Take 50 mg by mouth daily at bedtime. hydrochlorothiazide 25 mg tablet Take 25 mg by mouth once daily. 1 1/2 pills daily KETOPROFEN ORAL Take by mouth. desvenlafaxine (PRISTIQ) 50 mg ORAL 24 hr tablet Take 50 mg by mouth once daily. No current facility-administered medications for this visit. ALLERGIES Allergen Reactions Nsaids (Non-Steroid* Other: See Comments Hx of gastric bypass REVIEW OF SYSTEMS: Abdomen: No abdominal pain, nausea, vomiting, diarrhea, or constipation. No bloating, early satiety, indigestion, or increased flatulence. Bladder: No dysuria, gross hematuria, urinary frequency, urinary urgency, or incontinence. Breast: No breast lumps, nipple d/c, overlying skin changes, redness or skin retraction. Objective SENSITIVE EXAM: The sensitive examination was discussed with the Patient or Patient's Authorized Slasher Machine Operator. As applicable, any other physician, advance practice provider, medical student, or other health professional student that will be observing or involved in the sensitive examination for educational or training purposes was discussed with the Patient or Authorized Slasher Machine Operator. The Patient or Authori (more content not included)... [facility] 04-27-2025 History of Presen t illness Narrative Images from the original note were not included. Luna is a 49 year old who presents for an annual gynecologic exam. Obstetrics and Gynecology [place] Annual Exam Subjective Recording using LoggedIn software for draft documentation of the visit was discussed with the patient/authorized admissions representative; all questions welcomed and answered. Patient/authorized admissions representative agreed to proceed CHIEF COMPLAINT: Annual exam HPI: The patient is a 49-year-old female presenting for an annual exam. The patient reports regular menses, lasting 2 days each month, with intermenstrual spotting occurring approximately 2 weeks after her period, lasting a couple of days. The spotting is described as light and pinkish in color. She denies heavy bleeding, excessive pain, or discomfort. She has been experiencing hot flashes and night sweats for years, which are frequent at night but do not disrupt her sleep. She was previously prescribed progesterone in her late 30s to early 40s, which she discontinued due to worsening symptoms. She is sexually active and engaged, with no dyspareunia, postcoital bleeding, vaginal discharge, pruritus, burning, or odor. She declines STD testing. She has four children, two biological and two adopted. Her in 2020. She is currently on tirzepatide and maintains a high-protein diet, consuming 30 grams of protein with each meal. She has a history of gastric bypass surgery and has previously required iron transfusions. Previously seen by and not seen in the last several years. Age at Menarche: unknown Still get period: Yes LMP: 04/07/2025 Menses: cycles every 28 days and 3-4 days of flow Menstrual flow: Moderate Bleeding amount bothersome: No Bleeding between periods: Yes spotting in between, very light and pink Period symptoms: Breast tenderness Sexually active: Yes Contraception: Tubal Ligation Contraception frequency: Always HPV vaccine: No HPV:negative Last pap smear: unknown History of abnormal pap: No Colposcopy: No. Leep: No. Cone biopsy: No. Bothersome pelvic pain: No Last mammogram: thinks HISTORY: OB History Gravida4 Para2 Term2 Preterm0 AB2 Living4 SAB2 IAB0 Ectopic0 Multiple0 Live Births2 Network Support Specialist History LMP: 04/07/2025 (Exact Date), Having periods Age at Menarche: Age at First : Age at Menopause: Network Support Specialist History Comments: Sexual Activity: Yes; Male Contraception: Tubal Ligation PAST MEDICAL HISTORY Diagnosis Date Adjustment disorder with depressed mood Arteriovenous malformation of brain (HCC) Chronic fatigue Hyperparathyroidism (HCC) Hypomagnesemia Iron deficiency anemia Kidney stone Leg pain Other and unspecified hyperlipidemia Other forms of migraine PAST SURGICAL HISTORY Procedure Laterality Date ADENOIDECTOMY HX DELIVERY ONLY , low cervical x2 CHOLECYSTECTOMY GASTRIC BYPASS HX 11/11/2010 TUBAL LIGATION FAMILY HISTORY Problem Relation Age of Onset COPD Mother smoker other (bone cancer) Father 72 Diabetes Paternal Grandfather Social History Tobacco Use Smoking status: Never Smokeless tobacco: Never Vaping Use Vaping status: Never Used Substance Use Topics Alcohol use: No Drug use: No Current Outpatient Medications Medication Sig traZODone (DESYREL) 50 mg tablet ferrous sulfate (IRON) 325 mg (65 mg iron) tablet Take 325 mg by mouth daily with breakfast. Magnesium 200 mg tab Take 1 tablet by mouth twice daily. nadolol (CORGARD) 40 mg tablet buPROPion XL (WELLBUTRIN XL) 150 mg 24 hr tablet Take 150 mg by mouth once daily. amitriptyline 50 mg tablet Take 50 mg by mouth daily at bedtime. hydrochlorothiazide 25 mg tablet Take 25 mg by mouth once daily. 1 1/2 pills daily KETOPROFEN ORAL Take by mouth. desvenlafaxine (PRISTIQ) 50 mg ORAL 24 hr tablet Take 50 mg by mouth once daily. No current facility-administered medications for this visit. ALLERGIES Allergen Reactions Nsaids (Non-Steroid* Other: See Comments Hx of gastric bypass REVIEW OF SYSTEMS: Abdomen: No abdominal pain, nausea, vomiting, diarrhea, or constipation. No bloating, early satiety, indigestion, or increased flatulence. Bladder: No dysuria, gross hematuria, urinary frequency, urinary urgency, or incontinence. Breast: No breast lumps, nipple d/c, overlying skin changes, redness or skin retraction. Objective SENSITIVE EXAM: The sensitive examination was discussed with the Patient or Patient's Authorized Slasher Machine Operator. As applicable, any other physician, advance practice provider, medical student, or other health professional student that will be observing or involved in the sensitive examination for educational or training purposes was discussed with the Patient or Authorized Slasher Machine Operator. The Patient or Authorized Slasher Machine Operator has agreed to proceed with the sensitive examination. (Sensitive examination includes inspection and/or palpation of the breasts, pelvis, prostate and anorectal regions). PHYSICAL EXAM: BP 102/64 Ht 5' 4.75 (1.65m) Wt 201 lb (91.2kg) LMP 04/07/2025 BMI 33.69 kg/(m^2). GENERAL: pleasant, female in no apparent distress HEENT: Normocephalic, atraumatic, mucus membranes moist, and no lesions NECK: Supple, full range of motion, no adenopathy, and thyroid normal DERMATOLOGY: Normal, without lesions, non-icteric, and non-hirsute BREAST: soft, non-tender, symmetric, no dominant mass, normal nipple-areolar complex, no lymphadenopathy, and no nipple discharge CHEST: Normal inspiratory effort ABDOMEN: soft, non-tender, and no masses PELVIC: external genitalia normal, normal Bartholin's glands, urethra, [place]'s glands, no vulvar lesions, no cervical lesions, good vaginal support, physiologic discharge present, normal appearing perineal body and perianal region BIMANUAL: uterus normal size, shape and consistency, no adnexal masses, and non-tender RECTOVAGINAL: deferred. NEURO: alert and oriented x3,exam grossly non-focal EXTREMITIES: normal Assessment & Plan ASSESSMENT AND PLAN: 1. Encounter for gynecological examination (general) (routine) without abnormal findings Performed routine gynecological examination. 2. Screening for cervical cancer Encounter for screening for human papillomavirus (HPV) Due for cervical cancer screening. Performed Pap smear. 3. Encounter for screening mammogram for breast cancer Ordered mammogram. 4. Special screening for malignant neoplasms, colon No previous colonoscopy performed, open access ordered. 5. Perimenopausal Vasomotor symptoms due to menopause Experiencing frequent hot flashes and night sweats. Previously tried estrogen therapy in late 30s to early 40s, which worsened symptoms. - Discussed hormone replacement therapy as a potential option if symptoms worsen and affect quality of life. - Advised to report any increase in severity or frequency of symptoms. Debbie Prescott APRN.CNM [facility] OPEN ACCESS QUESTIONNAIRE 1. Are you currently having any new or unusual stomach/gastrointestinal issues at this time such as constipation, diarrhea, abdominal pain, rectal bleeding etc?No 2. Do you have any difficulty swallowing? No 3. Do you have any implanted devices such as a defibrillator, pacemaker, cardiac stents or deep brain stimulator? No 4. Do you take any Blood thinners such as Coumadin, Plavix, Xarelto, Eliquis, Brilinta or any other blood thinner? No 5. Do you have any new or past cardiac (heart) or pulmonary (lung) issues? No 6. Do you currently use any oxygen? No 7. Have you been hospitalized in the past 6 weeks? No 8. Have you had difficulty with anesthesia previously re: Difficult intubation? No Other difficulty or allergic reaction to anesthesia other than post op N/V? No 9. Are you on dialysis? No 10. Do you have any bleeding disorders such as hemophilia or Factor 5? No 11. Are you an Insulin Dependent Diabetic? No IF ANY OF THE TOP ELEVEN QUESTIONS ARE ANSWERED YES PLEASE SCHEDULE THE PATIENT FOR A CONSULT. N/A 12. Is the patient's BMI 40 or greater? No:Body mass index is 33.71 kg/m .. 13. Do you take any narcotics or anti-Anxiety medications? No 14. Do you use any illegal or recreational drugs including marijuana? No 15. Any alcohol use: No. 16. Have you been diagnosed with chronic liver disease such as hepatitis or cirrhosis? No 17. Do you have a seizure disorder? No 18. Do you have ulcerative colitis or Crohn's disease? No 19. Are you or could you be ? No 20. Any other important health information we should be made aware of prior to your colonoscopy? No To be completed by LIP: Did patient have MAC anesthesia with a previous endoscopy procedure? No Patient appropriate for Open Access Colonoscopy: Yes: appropriate for Open Access Procedure Checklist: Prior to closing the encounter: Complete questionnaire: Yes Confirm Prep order has been Ordered/Pended: Yes. Patient's procedure could be delayed if not given the script for the prep. Please ensure the prep is escripted to pharmacy or printed. Instructions for the prep will print upon filing or pending this smartset. Please send all open access questionnaires to [facility] Pool #[id number] documented in this encounter [facility] 09-08-2024 History of Presen t illness Narrative Images from the original note were not included. [facility] Cardiology [facility] C[facility]IOLOG[facility] - [facility] [address] [facility] [address] Dept: [phone] Dept Visit type: New : 1975 Chief Complaint: Chief Complaint Patient presents with New Patient History of Present Illness: Luna Mayers is a 48 y.o. female with a history of mildly dilated ascending aorta up to 4 cm, hyperlipidemia, obesity with gastric bypass surgery in 2009, sleep apnea and migraine headaches who is coming to see me for the first time in 6 years to re-establish care. She states she has had orthostatic symptoms with low BP and she was anemic and received iron transfusions and this has helped. She also has had chest pain symptoms which is a pressure sensation in the upper left chest, which comes on randomly and is worse since her suddenly 3 years ago. She is still dealing with stress due to this. She says the chest pain occurs about once a week and lasts only 1-2 minutes when it occurs. 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 She denies any exertional component to these symptoms. EKG shows sinus bradycardia 57 beats a minute, normal QRS, normal ST and T wave segments. Past Medical History: Past Medical History: Diagnosis Date Anxiety Ascending aorta dilatation (HCC) Chest pain Depression Fatigue Headache Hyperlipidemia Hyperparathyroidism (HCC) Kidney stones Obesity Palpitations Sleep apnea Thoracic aortic aneurysm without rupture (HCC) Past Surgical History Past Surgical History: Procedure Laterality Date SECTION (HISTORICAL) CHOLECYSTECTOMY GASTRIC BYPASS KIDNEY STONE SURGERY TONSILLECTOMY AND ADENOIDECTOMY (HISTORICAL) TUBAL LIGATION Family History Family History Problem Relation Name Age of Onset Diabetes Maternal Grandfather Diabetes Paternal Grandfather Social History Social History Tobacco Use Smoking status: Never Smokeless tobacco: Never Substance Use Topics Alcohol use: No Drug use: No Allergies: Allergies Allergen Reactions Nsaids Hx of gastric bypass Medications: Current Outpatient Medications: amitriptyline (Elavil) 25 MG tablet, Take 25 mg by mouth Nightly., Disp: , Rfl: buPROPion XL (Wellbutrin XL) 150 MG 24 hr tablet, Take 150 mg by mouth daily., Disp: , Rfl: Calcium Citrate-Vitamin D (CALCIUM CITRATE + PO), Take 1,260 mg by mouth., Disp: , Rfl: Cyanocobalamin 1500 MCG tablet dispersible, Take by mouth., Disp: , Rfl: desvenlafaxine (Pristiq) 50 MG 24 hr tablet, Take 50 mg by mouth daily. Do not crush, chew, or split., Disp: , Rfl: ergocalciferol (Vitamin D-2) 50 MCG (2000 UT) capsule, Take 5,000 Units by mouth daily., Disp: , Rfl: ferrous sulfate 325 (65 Fe) MG tablet, Take 325 mg by mouth daily (with breakfast)., Disp: , Rfl: hydroCHLOROthiazide (HYDRODiuril) 25 MG tablet, Take 12.5 mg by mouth daily., Disp: , Rfl: nadolol (Corgard) 20 MG tablet, Take 20 mg by mouth daily., Disp: , Rfl: rOPINIRole (Requip) 0.5 MG tablet, Take 0.5 mg by mouth 3 times daily., Disp: , Rfl: Review of Systems: Review of Systems Constitutional: Positive for fatigue (Due to low iron, had 2 transfusions in June) and unexpected weight change (up 14 pounds in past 6 years). 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 Respiratory: Negative for apnea (resolved after bariatric surgery> lost 150 pounds) and shortness of breath. Cardiovascular: Positive for chest pain (Left sided ache, random onset, for the last three years since passed) and palpitations (Few times a week when laying down). Negative for leg swelling. Musculoskeletal: Negative for arthralgias and gait problem. Neurological: Positive for light-headedness (has low BP and orthostatic hypotension symptoms better after iron transfusions) and headaches (Chronic migraines). Negative for dizziness, syncope and weakness. Hematological: Does not bruise/bleed easily. Psychiatric/Behavioral: Positive for dysphoric mood (Since 3 years ago). The patient is not nervous/anxious. All other systems reviewed and are negative. Physical Examination: Vitals: Vitals: 09/08/24 1417 BP: 114/66 BP Location: Left arm Patient Position: Sitting BP Cuff Size: Large adult Pulse: 57 Weight: 245 lb 4.8 oz (111 kg) Height: 5' 5 (1.651 m) Body mass index is 40.82 kg/m . Physical Exam Vitals reviewed. Constitutional: General: She is not in acute distress. Appearance: She is well-developed. She is morbidly obese. She is not ill-appearing. HENT: Mouth/Throat: Mouth: Mucous membranes are moist. Neck: Vascular: No carotid bruit, hepatojugular reflux or JVD. Cardiovascular: Rate and Rhythm: Normal rate and regular rhythm. Pulses: Normal pulses. Carotid pulses are 2+ on the right side and 2+ on the left side. Radial pulses are 2+ on the right side and 2+ on the left side. Heart sounds: S1 normal and S2 normal. Heart sounds are distant. No murmur heard. Pulmonary: Effort: Pulmonary effort is normal. Breath sounds: Normal breath sounds. Abdominal: General: Bowel sounds are normal. Palpations: Abdomen is soft. Musculoskeletal: Right lower leg: No edema. Left lower leg: No edema. Neurological: Mental Status: She is alert. Gait: Gait normal. Psychiatric: Attention and Perception: Attention normal. Mood and Affect: Mood normal. Behavior: Behavior is cooperative. Cognition and Memory: Cognition and memory normal. Cardiac Tests: EC09/08/24 Last Echo: 07/13/18 Last stress test: NA Last cardiac catheterization: NA Assessment and Plan: 1. Dilated ascending aorta: The aorta is been fairly stable between 3.9-4 cm for many years and actually went down to 3.5 cm on her last echo in 2018. Will repeat an echo now to be sure it isn't getting any larger. The last Echo suggested she might have a bicuspid aortic valve, and the aortic enlargement may be related to this. If the aorta is stable in size, we will see her back here next year. If it is getting larger, we will do a CT scan to better assess. 2. Chest pain: Her chest symptoms are very atypical for myocardial ischemia, occurring only once a week, lasting only a minute or 2 and not occurring with exertion. Not lifestyle limiting. I would not do any further stress testing now as the risk of the false positive is greater than the likelihood of finding true disease. I told her let us know if she develops worsening of her symptoms based on frequency, severity or duration. She also should let me know if she develops any exertional symptoms. I told her I think it is important for her to get more active for her long-term cardiovascular health. Thanks for having me partake in this patient's care. Beau Theodore MD, [facility] This note was dictated by speech recognition. I apologize for minor errors in the origination specialist that may be present. [facility] Diagnosis Precordial pain- Primary Encounter to establish care with new doctor Ascending aorta dilatation (HCC) Thoracic aneurysm without mention of rupture [facility] Ascending aorta dilatation (HCC) Thoracic aneurysm without mention of rupture Precordial pain [facility] Encounter for gynecological examination (general) (routine) without abnormal findings- Primary Screening for cervical cancer Screening for malignant neoplasm of the cervix Encounter for screening for human papillomavirus (HPV) Special screening examination for human papillomavirus (HPV) Encounter for screening mammogram for breast cancer Special screening for malignant neoplasms, colon Perimenopausal Symptomatic menopausal or female climacteric states Vasomotor symptoms due to menopause [facility] Name Dates Details How to access health informa tion online Indication:BMI 40.0-44.9, adult Start:19-Sep-2020 Instruction Type:Patient Education How to access health informa tion online - Detail Indication:BMI 40.0-44.9, adult Start:19-Sep-2020 Instruction Type:Patient Education Patient Instructions Indication:BMI 40.0-44.9, adult Start:19-Sep-2020 Instruction Type:Provider Instructions for Treatment How to access health informa tion online Indication:BMI 40.0-44.9, adult Start:26-Jul-2020 Instruction Type:Patient Education How to access health informa tion online - Detail Indication:BMI 40.0-44.9, adult Start:26-Jul-2020 Instruction Type:Patient Education Patient Instructions Indication:BMI 40.0-44.9, adult Start:26-Jul-2020 Instruction Type:Provider Instructions for Treatment How to access health informa tion online Indication:Non-smoker Start:28-Jun-2020 Instruction Type:Patient Education How to access health informa tion online - Detail Indication:Non-smoker Start:28-Jun-2020 Instruction Type:Patient Education Patient Instructions Indication:Non-smoker Start:28-Jun-2020 Instruction Type:Provider Instructions for Treatment How to access health informa tion online Indication:Non-smoker Start:20-Apr-2019 Instruction Type:Patient Education How to access health informa tion online - Detail Indication:Non-smoker Start:20-Apr-2019 Instruction Type:Patient Education Patient Instructions Indication:Non-smoker Start:20-Apr-2019 Instruction Type:Provider Instructions for Treatment How to access health informa tion online Indication:Non-smoker Start:05-Jan-2018 Instruction Type:Patient Education How to access health informa tion online - Detail Indication:Non-smoker Start:05-Jan-2018 Instruction Type:Patient Education Patient Instructions Indication:Non-smoker Start:05-Jan-2018 Instruction Type:Provider Instructions for Treatment Patient Instructions Indication:Leg pain, bilateral Start:28-Oct-2017 Instruction Type:Provider Instructions for Treatment How to access health informa tion online Indication:BMI 36.0-36.9,adult Start:28-Oct-2017 Instruction Type:Patient Education How to access health informa tion online - Detail Indication:BMI 36.0-36.9,adult Start:28-Oct-2017 Instruction Type:Patient Education How to access health informa tion online Indication:BMI 36.0-36.9,adult Start:21-Oct-2017 Instruction Type:Patient Education How to access health informa tion online - Detail Indication:BMI 36.0-36.9,adult Start:21-Oct-2017 Instruction Type:Patient Education Patient Instructions Indication:BMI 36.0-36.9,adult Start:21-Oct-2017 Instruction Type:Provider Instructions for Treatment How to access health informa tion online - Detail Indication:BMI 34.0-34.9,adult Start:30-Jun-2017 Instruction Type:Patient Education Patient Instructions Indication:BMI 34.0-34.9,adult Start:30-Jun-2017 Instruction Type:Provider Instructions for Treatment How to access health informa tion online Indication:Olecranon bursitis of left elbow Start:01-Feb-2017 Instruction Type:Patient Education How to access health informa tion online - Detail Indication:Olecranon bursitis of left elbow Start:01-Feb-2017 Instruction Type:Patient Education Patient Instructions Indication:Olecranon bursitis of left elbow Start:01-Feb-2017 Instruction Type:Provider Instructions for Treatment How to access health informa tion online Indication:Sore throat Start:01-Sep-2016 Instruction Type:Patient Education How to access health informa tion online - Detail Indication:Sore throat Start:01-Sep-2016 Instruction Type:Patient Education Patient Instructions Indication:Sore throat Start:01-Sep-2016 Instruction Type:Provider Instructions for Treatment How to access health informa tion online Indication:Anxiety Start:04-May-2016 Instruction Type:Patient Education How to access health informa tion online - Detail Indication:Anxiety Start:04-May-2016 Instruction Type:Patient Education Patient Instructions Indication:Anxiety Start:04-May-2016 Instruction Type:Provider Instructions for Treatment How to access health informa tion online Indication:Rash of perineum Start:18-Dec-2015 Instruction Type:Patient Education How to access health informa tion online - Detail Indication:Rash of perineum Start:18-Dec-2015 Instruction Type:Patient Education Patient Instructions Indication:Rash of perineum Start:18-Dec-2015 Instruction Type:Provider Instructions for Treatment How to access health informa tion online Indication:Hyperparathyroidism Start:21-Aug-2015 Instruction Type:Patient Education How to access health informa tion online - Detail Indication:Hyperparathyroidism Start:21-Aug-2015 Instruction Type:Patient Education Patient Instructions Indication:Hyperparathyroidism Start:21-Aug-2015 Instruction Type:Provider Instructions for Treatment How to access health informa tion online Indication:Rash Start:11-Jul-2015 Instruction Type:Patient Education How to access health informa tion online - Detail Indication:Rash Start:11-Jul-2015 Instruction Type:Patient Education Patient Instructions Indication:Rash Start:11-Jul-2015 Instruction Type:Provider Instructions for Treatment How to access health informa tion online Indication:Sinusitis, acute Start:21-Sep-2014 Instruction Type:Patient Education How to access health informa tion online - Detail Indication:Sinusitis, acute Start:21-Sep-2014 Instruction Type:Patient Education Patient Instructions Indication:Sinusitis, acute Start:21-Sep-2014 Instruction Type:Provider Instructions for Treatment How to access health informa tion online Indication:NONABSORPTION, INTESTINAL POSTSURGICAL Start:18-Jul-2014 Instruction Type:Patient Education How to access health informa tion online - Detail Indication:NONABSORPTION, INTESTINAL POSTSURGICAL Start:18-Jul-2014 Instruction Type:Patient Education Patient Instructions Indication:NONABSORPTION, INTESTINAL POSTSURGICAL Start:18-Jul-2014 Instruction Type:Provider Instructions for Treatment Patient Instructions Indication:Vitamin D deficiency Start:18-Jul-2014 Instruction Type:Provider Instructions for Treatment How to access health informa tion online Indication:NONABSORPTION, INTESTINAL POSTSURGICAL Start:27-Jun-2014 Instruction Type:Patient Education How to access health informa tion online - Detail Indication:NONABSORPTION, INTESTINAL POSTSURGICAL Start:27-Jun-2014 Instruction Type:Patient Education Patient Instructions Indication:NONABSORPTION, INTESTINAL POSTSURGICAL Start:27-Jun-2014 Instruction Type:Provider Instructions for Treatment Patient Instructions Indication:Dysuria Start:10-May-2013 Instruction Type:Provider Instructions for Treatment [facility]; [facility] Work Phone: Instructions* Name Dates Details Patient Instructions Indication:Non-smoker Start:12-Jan-2022 Instruction Type:Provider Instructions for Treatment How to Access Health Informa tion Online using Patient Portal and [employer]rd [employer] Apps Indication:Non-smoker Start:12-Jan-2022 Instruction Type:Patient Education How to access health informa tion online Indication:BMI 40.0-44.9, adult Start:19-Sep-2020 Instruction Type:Patient Education How to access health informa tion online - Detail Indication:BMI 40.0-44.9, adult Start:19-Sep-2020 Instruction Type:Patient Education Patient Instructions Indication:BMI 40.0-44.9, adult Start:19-Sep-2020 Instruction Type:Provider Instructions for Treatment How to access health informa tion online Indication:BMI 40.0-44.9, adult Start:26-Jul-2020 Instruction Type:Patient Education How to access health informa tion online - Detail Indication:BMI 40.0-44.9, adult Start:26-Jul-2020 Instruction Type:Patient Education Patient Instructions Indication:BMI 40.0-44.9, adult Start:26-Jul-2020 Instruction Type:Provider Instructions for Treatment How to access health informa tion online Indication:Non-smoker Start:28-Jun-2020 Instruction Type:Patient Education How to access health informa tion online - Detail Indication:Non-smoker Start:28-Jun-2020 Instruction Type:Patient Education Patient Instructions Indication:Non-smoker Start:28-Jun-2020 Instruction Type:Provider Instructions for Treatment How to access health informa tion online Indication:Non-smoker Start:20-Apr-2019 Instruction Type:Patient Education How to access health informa tion online - Detail Indication:Non-smoker Start:20-Apr-2019 Instruction Type:Patient Education Patient Instructions Indication:Non-smoker Start:20-Apr-2019 Instruction Type:Provider Instructions for Treatment How to access health informa tion online Indication:Non-smoker Start:05-Jan-2018 Instruction Type:Patient Education How to access health informa tion online - Detail Indication:Non-smoker Start:05-Jan-2018 Instruction Type:Patient Education Patient Instructions Indication:Non-smoker Start:05-Jan-2018 Instruction Type:Provider Instructions for Treatment Patient Instructions Indication:Leg pain, bilateral Start:28-Oct-2017 Instruction Type:Provider Instructions for Treatment How to access health informa tion online Indication:BMI 36.0-36.9,adult Start:28-Oct-2017 Instruction Type:Patient Education How to access health informa tion online - Detail Indication:BMI 36.0-36.9,adult Start:28-Oct-2017 Instruction Type:Patient Education How to access health informa tion online Indication:BMI 36.0-36.9,adult Start:21-Oct-2017 Instruction Type:Patient Education How to access health informa tion online - Detail Indication:BMI 36.0-36.9,adult Start:21-Oct-2017 Instruction Type:Patient Education Patient Instructions Indication:BMI 36.0-36.9,adult Start:21-Oct-2017 Instruction Type:Provider Instructions for Treatment How to access health informa tion online - Detail Indication:BMI 34.0-34.9,adult Start:30-Jun-2017 Instruction Type:Patient Education Patient Instructions Indication:BMI 34.0-34.9,adult Start:30-Jun-2017 Instruction Type:Provider Instructions for Treatment How to access health informa tion online Indication:Olecranon bursitis of left elbow Start:01-Feb-2017 Instruction Type:Patient Education How to access health informa tion online - Detail Indication:Olecranon bursitis of left elbow Start:01-Feb-2017 Instruction Type:Patient Education Patient Instructions Indication:Olecranon bursitis of left elbow Start:01-Feb-2017 Instruction Type:Provider Instructions for Treatment How to access health informa tion online Indication:Sore throat Start:01-Sep-2016 Instruction Type:Patient Education How to access health informa tion online - Detail Indication:Sore throat Start:01-Sep-2016 Instruction Type:Patient Education Patient Instructions Indication:Sore throat Start:01-Sep-2016 Instruction Type:Provider Instructions for Treatment How to access health informa tion online Indication:Anxiety Start:04-May-2016 Instruction Type:Patient Education How to access health informa tion online - Detail Indication:Anxiety Start:04-May-2016 Instruction Type:Patient Education Patient Instructions Indication:Anxiety Start:04-May-2016 Instruction Type:Provider Instructions for Treatment How to access health informa tion online Indication:Rash of perineum Start:18-Dec-2015 Instruction Type:Patient Education How to access health informa tion online - Detail Indication:Rash of perineum Start:18-Dec-2015 Instruction Type:Patient Education Patient Instructions Indication:Rash of perineum Start:18-Dec-2015 Instruction Type:Provider Instructions for Treatment How to access health informa tion online Indication:Hyperparathyroidism Start:21-Aug-2015 Instruction Type:Patient Education How to access health informa tion online - Detail Indication:Hyperparathyroidism Start:21-Aug-2015 Instruction Type:Patient Education Patient Instructions Indication:Hyperparathyroidism Start:21-Aug-2015 Instruction Type:Provider Instructions for Treatment How to access health informa tion online Indication:Rash Start:11-Jul-2015 Instruction Type:Patient Education How to access health informa tion online - Detail Indication:Rash Start:11-Jul-2015 Instruction Type:Patient Education Patient Instructions Indication:Rash Start:11-Jul-2015 Instruction Type:Provider Instructions for Treatment How to access health informa tion online Indication:Sinusitis, acute Start:21-Sep-2014 Instruction Type:Patient Education How to access health informa tion online - Detail Indication:Sinusitis, acute Start:21-Sep-2014 Instruction Type:Patient Education Patient Instructions Indication:Sinusitis, acute Start:21-Sep-2014 Instruction Type:Provider Instructions for Treatment How to access health informa tion online Indication:NONABSORPTION, INTESTINAL POSTSURGICAL Start:18-Jul-2014 Instruction Type:Patient Education How to access health informa tion online - Detail Indication:NONABSORPTION, INTESTINAL POSTSURGICAL Start:18-Jul-2014 Instruction Type:Patient Education Patient Instructions Indication:NONABSORPTION, INTESTINAL POSTSURGICAL Start:18-Jul-2014 Instruction Type:Provider Instructions for Treatment Patient Instructions Indication:Vitamin D deficiency Start:18-Jul-2014 Instruction Type:Provider Instructions for Treatment How to access health informa tion online Indication:NONABSORPTION, INTESTINAL POSTSURGICAL Start:27-Jun-2014 Instruction Type:Patient Education How to access health informa tion online - Detail Indication:NONABSORPTION, INTESTINAL POSTSURGICAL Start:27-Jun-2014 Instruction Type:Patient Education Patient Instructions Indication:NONABSORPTION, INTESTINAL POSTSURGICAL Start:27-Jun-2014 Instruction Type:Provider Instructions for Treatment Patient Instructions Indication:Dysuria Start:10-May-2013 Instruction Type:Provider Instructions for Treatment [facility]; [facility] Work Phone: Instructions* Name Dates Details Patient Instructions Indication:Non-smoker Start:12-Jan-2022 Instruction Type:Provider Instructions for Treatment How to Access Health Informa tion Online using Patient Portal and [employer]rd [employer] Apps Indication:Non-smoker Start:12-Jan-2022 Instruction Type:Patient Education How to access health informa tion online Indication:BMI 40.0-44.9, adult Start:19-Sep-2020 Instruction Type:Patient Education How to access health informa tion online - Detail Indication:BMI 40.0-44.9, adult Start:19-Sep-2020 Instruction Type:Patient Education Patient Instructions Indication:BMI 40.0-44.9, adult Start:19-Sep-2020 Instruction Type:Provider Instructions for Treatment How to access health informa tion online Indication:BMI 40.0-44.9, adult Start:26-Jul-2020 Instruction Type:Patient Education How to access health informa tion online - Detail Indication:BMI 40.0-44.9, adult Start:26-Jul-2020 Instruction Type:Patient Education Patient Instructions Indication:BMI 40.0-44.9, adult Start:26-Jul-2020 Instruction Type:Provider Instructions for Treatment How to access health informa tion online Indication:Non-smoker Start:28-Jun-2020 Instruction Type:Patient Education How to access health informa tion online - Detail Indication:Non-smoker Start:28-Jun-2020 Instruction Type:Patient Education Patient Instructions Indication:Non-smoker Start:28-Jun-2020 Instruction Type:Provider Instructions for Treatment How to access health informa tion online Indication:Non-smoker Start:20-Apr-2019 Instruction Type:Patient Education How to access health informa tion online - Detail Indication:Non-smoker Start:20-Apr-2019 Instruction Type:Patient Education Patient Instructions Indication:Non-smoker Start:20-Apr-2019 Instruction Type:Provider Instructions for Treatment How to access health informa tion online Indication:Non-smoker Start:05-Jan-2018 Instruction Type:Patient Education How to access health informa tion online - Detail Indication:Non-smoker Start:05-Jan-2018 Instruction Type:Patient Education Patient Instructions Indication:Non-smoker Start:05-Jan-2018 Instruction Type:Provider Instructions for Treatment Patient Instructions Indication:Leg pain, bilateral Start:28-Oct-2017 Instruction Type:Provider Instructions for Treatment How to access health informa tion online Indication:BMI 36.0-36.9,adult Start:28-Oct-2017 Instruction Type:Patient Education How to access health informa tion online - Detail Indication:BMI 36.0-36.9,adult Start:28-Oct-2017 Instruction Type:Patient Education How to access health informa tion online Indication:BMI 36.0-36.9,adult Start:21-Oct-2017 Instruction Type:Patient Education How to access health informa tion online - Detail Indication:BMI 36.0-36.9,adult Start:21-Oct-2017 Instruction Type:Patient Education Patient Instructions Indication:BMI 36.0-36.9,adult Start:21-Oct-2017 Instruction Type:Provider Instructions for Treatment How to access health informa tion online - Detail Indication:BMI 34.0-34.9,adult Start:30-Jun-2017 Instruction Type:Patient Education Patient Instructions Indication:BMI 34.0-34.9,adult Start:30-Jun-2017 Instruction Type:Provider Instructions for Treatment How to access health informa tion online Indication:Olecranon bursitis of left elbow Start:01-Feb-2017 Instruction Type:Patient Education How to access health informa tion online - Detail Indication:Olecranon bursitis of left elbow Start:01-Feb-2017 Instruction Type:Patient Education Patient Instructions Indication:Olecranon bursitis of left elbow Start:01-Feb-2017 Instruction Type:Provider Instructions for Treatment How to access health informa tion online Indication:Sore throat Start:01-Sep-2016 Instruction Type:Patient Education How to access health informa tion online - Detail Indication:Sore throat Start:01-Sep-2016 Instruction Type:Patient Education Patient Instructions Indication:Sore throat Start:01-Sep-2016 Instruction Type:Provider Instructions for Treatment How to access health informa tion online Indication:Anxiety Start:04-May-2016 Instruction Type:Patient Education How to access health informa tion online - Detail Indication:Anxiety Start:04-May-2016 Instruction Type:Patient Education Patient Instructions Indication:Anxiety Start:04-May-2016 Instruction Type:Provider Instructions for Treatment How to access health informa tion online Indication:Rash of perineum Start:18-Dec-2015 Instruction Type:Patient Education How to access health informa tion online - Detail Indication:Rash of perineum Start:18-Dec-2015 Instruction Type:Patient Education Patient Instructions Indication:Rash of perineum Start:18-Dec-2015 Instruction Type:Provider Instructions for Treatment How to access health informa tion online Indication:Hyperparathyroidism Start:21-Aug-2015 Instruction Type:Patient Education How to access health informa tion online - Detail Indication:Hyperparathyroidism Start:21-Aug-2015 Instruction Type:Patient Education Patient Instructions Indication:Hyperparathyroidism Start:21-Aug-2015 Instruction Type:Provider Instructions for Treatment How to access health informa tion online Indication:Rash Start:11-Jul-2015 Instruction Type:Patient Education How to access health informa tion online - Detail Indication:Rash Start:11-Jul-2015 Instruction Type:Patient Education Patient Instructions Indication:Rash Start:11-Jul-2015 Instruction Type:Provider Instructions for Treatment How to access health informa tion online Indication:Sinusitis, acute Start:21-Sep-2014 Instruction Type:Patient Education How to access health informa tion online - Detail Indication:Sinusitis, acute Start:21-Sep-2014 Instruction Type:Patient Education Patient Instructions Indication:Sinusitis, acute Start:21-Sep-2014 Instruction Type:Provider Instructions for Treatment How to access health informa tion online Indication:NONABSORPTION, INTESTINAL POSTSURGICAL Start:18-Jul-2014 Instruction Type:Patient Education How to access health informa tion online - Detail Indication:NONABSORPTION, INTESTINAL POSTSURGICAL Start:18-Jul-2014 Instruction Type:Patient Education Patient Instructions Indication:NONABSORPTION, INTESTINAL POSTSURGICAL Start:18-Jul-2014 Instruction Type:Provider Instructions for Treatment Patient Instructions Indication:Vitamin D deficiency Start:18-Jul-2014 Instruction Type:Provider Instructions for Treatment How to access health informa tion online Indication:NONABSORPTION, INTESTINAL POSTSURGICAL Start:27-Jun-2014 Instruction Type:Patient Education How to access health informa tion online - Detail Indication:NONABSORPTION, INTESTINAL POSTSURGICAL Start:27-Jun-2014 Instruction Type:Patient Education Patient Instructions Indication:NONABSORPTION, INTESTINAL POSTSURGICAL Start:27-Jun-2014 Instruction Type:Provider Instructions for Treatment Patient Instructions Indication:Dysuria Start:10-May-2013 Instruction Type:Provider Instructions for Treatment [facility]; [facility] Work Phone: Instructions* Name Dates Details Patient Instructions Indication:Non-smoker Start:15-May-2022 Instruction Type:Provider Instructions for Treatment How to Access Health Informa tion Online using Patient Portal and [employer]rd [employer] Apps Indication:Non-smoker Start:15-May-2022 Instruction Type:Patient Education Patient Instructions Indication:Non-smoker Start:12-Jan-2022 Instruction Type:Provider Instructions for Treatment How to Access Health Informa tion Online using Patient Portal and [employer]rd [employer] Apps Indication:Non-smoker Start:12-Jan-2022 Instruction Type:Patient Education How to access health informa tion online Indication:BMI 40.0-44.9, adult Start:19-Sep-2020 Instruction Type:Patient Education How to access health informa tion online - Detail Indication:BMI 40.0-44.9, adult Start:19-Sep-2020 Instruction Type:Patient Education Patient Instructions Indication:BMI 40.0-44.9, adult Start:19-Sep-2020 Instruction Type:Provider Instructions for Treatment How to access health informa tion online Indication:BMI 40.0-44.9, adult Start:26-Jul-2020 Instruction Type:Patient Education How to access health informa tion online - Detail Indication:BMI 40.0-44.9, adult Start:26-Jul-2020 Instruction Type:Patient Education Patient Instructions Indication:BMI 40.0-44.9, adult Start:26-Jul-2020 Instruction Type:Provider Instructions for Treatment How to access health informa tion online Indication:Non-smoker Start:28-Jun-2020 Instruction Type:Patient Education How to access health informa tion online - Detail Indication:Non-smoker Start:28-Jun-2020 Instruction Type:Patient Education Patient Instructions Indication:Non-smoker Start:28-Jun-2020 Instruction Type:Provider Instructions for Treatment How to access health informa tion online Indication:Non-smoker Start:20-Apr-2019 Instruction Type:Patient Education How to access health informa tion online - Detail Indication:Non-smoker Start:20-Apr-2019 Instruction Type:Patient Education Patient Instructions Indication:Non-smoker Start:20-Apr-2019 Instruction Type:Provider Instructions for Treatment How to access health informa tion online Indication:Non-smoker Start:05-Jan-2018 Instruction Type:Patient Education How to access health informa tion online - Detail Indication:Non-smoker Start:05-Jan-2018 Instruction Type:Patient Education Patient Instructions Indication:Non-smoker Start:05-Jan-2018 Instruction Type:Provider Instructions for Treatment Patient Instructions Indication:Leg pain, bilateral Start:28-Oct-2017 Instruction Type:Provider Instructions for Treatment How to access health informa tion online Indication:BMI 36.0-36.9,adult Start:28-Oct-2017 Instruction Type:Patient Education How to access health informa tion online - Detail Indication:BMI 36.0-36.9,adult Start:28-Oct-2017 Instruction Type:Patient Education How to access health informa tion online Indication:BMI 36.0-36.9,adult Start:21-Oct-2017 Instruction Type:Patient Education How to access health informa tion online - Detail Indication:BMI 36.0-36.9,adult Start:21-Oct-2017 Instruction Type:Patient Education Patient Instructions Indication:BMI 36.0-36.9,adult Start:21-Oct-2017 Instruction Type:Provider Instructions for Treatment How to access health informa tion online - Detail Indication:BMI 34.0-34.9,adult Start:30-Jun-2017 Instruction Type:Patient Education Patient Instructions Indication:BMI 34.0-34.9,adult Start:30-Jun-2017 Instruction Type:Provider Instructions for Treatment How to access health informa tion online Indication:Olecranon bursitis of left elbow Start:01-Feb-2017 Instruction Type:Patient Education How to access health informa tion online - Detail Indication:Olecranon bursitis of left elbow Start:01-Feb-2017 Instruction Type:Patient Education Patient Instructions Indication:Olecranon bursitis of left elbow Start:01-Feb-2017 Instruction Type:Provider Instructions for Treatment How to access health informa tion online Indication:Sore throat Start:01-Sep-2016 Instruction Type:Patient Education How to access health informa tion online - Detail Indication:Sore throat Start:01-Sep-2016 Instruction Type:Patient Education Patient Instructions Indication:Sore throat Start:01-Sep-2016 Instruction Type:Provider Instructions for Treatment How to access health informa tion online Indication:Anxiety Start:04-May-2016 Instruction Type:Patient Education How to access health informa tion online - Detail Indication:Anxiety Start:04-May-2016 Instruction Type:Patient Education Patient Instructions Indication:Anxiety Start:04-May-2016 Instruction Type:Provider Instructions for Treatment How to access health informa tion online Indication:Rash of perineum Start:18-Dec-2015 Instruction Type:Patient Education How to access health informa tion online - Detail Indication:Rash of perineum Start:18-Dec-2015 Instruction Type:Patient Education Patient Instructions Indication:Rash of perineum Start:18-Dec-2015 Instruction Type:Provider Instructions for Treatment How to access health informa tion online Indication:Hyperparathyroidism Start:21-Aug-2015 Instruction Type:Patient Education How to access health informa tion online - Detail Indication:Hyperparathyroidism Start:21-Aug-2015 Instruction Type:Patient Education Patient Instructions Indication:Hyperparathyroidism Start:21-Aug-2015 Instruction Type:Provider Instructions for Treatment How to access health informa tion online Indication:Rash Start:11-Jul-2015 Instruction Type:Patient Education How to access health informa tion online - Detail Indication:Rash Start:11-Jul-2015 Instruction Type:Patient Education Patient Instructions Indication:Rash Start:11-Jul-2015 Instruction Type:Provider Instructions for Treatment How to access health informa tion online Indication:Sinusitis, acute Start:21-Sep-2014 Instruction Type:Patient Education How to access health informa tion online - Detail Indication:Sinusitis, acute Start:21-Sep-2014 Instruction Type:Patient Education Patient Instructions Indication:Sinusitis, acute Start:21-Sep-2014 Instruction Type:Provider Instructions for Treatment How to access health informa tion online Indication:NONABSORPTION, INTESTINAL POSTSURGICAL Start:18-Jul-2014 Instruction Type:Patient Education How to access health informa tion online - Detail Indication:NONABSORPTION, INTESTINAL POSTSURGICAL Start:18-Jul-2014 Instruction Type:Patient Education Patient Instructions Indication:NONABSORPTION, INTESTINAL POSTSURGICAL Start:18-Jul-2014 Instruction Type:Provider Instructions for Treatment Patient Instructions Indication:Vitamin D deficiency Start:18-Jul-2014 Instruction Type:Provider Instructions for Treatment How to access health informa tion online Indication:NONABSORPTION, INTESTINAL POSTSURGICAL Start:27-Jun-2014 Instruction Type:Patient Education How to access health informa tion online - Detail Indication:NONABSORPTION, INTESTINAL POSTSURGICAL Start:27-Jun-2014 Instruction Type:Patient Education Patient Instructions Indication:NONABSORPTION, INTESTINAL POSTSURGICAL Start:27-Jun-2014 Instruction Type:Provider Instructions for Treatment Patient Instructions Indication:Dysuria Start:10-May-2013 Instruction Type:Provider Instructions for Treatment [facility]; [facility] Work Phone: Instructions* Name Dates Details Patient Instructions Indication:Non-smoker Start:15-May-2022 Instruction Type:Provider Instructions for Treatment How to Access Health Informa tion Online using Patient Portal and [employer]rd [employer] Apps Indication:Non-smoker Start:15-May-2022 Instruction Type:Patient Education Patient Instructions Indication:Non-smoker Start:12-Jan-2022 Instruction Type:Provider Instructions for Treatment How to Access Health Informa tion Online using Patient Portal and [employer]rd [employer] Apps Indication:Non-smoker Start:12-Jan-2022 Instruction Type:Patient Education How to access health informa tion online Indication:BMI 40.0-44.9, adult Start:19-Sep-2020 Instruction Type:Patient Education How to access health informa tion online - Detail Indication:BMI 40.0-44.9, adult Start:19-Sep-2020 Instruction Type:Patient Education Patient Instructions Indication:BMI 40.0-44.9, adult Start:19-Sep-2020 Instruction Type:Provider Instructions for Treatment How to access health informa tion online Indication:BMI 40.0-44.9, adult Start:26-Jul-2020 Instruction Type:Patient Education How to access health informa tion online - Detail Indication:BMI 40.0-44.9, adult Start:26-Jul-2020 Instruction Type:Patient Education Patient Instructions Indication:BMI 40.0-44.9, adult Start:26-Jul-2020 Instruction Type:Provider Instructions for Treatment How to access health informa tion online Indication:Non-smoker Start:28-Jun-2020 Instruction Type:Patient Education How to access health informa tion online - Detail Indication:Non-smoker Start:28-Jun-2020 Instruction Type:Patient Education Patient Instructions Indication:Non-smoker Start:28-Jun-2020 Instruction Type:Provider Instructions for Treatment How to access health informa tion online Indication:Non-smoker Start:20-Apr-2019 Instruction Type:Patient Education How to access health informa tion online - Detail Indication:Non-smoker Start:20-Apr-2019 Instruction Type:Patient Education Patient Instructions Indication:Non-smoker Start:20-Apr-2019 Instruction Type:Provider Instructions for Treatment How to access health informa tion online Indication:Non-smoker Start:05-Jan-2018 Instruction Type:Patient Education How to access health informa tion online - Detail Indication:Non-smoker Start:05-Jan-2018 Instruction Type:Patient Education Patient Instructions Indication:Non-smoker Start:05-Jan-2018 Instruction Type:Provider Instructions for Treatment Patient Instructions Indication:Leg pain, bilateral Start:28-Oct-2017 Instruction Type:Provider Instructions for Treatment How to access health informa tion online Indication:BMI 36.0-36.9,adult Start:28-Oct-2017 Instruction Type:Patient Education How to access health informa tion online - Detail Indication:BMI 36.0-36.9,adult Start:28-Oct-2017 Instruction Type:Patient Education How to access health informa tion online Indication:BMI 36.0-36.9,adult Start:21-Oct-2017 Instruction Type:Patient Education How to access health informa tion online - Detail Indication:BMI 36.0-36.9,adult Start:21-Oct-2017 Instruction Type:Patient Education Patient Instructions Indication:BMI 36.0-36.9,adult Start:21-Oct-2017 Instruction Type:Provider Instructions for Treatment How to access health informa tion online - Detail Indication:BMI 34.0-34.9,adult Start:30-Jun-2017 Instruction Type:Patient Education Patient Instructions Indication:BMI 34.0-34.9,adult Start:30-Jun-2017 Instruction Type:Provider Instructions for Treatment How to access health informa tion online Indication:Olecranon bursitis of left elbow Start:01-Feb-2017 Instruction Type:Patient Education How to access health informa tion online - Detail Indication:Olecranon bursitis of left elbow Start:01-Feb-2017 Instruction Type:Patient Education Patient Instructions Indication:Olecranon bursitis of left elbow Start:01-Feb-2017 Instruction Type:Provider Instructions for Treatment How to access health informa tion online Indication:Sore throat Start:01-Sep-2016 Instruction Type:Patient Education How to access health informa tion online - Detail Indication:Sore throat Start:01-Sep-2016 Instruction Type:Patient Education Patient Instructions Indication:Sore throat Start:01-Sep-2016 Instruction Type:Provider Instructions for Treatment How to access health informa tion online Indication:Anxiety Start:04-May-2016 Instruction Type:Patient Education How to access health informa tion online - Detail Indication:Anxiety Start:04-May-2016 Instruction Type:Patient Education Patient Instructions Indication:Anxiety Start:04-May-2016 Instruction Type:Provider Instructions for Treatment How to access health informa tion online Indication:Rash of perineum Start:18-Dec-2015 Instruction Type:Patient Education How to access health informa tion online - Detail Indication:Rash of perineum Start:18-Dec-2015 Instruction Type:Patient Education Patient Instructions Indication:Rash of perineum Start:18-Dec-2015 Instruction Type:Provider Instructions for Treatment How to access health informa tion online Indication:Hyperparathyroidism Start:21-Aug-2015 Instruction Type:Patient Education How to access health informa tion online - Detail Indication:Hyperparathyroidism Start:21-Aug-2015 Instruction Type:Patient Education Patient Instructions Indication:Hyperparathyroidism Start:21-Aug-2015 Instruction Type:Provider Instructions for Treatment How to access health informa tion online Indication:Rash Start:11-Jul-2015 Instruction Type:Patient Education How to access health informa tion online - Detail Indication:Rash Start:11-Jul-2015 Instruction Type:Patient Education Patient Instructions Indication:Rash Start:11-Jul-2015 Instruction Type:Provider Instructions for Treatment How to access health informa tion online Indication:Sinusitis, acute Start:21-Sep-2014 Instruction Type:Patient Education How to access health informa tion online - Detail Indication:Sinusitis, acute Start:21-Sep-2014 Instruction Type:Patient Education Patient Instructions Indication:Sinusitis, acute Start:21-Sep-2014 Instruction Type:Provider Instructions for Treatment How to access health informa tion online Indication:NONABSORPTION, INTESTINAL POSTSURGICAL Start:18-Jul-2014 Instruction Type:Patient Education How to access health informa tion online - Detail Indication:NONABSORPTION, INTESTINAL POSTSURGICAL Start:18-Jul-2014 Instruction Type:Patient Education Patient Instructions Indication:NONABSORPTION, INTESTINAL POSTSURGICAL Start:18-Jul-2014 Instruction Type:Provider Instructions for Treatment Patient Instructions Indication:Vitamin D deficiency Start:18-Jul-2014 Instruction Type:Provider Instructions for Treatment How to access health informa tion online Indication:NONABSORPTION, INTESTINAL POSTSURGICAL Start:27-Jun-2014 Instruction Type:Patient Education How to access health informa tion online - Detail Indication:NONABSORPTION, INTESTINAL POSTSURGICAL Start:27-Jun-2014 Instruction Type:Patient Education Patient Instructions Indication:NONABSORPTION, INTESTINAL POSTSURGICAL Start:27-Jun-2014 Instruction Type:Provider Instructions for Treatment Patient Instructions Indication:Dysuria Start:10-May-2013 Instruction Type:Provider Instructions for Treatment [facility]; [facility] Work Phone: Instructions* Name Dates Details Patient Instructions Indication:Non-smoker Start:15-May-2022 Instruction Type:Provider Instructions for Treatment How to Access Health Informa tion Online using Patient Portal and [employer]rd [employer] Apps Indication:Non-smoker Start:15-May-2022 Instruction Type:Patient Education Patient Instructions Indication:Non-smoker Start:12-Jan-2022 Instruction Type:Provider Instructions for Treatment How to Access Health Informa tion Online using Patient Portal and [employer]rd [employer] Apps Indication:Non-smoker Start:12-Jan-2022 Instruction Type:Patient Education How to access health informa tion online Indication:BMI 40.0-44.9, adult Start:19-Sep-2020 Instruction Type:Patient Education How to access health informa tion online - Detail Indication:BMI 40.0-44.9, adult Start:19-Sep-2020 Instruction Type:Patient Education Patient Instructions Indication:BMI 40.0-44.9, adult Start:19-Sep-2020 Instruction Type:Provider Instructions for Treatment How to access health informa tion online Indication:BMI 40.0-44.9, adult Start:26-Jul-2020 Instruction Type:Patient Education How to access health informa tion online - Detail Indication:BMI 40.0-44.9, adult Start:26-Jul-2020 Instruction Type:Patient Education Patient Instructions Indication:BMI 40.0-44.9, adult Start:26-Jul-2020 Instruction Type:Provider Instructions for Treatment How to access health informa tion online Indication:Non-smoker Start:28-Jun-2020 Instruction Type:Patient Education How to access health informa tion online - Detail Indication:Non-smoker Start:28-Jun-2020 Instruction Type:Patient Education Patient Instructions Indication:Non-smoker Start:28-Jun-2020 Instruction Type:Provider Instructions for Treatment How to access health informa tion online Indication:Non-smoker Start:20-Apr-2019 Instruction Type:Patient Education How to access health informa tion online - Detail Indication:Non-smoker Start:20-Apr-2019 Instruction Type:Patient Education Patient Instructions Indication:Non-smoker Start:20-Apr-2019 Instruction Type:Provider Instructions for Treatment How to access health informa tion online Indication:Non-smoker Start:05-Jan-2018 Instruction Type:Patient Education How to access health informa tion online - Detail Indication:Non-smoker Start:05-Jan-2018 Instruction Type:Patient Education Patient Instructions Indication:Non-smoker Start:05-Jan-2018 Instruction Type:Provider Instructions for Treatment Patient Instructions Indication:Leg pain, bilateral Start:28-Oct-2017 Instruction Type:Provider Instructions for Treatment How to access health informa tion online Indication:BMI 36.0-36.9,adult Start:28-Oct-2017 Instruction Type:Patient Education How to access health informa tion online - Detail Indication:BMI 36.0-36.9,adult Start:28-Oct-2017 Instruction Type:Patient Education How to access health informa tion online Indication:BMI 36.0-36.9,adult Start:21-Oct-2017 Instruction Type:Patient Education How to access health informa tion online - Detail Indication:BMI 36.0-36.9,adult Start:21-Oct-2017 Instruction Type:Patient Education Patient Instructions Indication:BMI 36.0-36.9,adult Start:21-Oct-2017 Instruction Type:Provider Instructions for Treatment How to access health informa tion online - Detail Indication:BMI 34.0-34.9,adult Start:30-Jun-2017 Instruction Type:Patient Education Patient Instructions Indication:BMI 34.0-34.9,adult Start:30-Jun-2017 Instruction Type:Provider Instructions for Treatment How to access health informa tion online Indication:Olecranon bursitis of left elbow Start:01-Feb-2017 Instruction Type:Patient Education How to access health informa tion online - Detail Indication:Olecranon bursitis of left elbow Start:01-Feb-2017 Instruction Type:Patient Education Patient Instructions Indication:Olecranon bursitis of left elbow Start:01-Feb-2017 Instruction Type:Provider Instructions for Treatment How to access health informa tion online Indication:Sore throat Start:01-Sep-2016 Instruction Type:Patient Education How to access health informa tion online - Detail Indication:Sore throat Start:01-Sep-2016 Instruction Type:Patient Education Patient Instructions Indication:Sore throat Start:01-Sep-2016 Instruction Type:Provider Instructions for Treatment How to access health informa tion online Indication:Anxiety Start:04-May-2016 Instruction Type:Patient Education How to access health informa tion online - Detail Indication:Anxiety Start:04-May-2016 Instruction Type:Patient Education Patient Instructions Indication:Anxiety Start:04-May-2016 Instruction Type:Provider Instructions for Treatment How to access health informa tion online Indication:Rash of perineum Start:18-Dec-2015 Instruction Type:Patient Education How to access health informa tion online - Detail Indication:Rash of perineum Start:18-Dec-2015 Instruction Type:Patient Education Patient Instructions Indication:Rash of perineum Start:18-Dec-2015 Instruction Type:Provider Instructions for Treatment How to access health informa tion online Indication:Hyperparathyroidism Start:21-Aug-2015 Instruction Type:Patient Education How to access health informa tion online - Detail Indication:Hyperparathyroidism Start:21-Aug-2015 Instruction Type:Patient Education Patient Instructions Indication:Hyperparathyroidism Start:21-Aug-2015 Instruction Type:Provider Instructions for Treatment How to access health informa tion online Indication:Rash Start:11-Jul-2015 Instruction Type:Patient Education How to access health informa tion online - Detail Indication:Rash Start:11-Jul-2015 Instruction Type:Patient Education Patient Instructions Indication:Rash Start:11-Jul-2015 Instruction Type:Provider Instructions for Treatment How to access health informa tion online Indication:Sinusitis, acute Start:21-Sep-2014 Instruction Type:Patient Education How to access health informa tion online - Detail Indication:Sinusitis, acute Start:21-Sep-2014 Instruction Type:Patient Education Patient Instructions Indication:Sinusitis, acute Start:21-Sep-2014 Instruction Type:Provider Instructions for Treatment How to access health informa tion online Indication:NONABSORPTION, INTESTINAL POSTSURGICAL Start:18-Jul-2014 Instruction Type:Patient Education How to access health informa tion online - Detail Indication:NONABSORPTION, INTESTINAL POSTSURGICAL Start:18-Jul-2014 Instruction Type:Patient Education Patient Instructions Indication:NONABSORPTION, INTESTINAL POSTSURGICAL Start:18-Jul-2014 Instruction Type:Provider Instructions for Treatment Patient Instructions Indication:Vitamin D deficiency Start:18-Jul-2014 Instruction Type:Provider Instructions for Treatment How to access health informa tion online Indication:NONABSORPTION, INTESTINAL POSTSURGICAL Start:27-Jun-2014 Instruction Type:Patient Education How to access health informa tion online - Detail Indication:NONABSORPTION, INTESTINAL POSTSURGICAL Start:27-Jun-2014 Instruction Type:Patient Education Patient Instructions Indication:NONABSORPTION, INTESTINAL POSTSURGICAL Start:27-Jun-2014 Instruction Type:Provider Instructions for Treatment Patient Instructions Indication:Dysuria Start:10-May-2013 Instruction Type:Provider Instructions for Treatment [facility]; [facility] Work Phone: Instructions* Name Dates Details Patient Instructions Indication:Non-smoker Start:28-May-2023 Instruction Type:Provider Instructions for Treatment How to Access Health Informa tion Online using Patient Portal and [employer]rd [employer] Apps Indication:Non-smoker Start:28-May-2023 Instruction Type:Patient Education Patient Instructions Indication:Non-smoker Start:15-May-2022 Instruction Type:Provider Instructions for Treatment How to Access Health Informa tion Online using Patient Portal and [employer] Apps Indication:Non-smoker Start:15-May-2022 Instruction Type:Patient Education Patient Instructions Indication:Non-smoker Start:12-Jan-2022 Instruction Type:Provider Instructions for Treatment How to Access Health Informa tion Online using Patient Portal and [employer]rd [employer] Apps Indication:Non-smoker Start:12-Jan-2022 Instruction Type:Patient Education How to access health informa tion online Indication:BMI 40.0-44.9, adult Start:19-Sep-2020 Instruction Type:Patient Education How to access health informa tion online - Detail Indication:BMI 40.0-44.9, adult Start:19-Sep-2020 Instruction Type:Patient Education Patient Instructions Indication:BMI 40.0-44.9, adult Start:19-Sep-2020 Instruction Type:Provider Instructions for Treatment How to access health informa tion online Indication:BMI 40.0-44.9, adult Start:26-Jul-2020 Instruction Type:Patient Education How to access health informa tion online - Detail Indication:BMI 40.0-44.9, adult Start:26-Jul-2020 Instruction Type:Patient Education Patient Instructions Indication:BMI 40.0-44.9, adult Start:26-Jul-2020 Instruction Type:Provider Instructions for Treatment How to access health informa tion online Indication:Non-smoker Start:28-Jun-2020 Instruction Type:Patient Education How to access health informa tion online - Detail Indication:Non-smoker Start:28-Jun-2020 Instruction Type:Patient Education Patient Instructions Indication:Non-smoker Start:28-Jun-2020 Instruction Type:Provider Instructions for Treatment How to access health informa tion online Indication:Non-smoker Start:20-Apr-2019 Instruction Type:Patient Education How to access health informa tion online - Detail Indication:Non-smoker Start:20-Apr-2019 Instruction Type:Patient Education Patient Instructions Indication:Non-smoker Start:20-Apr-2019 Instruction Type:Provider Instructions for Treatment How to access health informa tion online Indication:Non-smoker Start:05-Jan-2018 Instruction Type:Patient Education How to access health informa tion online - Detail Indication:Non-smoker Start:05-Jan-2018 Instruction Type:Patient Education Patient Instructions Indication:Non-smoker Start:05-Jan-2018 Instruction Type:Provider Instructions for Treatment Patient Instructions Indication:Leg pain, bilateral Start:28-Oct-2017 Instruction Type:Provider Instructions for Treatment How to access health informa tion online Indication:BMI 36.0-36.9,adult Start:28-Oct-2017 Instruction Type:Patient Education How to access health informa tion online - Detail Indication:BMI 36.0-36.9,adult Start:28-Oct-2017 Instruction Type:Patient Education How to access health informa tion online Indication:BMI 36.0-36.9,adult Start:21-Oct-2017 Instruction Type:Patient Education How to access health informa tion online - Detail Indication:BMI 36.0-36.9,adult Start:21-Oct-2017 Instruction Type:Patient Education Patient Instructions Indication:BMI 36.0-36.9,adult Start:21-Oct-2017 Instruction Type:Provider Instructions for Treatment How to access health informa tion online - Detail Indication:BMI 34.0-34.9,adult Start:30-Jun-2017 Instruction Type:Patient Education Patient Instructions Indication:BMI 34.0-34.9,adult Start:30-Jun-2017 Instruction Type:Provider Instructions for Treatment How to access health informa tion online Indication:Olecranon bursitis of left elbow Start:01-Feb-2017 Instruction Type:Patient Education How to access health informa tion online - Detail Indication:Olecranon bursitis of left elbow Start:01-Feb-2017 Instruction Type:Patient Education Patient Instructions Indication:Olecranon bursitis of left elbow Start:01-Feb-2017 Instruction Type:Provider Instructions for Treatment How to access health informa tion online Indication:Sore throat Start:01-Sep-2016 Instruction Type:Patient Education How to access health informa tion online - Detail Indication:Sore throat Start:01-Sep-2016 Instruction Type:Patient Education Patient Instructions Indication:Sore throat Start:01-Sep-2016 Instruction Type:Provider Instructions for Treatment How to access health informa tion online Indication:Anxiety Start:04-May-2016 Instruction Type:Patient Education How to access health informa tion online - Detail Indication:Anxiety Start:04-May-2016 Instruction Type:Patient Education Patient Instructions Indication:Anxiety Start:04-May-2016 Instruction Type:Provider Instructions for Treatment How to access health informa tion online Indication:Rash of perineum Start:18-Dec-2015 Instruction Type:Patient Education How to access health informa tion online - Detail Indication:Rash of perineum Start:18-Dec-2015 Instruction Type:Patient Education Patient Instructions Indication:Rash of perineum Start:18-Dec-2015 Instruction Type:Provider Instructions for Treatment How to access health informa tion online Indication:Hyperparathyroidism Start:21-Aug-2015 Instruction Type:Patient Education How to access health informa tion online - Detail Indication:Hyperparathyroidism Start:21-Aug-2015 Instruction Type:Patient Education Patient Instructions Indication:Hyperparathyroidism Start:21-Aug-2015 Instruction Type:Provider Instructions for Treatment How to access health informa tion online Indication:Rash Start:11-Jul-2015 Instruction Type:Patient Education How to access health informa tion online - Detail Indication:Rash Start:11-Jul-2015 Instruction Type:Patient Education Patient Instructions Indication:Rash Start:11-Jul-2015 Instruction Type:Provider Instructions for Treatment How to access health informa tion online Indication:Sinusitis, acute Start:21-Sep-2014 Instruction Type:Patient Education How to access health informa tion online - Detail Indication:Sinusitis, acute Start:21-Sep-2014 Instruction Type:Patient Education Patient Instructions Indication:Sinusitis, acute Start:21-Sep-2014 Instruction Type:Provider Instructions for Treatment How to access health informa tion online Indication:NONABSORPTION, INTESTINAL POSTSURGICAL Start:18-Jul-2014 Instruction Type:Patient Education How to access health informa tion online - Detail Indication:NONABSORPTION, INTESTINAL POSTSURGICAL Start:18-Jul-2014 Instruction Type:Patient Education Patient Instructions Indication:NONABSORPTION, INTESTINAL POSTSURGICAL Start:18-Jul-2014 Instruction Type:Provider Instructions for Treatment Patient Instructions Indication:Vitamin D deficiency Start:18-Jul-2014 Instruction Type:Provider Instructions for Treatment How to access health informa tion online Indication:NONABSORPTION, INTESTINAL POSTSURGICAL Start:27-Jun-2014 Instruction Type:Patient Education How to access health informa tion online - Detail Indication:NONABSORPTION, INTESTINAL POSTSURGICAL Start:27-Jun-2014 Instruction Type:Patient Education Patient Instructions Indication:NONABSORPTION, INTESTINAL POSTSURGICAL Start:27-Jun-2014 Instruction Type:Provider Instructions for Treatment Patient Instructions Indication:Dysuria Start:10-May-2013 Instruction Type:Provider Instructions for Treatment [facility] Work Phone: Instructions* Name Dates Details Patient Instructions Indication:Non-smoker Start:28-May-2023 Instruction Type:Provider Instructions for Treatment How to Access Health Informa tion Online using Patient Portal and [employer]rd [employer] Apps Indication:Non-smoker Start:28-May-2023 Instruction Type:Patient Education Patient Instructions Indication:Non-smoker Start:15-May-2022 Instruction Type:Provider Instructions for Treatment How to Access Health Informa tion Online using Patient Portal and [employer]rd [employer] Apps Indication:Non-smoker Start:15-May-2022 Instruction Type:Patient Education Patient Instructions Indication:Non-smoker Start:12-Jan-2022 Instruction Type:Provider Instructions for Treatment How to Access Health Informa tion Online using Patient Portal and [employer]rd [employer] Apps Indication:Non-smoker Start:12-Jan-2022 Instruction Type:Patient Education How to access health informa tion online Indication:BMI 40.0-44.9, adult Start:19-Sep-2020 Instruction Type:Patient Education How to access health informa tion online - Detail Indication:BMI 40.0-44.9, adult Start:19-Sep-2020 Instruction Type:Patient Education Patient Instructions Indication:BMI 40.0-44.9, adult Start:19-Sep-2020 Instruction Type:Provider Instructions for Treatment How to access health informa tion online Indication:BMI 40.0-44.9, adult Start:26-Jul-2020 Instruction Type:Patient Education How to access health informa tion online - Detail Indication:BMI 40.0-44.9, adult Start:26-Jul-2020 Instruction Type:Patient Education Patient Instructions Indication:BMI 40.0-44.9, adult Start:26-Jul-2020 Instruction Type:Provider Instructions for Treatment How to access health informa tion online Indication:Non-smoker Start:28-Jun-2020 Instruction Type:Patient Education How to access health informa tion online - Detail Indication:Non-smoker Start:28-Jun-2020 Instruction Type:Patient Education Patient Instructions Indication:Non-smoker Start:28-Jun-2020 Instruction Type:Provider Instructions for Treatment How to access health informa tion online Indication:Non-smoker Start:20-Apr-2019 Instruction Type:Patient Education How to access health informa tion online - Detail Indication:Non-smoker Start:20-Apr-2019 Instruction Type:Patient Education Patient Instructions Indication:Non-smoker Start:20-Apr-2019 Instruction Type:Provider Instructions for Treatment How to access health informa tion online Indication:Non-smoker Start:05-Jan-2018 Instruction Type:Patient Education How to access health informa tion online - Detail Indication:Non-smoker Start:05-Jan-2018 Instruction Type:Patient Education Patient Instructions Indication:Non-smoker Start:05-Jan-2018 Instruction Type:Provider Instructions for Treatment Patient Instructions Indication:Leg pain, bilateral Start:28-Oct-2017 Instruction Type:Provider Instructions for Treatment How to access health informa tion online Indication:BMI 36.0-36.9,adult Start:28-Oct-2017 Instruction Type:Patient Education How to access health informa tion online - Detail Indication:BMI 36.0-36.9,adult Start:28-Oct-2017 Instruction Type:Patient Education How to access health informa tion online Indication:BMI 36.0-36.9,adult Start:21-Oct-2017 Instruction Type:Patient Education How to access health informa tion online - Detail Indication:BMI 36.0-36.9,adult Start:21-Oct-2017 Instruction Type:Patient Education Patient Instructions Indication:BMI 36.0-36.9,adult Start:21-Oct-2017 Instruction Type:Provider Instructions for Treatment How to access health informa tion online - Detail Indication:BMI 34.0-34.9,adult Start:30-Jun-2017 Instruction Type:Patient Education Patient Instructions Indication:BMI 34.0-34.9,adult Start:30-Jun-2017 Instruction Type:Provider Instructions for Treatment How to access health informa tion online Indication:Olecranon bursitis of left elbow Start:01-Feb-2017 Instruction Type:Patient Education How to access health informa tion online - Detail Indication:Olecranon bursitis of left elbow Start:01-Feb-2017 Instruction Type:Patient Education Patient Instructions Indication:Olecranon bursitis of left elbow Start:01-Feb-2017 Instruction Type:Provider Instructions for Treatment How to access health informa tion online Indication:Sore throat Start:01-Sep-2016 Instruction Type:Patient Education How to access health informa tion online - Detail Indication:Sore throat Start:01-Sep-2016 Instruction Type:Patient Education Patient Instructions Indication:Sore throat Start:01-Sep-2016 Instruction Type:Provider Instructions for Treatment How to access health informa tion online Indication:Anxiety Start:04-May-2016 Instruction Type:Patient Education How to access health informa tion online - Detail Indication:Anxiety Start:04-May-2016 Instruction Type:Patient Education Patient Instructions Indication:Anxiety Start:04-May-2016 Instruction Type:Provider Instructions for Treatment How to access health informa tion online Indication:Rash of perineum Start:18-Dec-2015 Instruction Type:Patient Education How to access health informa tion online - Detail Indication:Rash of perineum Start:18-Dec-2015 Instruction Type:Patient Education Patient Instructions Indication:Rash of perineum Start:18-Dec-2015 Instruction Type:Provider Instructions for Treatment How to access health informa tion online Indication:Hyperparathyroidism Start:21-Aug-2015 Instruction Type:Patient Education How to access health informa tion online - Detail Indication:Hyperparathyroidism Start:21-Aug-2015 Instruction Type:Patient Education Patient Instructions Indication:Hyperparathyroidism Start:21-Aug-2015 Instruction Type:Provider Instructions for Treatment How to access health informa tion online Indication:Rash Start:11-Jul-2015 Instruction Type:Patient Education How to access health informa tion online - Detail Indication:Rash Start:11-Jul-2015 Instruction Type:Patient Education Patient Instructions Indication:Rash Start:11-Jul-2015 Instruction Type:Provider Instructions for Treatment How to access health informa tion online Indication:Sinusitis, acute Start:21-Sep-2014 Instruction Type:Patient Education How to access health informa tion online - Detail Indication:Sinusitis, acute Start:21-Sep-2014 Instruction Type:Patient Education Patient Instructions Indication:Sinusitis, acute Start:21-Sep-2014 Instruction Type:Provider Instructions for Treatment How to access health informa tion online Indication:NONABSORPTION, INTESTINAL POSTSURGICAL Start:18-Jul-2014 Instruction Type:Patient Education How to access health informa tion online - Detail Indication:NONABSORPTION, INTESTINAL POSTSURGICAL Start:18-Jul-2014 Instruction Type:Patient Education Patient Instructions Indication:NONABSORPTION, INTESTINAL POSTSURGICAL Start:18-Jul-2014 Instruction Type:Provider Instructions for Treatment Patient Instructions Indication:Vitamin D deficiency Start:18-Jul-2014 Instruction Type:Provider Instructions for Treatment How to access health informa tion online Indication:NONABSORPTION, INTESTINAL POSTSURGICAL Start:27-Jun-2014 Instruction Type:Patient Education How to access [employer] online - Detail Indication:NONABSORPTION, INTESTINAL POSTSURGICAL Start:27-Jun-2014 Instruction Type:Patient Education Patient Instructions Indication:NONABSORPTION, INTESTINAL POSTSURGICAL Start:27-Jun-2014 Instruction Type:Provider Instructions for Treatment Patient Instructions Indication:Dysuria Start:10-May-2013 Instruction Type:Provider Instructions for Treatment [facility]; [facility] Work Phone: reason for visit Narrative* Imaging (Routine) - Closed Specialty Diagnoses / Procedures Referred By Contac t Referred To Contact Cardiology Diagnoses Ascending aorta dilatation (HCC) Precordial pain Procedures Transthoracic echocardiogram (TTE) complete with contrast, bubble, strain, and 3D PRN KS ECHO TTHRC R-T 2D W/WOM-MODE COMPL SPEC&COLR D KS TTE W OR WO FOL WCON,DOPPLER Beau Theodore MD [address] [facility] [address] [place] [id number] Phone: tel: fax: Referral ID Status Reason Start Date Expiration Date Visits Re quested Visits Authorized [id number] Closed 10/05/2024 09/08/2025 1 1 [employer] Family History No Family History Records FoundUnknown Family Member Name Dates Details Diabetes Mellitus Comments:Maternal Grandfathe r. Paternal Grandfather. Status:Active Unknown Family Member Name Dates Details Diabetes Mellitus Comments:Maternal Grandfathe r. Paternal Grandfather. Status:Active Unknown Family Member Name Dates Details Diabetes Mellitus Comments:Maternal Grandfathe r. Paternal Grandfather. Status:Active Unknown Family Member Name Dates Details Diabetes Mellitus Comments:Maternal Grandfathe r. Paternal Grandfather. Status:Active Unknown Family Member Name Dates Details Diabetes Mellitus Comments:Maternal Grandfathe r. Paternal Grandfather. Status:Active Unknown Family Member Name Dates Details Diabetes Mellitus Comments:Maternal Grandfathe r. Paternal Grandfather. Status:Active Unknown Family Member Name Dates Details Diabetes Mellitus Comments:Maternal Grandfathe r. Paternal Grandfather. Status:Active Unknown Family Member Name Dates Details Diabetes Mellitus Comments:Maternal Grandfathe r. Paternal Grandfather. Status:Active Unknown Family Member Name Dates Details Diabetes Mellitus Comments:Maternal Grandfathe r. Paternal Grandfather. Status:Active Unknown Family Member Name Dates Details Diabetes Mellitus Comments:Maternal Grandfathe r. Paternal Grandfather. Status:Active Unknown Family Member Name Dates Details Diabetes Mellitus Comments:Maternal Grandfathe r. Paternal Grandfather. Status:Active Unknown Family Member Name Dates Details Diabetes Mellitus Comments:Maternal Grandfathe r. Paternal Grandfather. Status:Active Unknown Family Member Name Dates Details Diabetes Mellitus Comments:Maternal Grandfathe r. Paternal Grandfather. Status:Active Unknown Family Member Name Dates Details Diabetes Mellitus Comments:Maternal Grandfathe r. Paternal Grandfather. Status:Active Unknown Family Member Name Dates Details Diabetes Mellitus Comments:Maternal Grandfathe r. Paternal Grandfather. Status:Active Unknown Family Member Name Dates Details Diabetes Mellitus Comments:Maternal Grandfathe r. Paternal Grandfather. Status:Active Unknown Family Member Name Dates Details Diabetes Mellitus Comments:Maternal Grandfathe r. Paternal Grandfather. Status:Active Unknown Family Member Name Dates Details Diabetes Mellitus Comments:Maternal Grandfathe r. Paternal Grandfather. Status:Active Unknown Family Member Name Dates Details Diabetes Mellitus Comments:Maternal Grandfathe r. Paternal Grandfather. Status:Active Unknown Family Member Name Dates Details Diabetes Mellitus Comments:Maternal Grandfathe r. Paternal Grandfather. Status:Active Unknown Family Member Name Dates Details Diabetes Mellitus Comments:Maternal Grandfathe r. Paternal Grandfather. Status:Active Instructions Name Dates Details Non-smoker : How to access h ealth information online Indication:Non-smoker Non-smoker : How to access h ealth information online - Detail Indication:Non-smoker Non-smoker : Patient Instruc tions Indication:Non-smoker Leg pain, bilateral : Patien t Instructions Indication:Leg pain, bilateral BMI 36.0-36.9,adult : How to access health information online Indication:BMI 36.0-36.9,adult BMI 36.0-36.9,adult : How to access health information online - Detail Indication:BMI 36.0-36.9,adult BMI 36.0-36.9,adult : Patien t Instructions Indication:BMI 36.0-36.9,adult BMI 34.0-34.9,adult : How to access health information online - Detail Indication:BMI 34.0-34.9,adult BMI 34.0-34.9,adult : Patien t Instructions Indication:BMI 34.0-34.9,adult Olecranon bursitis of left e lbow : How to access health information online Indication:Olecranon bursitis of left elbow Olecranon bursitis of left e lbow : How to access health information online - Detail Indication:Olecranon bursitis of left elbow Olecranon bursitis of left e lbow : Patient Instructions Indication:Olecranon bursitis of left elbow Sore throat : How to access health information online Indication:Sore throat Sore throat : How to access health information online - Detail Indication:Sore throat Sore throat : Patient Instru ctions Indication:Sore throat Anxiety : How to access heal th information online Indication:Anxiety Anxiety : How to access heal th information online - Detail Indication:Anxiety Anxiety : Patient Instructio ns Indication:Anxiety Rash of perineum : How to ac cess health information online Indication:Rash of perineum Rash of perineum : How to ac cess health information online - Detail Indication:Rash of perineum Rash of perineum : Patient I nstructions Indication:Rash of perineum Hyperparathyroidism : How to access health information online Indication:Hyperparathyroidism Hyperparathyroidism : How to access health information online - Detail Indication:Hyperparathyroidism Hyperparathyroidism : Patien t Instructions Indication:Hyperparathyroidism Rash : How to access health information online Indication:Rash Rash : How to access health information online - Detail Indication:Rash Rash : Patient Instructions Indication:Rash Sinusitis, acute : How to ac cess health information online Indication:Sinusitis, acute Sinusitis, acute : How to ac cess health information online - Detail Indication:Sinusitis, acute Sinusitis, acute : Patient I nstructions Indication:Sinusitis, acute NONABSORPTION, INTESTINAL PO STSURGICAL : How to access health information online Indication:NONABSORPTION, INTESTINAL POSTSURGICAL NONABSORPTION, INTESTINAL PO STSURGICAL : How to access health information online - Detail Indication:NONABSORPTION, INTESTINAL POSTSURGICAL NONABSORPTION, INTESTINAL PO STSURGICAL : Patient Instructions Indication:NONABSORPTION, INTESTINAL POSTSURGICAL Vitamin D deficiency : Patie nt Instructions Indication:Vitamin D deficiency Dysuria : Patient Instructio ns Indication:Dysuria Name Dates Details How to access health informa tion online Indication:Non-smoker Start:05-Jan-2018 Instruction Type:Patient Education How to access health informa tion online - Detail Indication:Non-smoker Start:05-Jan-2018 Instruction Type:Patient Education Patient Instructions Indication:Non-smoker Start:05-Jan-2018 Instruction Type:Provider Instructions for Treatment Patient Instructions Indication:Leg pain, bilateral Start:28-Oct-2017 Instruction Type:Provider Instructions for Treatment How to access health informa tion online Indication:BMI 36.0-36.9,adult Start:28-Oct-2017 Instruction Type:Patient Education How to access health informa tion online - Detail Indication:BMI 36.0-36.9,adult Start:28-Oct-2017 Instruction Type:Patient Education How to access health informa tion online Indication:BMI 36.0-36.9,adult Start:21-Oct-2017 Instruction Type:Patient Education How to access health informa tion online - Detail Indication:BMI 36.0-36.9,adult Start:21-Oct-2017 Instruction Type:Patient Education Patient Instructions Indication:BMI 36.0-36.9,adult Start:21-Oct-2017 Instruction Type:Provider Instructions for Treatment How to access health informa tion online - Detail Indication:BMI 34.0-34.9,adult Start:30-Jun-2017 Instruction Type:Patient Education Patient Instructions Indication:BMI 34.0-34.9,adult Start:30-Jun-2017 Instruction Type:Provider Instructions for Treatment How to access health informa tion online Indication:Olecranon bursitis of left elbow Start:01-Feb-2017 Instruction Type:Patient Education How to access health informa tion online - Detail Indication:Olecranon bursitis of left elbow Start:01-Feb-2017 Instruction Type:Patient Education Patient Instructions Indication:Olecranon bursitis of left elbow Start:01-Feb-2017 Instruction Type:Provider Instructions for Treatment How to access health informa tion online Indication:Sore throat Start:01-Sep-2016 Instruction Type:Patient Education How to access health informa tion online - Detail Indication:Sore throat Start:01-Sep-2016 Instruction Type:Patient Education Patient Instructions Indication:Sore throat Start:01-Sep-2016 Instruction Type:Provider Instructions for Treatment How to access health informa tion online Indication:Anxiety Start:04-May-2016 Instruction Type:Patient Education How to access health informa tion online - Detail Indication:Anxiety Start:04-May-2016 Instruction Type:Patient Education Patient Instructions Indication:Anxiety Start:04-May-2016 Instruction Type:Provider Instructions for Treatment How to access health informa tion online Indication:Rash of perineum Start:18-Dec-2015 Instruction Type:Patient Education How to access health informa tion online - Detail Indication:Rash of perineum Start:18-Dec-2015 Instruction Type:Patient Education Patient Instructions Indication:Rash of perineum Start:18-Dec-2015 Instruction Type:Provider Instructions for Treatment How to access health informa tion online Indication:Hyperparathyroidism Start:21-Aug-2015 Instruction Type:Patient Education How to access health informa tion online - Detail Indication:Hyperparathyroidism Start:21-Aug-2015 Instruction Type:Patient Education Patient Instructions Indication:Hyperparathyroidism Start:21-Aug-2015 Instruction Type:Provider Instructions for Treatment How to access health informa tion online Indication:Rash Start:11-Jul-2015 Instruction Type:Patient Education How to access health informa tion online - Detail Indication:Rash Start:11-Jul-2015 Instruction Type:Patient Education Patient Instructions Indication:Rash Start:11-Jul-2015 Instruction Type:Provider Instructions for Treatment How to access health informa tion online Indication:Sinusitis, acute Start:21-Sep-2014 Instruction Type:Patient Education How to access health informa tion online - Detail Indication:Sinusitis, acute Start:21-Sep-2014 Instruction Type:Patient Education Patient Instructions Indication:Sinusitis, acute Start:21-Sep-2014 Instruction Type:Provider Instructions for Treatment How to access health informa tion online Indication:NONABSORPTION, INTESTINAL POSTSURGICAL Start:18-Jul-2014 Instruction Type:Patient Education How to access health informa tion online - Detail Indication:NONABSORPTION, INTESTINAL POSTSURGICAL Start:18-Jul-2014 Instruction Type:Patient Education Patient Instructions Indication:NONABSORPTION, INTESTINAL POSTSURGICAL Start:18-Jul-2014 Instruction Type:Provider Instructions for Treatment Patient Instructions Indication:Vitamin D deficiency Start:18-Jul-2014 Instruction Type:Provider Instructions for Treatment How to access health informa tion online Indication:NONABSORPTION, INTESTINAL POSTSURGICAL Start:27-Jun-2014 Instruction Type:Patient Education How to access health informa tion online - Detail Indication:NONABSORPTION, INTESTINAL POSTSURGICAL Start:27-Jun-2014 Instruction Type:Patient Education Patient Instructions Indication:NONABSORPTION, INTESTINAL POSTSURGICAL Start:27-Jun-2014 Instruction Type:Provider Instructions for Treatment Patient Instructions Indication:Dysuria Start:10-May-2013 Instruction Type:Provider Instructions for Treatment Name Dates Details How to access health informa tion online Indication:Non-smoker Start:05-Jan-2018 Instruction Type:Patient Education How to access health informa tion online - Detail Indication:Non-smoker Start:05-Jan-2018 Instruction Type:Patient Education Patient Instructions Indication:Non-smoker Start:05-Jan-2018 Instruction Type:Provider Instructions for Treatment Patient Instructions Indication:Leg pain, bilateral Start:28-Oct-2017 Instruction Type:Provider Instructions for Treatment How to access health informa tion online Indication:BMI 36.0-36.9,adult Start:28-Oct-2017 Instruction Type:Patient Education How to access health informa tion online - Detail Indication:BMI 36.0-36.9,adult Start:28-Oct-2017 Instruction Type:Patient Education How to access health informa tion online Indication:BMI 36.0-36.9,adult Start:21-Oct-2017 Instruction Type:Patient Education How to access health informa tion online - Detail Indication:BMI 36.0-36.9,adult Start:21-Oct-2017 Instruction Type:Patient Education Patient Instructions Indication:BMI 36.0-36.9,adult Start:21-Oct-2017 Instruction Type:Provider Instructions for Treatment How to access health informa tion online - Detail Indication:BMI 34.0-34.9,adult Start:30-Jun-2017 Instruction Type:Patient Education Patient Instructions Indication:BMI 34.0-34.9,adult Start:30-Jun-2017 Instruction Type:Provider Instructions for Treatment How to access health informa tion online Indication:Olecranon bursitis of left elbow Start:01-Feb-2017 Instruction Type:Patient Education How to access health informa tion online - Detail Indication:Olecranon bursitis of left elbow Start:01-Feb-2017 Instruction Type:Patient Education Patient Instructions Indication:Olecranon bursitis of left elbow Start:01-Feb-2017 Instruction Type:Provider Instructions for Treatment How to access health informa tion online Indication:Sore throat Start:01-Sep-2016 Instruction Type:Patient Education How to access health informa tion online - Detail Indication:Sore throat Start:01-Sep-2016 Instruction Type:Patient Education Patient Instructions Indication:Sore throat Start:01-Sep-2016 Instruction Type:Provider Instructions for Treatment How to access health informa tion online Indication:Anxiety Start:04-May-2016 Instruction Type:Patient Education How to access health informa tion online - Detail Indication:Anxiety Start:04-May-2016 Instruction Type:Patient Education Patient Instructions Indication:Anxiety Start:04-May-2016 Instruction Type:Provider Instructions for Treatment How to access health informa tion online Indication:Rash of perineum Start:18-Dec-2015 Instruction Type:Patient Education How to access health informa tion online - Detail Indication:Rash of perineum Start:18-Dec-2015 Instruction Type:Patient Education Patient Instructions Indication:Rash of perineum Start:18-Dec-2015 Instruction Type:Provider Instructions for Treatment How to access health informa tion online Indication:Hyperparathyroidism Start:21-Aug-2015 Instruction Type:Patient Education How to access health informa tion online - Detail Indication:Hyperparathyroidism Start:21-Aug-2015 Instruction Type:Patient Education Patient Instructions Indication:Hyperparathyroidism Start:21-Aug-2015 Instruction Type:Provider Instructions for Treatment How to access health informa tion online Indication:Rash Start:11-Jul-2015 Instruction Type:Patient Education How to access health informa tion online - Detail Indication:Rash Start:11-Jul-2015 Instruction Type:Patient Education Patient Instructions Indication:Rash Start:11-Jul-2015 Instruction Type:Provider Instructions for Treatment How to access health informa tion online Indication:Sinusitis, acute Start:21-Sep-2014 Instruction Type:Patient Education How to access health informa tion online - Detail Indication:Sinusitis, acute Start:21-Sep-2014 Instruction Type:Patient Education Patient Instructions Indication:Sinusitis, acute Start:21-Sep-2014 Instruction Type:Provider Instructions for Treatment How to access health informa tion online Indication:NONABSORPTION, INTESTINAL POSTSURGICAL Start:18-Jul-2014 Instruction Type:Patient Education How to access health informa tion online - Detail Indication:NONABSORPTION, INTESTINAL POSTSURGICAL Start:18-Jul-2014 Instruction Type:Patient Education Patient Instructions Indication:NONABSORPTION, INTESTINAL POSTSURGICAL Start:18-Jul-2014 Instruction Type:Provider Instructions for Treatment Patient Instructions Indication:Vitamin D deficiency Start:18-Jul-2014 Instruction Type:Provider Instructions for Treatment How to access health informa tion online Indication:NONABSORPTION, INTESTINAL POSTSURGICAL Start:27-Jun-2014 Instruction Type:Patient Education How to access health informa tion online - Detail Indication:NONABSORPTION, INTESTINAL POSTSURGICAL Start:27-Jun-2014 Instruction Type:Patient Education Patient Instructions Indication:NONABSORPTION, INTESTINAL POSTSURGICAL Start:27-Jun-2014 Instruction Type:Provider Instructions for Treatment Patient Instructions Indication:Dysuria Start:10-May-2013 Instruction Type:Provider Instructions for Treatment Name Dates Details How to access health informa tion online Indication:Non-smoker Start:20-Apr-2019 Instruction Type:Patient Education How to access health informa tion online - Detail Indication:Non-smoker Start:20-Apr-2019 Instruction Type:Patient Education Patient Instructions Indication:Non-smoker Start:20-Apr-2019 Instruction Type:Provider Instructions for Treatment How to access health informa tion online Indication:Non-smoker Start:05-Jan-2018 Instruction Type:Patient Education How to access health informa tion online - Detail Indication:Non-smoker Start:05-Jan-2018 Instruction Type:Patient Education Patient Instructions Indication:Non-smoker Start:05-Jan-2018 Instruction Type:Provider Instructions for Treatment Patient Instructions Indication:Leg pain, bilateral Start:28-Oct-2017 Instruction Type:Provider Instructions for Treatment How to access health informa tion online Indication:BMI 36.0-36.9,adult Start:28-Oct-2017 Instruction Type:Patient Education How to access health informa tion online - Detail Indication:BMI 36.0-36.9,adult Start:28-Oct-2017 Instruction Type:Patient Education How to access health informa tion online Indication:BMI 36.0-36.9,adult Start:21-Oct-2017 Instruction Type:Patient Education How to access health informa tion online - Detail Indication:BMI 36.0-36.9,adult Start:21-Oct-2017 Instruction Type:Patient Education Patient Instructions Indication:BMI 36.0-36.9,adult Start:21-Oct-2017 Instruction Type:Provider Instructions for Treatment How to access health informa tion online - Detail Indication:BMI 34.0-34.9,adult Start:30-Jun-2017 Instruction Type:Patient Education Patient Instructions Indication:BMI 34.0-34.9,adult Start:30-Jun-2017 Instruction Type:Provider Instructions for Treatment How to access health informa tion online Indication:Olecranon bursitis of left elbow Start:01-Feb-2017 Instruction Type:Patient Education How to access health informa tion online - Detail Indication:Olecranon bursitis of left elbow Start:01-Feb-2017 Instruction Type:Patient Education Patient Instructions Indication:Olecranon bursitis of left elbow Start:01-Feb-2017 Instruction Type:Provider Instructions for Treatment How to access health informa tion online Indication:Sore throat Start:01-Sep-2016 Instruction Type:Patient Education How to access health informa tion online - Detail Indication:Sore throat Start:01-Sep-2016 Instruction Type:Patient Education Patient Instructions Indication:Sore throat Start:01-Sep-2016 Instruction Type:Provider Instructions for Treatment How to access health informa tion online Indication:Anxiety Start:04-May-2016 Instruction Type:Patient Education How to access health informa tion online - Detail Indication:Anxiety Start:04-May-2016 Instruction Type:Patient Education Patient Instructions Indication:Anxiety Start:04-May-2016 Instruction Type:Provider Instructions for Treatment How to access health informa tion online Indication:Rash of perineum Start:18-Dec-2015 Instruction Type:Patient Education How to access health informa tion online - Detail Indication:Rash of perineum Start:18-Dec-2015 Instruction Type:Patient Education Patient Instructions Indication:Rash of perineum Start:18-Dec-2015 Instruction Type:Provider Instructions for Treatment How to access health informa tion online Indication:Hyperparathyroidism Start:21-Aug-2015 Instruction Type:Patient Education How to access health informa tion online - Detail Indication:Hyperparathyroidism Start:21-Aug-2015 Instruction Type:Patient Education Patient Instructions Indication:Hyperparathyroidism Start:21-Aug-2015 Instruction Type:Provider Instructions for Treatment How to access health informa tion online Indication:Rash Start:11-Jul-2015 Instruction Type:Patient Education How to access health informa tion online - Detail Indication:Rash Start:11-Jul-2015 Instruction Type:Patient Education Patient Instructions Indication:Rash Start:11-Jul-2015 Instruction Type:Provider Instructions for Treatment How to access health informa tion online Indication:Sinusitis, acute Start:21-Sep-2014 Instruction Type:Patient Education How to access health informa tion online - Detail Indication:Sinusitis, acute Start:21-Sep-2014 Instruction Type:Patient Education Patient Instructions Indication:Sinusitis, acute Start:21-Sep-2014 Instruction Type:Provider Instructions for Treatment How to access health informa tion online Indication:NONABSORPTION, INTESTINAL POSTSURGICAL Start:18-Jul-2014 Instruction Type:Patient Education How to access health informa tion online - Detail Indication:NONABSORPTION, INTESTINAL POSTSURGICAL Start:18-Jul-2014 Instruction Type:Patient Education Patient Instructions Indication:NONABSORPTION, INTESTINAL POSTSURGICAL Start:18-Jul-2014 Instruction Type:Provider Instructions for Treatment Patient Instructions Indication:Vitamin D deficiency Start:18-Jul-2014 Instruction Type:Provider Instructions for Treatment How to access health informa tion online Indication:NONABSORPTION, INTESTINAL POSTSURGICAL Start:27-Jun-2014 Instruction Type:Patient Education How to access health informa tion online - Detail Indication:NONABSORPTION, INTESTINAL POSTSURGICAL Start:27-Jun-2014 Instruction Type:Patient Education Patient Instructions Indication:NONABSORPTION, INTESTINAL POSTSURGICAL Start:27-Jun-2014 Instruction Type:Provider Instructions for Treatment Patient Instructions Indication:Dysuria Start:10-May-2013 Instruction Type:Provider Instructions for Treatment Name Dates Details How to access health informa tion online Indication:Non-smoker Start:20-Apr-2019 Instruction Type:Patient Education How to access health informa tion online - Detail Indication:Non-smoker Start:20-Apr-2019 Instruction Type:Patient Education Patient Instructions Indication:Non-smoker Start:20-Apr-2019 Instruction Type:Provider Instructions for Treatment How to access health informa tion online Indication:Non-smoker Start:05-Jan-2018 Instruction Type:Patient Education How to access health informa tion online - Detail Indication:Non-smoker Start:05-Jan-2018 Instruction Type:Patient Education Patient Instructions Indication:Non-smoker Start:05-Jan-2018 Instruction Type:Provider Instructions for Treatment Patient Instructions Indication:Leg pain, bilateral Start:28-Oct-2017 Instruction Type:Provider Instructions for Treatment How to access health informa tion online Indication:BMI 36.0-36.9,adult Start:28-Oct-2017 Instruction Type:Patient Education How to access health informa tion online - Detail Indication:BMI 36.0-36.9,adult Start:28-Oct-2017 Instruction Type:Patient Education How to access health informa tion online Indication:BMI 36.0-36.9,adult Start:21-Oct-2017 Instruction Type:Patient Education How to access health informa tion online - Detail Indication:BMI 36.0-36.9,adult Start:21-Oct-2017 Instruction Type:Patient Education Patient Instructions Indication:BMI 36.0-36.9,adult Start:21-Oct-2017 Instruction Type:Provider Instructions for Treatment How to access health informa tion online - Detail Indication:BMI 34.0-34.9,adult Start:30-Jun-2017 Instruction Type:Patient Education Patient Instructions Indication:BMI 34.0-34.9,adult Start:30-Jun-2017 Instruction Type:Provider Instructions for Treatment How to access health informa tion online Indication:Olecranon bursitis of left elbow Start:01-Feb-2017 Instruction Type:Patient Education How to access health informa tion online - Detail Indication:Olecranon bursitis of left elbow Start:01-Feb-2017 Instruction Type:Patient Education Patient Instructions Indication:Olecranon bursitis of left elbow Start:01-Feb-2017 Instruction Type:Provider Instructions for Treatment How to access health informa tion online Indication:Sore throat Start:01-Sep-2016 Instruction Type:Patient Education How to access health informa tion online - Detail Indication:Sore throat Start:01-Sep-2016 Instruction Type:Patient Education Patient Instructions Indication:Sore throat Start:01-Sep-2016 Instruction Type:Provider Instructions for Treatment How to access health informa tion online Indication:Anxiety Start:04-May-2016 Instruction Type:Patient Education How to access health informa tion online - Detail Indication:Anxiety Start:04-May-2016 Instruction Type:Patient Education Patient Instructions Indication:Anxiety Start:04-May-2016 Instruction Type:Provider Instructions for Treatment How to access health informa tion online Indication:Rash of perineum Start:18-Dec-2015 Instruction Type:Patient Education How to access health informa tion online - Detail Indication:Rash of perineum Start:18-Dec-2015 Instruction Type:Patient Education Patient Instructions Indication:Rash of perineum Start:18-Dec-2015 Instruction Type:Provider Instructions for Treatment How to access health informa tion online Indication:Hyperparathyroidism Start:21-Aug-2015 Instruction Type:Patient Education How to access health informa tion online - Detail Indication:Hyperparathyroidism Start:21-Aug-2015 Instruction Type:Patient Education Patient Instructions Indication:Hyperparathyroidism Start:21-Aug-2015 Instruction Type:Provider Instructions for Treatment How to access health informa tion online Indication:Rash Start:11-Jul-2015 Instruction Type:Patient Education How to access health informa tion online - Detail Indication:Rash Start:11-Jul-2015 Instruction Type:Patient Education Patient Instructions Indication:Rash Start:11-Jul-2015 Instruction Type:Provider Instructions for Treatment How to access health informa tion online Indication:Sinusitis, acute Start:21-Sep-2014 Instruction Type:Patient Education How to access health informa tion online - Detail Indication:Sinusitis, acute Start:21-Sep-2014 Instruction Type:Patient Education Patient Instructions Indication:Sinusitis, acute Start:21-Sep-2014 Instruction Type:Provider Instructions for Treatment How to access health informa tion online Indication:NONABSORPTION, INTESTINAL POSTSURGICAL Start:18-Jul-2014 Instruction Type:Patient Education How to access health informa tion online - Detail Indication:NONABSORPTION, INTESTINAL POSTSURGICAL Start:18-Jul-2014 Instruction Type:Patient Education Patient Instructions Indication:NONABSORPTION, INTESTINAL POSTSURGICAL Start:18-Jul-2014 Instruction Type:Provider Instructions for Treatment Patient Instructions Indication:Vitamin D deficiency Start:18-Jul-2014 Instruction Type:Provider Instructions for Treatment How to access health informa tion online Indication:NONABSORPTION, INTESTINAL POSTSURGICAL Start:27-Jun-2014 Instruction Type:Patient Education How to access health informa tion online - Detail Indication:NONABSORPTION, INTESTINAL POSTSURGICAL Start:27-Jun-2014 Instruction Type:Patient Education Patient Instructions Indication:NONABSORPTION, INTESTINAL POSTSURGICAL Start:27-Jun-2014 Instruction Type:Provider Instructions for Treatment Patient Instructions Indication:Dysuria Start:10-May-2013 Instruction Type:Provider Instructions for Treatment Name Dates Details How to access health informa tion online Indication:Non-smoker Start:20-Apr-2019 Instruction Type:Patient Education How to access health informa tion online - Detail Indication:Non-smoker Start:20-Apr-2019 Instruction Type:Patient Education Patient Instructions Indication:Non-smoker Start:20-Apr-2019 Instruction Type:Provider Instructions for Treatment How to access health informa tion online Indication:Non-smoker Start:05-Jan-2018 Instruction Type:Patient Education How to access health informa tion online - Detail Indication:Non-smoker Start:05-Jan-2018 Instruction Type:Patient Education Patient Instructions Indication:Non-smoker Start:05-Jan-2018 Instruction Type:Provider Instructions for Treatment Patient Instructions Indication:Leg pain, bilateral Start:28-Oct-2017 Instruction Type:Provider Instructions for Treatment How to access health informa tion online Indication:BMI 36.0-36.9,adult Start:28-Oct-2017 Instruction Type:Patient Education How to access health informa tion online - Detail Indication:BMI 36.0-36.9,adult Start:28-Oct-2017 Instruction Type:Patient Education How to access health informa tion online Indication:BMI 36.0-36.9,adult Start:21-Oct-2017 Instruction Type:Patient Education How to access health informa tion online - Detail Indication:BMI 36.0-36.9,adult Start:21-Oct-2017 Instruction Type:Patient Education Patient Instructions Indication:BMI 36.0-36.9,adult Start:21-Oct-2017 Instruction Type:Provider Instructions for Treatment How to access health informa tion online - Detail Indication:BMI 34.0-34.9,adult Start:30-Jun-2017 Instruction Type:Patient Education Patient Instructions Indication:BMI 34.0-34.9,adult Start:30-Jun-2017 Instruction Type:Provider Instructions for Treatment How to access health informa tion online Indication:Olecranon bursitis of left elbow Start:01-Feb-2017 Instruction Type:Patient Education How to access health informa tion online - Detail Indication:Olecranon bursitis of left elbow Start:01-Feb-2017 Instruction Type:Patient Education Patient Instructions Indication:Olecranon bursitis of left elbow Start:01-Feb-2017 Instruction Type:Provider Instructions for Treatment How to access health informa tion online Indication:Sore throat Start:01-Sep-2016 Instruction Type:Patient Education How to access health informa tion online - Detail Indication:Sore throat Start:01-Sep-2016 Instruction Type:Patient Education Patient Instructions Indication:Sore throat Start:01-Sep-2016 Instruction Type:Provider Instructions for Treatment How to access health informa tion online Indication:Anxiety Start:04-May-2016 Instruction Type:Patient Education How to access health informa tion online - Detail Indication:Anxiety Start:04-May-2016 Instruction Type:Patient Education Patient Instructions Indication:Anxiety Start:04-May-2016 Instruction Type:Provider Instructions for Treatment How to access health informa tion online Indication:Rash of perineum Start:18-Dec-2015 Instruction Type:Patient Education How to access health informa tion online - Detail Indication:Rash of perineum Start:18-Dec-2015 Instruction Type:Patient Education Patient Instructions Indication:Rash of perineum Start:18-Dec-2015 Instruction Type:Provider Instructions for Treatment How to access health informa tion online Indication:Hyperparathyroidism Start:21-Aug-2015 Instruction Type:Patient Education How to access health informa tion online - Detail Indication:Hyperparathyroidism Start:21-Aug-2015 Instruction Type:Patient Education Patient Instructions Indication:Hyperparathyroidism Start:21-Aug-2015 Instruction Type:Provider Instructions for Treatment How to access health informa tion online Indication:Rash Start:11-Jul-2015 Instruction Type:Patient Education How to access health informa tion online - Detail Indication:Rash Start:11-Jul-2015 Instruction Type:Patient Education Patient Instructions Indication:Rash Start:11-Jul-2015 Instruction Type:Provider Instructions for Treatment How to access health informa tion online Indication:Sinusitis, acute Start:21-Sep-2014 Instruction Type:Patient Education How to access health informa tion online - Detail Indication:Sinusitis, acute Start:21-Sep-2014 Instruction Type:Patient Education Patient Instructions Indication:Sinusitis, acute Start:21-Sep-2014 Instruction Type:Provider Instructions for Treatment How to access health informa tion online Indication:NONABSORPTION, INTESTINAL POSTSURGICAL Start:18-Jul-2014 Instruction Type:Patient Education How to access health informa tion online - Detail Indication:NONABSORPTION, INTESTINAL POSTSURGICAL Start:18-Jul-2014 Instruction Type:Patient Education Patient Instructions Indication:NONABSORPTION, INTESTINAL POSTSURGICAL Start:18-Jul-2014 Instruction Type:Provider Instructions for Treatment Patient Instructions Indication:Vitamin D deficiency Start:18-Jul-2014 Instruction Type:Provider Instructions for Treatment How to access health informa tion online Indication:NONABSORPTION, INTESTINAL POSTSURGICAL Start:27-Jun-2014 Instruction Type:Patient Education How to access health informa tion online - Detail Indication:NONABSORPTION, INTESTINAL POSTSURGICAL Start:27-Jun-2014 Instruction Type:Patient Education Patient Instructions Indication:NONABSORPTION, INTESTINAL POSTSURGICAL Start:27-Jun-2014 Instruction Type:Provider Instructions for Treatment Patient Instructions Indication:Dysuria Start:10-May-2013 Instruction Type:Provider Instructions for Treatment Name Dates Details How to access health informa tion online Indication:Non-smoker Start:28-Jun-2020 Instruction Type:Patient Education How to access health informa tion online - Detail Indication:Non-smoker Start:28-Jun-2020 Instruction Type:Patient Education Patient Instructions Indication:Non-smoker Start:28-Jun-2020 Instruction Type:Provider Instructions for Treatment How to access health informa tion online Indication:Non-smoker Start:20-Apr-2019 Instruction Type:Patient Education How to access health informa tion online - Detail Indication:Non-smoker Start:20-Apr-2019 Instruction Type:Patient Education Patient Instructions Indication:Non-smoker Start:20-Apr-2019 Instruction Type:Provider Instructions for Treatment How to access health informa tion online Indication:Non-smoker Start:05-Jan-2018 Instruction Type:Patient Education How to access health informa tion online - Detail Indication:Non-smoker Start:05-Jan-2018 Instruction Type:Patient Education Patient Instructions Indication:Non-smoker Start:05-Jan-2018 Instruction Type:Provider Instructions for Treatment Patient Instructions Indication:Leg pain, bilateral Start:28-Oct-2017 Instruction Type:Provider Instructions for Treatment How to access health informa tion online Indication:BMI 36.0-36.9,adult Start:28-Oct-2017 Instruction Type:Patient Education How to access health informa tion online - Detail Indication:BMI 36.0-36.9,adult Start:28-Oct-2017 Instruction Type:Patient Education How to access health informa tion online Indication:BMI 36.0-36.9,adult Start:21-Oct-2017 Instruction Type:Patient Education How to access health informa tion online - Detail Indication:BMI 36.0-36.9,adult Start:21-Oct-2017 Instruction Type:Patient Education Patient Instructions Indication:BMI 36.0-36.9,adult Start:21-Oct-2017 Instruction Type:Provider Instructions for Treatment How to access health informa tion online - Detail Indication:BMI 34.0-34.9,adult Start:30-Jun-2017 Instruction Type:Patient Education Patient Instructions Indication:BMI 34.0-34.9,adult Start:30-Jun-2017 Instruction Type:Provider Instructions for Treatment How to access health informa tion online Indication:Olecranon bursitis of left elbow Start:01-Feb-2017 Instruction Type:Patient Education How to access health informa tion online - Detail Indication:Olecranon bursitis of left elbow Start:01-Feb-2017 Instruction Type:Patient Education Patient Instructions Indication:Olecranon bursitis of left elbow Start:01-Feb-2017 Instruction Type:Provider Instructions for Treatment How to access health informa tion online Indication:Sore throat Start:01-Sep-2016 Instruction Type:Patient Education How to access health informa tion online - Detail Indication:Sore throat Start:01-Sep-2016 Instruction Type:Patient Education Patient Instructions Indication:Sore throat Start:01-Sep-2016 Instruction Type:Provider Instructions for Treatment How to access health informa tion online Indication:Anxiety Start:04-May-2016 Instruction Type:Patient Education How to access health informa tion online - Detail Indication:Anxiety Start:04-May-2016 Instruction Type:Patient Education Patient Instructions Indication:Anxiety Start:04-May-2016 Instruction Type:Provider Instructions for Treatment How to access health informa tion online Indication:Rash of perineum Start:18-Dec-2015 Instruction Type:Patient Education How to access health informa tion online - Detail Indication:Rash of perineum Start:18-Dec-2015 Instruction Type:Patient Education Patient Instructions Indication:Rash of perineum Start:18-Dec-2015 Instruction Type:Provider Instructions for Treatment How to access health informa tion online Indication:Hyperparathyroidism Start:21-Aug-2015 Instruction Type:Patient Education How to access health informa tion online - Detail Indication:Hyperparathyroidism Start:21-Aug-2015 Instruction Type:Patient Education Patient Instructions Indication:Hyperparathyroidism Start:21-Aug-2015 Instruction Type:Provider Instructions for Treatment How to access health informa tion online Indication:Rash Start:11-Jul-2015 Instruction Type:Patient Education How to access health informa tion online - Detail Indication:Rash Start:11-Jul-2015 Instruction Type:Patient Education Patient Instructions Indication:Rash Start:11-Jul-2015 Instruction Type:Provider Instructions for Treatment How to access health informa tion online Indication:Sinusitis, acute Start:21-Sep-2014 Instruction Type:Patient Education How to access health informa tion online - Detail Indication:Sinusitis, acute Start:21-Sep-2014 Instruction Type:Patient Education Patient Instructions Indication:Sinusitis, acute Start:21-Sep-2014 Instruction Type:Provider Instructions for Treatment How to access health informa tion online Indication:NONABSORPTION, INTESTINAL POSTSURGICAL Start:18-Jul-2014 Instruction Type:Patient Education How to access health informa tion online - Detail Indication:NONABSORPTION, INTESTINAL POSTSURGICAL Start:18-Jul-2014 Instruction Type:Patient Education Patient Instructions Indication:NONABSORPTION, INTESTINAL POSTSURGICAL Start:18-Jul-2014 Instruction Type:Provider Instructions for Treatment Patient Instructions Indication:Vitamin D deficiency Start:18-Jul-2014 Instruction Type:Provider Instructions for Treatment How to access health informa tion online Indication:NONABSORPTION, INTESTINAL POSTSURGICAL Start:27-Jun-2014 Instruction Type:Patient Education How to access health informa tion online - Detail Indication:NONABSORPTION, INTESTINAL POSTSURGICAL Start:27-Jun-2014 Instruction Type:Patient Education Patient Instructions Indication:NONABSORPTION, INTESTINAL POSTSURGICAL Start:27-Jun-2014 Instruction Type:Provider Instructions for Treatment Patient Instructions Indication:Dysuria Start:10-May-2013 Instruction Type:Provider Instructions for Treatment Name Dates Details How to access health informa tion online Indication:Non-smoker Start:28-Jun-2020 Instruction Type:Patient Education How to access health informa tion online - Detail Indication:Non-smoker Start:28-Jun-2020 Instruction Type:Patient Education Patient Instructions Indication:Non-smoker Start:28-Jun-2020 Instruction Type:Provider Instructions for Treatment How to access health informa tion online Indication:Non-smoker Start:20-Apr-2019 Instruction Type:Patient Education How to access health informa tion online - Detail Indication:Non-smoker Start:20-Apr-2019 Instruction Type:Patient Education Patient Instructions Indication:Non-smoker Start:20-Apr-2019 Instruction Type:Provider Instructions for Treatment How to access health informa tion online Indication:Non-smoker Start:05-Jan-2018 Instruction Type:Patient Education How to access health informa tion online - Detail Indication:Non-smoker Start:05-Jan-2018 Instruction Type:Patient Education Patient Instructions Indication:Non-smoker Start:05-Jan-2018 Instruction Type:Provider Instructions for Treatment Patient Instructions Indication:Leg pain, bilateral Start:28-Oct-2017 Instruction Type:Provider Instructions for Treatment How to access health informa tion online Indication:BMI 36.0-36.9,adult Start:28-Oct-2017 Instruction Type:Patient Education How to access health informa tion online - Detail Indication:BMI 36.0-36.9,adult Start:28-Oct-2017 Instruction Type:Patient Education How to access health informa tion online Indication:BMI 36.0-36.9,adult Start:21-Oct-2017 Instruction Type:Patient Education How to access health informa tion online - Detail Indication:BMI 36.0-36.9,adult Start:21-Oct-2017 Instruction Type:Patient Education Patient Instructions Indication:BMI 36.0-36.9,adult Start:21-Oct-2017 Instruction Type:Provider Instructions for Treatment How to access health informa tion online - Detail Indication:BMI 34.0-34.9,adult Start:30-Jun-2017 Instruction Type:Patient Education Patient Instructions Indication:BMI 34.0-34.9,adult Start:30-Jun-2017 Instruction Type:Provider Instructions for Treatment How to access health informa tion online Indication:Olecranon bursitis of left elbow Start:01-Feb-2017 Instruction Type:Patient Education How to access health informa tion online - Detail Indication:Olecranon bursitis of left elbow Start:01-Feb-2017 Instruction Type:Patient Education Patient Instructions Indication:Olecranon bursitis of left elbow Start:01-Feb-2017 Instruction Type:Provider Instructions for Treatment How to access health informa tion online Indication:Sore throat Start:01-Sep-2016 Instruction Type:Patient Education How to access health informa tion online - Detail Indication:Sore throat Start:01-Sep-2016 Instruction Type:Patient Education Patient Instructions Indication:Sore throat Start:01-Sep-2016 Instruction Type:Provider Instructions for Treatment How to access health informa tion online Indication:Anxiety Start:04-May-2016 Instruction Type:Patient Education How to access health informa tion online - Detail Indication:Anxiety Start:04-May-2016 Instruction Type:Patient Education Patient Instructions Indication:Anxiety Start:04-May-2016 Instruction Type:Provider Instructions for Treatment How to access health informa tion online Indication:Rash of perineum Start:18-Dec-2015 Instruction Type:Patient Education How to access health informa tion online - Detail Indication:Rash of perineum Start:18-Dec-2015 Instruction Type:Patient Education Patient Instructions Indication:Rash of perineum Start:18-Dec-2015 Instruction Type:Provider Instructions for Treatment How to access health informa tion online Indication:Hyperparathyroidism Start:21-Aug-2015 Instruction Type:Patient Education How to access health informa tion online - Detail Indication:Hyperparathyroidism Start:21-Aug-2015 Instruction Type:Patient Education Patient Instructions Indication:Hyperparathyroidism Start:21-Aug-2015 Instruction Type:Provider Instructions for Treatment How to access health informa tion online Indication:Rash Start:11-Jul-2015 Instruction Type:Patient Education How to access health informa tion online - Detail Indication:Rash Start:11-Jul-2015 Instruction Type:Patient Education Patient Instructions Indication:Rash Start:11-Jul-2015 Instruction Type:Provider Instructions for Treatment How to access health informa tion online Indication:Sinusitis, acute Start:21-Sep-2014 Instruction Type:Patient Education How to access health informa tion online - Detail Indication:Sinusitis, acute Start:21-Sep-2014 Instruction Type:Patient Education Patient Instructions Indication:Sinusitis, acute Start:21-Sep-2014 Instruction Type:Provider Instructions for Treatment How to access health informa tion online Indication:NONABSORPTION, INTESTINAL POSTSURGICAL Start:18-Jul-2014 Instruction Type:Patient Education How to access health informa tion online - Detail Indication:NONABSORPTION, INTESTINAL POSTSURGICAL Start:18-Jul-2014 Instruction Type:Patient Education Patient Instructions Indication:NONABSORPTION, INTESTINAL POSTSURGICAL Start:18-Jul-2014 Instruction Type:Provider Instructions for Treatment Patient Instructions Indication:Vitamin D deficiency Start:18-Jul-2014 Instruction Type:Provider Instructions for Treatment How to access health informa tion online Indication:NONABSORPTION, INTESTINAL POSTSURGICAL Start:27-Jun-2014 Instruction Type:Patient Education How to access health informa tion online - Detail Indication:NONABSORPTION, INTESTINAL POSTSURGICAL Start:27-Jun-2014 Instruction Type:Patient Education Patient Instructions Indication:NONABSORPTION, INTESTINAL POSTSURGICAL Start:27-Jun-2014 Instruction Type:Provider Instructions for Treatment Patient Instructions Indication:Dysuria Start:10-May-2013 Instruction Type:Provider Instructions for Treatment Name Dates Details How to access health informa tion online Indication:BMI 40.0-44.9, adult Start:26-Jul-2020 Instruction Type:Patient Education How to access health informa tion online - Detail Indication:BMI 40.0-44.9, adult Start:26-Jul-2020 Instruction Type:Patient Education Patient Instructions Indication:BMI 40.0-44.9, adult Start:26-Jul-2020 Instruction Type:Provider Instructions for Treatment How to access health informa tion online Indication:Non-smoker Start:28-Jun-2020 Instruction Type:Patient Education How to access health informa tion online - Detail Indication:Non-smoker Start:28-Jun-2020 Instruction Type:Patient Education Patient Instructions Indication:Non-smoker Start:28-Jun-2020 Instruction Type:Provider Instructions for Treatment How to access health informa tion online Indication:Non-smoker Start:20-Apr-2019 Instruction Type:Patient Education How to access health informa tion online - Detail Indication:Non-smoker Start:20-Apr-2019 Instruction Type:Patient Education Patient Instructions Indication:Non-smoker Start:20-Apr-2019 Instruction Type:Provider Instructions for Treatment How to access health informa tion online Indication:Non-smoker Start:05-Jan-2018 Instruction Type:Patient Education How to access health informa tion online - Detail Indication:Non-smoker Start:05-Jan-2018 Instruction Type:Patient Education Patient Instructions Indication:Non-smoker Start:05-Jan-2018 Instruction Type:Provider Instructions for Treatment Patient Instructions Indication:Leg pain, bilateral Start:28-Oct-2017 Instruction Type:Provider Instructions for Treatment How to access health informa tion online Indication:BMI 36.0-36.9,adult Start:28-Oct-2017 Instruction Type:Patient Education How to access health informa tion online - Detail Indication:BMI 36.0-36.9,adult Start:28-Oct-2017 Instruction Type:Patient Education How to access health informa tion online Indication:BMI 36.0-36.9,adult Start:21-Oct-2017 Instruction Type:Patient Education How to access health informa tion online - Detail Indication:BMI 36.0-36.9,adult Start:21-Oct-2017 Instruction Type:Patient Education Patient Instructions Indication:BMI 36.0-36.9,adult Start:21-Oct-2017 Instruction Type:Provider Instructions for Treatment How to access health informa tion online - Detail Indication:BMI 34.0-34.9,adult Start:30-Jun-2017 Instruction Type:Patient Education Patient Instructions Indication:BMI 34.0-34.9,adult Start:30-Jun-2017 Instruction Type:Provider Instructions for Treatment How to access health informa tion online Indication:Olecranon bursitis of left elbow Start:01-Feb-2017 Instruction Type:Patient Education How to access health informa tion online - Detail Indication:Olecranon bursitis of left elbow Start:01-Feb-2017 Instruction Type:Patient Education Patient Instructions Indication:Olecranon bursitis of left elbow Start:01-Feb-2017 Instruction Type:Provider Instructions for Treatment How to access health informa tion online Indication:Sore throat Start:01-Sep-2016 Instruction Type:Patient Education How to access health informa tion online - Detail Indication:Sore throat Start:01-Sep-2016 Instruction Type:Patient Education Patient Instructions Indication:Sore throat Start:01-Sep-2016 Instruction Type:Provider Instructions for Treatment How to access health informa tion online Indication:Anxiety Start:04-May-2016 Instruction Type:Patient Education How to access health informa tion online - Detail Indication:Anxiety Start:04-May-2016 Instruction Type:Patient Education Patient Instructions Indication:Anxiety Start:04-May-2016 Instruction Type:Provider Instructions for Treatment How to access health informa tion online Indication:Rash of perineum Start:18-Dec-2015 Instruction Type:Patient Education How to access health informa tion online - Detail Indication:Rash of perineum Start:18-Dec-2015 Instruction Type:Patient Education Patient Instructions Indication:Rash of perineum Start:18-Dec-2015 Instruction Type:Provider Instructions for Treatment How to access health informa tion online Indication:Hyperparathyroidism Start:21-Aug-2015 Instruction Type:Patient Education How to access health informa tion online - Detail Indication:Hyperparathyroidism Start:21-Aug-2015 Instruction Type:Patient Education Patient Instructions Indication:Hyperparathyroidism Start:21-Aug-2015 Instruction Type:Provider Instructions for Treatment How to access health informa tion online Indication:Rash Start:11-Jul-2015 Instruction Type:Patient Education How to access health informa tion online - Detail Indication:Rash Start:11-Jul-2015 Instruction Type:Patient Education Patient Instructions Indication:Rash Start:11-Jul-2015 Instruction Type:Provider Instructions for Treatment How to access health informa tion online Indication:Sinusitis, acute Start:21-Sep-2014 Instruction Type:Patient Education How to access health informa tion online - Detail Indication:Sinusitis, acute Start:21-Sep-2014 Instruction Type:Patient Education Patient Instructions Indication:Sinusitis, acute Start:21-Sep-2014 Instruction Type:Provider Instructions for Treatment How to access health informa tion online Indication:NONABSORPTION, INTESTINAL POSTSURGICAL Start:18-Jul-2014 Instruction Type:Patient Education How to access health informa tion online - Detail Indication:NONABSORPTION, INTESTINAL POSTSURGICAL Start:18-Jul-2014 Instruction Type:Patient Education Patient Instructions Indication:NONABSORPTION, INTESTINAL POSTSURGICAL Start:18-Jul-2014 Instruction Type:Provider Instructions for Treatment Patient Instructions Indication:Vitamin D deficiency Start:18-Jul-2014 Instruction Type:Provider Instructions for Treatment How to access health informa tion online Indication:NONABSORPTION, INTESTINAL POSTSURGICAL Start:27-Jun-2014 Instruction Type:Patient Education How to access health informa tion online - Detail Indication:NONABSORPTION, INTESTINAL POSTSURGICAL Start:27-Jun-2014 Instruction Type:Patient Education Patient Instructions Indication:NONABSORPTION, INTESTINAL POSTSURGICAL Start:27-Jun-2014 Instruction Type:Provider Instructions for Treatment Patient Instructions Indication:Dysuria Start:10-May-2013 Instruction Type:Provider Instructions for Treatment Name Dates Details How to access health informa tion online Indication:BMI 40.0-44.9, adult Start:19-Sep-2020 Instruction Type:Patient Education How to access health informa tion online - Detail Indication:BMI 40.0-44.9, adult Start:19-Sep-2020 Instruction Type:Patient Education Patient Instructions Indication:BMI 40.0-44.9, adult Start:19-Sep-2020 Instruction Type:Provider Instructions for Treatment How to access health informa tion online Indication:BMI 40.0-44.9, adult Start:26-Jul-2020 Instruction Type:Patient Education How to access health informa tion online - Detail Indication:BMI 40.0-44.9, adult Start:26-Jul-2020 Instruction Type:Patient Education Patient Instructions Indication:BMI 40.0-44.9, adult Start:26-Jul-2020 Instruction Type:Provider Instructions for Treatment How to access health informa tion online Indication:Non-smoker Start:28-Jun-2020 Instruction Type:Patient Education How to access health informa tion online - Detail Indication:Non-smoker Start:28-Jun-2020 Instruction Type:Patient Education Patient Instructions Indication:Non-smoker Start:28-Jun-2020 Instruction Type:Provider Instructions for Treatment How to access health informa tion online Indication:Non-smoker Start:20-Apr-2019 Instruction Type:Patient Education How to access health informa tion online - Detail Indication:Non-smoker Start:20-Apr-2019 Instruction Type:Patient Education Patient Instructions Indication:Non-smoker Start:20-Apr-2019 Instruction Type:Provider Instructions for Treatment How to access health informa tion online Indication:Non-smoker Start:05-Jan-2018 Instruction Type:Patient Education How to access health informa tion online - Detail Indication:Non-smoker Start:05-Jan-2018 Instruction Type:Patient Education Patient Instructions Indication:Non-smoker Start:05-Jan-2018 Instruction Type:Provider Instructions for Treatment Patient Instructions Indication:Leg pain, bilateral Start:28-Oct-2017 Instruction Type:Provider Instructions for Treatment How to access health informa tion online Indication:BMI 36.0-36.9,adult Start:28-Oct-2017 Instruction Type:Patient Education How to access health informa tion online - Detail Indication:BMI 36.0-36.9,adult Start:28-Oct-2017 Instruction Type:Patient Education How to access health informa tion online Indication:BMI 36.0-36.9,adult Start:21-Oct-2017 Instruction Type:Patient Education How to access health informa tion online - Detail Indication:BMI 36.0-36.9,adult Start:21-Oct-2017 Instruction Type:Patient Education Patient Instructions Indication:BMI 36.0-36.9,adult Start:21-Oct-2017 Instruction Type:Provider Instructions for Treatment How to access health informa tion online - Detail Indication:BMI 34.0-34.9,adult Start:30-Jun-2017 Instruction Type:Patient Education Patient Instructions Indication:BMI 34.0-34.9,adult Start:30-Jun-2017 Instruction Type:Provider Instructions for Treatment How to access health informa tion online Indication:Olecranon bursitis of left elbow Start:01-Feb-2017 Instruction Type:Patient Education How to access health informa tion online - Detail Indication:Olecranon bursitis of left elbow Start:01-Feb-2017 Instruction Type:Patient Education Patient Instructions Indication:Olecranon bursitis of left elbow Start:01-Feb-2017 Instruction Type:Provider Instructions for Treatment How to access health informa tion online Indication:Sore throat Start:01-Sep-2016 Instruction Type:Patient Education How to access health informa tion online - Detail Indication:Sore throat Start:01-Sep-2016 Instruction Type:Patient Education Patient Instructions Indication:Sore throat Start:01-Sep-2016 Instruction Type:Provider Instructions for Treatment How to access health informa tion online Indication:Anxiety Start:04-May-2016 Instruction Type:Patient Education How to access health informa tion online - Detail Indication:Anxiety Start:04-May-2016 Instruction Type:Patient Education Patient Instructions Indication:Anxiety Start:04-May-2016 Instruction Type:Provider Instructions for Treatment How to access health informa tion online Indication:Rash of perineum Start:18-Dec-2015 Instruction Type:Patient Education How to access health informa tion online - Detail Indication:Rash of perineum Start:18-Dec-2015 Instruction Type:Patient Education Patient Instructions Indication:Rash of perineum Start:18-Dec-2015 Instruction Type:Provider Instructions for Treatment How to access health informa tion online Indication:Hyperparathyroidism Start:21-Aug-2015 Instruction Type:Patient Education How to access health informa tion online - Detail Indication:Hyperparathyroidism Start:21-Aug-2015 Instruction Type:Patient Education Patient Instructions Indication:Hyperparathyroidism Start:21-Aug-2015 Instruction Type:Provider Instructions for Treatment How to access health informa tion online Indication:Rash Start:11-Jul-2015 Instruction Type:Patient Education How to access health informa tion online - Detail Indication:Rash Start:11-Jul-2015 Instruction Type:Patient Education Patient Instructions Indication:Rash Start:11-Jul-2015 Instruction Type:Provider Instructions for Treatment How to access health informa tion online Indication:Sinusitis, acute Start:21-Sep-2014 Instruction Type:Patient Education How to access health informa tion online - Detail Indication:Sinusitis, acute Start:21-Sep-2014 Instruction Type:Patient Education Patient Instructions Indication:Sinusitis, acute Start:21-Sep-2014 Instruction Type:Provider Instructions for Treatment How to access health informa tion online Indication:NONABSORPTION, INTESTINAL POSTSURGICAL Start:18-Jul-2014 Instruction Type:Patient Education How to access health informa tion online - Detail Indication:NONABSORPTION, INTESTINAL POSTSURGICAL Start:18-Jul-2014 Instruction Type:Patient Education Patient Instructions Indication:NONABSORPTION, INTESTINAL POSTSURGICAL Start:18-Jul-2014 Instruction Type:Provider Instructions for Treatment Patient Instructions Indication:Vitamin D deficiency Start:18-Jul-2014 Instruction Type:Provider Instructions for Treatment How to access health informa tion online Indication:NONABSORPTION, INTESTINAL POSTSURGICAL Start:27-Jun-2014 Instruction Type:Patient Education How to access health informa tion online - Detail Indication:NONABSORPTION, INTESTINAL POSTSURGICAL Start:27-Jun-2014 Instruction Type:Patient Education Patient Instructions Indication:NONABSORPTION, INTESTINAL POSTSURGICAL Start:27-Jun-2014 Instruction Type:Provider Instructions for Treatment Patient Instructions Indication:Dysuria Start:10-May-2013 Instruction Type:Provider Instructions for Treatment Name Dates Details How to access health informa tion online Indication:BMI 40.0-44.9, adult Start:19-Sep-2020 Instruction Type:Patient Education How to access health informa tion online - Detail Indication:BMI 40.0-44.9, adult Start:19-Sep-2020 Instruction Type:Patient Education Patient Instructions Indication:BMI 40.0-44.9, adult Start:19-Sep-2020 Instruction Type:Provider Instructions for Treatment How to access health informa tion online Indication:BMI 40.0-44.9, adult Start:26-Jul-2020 Instruction Type:Patient Education How to access health informa tion online - Detail Indication:BMI 40.0-44.9, adult Start:26-Jul-2020 Instruction Type:Patient Education Patient Instructions Indication:BMI 40.0-44.9, adult Start:26-Jul-2020 Instruction Type:Provider Instructions for Treatment How to access health informa tion online Indication:Non-smoker Start:28-Jun-2020 Instruction Type:Patient Education How to access health informa tion online - Detail Indication:Non-smoker Start:28-Jun-2020 Instruction Type:Patient Education Patient Instructions Indication:Non-smoker Start:28-Jun-2020 Instruction Type:Provider Instructions for Treatment How to access health informa tion online Indication:Non-smoker Start:20-Apr-2019 Instruction Type:Patient Education How to access health informa tion online - Detail Indication:Non-smoker Start:20-Apr-2019 Instruction Type:Patient Education Patient Instructions Indication:Non-smoker Start:20-Apr-2019 Instruction Type:Provider Instructions for Treatment How to access health informa tion online Indication:Non-smoker Start:05-Jan-2018 Instruction Type:Patient Education How to access health informa tion online - Detail Indication:Non-smoker Start:05-Jan-2018 Instruction Type:Patient Education Patient Instructions Indication:Non-smoker Start:05-Jan-2018 Instruction Type:Provider Instructions for Treatment Patient Instructions Indication:Leg pain, bilateral Start:28-Oct-2017 Instruction Type:Provider Instructions for Treatment How to access health informa tion online Indication:BMI 36.0-36.9,adult Start:28-Oct-2017 Instruction Type:Patient Education How to access health informa tion online - Detail Indication:BMI 36.0-36.9,adult Start:28-Oct-2017 Instruction Type:Patient Education How to access health informa tion online Indication:BMI 36.0-36.9,adult Start:21-Oct-2017 Instruction Type:Patient Education How to access health informa tion online - Detail Indication:BMI 36.0-36.9,adult Start:21-Oct-2017 Instruction Type:Patient Education Patient Instructions Indication:BMI 36.0-36.9,adult Start:21-Oct-2017 Instruction Type:Provider Instructions for Treatment How to access health informa tion online - Detail Indication:BMI 34.0-34.9,adult Start:30-Jun-2017 Instruction Type:Patient Education Patient Instructions Indication:BMI 34.0-34.9,adult Start:30-Jun-2017 Instruction Type:Provider Instructions for Treatment How to access health informa tion online Indication:Olecranon bursitis of left elbow Start:01-Feb-2017 Instruction Type:Patient Education How to access health informa tion online - Detail Indication:Olecranon bursitis of left elbow Start:01-Feb-2017 Instruction Type:Patient Education Patient Instructions Indication:Olecranon bursitis of left elbow Start:01-Feb-2017 Instruction Type:Provider Instructions for Treatment How to access health informa tion online Indication:Sore throat Start:01-Sep-2016 Instruction Type:Patient Education How to access health informa tion online - Detail Indication:Sore throat Start:01-Sep-2016 Instruction Type:Patient Education Patient Instructions Indication:Sore throat Start:01-Sep-2016 Instruction Type:Provider Instructions for Treatment How to access health informa tion online Indication:Anxiety Start:04-May-2016 Instruction Type:Patient Education How to access health informa tion online - Detail Indication:Anxiety Start:04-May-2016 Instruction Type:Patient Education Patient Instructions Indication:Anxiety Start:04-May-2016 Instruction Type:Provider Instructions for Treatment How to access health informa tion online Indication:Rash of perineum Start:18-Dec-2015 Instruction Type:Patient Education How to access health informa tion online - Detail Indication:Rash of perineum Start:18-Dec-2015 Instruction Type:Patient Education Patient Instructions Indication:Rash of perineum Start:18-Dec-2015 Instruction Type:Provider Instructions for Treatment How to access health informa tion online Indication:Hyperparathyroidism Start:21-Aug-2015 Instruction Type:Patient Education How to access health informa tion online - Detail Indication:Hyperparathyroidism Start:21-Aug-2015 Instruction Type:Patient Education Patient Instructions Indication:Hyperparathyroidism Start:21-Aug-2015 Instruction Type:Provider Instructions for Treatment How to access health informa tion online Indication:Rash Start:11-Jul-2015 Instruction Type:Patient Education How to access health informa tion online - Detail Indication:Rash Start:11-Jul-2015 Instruction Type:Patient Education Patient Instructions Indication:Rash Start:11-Jul-2015 Instruction Type:Provider Instructions for Treatment How to access health informa tion online Indication:Sinusitis, acute Start:21-Sep-2014 Instruction Type:Patient Education How to access health informa tion online - Detail Indication:Sinusitis, acute Start:21-Sep-2014 Instruction Type:Patient Education Patient Instructions Indication:Sinusitis, acute Start:21-Sep-2014 Instruction Type:Provider Instructions for Treatment How to access health informa tion online Indication:NONABSORPTION, INTESTINAL POSTSURGICAL Start:18-Jul-2014 Instruction Type:Patient Education How to access health informa tion online - Detail Indication:NONABSORPTION, INTESTINAL POSTSURGICAL Start:18-Jul-2014 Instruction Type:Patient Education Patient Instructions Indication:NONABSORPTION, INTESTINAL POSTSURGICAL Start:18-Jul-2014 Instruction Type:Provider Instructions for Treatment Patient Instructions Indication:Vitamin D deficiency Start:18-Jul-2014 Instruction Type:Provider Instructions for Treatment How to access health informa tion online Indication:NONABSORPTION, INTESTINAL POSTSURGICAL Start:27-Jun-2014 Instruction Type:Patient Education How to access health informa tion online - Detail Indication:NONABSORPTION, INTESTINAL POSTSURGICAL Start:27-Jun-2014 Instruction Type:Patient Education Patient Instructions Indication:NONABSORPTION, INTESTINAL POSTSURGICAL Start:27-Jun-2014 Instruction Type:Provider Instructions for Treatment Patient Instructions Indication:Dysuria Start:10-May-2013 Instruction Type:Provider Instructions for Treatment Name Dates Details How to access health informa tion online Indication:BMI 40.0-44.9, adult Start:19-Sep-2020 Instruction Type:Patient Education How to access health informa tion online - Detail Indication:BMI 40.0-44.9, adult Start:19-Sep-2020 Instruction Type:Patient Education Patient Instructions Indication:BMI 40.0-44.9, adult Start:19-Sep-2020 Instruction Type:Provider Instructions for Treatment How to access health informa tion online Indication:BMI 40.0-44.9, adult Start:26-Jul-2020 Instruction Type:Patient Education How to access health informa tion online - Detail Indication:BMI 40.0-44.9, adult Start:26-Jul-2020 Instruction Type:Patient Education Patient Instructions Indication:BMI 40.0-44.9, adult Start:26-Jul-2020 Instruction Type:Provider Instructions for Treatment How to access health informa tion online Indication:Non-smoker Start:28-Jun-2020 Instruction Type:Patient Education How to access health informa tion online - Detail Indication:Non-smoker Start:28-Jun-2020 Instruction Type:Patient Education Patient Instructions Indication:Non-smoker Start:28-Jun-2020 Instruction Type:Provider Instructions for Treatment How to access health informa tion online Indication:Non-smoker Start:20-Apr-2019 Instruction Type:Patient Education How to access health informa tion online - Detail Indication:Non-smoker Start:20-Apr-2019 Instruction Type:Patient Education Patient Instructions Indication:Non-smoker Start:20-Apr-2019 Instruction Type:Provider Instructions for Treatment How to access health informa tion online Indication:Non-smoker Start:05-Jan-2018 Instruction Type:Patient Education How to access health informa tion online - Detail Indication:Non-smoker Start:05-Jan-2018 Instruction Type:Patient Education Patient Instructions Indication:Non-smoker Start:05-Jan-2018 Instruction Type:Provider Instructions for Treatment Patient Instructions Indication:Leg pain, bilateral Start:28-Oct-2017 Instruction Type:Provider Instructions for Treatment How to access health informa tion online Indication:BMI 36.0-36.9,adult Start:28-Oct-2017 Instruction Type:Patient Education How to access health informa tion online - Detail Indication:BMI 36.0-36.9,adult Start:28-Oct-2017 Instruction Type:Patient Education How to access health informa tion online Indication:BMI 36.0-36.9,adult Start:21-Oct-2017 Instruction Type:Patient Education How to access health informa tion online - Detail Indication:BMI 36.0-36.9,adult Start:21-Oct-2017 Instruction Type:Patient Education Patient Instructions Indication:BMI 36.0-36.9,adult Start:21-Oct-2017 Instruction Type:Provider Instructions for Treatment How to access health informa tion online - Detail Indication:BMI 34.0-34.9,adult Start:30-Jun-2017 Instruction Type:Patient Education Patient Instructions Indication:BMI 34.0-34.9,adult Start:30-Jun-2017 Instruction Type:Provider Instructions for Treatment How to access health informa tion online Indication:Olecranon bursitis of left elbow Start:01-Feb-2017 Instruction Type:Patient Education How to access health informa tion online - Detail Indication:Olecranon bursitis of left elbow Start:01-Feb-2017 Instruction Type:Patient Education Patient Instructions Indication:Olecranon bursitis of left elbow Start:01-Feb-2017 Instruction Type:Provider Instructions for Treatment How to access health informa tion online Indication:Sore throat Start:01-Sep-2016 Instruction Type:Patient Education How to access health informa tion online - Detail Indication:Sore throat Start:01-Sep-2016 Instruction Type:Patient Education Patient Instructions Indication:Sore throat Start:01-Sep-2016 Instruction Type:Provider Instructions for Treatment How to access health informa tion online Indication:Anxiety Start:04-May-2016 Instruction Type:Patient Education How to access health informa tion online - Detail Indication:Anxiety Start:04-May-2016 Instruction Type:Patient Education Patient Instructions Indication:Anxiety Start:04-May-2016 Instruction Type:Provider Instructions for Treatment How to access health informa tion online Indication:Rash of perineum Start:18-Dec-2015 Instruction Type:Patient Education How to access health informa tion online - Detail Indication:Rash of perineum Start:18-Dec-2015 Instruction Type:Patient Education Patient Instructions Indication:Rash of perineum Start:18-Dec-2015 Instruction Type:Provider Instructions for Treatment How to access health informa tion online Indication:Hyperparathyroidism Start:21-Aug-2015 Instruction Type:Patient Education How to access health informa tion online - Detail Indication:Hyperparathyroidism Start:21-Aug-2015 Instruction Type:Patient Education Patient Instructions Indication:Hyperparathyroidism Start:21-Aug-2015 Instruction Type:Provider Instructions for Treatment How to access health informa tion online Indication:Rash Start:11-Jul-2015 Instruction Type:Patient Education How to access health informa tion online - Detail Indication:Rash Start:11-Jul-2015 Instruction Type:Patient Education Patient Instructions Indication:Rash Start:11-Jul-2015 Instruction Type:Provider Instructions for Treatment How to access health informa tion online Indication:Sinusitis, acute Start:21-Sep-2014 Instruction Type:Patient Education How to access health informa tion online - Detail Indication:Sinusitis, acute Start:21-Sep-2014 Instruction Type:Patient Education Patient Instructions Indication:Sinusitis, acute Start:21-Sep-2014 Instruction Type:Provider Instructions for Treatment How to access health informa tion online Indication:NONABSORPTION, INTESTINAL POSTSURGICAL Start:18-Jul-2014 Instruction Type:Patient Education How to access health informa tion online - Detail Indication:NONABSORPTION, INTESTINAL POSTSURGICAL Start:18-Jul-2014 Instruction Type:Patient Education Patient Instructions Indication:NONABSORPTION, INTESTINAL POSTSURGICAL Start:18-Jul-2014 Instruction Type:Provider Instructions for Treatment Patient Instructions Indication:Vitamin D deficiency Start:18-Jul-2014 Instruction Type:Provider Instructions for Treatment How to access health informa tion online Indication:NONABSORPTION, INTESTINAL POSTSURGICAL Start:27-Jun-2014 Instruction Type:Patient Education How to access health informa tion online - Detail Indication:NONABSORPTION, INTESTINAL POSTSURGICAL Start:27-Jun-2014 Instruction Type:Patient Education Patient Instructions Indication:NONABSORPTION, INTESTINAL POSTSURGICAL Start:27-Jun-2014 Instruction Type:Provider Instructions for Treatment Patient Instructions Indication:Dysuria Start:10-May-2013 Instruction Type:Provider Instructions for Treatment Name Dates Details How to access health informa tion online Indication:BMI 40.0-44.9, adult Start:19-Sep-2020 Instruction Type:Patient Education How to access health informa tion online - Detail Indication:BMI 40.0-44.9, adult Start:19-Sep-2020 Instruction Type:Patient Education Patient Instructions Indication:BMI 40.0-44.9, adult Start:19-Sep-2020 Instruction Type:Provider Instructions for Treatment How to access health informa tion online Indication:BMI 40.0-44.9, adult Start:26-Jul-2020 Instruction Type:Patient Education How to access health informa tion online - Detail Indication:BMI 40.0-44.9, adult Start:26-Jul-2020 Instruction Type:Patient Education Patient Instructions Indication:BMI 40.0-44.9, adult Start:26-Jul-2020 Instruction Type:Provider Instructions for Treatment How to access health informa tion online Indication:Non-smoker Start:28-Jun-2020 Instruction Type:Patient Education How to access health informa tion online - Detail Indication:Non-smoker Start:28-Jun-2020 Instruction Type:Patient Education Patient Instructions Indication:Non-smoker Start:28-Jun-2020 Instruction Type:Provider Instructions for Treatment How to access health informa tion online Indication:Non-smoker Start:20-Apr-2019 Instruction Type:Patient Education How to access health informa tion online - Detail Indication:Non-smoker Start:20-Apr-2019 Instruction Type:Patient Education Patient Instructions Indication:Non-smoker Start:20-Apr-2019 Instruction Type:Provider Instructions for Treatment How to access health informa tion online Indication:Non-smoker Start:05-Jan-2018 Instruction Type:Patient Education How to access health informa tion online - Detail Indication:Non-smoker Start:05-Jan-2018 Instruction Type:Patient Education Patient Instructions Indication:Non-smoker Start:05-Jan-2018 Instruction Type:Provider Instructions for Treatment Patient Instructions Indication:Leg pain, bilateral Start:28-Oct-2017 Instruction Type:Provider Instructions for Treatment How to access health informa tion online Indication:BMI 36.0-36.9,adult Start:28-Oct-2017 Instruction Type:Patient Education How to access health informa tion online - Detail Indication:BMI 36.0-36.9,adult Start:28-Oct-2017 Instruction Type:Patient Education How to access health informa tion online Indication:BMI 36.0-36.9,adult Start:21-Oct-2017 Instruction Type:Patient Education How to access health informa tion online - Detail Indication:BMI 36.0-36.9,adult Start:21-Oct-2017 Instruction Type:Patient Education Patient Instructions Indication:BMI 36.0-36.9,adult Start:21-Oct-2017 Instruction Type:Provider Instructions for Treatment How to access health informa tion online - Detail Indication:BMI 34.0-34.9,adult Start:30-Jun-2017 Instruction Type:Patient Education Patient Instructions Indication:BMI 34.0-34.9,adult Start:30-Jun-2017 Instruction Type:Provider Instructions for Treatment How to access health informa tion online Indication:Olecranon bursitis of left elbow Start:01-Feb-2017 Instruction Type:Patient Education How to access health informa tion online - Detail Indication:Olecranon bursitis of left elbow Start:01-Feb-2017 Instruction Type:Patient Education Patient Instructions Indication:Olecranon bursitis of left elbow Start:01-Feb-2017 Instruction Type:Provider Instructions for Treatment How to access health informa tion online Indication:Sore throat Start:01-Sep-2016 Instruction Type:Patient Education How to access health informa tion online - Detail Indication:Sore throat Start:01-Sep-2016 Instruction Type:Patient Education Patient Instructions Indication:Sore throat Start:01-Sep-2016 Instruction Type:Provider Instructions for Treatment How to access health informa tion online Indication:Anxiety Start:04-May-2016 Instruction Type:Patient Education How to access health informa tion online - Detail Indication:Anxiety Start:04-May-2016 Instruction Type:Patient Education Patient Instructions Indication:Anxiety Start:04-May-2016 Instruction Type:Provider Instructions for Treatment How to access health informa tion online Indication:Rash of perineum Start:18-Dec-2015 Instruction Type:Patient Education How to access health informa tion online - Detail Indication:Rash of perineum Start:18-Dec-2015 Instruction Type:Patient Education Patient Instructions Indication:Rash of perineum Start:18-Dec-2015 Instruction Type:Provider Instructions for Treatment How to access health informa tion online Indication:Hyperparathyroidism Start:21-Aug-2015 Instruction Type:Patient Education How to access health informa tion online - Detail Indication:Hyperparathyroidism Start:21-Aug-2015 Instruction Type:Patient Education Patient Instructions Indication:Hyperparathyroidism Start:21-Aug-2015 Instruction Type:Provider Instructions for Treatment How to access health informa tion online Indication:Rash Start:11-Jul-2015 Instruction Type:Patient Education How to access health informa tion online - Detail Indication:Rash Start:11-Jul-2015 Instruction Type:Patient Education Patient Instructions Indication:Rash Start:11-Jul-2015 Instruction Type:Provider Instructions for Treatment How to access health informa tion online Indication:Sinusitis, acute Start:21-Sep-2014 Instruction Type:Patient Education How to access health informa tion online - Detail Indication:Sinusitis, acute Start:21-Sep-2014 Instruction Type:Patient Education Patient Instructions Indication:Sinusitis, acute Start:21-Sep-2014 Instruction Type:Provider Instructions for Treatment How to access health informa tion online Indication:NONABSORPTION, INTESTINAL POSTSURGICAL Start:18-Jul-2014 Instruction Type:Patient Education How to access health informa tion online - Detail Indication:NONABSORPTION, INTESTINAL POSTSURGICAL Start:18-Jul-2014 Instruction Type:Patient Education Patient Instructions Indication:NONABSORPTION, INTESTINAL POSTSURGICAL Start:18-Jul-2014 Instruction Type:Provider Instructions for Treatment Patient Instructions Indication:Vitamin D deficiency Start:18-Jul-2014 Instruction Type:Provider Instructions for Treatment How to access health informa tion online Indication:NONABSORPTION, INTESTINAL POSTSURGICAL Start:27-Jun-2014 Instruction Type:Patient Education How to access health informa tion online - Detail Indication:NONABSORPTION, INTESTINAL POSTSURGICAL Start:27-Jun-2014 Instruction Type:Patient Education Patient Instructions Indication:NONABSORPTION, INTESTINAL POSTSURGICAL Start:27-Jun-2014 Instruction Type:Provider Instructions for Treatment Patient Instructions Indication:Dysuria Start:10-May-2013 Instruction Type:Provider Instructions for Treatment Summary Purpose Advance Directives No Advanced Directives Records FoundNo Advanced Directives Records FoundNo Advanced Directives Records FoundNo Advanced Directives Records Found Additional Source Comments INFORMATION SOURCE (unrecogn ized section and content) DATE CREATED AUTHOR 05/10/2019 [facility] DATE CREATED AUTHOR AUTHOR'S ORGANIZ ATION 10/12/2024 [facility] DATE CREATED AUTHOR AUTHOR'S ORGANIZ ATION 04/30/2025 [facility] DATE CREATED AUTHOR AUTHOR'S ORGANIZ ATION 05/02/2025 [facility] Reason for Visit (unrecogniz ed section and content) Reason Comments New Patient Reason Comments Yearly Exam Care Teams (unrecognized sec tion and content) Registered Radiographer Relationship Specialty Start Date End Date Bessy Finnegan DO [address] [place] [phone] PCP - General 05/06/16 Registered Radiographer Relationship Specialty Start Date End Date Bessy Finnegan DO [address] [place] [phone] PCP - General 05/06/16 Registered Radiographer Relationship Specialty Start Date End Date Bessy Finnegan DO PCP - General Internal Medicine 08/20/13 Beau Theodore MD Cardiology 05/04/19 Source Comments (unrecognize d section and content) In the event this informatio n is protected by the Federal Confidentiality of Alcohol and Drug Abuse Patient Records regulations: The Federal rules restrict any use of the information to criminally investigate or prosecute any alcohol or drug abuse patient.[facility] FOR RECORDS PERTAINING TO PATIENTS WHO ARE OR HAVE BEEN ENROLLED IN A CHEMICAL DEPENDENCY/SUBSTANCEABUSE PROGRAM, SOME INFORMATION MAY BE OMITTED. This clinical summary was aggregated from multiple sources. Caution should be exercised in using it in the provision of clinical care. This summary normalizes information from multiple sources, and as a consequence, information in this document may materially change the coding, format and clinical context of patient data. In addition, data may be omitted in some cases. CLINICAL DECISIONS SHOULD BE BASED ON THE PRIMARY CLINICAL RECORDS. [facility] [employer] [facility]. provides no warranty or guarantee of the accuracy or completeness of information in this document.
--- OUTSIDE RECORDS SUMMARY | 2025-05-04 06:52 | XMS RPT_ITS | CCD ---
Author Organization [facility] Care Team Providers Care Cra Name Role Phone SivanMindyBessy Unavailable Silvano Schultz R Unavailable Unavailab le Messenger, Heather Unavailable Unavailable LongMarcion L Unavailable Unavailable Manchak, Savannah Unavailable Unavailable Unavailable Unavailable Sivan, Bessy Unavailable Vadim Lemons Unavailable Silvano Schultz R Unavailable Unavailab le Gravius, Evelia Unavailable Unavailable LongMarcion L Unavailable Unavailable Manchak, Savannah Unavailable Unavailable Messenger, Heather Unavailable Unavailable Unavailable Unavailable Gravius, Evelia Unavailable Unavailable LongMarcion L Unavailable Unavailable Manchak, Savannah Unavailable Unavailable Messenger, Heather Unavailable Unavailable Sivan DO Bessy Unavailable Vadim Lemons Unavailable Vikas Schultzoster R Unavailable Unavailab le Gravius SHEET METAL MECHANIC, Evelia Unavailable Unavailable Chinyere Link RN Unavailable Unavailable Manchak PURVI Savannah Unavailable Unavailable Messenger RNHeather Unavailable Unavailable Unavailable Unavailable Sivan DO Bessy Unavailable Slarb BELLOWS ASSEMBLER, Ashlie Unavailable Unavailable Lalitha Irvin CNP Unavailable Lalitha Irvin CNP Unavailable [place] BELLOWS ASSEMBLER, Johnnie Unavailable Unavailable Sivan DO Bessy K Primary Care Provider [phone] BESSY FINNEGAN Primary Care Unavailable BEAU THEODORE Attending Unavailable BESSY FINNEGAN Primary Care Unavailable BEAU THEODORE Referring [...] Brush Attending Unavailable Sivan, Bessy Referring Unavailable Sivan, Bessy Primary Care Unavailable [place] WHITEHEAD, Thee [...] Drug Intolerance 09-08-20 24 Other: See Comments [facility] NEGATED: Highlighted row has been ruled out! [...] Active Start: 06-18-2023 take 2 tablets by [facility] once daily hydroCHLOROthiazide 25 mg oral tablet 2 (two) Tablet qd for 180 days Quantity: 90 {Tablet} Refills: 0 Ordered: 18-Jun-2023 Sivan DOBessy DOEricaBessy Start : 18-Jun-2023 Active Start: 05-28-2023 take [address] [facility] once daily hydroCHLOROthiazide 25 mg oral tablet 2 (two) Tablet qd for 180 days Quantity: 90 {Tablet} Refills: 0 Ordered: 28-May-2023 Sivan DOBessy DOEricaBessy Start : 28-May-2023 Active Start: 03-03-2023 take [address] [facility] once daily hydroCHLOROthiazide 25 mg oral tablet 2 (two) Tablet qd for 180 days Quantity: 90 {Tablet} Refills: 0 Ordered: 03-Mar-2023 Sivan DOBessy DOEricaBessy Start : 03-Mar-2023 Active Start: 01-12-2022 take [address] [facility] once daily hydroCHLOROthiazide 25 MG Oral Tablet 2 (two) Tablet qd for 180 days Quantity: 90 {Tablet} Refills: 3 Ordered: 12-Jan-2022 Evelia Marin CMA Start : 12-Jan-2022 Active Start: 12-09-2021 take 2 tablets by [facility] once daily hydroCHLOROthiazide 25 MG Oral Tablet 2 (two) Tablet qd for 90 days Quantity: 180 {Tablet} Refills: 0 Ordered: 09-Dec-2021 Sivan DOBessy DO Bessy Start : 09-Dec-2021 Active Comments: Mail order. Start: 07-10-2020 take 2 tablets by [facility] once daily hydroCHLOROthiazide 25 MG Oral Tablet 2 (two) Tablet qd for 90 days Quantity: 180 {Tablet} Refills: 3 Ordered: 10-Jul-2020 Bessy Finnegan DO, DO, Kathleen Start : 10-Jul-2020 Active Comments: Mail order. Start: 07-10-2019 take 2 tablets by [facility] once daily hydroCHLOROthiazide 25 MG Oral Tablet [...] Comments: Mail order. take 1 tablet by [facility] once daily hydrochlorothiazide 25 mg tablet [...] End : 01-Sep-2016 Discontinued polyethylene glycol 3350 540170 mg / potassium chloride 2980 mg / sodium bicarbonate 6720 mg / sodium chloride 5840 mg / sodium sulfate 67449 mg powder for oral solution (1 source) [...] dissolvable Start: 01-09-2008 End: 04-30-2025 rizatriptan benzoate(MAXALT- PUBLIC WORKS MANAGER 10 MG TAB, RAPID DISSOLVE) Indications: Migraine, [...] Test Name Value Interpretation Reference Range Facility [facility] 04-27-2025 CNOV Office Visit (OBGYWM ) ----- LUNA MAYERS ([id number]) 1975 F Date Time Provider Department 04/27/25 2:00 PM DEBBIE PRESCOTT During your visit today, we recorded the following information about you: Blood pressure Weight Height Last Period 102/64 91.2 kg 1.645 m 04/07/25 Debbie Prescott APRN.CNM 04/30/2025 12:15 PM Signed Luna is a 49 year old who presents for an annual gynecologic exam. Obstetrics and Gynecology [facility] Annual Exam Subjective Recording using ambient AI software for draft documentation of the visit was discussed with the patient/authorized customer engagement representative; all questions welcomed and answered. Patient/authorized customer engagement representative agreed to proceed CHIEF COMPLAINT: Annual [...] Living4 SAB2 IAB0 Ectopic0 Multiple0 Live Births2 Quality Control Assessor History LMP: 04/07/2025 (Exact Date), Having periods Age at Menarche: Age at First : Age at Menopause: Quality Control Assessor History Comments: Sexual Activity: Yes; Male Contraception: [...] discussed with the Patient or Patient's Authorized Explosive Operator Bomb. As applicable, any other physician (more content not included)... Normal [facility] HIGH RISK HUMAN PAPILLOMA USHA (HPV), PCR FOR DETECTION AND GENOTYPINGon 04-27-2025 HPV 16 Ag Ql (Unsp spec) Not detected Normal Not detected [facility] Comment on above: Order Comment: Speci men Type: FLUID SPECIMEN Ordering Facility: [facility] Address: [address] [place] [address] Performed By: #### H PVHRT #### [facility] CLIA [id number] [address] [place] [address] [place] HPV 18 Ag Ql (Unsp spec) Not detected Normal Not detected [facility] Comment on above: Order Comment: Speci men Type: FLUID SPECIMEN Ordering Facility: [facility] Address: [address] [place] [address] Performed By: #### H PVHRT #### [facility] CLIA [id number] [address] [place] [address] [place] HPV 31+33+35+39+45+51+52+ 56+58+59+66+68 DNA GABRIEL+probe Ql (Cvx) Not detected Normal Not detected [facility] Comment on above: Order Comment: Speci men Type: FLUID SPECIMEN Ordering Facility: [facility] Address: [address] [place] [address] Result Comment: High Risk HPV Other Type includes HPV types 31, 33, 35, 39, 45, 51, 52, 56, 58, 59, 66 and 68. Performed By: #### H PVHRT #### [facility] CLIA [id number] [address] [place] [address] [place] PAP TESTon 04-27-2025 ADEQUACY Normal [facility] Comment on above: Order Comment: Speci men Type: FLUID SPECIMEN Ordering Facility: [facility] Address: [address] [place] [address] Result Comment: Sati sfactory for interpretation. Transformation zone present Performed By: #### L [id number] #### [facility] CLIA [id number] [address] [place] [address] [place] CASE REPORT Normal [facility] Comment on above: Order Comment: Speci men Type: FLUID SPECIMEN Ordering Facility: [facility] Address: [address] [place] [address] Result Comment: Gyne cologic Cytology Report Case: [id number] Authorizing Provider: Debbie Prescott APRN.CNM Collected: 04/27/2025 02:34 PM Ordering Location: OB/Gynecology Received: 04/27/2025 04:38 PM First Screen: Jessi Castillo, CT, ASCP Specimen: Pap Test, ThinPrep, Cervix Performed By: #### L [id number] #### [facility] CLIA [id number] [address] [place] [address] [place] CLINICAL HISTORY, CYTOLOGY, SPORTING GOODS SALES MANAGER Routine Exam Normal [facility] Comment on above: Order Comment: Speci men Type: FLUID SPECIMEN Ordering Facility: [facility] Address: [address] [place] [address] Performed By: #### L [id number] #### [facility] CLIA [id number] [address] [place] [address] [place] FINAL PERFORMING LAB Normal [facility] Comment on above: Order Comment: Speci men Type: FLUID SPECIMEN Ordering Facility: [facility] Address: [address] [place] [address] Result Comment: Tech nical component, tongue presser screening performed at: [facility], [address] [place], [place] [address] CLIA: [id number] Diagnostic interpretation performed at: [facility], [address] [place], [place] [address] CLIA# [id number] Refractory Manager: Tony Torres MD Performed By: #### L [id number] #### [facility] CLIA [id number] [address] [place], [place] [address] [place] INTERPRETATION, CYTOLOGY, SPORTING GOODS SALES MANAGER Normal [facility] Comment on above: Order Comment: Speci men Type: FLUID SPECIMEN Ordering Facility: [facility] Address: [address] [place] [address] Result Comment: Nega tive for intraepithelial lesion or malignancy. at 1625 EDT Performed By: #### L [id number] #### [facility] CLIA [id number] [address] [place] [address] [place] LMP 04/07/2025 Normal [facility] Comment on above: Order Comment: Speci men Type: FLUID SPECIMEN Ordering Facility: [facility] Address: [address] [place] [address] Performed By: #### L [id number] #### [facility] CLIA [id number] [address] [place], [place] [id number] [place] PAP DISCLAIMER COMMENT The Pap Smear is a screening test for cervical cancer. False negative results occur with all screening tests, emphasizing the need for rescreening at recommended intervals, and clinical correlation. Normal [facility] Comment on above: Order Comment: Speci men Type: FLUID SPECIMEN Ordering Facility: [facility] Address: [address] [place] [address] Performed By: #### L [id number] #### [facility] CLIA [id number] [address] [place], [place] [address] [place] PAP MANAGER OF COMPLIANCE COMMENT This specimen has be en analyzed by the FDA-approved [employer] System, which uses digital imaging and an enhanced artificial intelligence image analysis algorithm to identify jeong of interest on the microscopic slide, to assist the pug mill operator and pathologist in evaluating cells on ThinPrep Pap tests. Following analysis, jeong of interest on the microscopic slide selected by the algorithm are reviewed by a pug mill operator. If a sample requires hierarchical review, the pathologist will review the same jeong of interest selected by the algorithm prior to final interpretation. Normal [facility] Comment on above: Order Comment: Speci men Type: FLUID SPECIMEN Ordering Facility: [facility] Address: [address] [place] [address] Performed By: #### L [id number] #### [facility] CLIA [id number] [address] [place] [address] [place] [address] [place] Neurology Visit Reporton Neurology Visit Report [facility] [address] [place] [address], [address] [place] [address] OFFICE VISIT Date of Service: 02/08/25 MR#: [id number] Acct: [id number] Name: LUNA MAYERS Rep #: [id number] : 1975 Provider: Dr. Humphrey may MD Age/Sex: 49/F Location: [facility] Status: Signed HPI HPI Chief Complaint: Details: [...] with ropinirole 0.5 mg nightly and an ikpr-gyy-rmzvovi iron supplementation. She has a history of [...] satisfied with (more content not included)... Normal [facility] Urgent Care Visit Reporton 0 12-23-2024 Urgent Care Visit Report [facility] [address], [address] [place] [address] OFFICE VISIT Date of Service: 12/23/24 MR#: [id number] Acct: [id number] Name: LUNA MAYERS Rep #: [id number] : 1975 Provider: TANK Loving Age/Sex: 49/F Location: [facility] Status: Signed Intake Vital Signs 11/07/24 09:59 [...] she started having pain in her ears. [facility] Medical History Anemia Chronic migraine [...] wine substance use type: does not use diego/jew: Quaker seatbelt use: always HPI HPI Details: LUNA [...] See visi (more content not included)... Normal [facility] Urine Cultureon 11-09-2024 URC Mixed Gram Pos Gram Neg Org Rolfe Count 50,000-80,000 MIXC Mixed contaminants. Submit a new specimen if indicated. Normal [facility] Comment on above: Performed By: #### M [id number] #### [facility] [address] [place], [place], [id number] Urgent Care Visit Reporton 1 01-08-2024 Urgent Care Visit Report [facility] [address], [address] [place] [address] OFFICE VISIT Date of Service: 11/07/24 MR#: [id number] Acct: [id number] Name: LUNA MAYERS Rep #: [id number] : 1975 Provider: CHARLEY Lazo Age/Sex: 48/F Location: [facility] Status: Signed Intake Vital Signs 07/14/24 11:15 [...] and painful with urination for 2 days. [facility] Medical History Anemia Chronic migraine [...] wine substance use type: does not use diego/jew: Quaker seatbelt use: always HPI HPI Details: LUNA [...] Ravi Signature: Date (if applicable) CC: Normal [facility] 36on 10-10-2024 36 Called patient and l eft message with echo results per Dr. Theodore's note. Left call back number for any questions. Normal [facility] 36 ----- Message from Beau Theodore MD sent at 10/09/2024 10:13 AM EST ----- The echo looks good other than the aorta is dilated, similar to slightly more than prior ones. Will repeat an echo next year to watch for stability. Stay on same medications. Normal [facility] Progress Noteon 10-06-2024 Progress Note The echo looks good other than the aorta is dilated, similar to slightly more than prior ones. Will repeat an echo next year to watch for stability. Stay on same medications. Normal [facility] US Heart TransthoracicOrdere d By: Matt Parker on 10-06-2024 Ao Root Index 1.57 cm/m2 [facility] Work Phone: Aortic Arch 3.1 cm [facility] [employer] Work Phone: Aortic Root 3.4 cm [facility] [employer] Work Phone: Aortic Sinus Valsalva 3.4 cm [facility] Work Phone: Aortic Sinus Valsalva Index 1.57 cm/m2 [facility] [employer] Work Phone: AR Max Velocity PISA 3.1 [...] BP 67 % 55 - 100 % [facility] Work Phone: Fractional Shortening 2D 28 % 28 - 44 % [facility] Work Phone: Global Longitudinal Strain -17.9 % [facility] Work Phone: Global Longitudinal Strain -22.7 % [facility] Work Phone: Global Longitudinal Strain -21.1 % [facility] Work Phone: Global Longitudinal Strain -20.6 % [facility] [employer] Work Phone: Interpretation and review of laboratory results Abnormal [facility] [employer] Work Phone: IVC Diameter 2 cm [facility] [employer] Work Phone: IVSd 0.9 cm 0.6 - 0.9 cm [facility] [employer] Work Phone: LA Diameter 3.8 cm [facility] [employer] Work Phone: LA Size Index 1.76 cm/m2 [facility] [employer] Work Phone: LA Volume 2C 48 mL 22 - 52 mL [facility] [employer] Work Phone: LA Volume 4C 54 mL Abnormal 22 - 52 mL [facility] [employer] Work Phone: LA Volume A/L 54 mL [facility] [employer] Work Phone: LA Volume BP 52 mL 22 - 52 mL [facility] [employer] Work Phone: LA Volume Index 2C 22 mL/m2 16 - 34 mL/m2 [facility] [employer] Work Phone: LA Volume Index 4C 25 mL/m2 16 - 34 mL/m2 [facility] [employer] Work Phone: LA Volume Index A/L 25 mL/m2 16 - 34 mL/m2 [facility] [employer] Work Phone: LA Volume Index BP 24 ml/m2 16 - 34 ml/m2 [facility] [employer] Work Phone: LA/AO Root Ratio 1.12 [facility] Work Phone: LV E' Lateral Velocity 12 cm/s [facility] Work Phone: LV E' Septal Velocity 10 cm/s [facility] Work Phone: LV EDV A2C 124 mL [facility] [employer] Work Phone: LV EDV A4C 126 mL [facility] [employer] Work Phone: LV EDV BP 128 mL Abnormal 56 - 104 mL [facility] [employer] Work Phone: LV EDV Index A2C 57 [...] Phone: LV ESV Index A2C 20 mL/m2 [facility] Work Phone: LV ESV Index A4C 17 mL/m2 [facility] Work Phone: LV ESV Index BP 19 mL/m2 [facility] Work Phone: LV Mass 2D 122.3 g 67 - 162 g [facility] Work Phone: LV Mass 2D Index 56.6 g/m2 43 - 95 g/m2 [facility] Work Phone: LV RWT Ratio 0.3 [facility] Work Phone: LVIDd 4.7 cm 3.9 - 5.3 cm [facility] Work Phone: LVIDd Index 2.18 cm/m2 [facility] Work Phone: LVIDs 3.4 cm [facility] Work Phone: LVIDs Index 1.57 cm/m2 [facility] Work Phone: LVOT Area 4.2 cm2 [facility] Work Phone: LVOT Cardiac Output [...] Health Work Phone: LVOT SV 81.4 ml [facility] Work Phone: LVOT VTI 19.6 cm [facility] Work Phone: LVOT:AV VTI Index 0.64 [facility] Work Phone: LVPWd 0.7 cm 0.6 - 0.9 cm [facility] Work Phone: MV A Velocity 0.39 m/s [facility] Work Phone: MV E Velocity 0.87 m/s [facility] Work Phone: MV E Wave Deceleration Time 228.4 ms [facility] Work Phone: MV E/A 2.23 [facility] Work Phone: Pulmonary Artery EDP 3 mmHg [facility] Work Phone: RA Area 4C 21.9 mL [facility] Work Phone: RA Area 4C 21.4 mL [facility] Work Phone: RV Basal Dimension 3.1 cm [facility] Work Phone: RV Free Wall Peak S' 14 cm/s [facility] Work Phone: RV Mid Dimension 2.1 cm [facility] Work Phone: Sinotubular Junction 3.4 cm [facility] Work Phone: TAPSE 2.1 cm 1.7 cm [facility] Work Phone: TR Max Velocity 2.15 m/s [facility] Jacobson [facility] Work Phone: TR Peak Gradient 19 mmHg OB10valery [employer] [facility] Work Phone: [facility] [employer] Work Phone: US Heart Transthoracicon Left Ventricle: [...] CLINIC PERFORM EDon 09-08-2024 Sinus Bradycardia NORMAL [facility] [employer] [facility] [employer] Office Visiton 09-08-2024 Follow-up visit [id number] Jerel Mayers 1975 F Date Provider Department Center 09/08/2024 [id number] None Family History Problem Relation Age of Onset Diabetes Maternal Grandfather Diabetes Paternal Grandfather Family Status - Relation Status Age at Maternal Grandfather Paternal Grandfather Father Alive Mother Alive Level of Service:71843 LA OFFICE/OUTPATIENT NEW MODERATE MDM 45 MINUTES Reason for Visit and Comments: New Patient [542] Normal [facility] Progress Noteon 09-08-2024 Progress Note [facility] Cardiology [facility] [place] [address] [facility] [address] Dept: [phone] Dept Visit type: New : 1975 Chief [...] on the (more content not included)... Normal [employer] [facility] ASSAY, HOMOCYSTINE (24582)Or dered By: Mushroom Laborer on 06-28-2020 Homocysteine [Moles/Vol] 8.8 umol/L Normal 0.0-14.5 [facility] Work Phone: Comment on above: Please note refere nce interval change Test(s) 029926-Ctytw ium, Plasma; 978836-Qbwf, Plasma or Serumwas developed and its performance characteristics determinedby [employer]. It has not been cleared or approved by the Foodand Drug Administration.PATIENT NOT FASTINGPERFORMED BY: CB [employer] Oaxoer2841 [facility] [id number] BY: BN [facility] [address] [id number] CALCIFEDIOL (80461)Ordered B y: Mushroom Laborer on 06-28-2020 25-Hydroxyvitamin D2+25-Hydroxyvitamin D3 [Mass/Vol] 46.8 ng/mL Normal 30.0-100.0 [facility] Work Phone: Comment on above: Vitamin D deficiency has been defined by the [place] [facility] and an Endocrine Society practice guideline as alevel of serum 25-OH vitamin D less than 20 ng/mL (1,2).The Endocrine Society went on to further define vitamin Dinsufficiency as a level between 21 and 29 ng/mL (2).1. IOM ([place] [facility] [place]). 2010. Dietary reference intakes for calcium and D. [place]: The National Academies Press.2. Karlos MF, Alice CERNA, Marina JENKINS, et al. Evaluation, treatment, and prevention of vitamin D deficiency: an Endocrine Society clinical practice guideline. JCEM. 2010; 96(7):1911-30. Test(s) 796784-Yjhrx ium, Plasma; 451945-Oedb, Plasma or Serumwas developed and its performance characteristics determinedby [employer]. It has not been cleared or approved by the Foodand Drug Administration.PATIENT NOT FASTINGPERFORMED BY: [employer] [place] [id number] BY: [employer] [address] [id number] CBC, PLATELETS & AUT DIFF (3 3675)Ordered By: Mushroom Laborer on 06-28-2020 Basophils (Bld) [#/Vol] 0.0 {x10E3/uL} Normal 0.0-0.2 [facility] Work Phone: Comment on above: Test(s) 518202-Lrelq ium, Plasma; 516376-Kvqh, Plasma or Serumwas developed and its performance characteristics determinedby [employer]. It has not been cleared or approved by the Foodand Drug Administration.PATIENT NOT FASTINGPERFORMED BY: [facility]Saint [facility] [id number] BY: [employer] [id number] Basophils (Bld) [#/Vol] 0.0 10*3/uL Normal 0.0-0.2 [facility]; [facility] Work Phone: Comment on above: Test(s) 867432-Mmcnz ium, Plasma; 802341-Gzck, Plasma or Serumwas developed and its performance characteristics determinedby [employer]. It has not been cleared or approved by the Foodand Drug Administration.PATIENT NOT FASTINGPERFORMED BY: [employer] [id number] BY: [employer] [id number] Basophils/100 WBC (Bld) 0 % Normal [facility] Work Phone: Comment on above: Test(s) 567433-Ctogx ium, Plasma; 247443-Andw, Plasma or Serumwas developed and its performance characteristics determinedby [employer]. It has not been cleared or approved by the Foodand Drug Administration.PATIENT NOT FASTINGPERFORMED BY: [employer] [address] [id number] BY: [employer] [address] [id number] Eosinophils (Bld) [#/Vol] 0.2 {x10E3/uL} Normal 0.0-0.4 [facility] Work Phone: Comment on above: Test(s) 579891-Fcisr ium, Plasma; 116354-Doyc, Plasma or Serumwas developed and its performance characteristics determinedby [employer]. It has not been cleared or approved by the Foodand Drug Administration.PATIENT NOT FASTINGPERFORMED BY: [employer] [address] [id number] BY: [employer] [id number] Eosinophils (Bld) [#/Vol] 0.2 10*3/uL Normal 0.0-0.4 [facility]; [facility] Work Phone: Comment on above: Test(s) 706072-Gtpdw ium, Plasma; 741868-Rbmi, Plasma or Serumwas developed and its performance characteristics determinedby [employer]. It has not been cleared or approved by the Foodand Drug Administration.PATIENT NOT FASTINGPERFORMED BY: [employer] [address] [id number] BY: [employer] [id number] Eosinophils/100 WBC (Bld) 2 % Normal [facility] Work Phone: Comment on above: Test(s) 464067-Aqvya ium, Plasma; 928351-Luue, Plasma or Serumwas developed and its performance characteristics determinedby [employer]. It has not been cleared or approved by the Foodand Drug Administration.PATIENT NOT FASTINGPERFORMED BY: LabCoTrinitas HospitalDmfhpi3939 [facility] [id number] BY: [place] [id number] Erythrocyte distribution width (RBC) [Ratio] 13.4 % Normal 11.7-15.4 [facility] Work Phone: Comment on above: Test(s) 661557-Bjhpd ium, Plasma; 770755-Zpuh, Plasma or Serumwas developed and its performance characteristics determinedby [employer]. It has not been cleared or approved by the Foodand Drug Administration.PATIENT NOT FASTINGPERFORMED BY: Kiha SoftwareTrinitas HospitalVdgtik9725 [facility] [id number] BY: [employer] [id number] Hematocrit (Bld) [Volume fraction] 43.0 % Normal 34.0-46.6 [facility] Work Phone: Comment on above: Test(s) 397611-Lfztr ium, Plasma; 115372-Egfa, Plasma or Serumwas developed and its performance characteristics determinedby [employer]. It has not been cleared or approved by the Foodand Drug Administration.PATIENT NOT FASTINGPERFORMED BY: Kiha SoftwareTrinitas HospitalImcnpi4687 [facility] [id number] BY: [employer] [id number] Hemoglobin (Bld) [Mass/Vol] 14.4 g/dL Normal 11.1-15.9 [facility] Work Phone: Comment on above: Test(s) 642519-Vxpse ium, Plasma; 477044-Mhim, Plasma or Serumwas developed and its performance characteristics determinedby [employer]. It has not been cleared or approved by the Foodand Drug Administration.PATIENT NOT FASTINGPERFORMED BY: Kiha SoftwareMark Ville 5655870 [facility] [id number] BY: [employer] [id number] Immature granulocytes (Bld) [#/Vol] 0.0 {x10E3/uL} Normal 0.0-0.1 [facility] Work Phone: Comment on above: Test(s) 991810-Espdj ium, Plasma; 906698-Haaa, Plasma or Serumwas developed and its performance characteristics determinedby [employer]. It has not been cleared or approved by the Foodand Drug Administration.PATIENT NOT FASTINGPERFORMED BY: [employer] [id number] BY: [employer] [address] [id number] Immature granulocytes (Bld) [#/Vol] 0.0 10*3/uL Normal 0.0-0.1 [facility]; [facility] Work Phone: Comment on above: Test(s) 442371-Vurzz ium, Plasma; 869786-Wesp, Plasma or Serumwas developed and its performance characteristics determinedby [employer]. It has not been cleared or approved by the Foodand Drug Administration.PATIENT NOT FASTINGPERFORMED BY: [employer] [id number] BY: [employer] [id number] Immature granulocytes/100 WBC (Bld) 0 % Normal [facility] Work Phone: Comment on above: Test(s) 879006-Ktcgs ium, Plasma; 891738-Ligs, Plasma or Serumwas developed and its performance characteristics determinedby [employer]. It has not been cleared or approved by the Foodand Drug Administration.PATIENT NOT FASTINGPERFORMED BY: [employer] [id number] BY: [employer] [id number] Lymphocytes (Bld) [#/Vol] 1.7 {x10E3/uL} Normal 0.7-3.1 [facility] Work Phone: Comment on above: Test(s) 008358-Lfjbo ium, Plasma; 279267-Gqvd, Plasma or Serumwas developed and its performance characteristics determinedby [employer]. It has not been cleared or approved by the Foodand Drug Administration.PATIENT NOT FASTINGPERFORMED BY: [employer] [facility]6370 [facility] [id number] BY: [employer] [id number] Lymphocytes (Bld) [#/Vol] 1.7 10*3/uL Normal 0.7-3.1 [facility]; [facility] Work Phone: Comment on above: Test(s) 279972-Ioiug ium, Plasma; 813164-Pxcg, Plasma or Serumwas developed and its performance characteristics determinedby [employer]. It has not been cleared or approved by the Foodand Drug Administration.PATIENT NOT FASTINGPERFORMED BY: [employer] Kltyui7242 [facility] [id number] BY: [employer] [id number] Lymphocytes/100 WBC (Bld) 25 % Normal [facility] Work Phone: Comment on above: Test(s) 005058-Vmljt ium, Plasma; 172210-Bjqx, Plasma or Serumwas developed and its performance characteristics determinedby [employer]. It has not been cleared or approved by the Foodand Drug Administration.PATIENT NOT FASTINGPERFORMED BY: [employer] Wghrgt9365 [facility] [id number] BY: [employer] [id number] MCH (RBC) [Entitic mass] 30.8 pg Normal 26.6-33.0 [facility] Work Phone: Comment on above: Test(s) 264693-Ketvw ium, Plasma; 136079-Xmaq, Plasma or Serumwas developed and its performance characteristics determinedby [employer]. It has not been cleared or approved by the Foodand Drug Administration.PATIENT NOT FASTINGPERFORMED BY: CB [employer] Ikwdkh1404 [facility] [id number] BY: [employer] [id number] MCHC (RBC) [Mass/Vol] 33.5 g/dL Normal 31.5-35.7 [facility] Internal Medicine Work Phone: Comment on above: Test(s) 709088-Rwuei ium, Plasma; 056889-Oivv, Plasma or Serumwas developed and its performance characteristics determinedby [employer]. It has not been cleared or approved by the Foodand Drug Administration.PATIENT NOT FASTINGPERFORMED BY: fos4Xlin6370 [facility] [id number] BY: [employer] [id number] MCV (RBC) [Entitic vol] 92 fL Normal 79-97 [facility] Internal Medicine Work Phone: Comment on above: Test(s) 448966-Rhyrn ium, Plasma; 035883-Pfsd, Plasma or Serumwas developed and its performance characteristics determinedby [employer]. It has not been cleared or approved by the Foodand Drug Administration.PATIENT NOT FASTINGPERFORMED BY: Last.fmTrinitas HospitalKfeiyz0439 [facility] [id number] BY: [employer] [id number] Monocytes (Bld) [#/Vol] 0.5 {x10E3/uL} Normal 0.1-0.9 [facility] Internal Medicine Work Phone: Comment on above: Test(s) 216766-Buzfg ium, Plasma; 162279-Zqum, Plasma or Serumwas developed and its performance characteristics determinedby [employer]. It has not been cleared or approved by the Foodand Drug Administration.PATIENT NOT FASTINGPERFORMED BY: Kiha SoftwareTrinitas HospitalSjrsyk4747 [facility] [id number] BY: [employer] [id number] Monocytes (Bld) [#/Vol] 0.5 10*3/uL Normal 0.1-0.9 [facility]; [facility] Work Phone: Comment on above: Test(s) 746202-Vbxgc ium, Plasma; 536675-Mlny, Plasma or Serumwas developed and its performance characteristics determinedby [employer]. It has not been cleared or approved by the Foodand Drug Administration.PATIENT NOT FASTINGPERFORMED BY: [employer] [facility] [id number] BY: [employer] [id number] Monocytes/100 WBC (Bld) 8 % Normal [facility] Work Phone: Comment on above: Test(s) 304323-Boblc ium, Plasma; 796441-Impe, Plasma or Serumwas developed and its performance characteristics determinedby [employer]. It has not been cleared or approved by the Foodand Drug Administration.PATIENT NOT FASTINGPERFORMED BY: [employer] [facility] [id number] BY: [employer] [id number] Neutrophils (Bld) [#/Vol] 4.3 {x10E3/uL} Normal 1.4-7.0 [facility] Work Phone: Comment on above: Test(s) 344780-Qarff ium, Plasma; 807644-Weql, Plasma or Serumwas developed and its performance characteristics determinedby [employer]. It has not been cleared or approved by the Foodand Drug Administration.PATIENT NOT FASTINGPERFORMED BY: fos4Xlin6370 [facility] [id number] BY: [employer] [id number] Neutrophils (Bld) [#/Vol] 4.3 10*3/uL Normal 1.4-7.0 [facility]; [facility] Work Phone: Comment on above: Test(s) 920519-Onvmt ium, Plasma; 774169-Svxb, Plasma or Serumwas developed and its performance characteristics determinedby [employer]. It has not been cleared or approved by the Foodand Drug Administration.PATIENT NOT FASTINGPERFORMED BY: [facility] Lnjxbl5462 [facility] [id number] BY: LabCoWilliam [place] [id number] Neutrophils/100 WBC (Bld) 65 % Normal [facility] Work Phone: Comment on above: Test(s) 942813-Bdbdn ium, Plasma; 363052-Gnra, Plasma or Serumwas developed and its performance characteristics determinedby [employer]. It has not been cleared or approved by the Foodand Drug Administration.PATIENT NOT FASTINGPERFORMED BY: [facility] Nvsxul0159 [facility] [id number] BY: [employer] [id number] Platelets (Bld) [#/Vol] 274 {x10E3/uL} Normal 150-450 [facility] Work Phone: Comment on above: Test(s) 099594-Apggn ium, Plasma; 429367-Soej, Plasma or Serumwas developed and its performance characteristics determinedby [employer]. It has not been cleared or approved by the Foodand Drug Administration.PATIENT NOT FASTINGPERFORMED BY: [facility] Zsmpqe8243 [facility] [id number] BY: [employer] [id number] Platelets (Bld) [#/Vol] 274 10*3/uL Normal 150-450 [facility]; [facility] Work Phone: Comment on above: Test(s) 372277-Cifsw ium, Plasma; 731499-Nwrr, Plasma or Serumwas developed and its performance characteristics determinedby [employer]. It has not been cleared or approved by the Foodand Drug Administration.PATIENT NOT FASTINGPERFORMED BY: CB [facility] Kiozcp8969 [facility] [id number] BY: Lab[employer]ak[employer] [id number] RBC (Bld) [#/Vol] 4.67 {x10E6/uL} Normal 3.77-5.28 [facility] Internal Medicine Work Phone: Comment on above: Test(s) 839361-Knjvs ium, Plasma; 357591-Lrce, Plasma or Serumwas developed and its performance characteristics determinedby [employer]. It has not been cleared or approved by the Foodand Drug Administration.PATIENT NOT FASTINGPERFORMED BY: [employer] [facility]6370 [facility] [id number] BY: [employer] [id number] RBC (Bld) [#/Vol] 4.67 10*6/uL Normal 3.77-5.28 [facility] Internal Medicine; [facility] Work Phone: Comment on above: Test(s) 909998-Klfov ium, Plasma; 750207-Romi, Plasma or Serumwas developed and its performance characteristics determinedby [employer]. It has not been cleared or approved by the Foodand Drug Administration.PATIENT NOT FASTINGPERFORMED BY: [employer]70 [facility] [id number] BY: [employer] [id number] WBC (Bld) [#/Vol] 6.7 {x10E3/uL} Normal 3.4-10.8 [facility] Internal Medicine Work Phone: Comment on above: Test(s) 978266-Gersd ium, Plasma; 784656-Ltqi, Plasma or Serumwas developed and its performance characteristics determinedby [employer]. It has not been cleared or approved by the Foodand Drug Administration.PATIENT NOT FASTINGPERFORMED BY: [employer]6370 [facility] [id number] BY: [employer] [id number] WBC (Bld) [#/Vol] 6.7 10*3/uL Normal 3.4-10.8 [facility]; [facility] Work Phone: Comment on above: Test(s) 581939-Vwyhl ium, Plasma; 853137-Cnta, Plasma or Serumwas developed and its performance characteristics determinedby [employer]. It has not been cleared or approved by the Foodand Drug Administration.PATIENT NOT FASTINGPERFORMED BY: [employer] Kyzfye1368 Callio TechnologiesDublin [place] [id number] BY: [employer] [id number] FERRITIN (82944)Ordered By: Mushroom Laborer on 06-28-2020 Ferritin [Mass/Vol] 23 ng/mL Normal 15-150 [facility] Internal Medicine Work Phone: Comment on above: Test(s) 725115-Tznrz ium, Plasma; 664203-Xoko, Plasma or Serumwas developed and its performance characteristics determinedby [employer]. It has not been cleared or approved by the Foodand Drug Administration.PATIENT NOT FASTINGPERFORMED BY: [employer] Dskpen8027 [place] [id number] BY: [employer] [place] [address] [id number] Folic Acid Serum (92502)Orde red By: Mushroom Laborer on 06-28-2020 Folate [Mass/Vol] ng/mL Normal [facility] Internal [facility] Work Phone: Comment on above: A serum folate lori ntration of less than 3.1 ng/mL isconsidered to represent clinical deficiency. Test(s) 373019-Vrdtj ium, Plasma; 187222-Thzc, Plasma or Serumwas developed and its performance characteristics determinedby [employer]. It has not been cleared or approved by the Foodand Drug Administration.PATIENT NOT FASTINGPERFORMED BY: [employer] Yitqew5538 [employer] Circle Advertising Solutionsin [place] [id number] BY: [employer] [id number] IRON BINDING CAPACITY (TIBC) (59557)Ordered By: Mushroom Laborer on 06-28-2020 Iron [Mass/Vol] 75 ug/dL Normal 27-159 [facility] Internal Medicine Work Phone: Comment on above: Test(s) 606670-Xpqcz ium, Plasma; 512562-Nsoi, Plasma or Serumwas developed and its performance characteristics determinedby [employer]. It has not been cleared or approved by the Foodand Drug Administration.PATIENT NOT FASTINGPERFORMED BY: [employer] [facility] Cfmass3497 [employer] Circle Advertising SolutionsSaint Joseph Mount [facility] [id number] BY: [employer] [address] [id number] Iron binding capacity [Mass/Vol] 371 ug/dL Normal 250-450 [facility] Internal Medicine Work Phone: Comment on above: Test(s) 847151-Zztdu ium, Plasma; 944009-Voll, Plasma or Serumwas developed and its performance characteristics determinedby [employer]. It has not been cleared or approved by the Foodand Drug Administration.PATIENT NOT FASTINGPERFORMED BY: Last.fmrp Rglfth5874 [facility]abloAmerican [facility] Systems [id number] BY: [employer] [id number] Iron binding capacity.unsaturated [Mass/Vol] 296 ug/dL Normal 131-425 [facility] Internal Medicine Work Phone: Comment on above: Test(s) 049155-Hpymo ium, Plasma; 397411-Jmwi, Plasma or Serumwas developed and its performance characteristics determinedby [employer]. It has not been cleared or approved by the Foodand Drug Administration.PATIENT NOT FASTINGPERFORMED BY: [employer] [facility] Abbzbw3183 [facility] [id number] BY: [employer] [address] [id number] Iron saturation [Mass fraction] 20 % Normal 15-55 [facility] Internal Medicine Work Phone: Comment on above: Test(s) 096376-Kddvi ium, Plasma; 136185-Kpxk, Plasma or Serumwas developed and its performance characteristics determinedby [employer]. It has not been cleared or approved by the Foodand Drug Administration.PATIENT NOT FASTINGPERFORMED BY: [employer] Jlrzzq4404 [facility] [id number] BY: [employer] [address] [id number] Lipid Panel (46755)Ordered B y: Mushroom Laborer on 06-28-2020 Cholesterol [Mass/Vol] 181 mg/dL Normal 100-199 [facility] Work Phone: Comment on above: Test(s) 563057-Ffbds ium, Plasma; 911867-Bloj, Plasma or Serumwas developed and its performance characteristics determinedby [employer]. It has not been cleared or approved by the Foodand Drug Administration.PATIENT NOT FASTINGPERFORMED BY: [employer]6370 Callio TechnologiesFormerly [facility] [id number] BY: [employer] [address] [id number] Cholesterol in HDL [Mass/Vol] 57 mg/dL Normal [facility] Work Phone: Comment on above: Test(s) 195076-Hprfj ium, Plasma; 436170-Wgyp, Plasma or Serumwas developed and its performance characteristics determinedby [employer]. It has not been cleared or approved by the Foodand Drug Administration.PATIENT NOT FASTINGPERFORMED BY: [employer]6370 [facility]abloAmerican Healthcare Systems [id number] BY: [employer] [address] [id number] Cholesterol in LDL [Mass/Vol] 100 mg/dL Abnormal 0-99 [facility] Work Phone: Comment on above: Test(s) 985231-Xifkp ium, Plasma; 649396-Lsxj, Plasma or Serumwas developed and its performance characteristics determinedby [employer]. It has not been cleared or approved by the Foodand Drug Administration.PATIENT NOT FASTINGPERFORMED BY: [employer]6370 ReidKaaiFormerly [facility] [id number] BY: [employer] [id number] Cholesterol in LDL/Cholesterol in HDL [Mass ratio] 1.8 {ratio} Normal 0.0-3.2 [facility] Work Phone: Comment on above: LDL/HDL Ratio Men Wo men 1/2 Avg.Risk 1.0 1.5 Avg.Risk 3.6 3.2 2X Avg.Risk 6.2 5.0 3X Avg.Risk 8.0 6.1 Test(s) 389663-Jvdln ium, Plasma; 479705-Dzye, Plasma or Serumwas developed and its performance characteristics determinedby [employer]. It has not been cleared or approved by the Foodand Drug Administration.PATIENT NOT FASTINGPERFORMED BY: [employer]70 TabloAmerican Healthcare Systems [id number] BY: [employer] [address] [id number] Cholesterol in VLDL [Mass/Vol] 24 mg/dL Normal 5-40 [facility] Work Phone: Comment on above: Test(s) 171363-Tlkpi ium, Plasma; 461953-Baul, Plasma or Serumwas developed and its performance characteristics determinedby [employer]. It has not been cleared or approved by the [employer] Drug Administration.PATIENT NOT FASTINGPERFORMED BY: [employer]70 [employer] TechnologiesFormerly [facility] [id number] BY: [employer] [address] [id number] Triglyceride [Mass/Vol] 121 mg/dL Normal 0-149 [facility] Work Phone: Comment on above: Test(s) 090852-Mdztm ium, Plasma; 898529-Luxt, Plasma or Serumwas developed and its performance characteristics determinedby [employer]. It has not been cleared or approved by the Foodand Drug Administration.PATIENT NOT FASTINGPERFORMED BY: [employer]70 [facility] [id number] BY: [employer] [id number] MAGNESIUM (28591)Ordered By: Mushroom Laborer on 06-28-2020 Magnesium [Mass/Vol] 2.1 mg/dL Normal 1.6-2.3 [facility] Internal Medicine Work Phone: Comment on above: Test(s) 768837-Mnnpt ium, Plasma; 543177-Bkoy, Plasma or Serumwas developed and its performance characteristics determinedby [employer]. It has not been cleared or approved by the Foodand Drug Administration.PATIENT NOT FASTINGPERFORMED BY: Last.fmTrinitas HospitalSdsqrj3392 [facility] [id number] BY: [employer] [id number] Metabolic Panel, Comprehensi ve (26960)Ordered By: Mushroom Laborer on 06-28-2020 Albumin [Mass/Vol] 4.2 g/dL Normal 3.8-4.8 [facility] Internal Medicine Work Phone: Comment on above: Test(s) 791406-Shvnp ium, Plasma; 415786-Sagc, Plasma or Serumwas developed and its performance characteristics determinedby [employer]. It has not been cleared or approved by the Foodand Drug Administration.PATIENT NOT FASTINGPERFORMED BY: [employer]70 [facility] [id number] BY: [employer] [id number] Albumin/Globulin [Mass ratio] 1.7 {ratio} Normal 1.2-2.2 [facility] Internal Medicine Work Phone: Comment on above: Test(s) 544290-Jdruo ium, Plasma; 261540-Dlgy, Plasma or Serumwas developed and its performance characteristics determinedby [employer]. It has not been cleared or approved by the Foodand Drug Administration.PATIENT NOT FASTINGPERFORMED BY: Last.fmTrinitas HospitalTqnuyg0818 [facility] [id number] BY: [employer] [id number] ALP [Catalytic activity/Vol] 64 [iU]/L Normal 39-117 [facility] Internal Medicine Work Phone: Comment on above: Test(s) 756623-Ptmrp ium, Plasma; 306469-Rmqg, Plasma or Serumwas developed and its performance characteristics determinedby [employer]. It has not been cleared or approved by the Foodand Drug Administration.PATIENT NOT FASTINGPERFORMED BY: [facility] Iqigdw6294 [facility] [id number] BY: Kiha SoftwareWilliam [place]ille [id number] ALP [Catalytic activity/Vol] 64 U/L Normal 39-117 [facility]; [facility] Work Phone: Comment on above: Test(s) 556426-Ptarb ium, Plasma; 886192-Sgqg, Plasma or Serumwas developed and its performance characteristics determinedby [employer]. It has not been cleared or approved by the Foodand Drug Administration.PATIENT NOT FASTINGPERFORMED BY: [facility] Jkrnrl2781 [facility] [id number] BY: [employer] [id number] ALT [Catalytic activity/Vol] 20 [iU]/L Normal 0-32 [facility] Work Phone: Comment on above: Test(s) 033229-Ecaot ium, Plasma; 317336-Xtvp, Plasma or Serumwas developed and its performance characteristics determinedby [employer]. It has not been cleared or approved by the Foodand Drug Administration.PATIENT NOT FASTINGPERFORMED BY: [facility] Hyrimv0680 [facility] [id number] BY: [employer] [id number] ALT [Catalytic activity/Vol] 20 U/L Normal 0-32 [facility]; [facility] Work Phone: Comment on above: Test(s) 932122-Vuwuu ium, Plasma; 079292-Odlx, Plasma or Serumwas developed and its performance characteristics determinedby [employer]. It has not been cleared or approved by the Foodand Drug Administration.PATIENT NOT FASTINGPERFORMED BY: [facility] Lxvcex2163 [facility] [id number] BY: [employer] [id number] AST [Catalytic activity/Vol] 22 [iU]/L Normal 0-40 [facility] Work Phone: Comment on above: Test(s) 182341-Ndlsy ium, Plasma; 742159-Bizh, Plasma or Serumwas developed and its performance characteristics determinedby [employer]. It has not been cleared or approved by the Foodand Drug Administration.PATIENT NOT FASTINGPERFORMED BY: [facility]6370 [facility] [id number] BY: Kiha [employer] [id number] AST [Catalytic activity/Vol] 22 U/L Normal 0-40 [facility]; [facility] Internal Medicine Work Phone: Comment on above: Test(s) 993556-Vdoru ium, Plasma; 687787-Pvbp, Plasma or Serumwas developed and its performance characteristics determinedby LabBlueMessaging. It has not been cleared or approved by the Foodand Drug Administration.PATIENT NOT FASTINGPERFORMED BY: [facility] [employer] [facility]6370 [facility] [id number] BY: Kiha [employer] [id number] Bilirubin [Mass/Vol] 0.2 mg/dL Normal 0.0-1.2 [facility] Internal Medicine Work Phone: Comment on above: Test(s) 180416-Eyzrb ium, Plasma; 170844-Bibt, Plasma or Serumwas developed and its performance characteristics determinedby LabBlueMessaging. It has not been cleared or approved by the Foodand Drug Administration.PATIENT NOT FASTINGPERFORMED BY: [employer] Dlogrq0847 [facility] [id number] BY: Kiha [employer] [id number] Calcium [Mass/Vol] 9.5 mg/dL Normal 8.7-10.2 [facility] Internal Medicine Work Phone: Comment on above: Test(s) 945174-Mydqf ium, Plasma; 372684-Xzmy, Plasma or Serumwas developed and its performance characteristics determinedby LabBlueMessaging. It has not been cleared or approved by the Foodand Drug Administration.PATIENT NOT FASTINGPERFORMED BY: [employer] [facility] Olybau3637 [facility] [id number] BY: Kiha Software[address] [id number] Chloride [Moles/Vol] 102 mmol/L Normal 96-106 [facility] Work Phone: Comment on above: Test(s) 030712-Vuohx ium, Plasma; 190695-Gbgj, Plasma or Serumwas developed and its performance characteristics determinedby LabBlueMessaging. It has not been cleared or approved by the Foodand Drug Administration.PATIENT NOT FASTINGPERFORMED BY: [employer] [facility] Sinada8045 [facility] [id number] BY: Kiha [employer] [id number] CO2 [Moles/Vol] 26 mmol/L Normal 20-29 [facility] Internal Medicine Work Phone: Comment on above: Test(s) 935049-Kjetb ium, Plasma; 861989-Wozi, Plasma or Serumwas developed and its performance characteristics determinedby [employer]. It has not been cleared or approved by the Foodand Drug Administration.PATIENT NOT FASTINGPERFORMED BY: [employer] [facility] Zdvuts6622 [facility] [id number] BY: Kiha [employer] [id number] Creatinine [Mass/Vol] 1.11 mg/dL Abnormal 0.57-1.00 [facility] Internal Medicine Work Phone: Comment on above: Test(s) 040365-Kuwue ium, Plasma; 568095-Bmmi, Plasma or Serumwas developed and its performance characteristics determinedby [employer]. It has not been cleared or approved by the Foodand Drug Administration.PATIENT NOT FASTINGPERFORMED BY: CB [facility] Wrejkw6622 [facility] [id number] BY: Kiha [employer] [id number] GFR/1.73 sq M predicted among blacks CKD-EPI (S/P/Bld) [Vol rate/Area] 70 mL/min/1.73 Normal [facility] Work Phone: Comment on above: Test(s) 493573-Jdfrf ium, Plasma; 139289-Lvmw, Plasma or Serumwas developed and its performance characteristics determinedby [employer]. It has not been cleared or approved by the Foodand Drug Administration.PATIENT NOT FASTINGPERFORMED BY: [employer] [id number] BY: [employer] [address] [id number] GFR/1.73 sq M predicted among non-blacks CKD-EPI (S/P/Bld) [Vol rate/Area] 61 mL/min/1.73 Normal [facility] Work Phone: Comment on above: Test(s) 734879-Dazan ium, Plasma; 295161-Hiol, Plasma or Serumwas developed and its performance characteristics determinedby [employer]. It has not been cleared or approved by the Foodand Drug Administration.PATIENT NOT FASTINGPERFORMED BY: [employer] ReidKaaiFormerly [facility] [id number] BY: [employer] [id number] Globulin (S) [Mass/Vol] 2.5 g/dL Normal 1.5-4.5 [facility] Internal Medicine Work Phone: Comment on above: Test(s) 042771-Ofwtl ium, Plasma; 699596-Ibco, Plasma or Serumwas developed and its performance characteristics determinedby [employer]. It has not been cleared or approved by the Foodand Drug Administration.PATIENT NOT FASTINGPERFORMED BY: [employer] Reid [facility] [id number] BY: [employer] [id number] Glucose [Mass/Vol] 100 mg/dL Abnormal 65-99 [facility] Internal Medicine Work Phone: Comment on above: Test(s) 853676-Ogxqx ium, Plasma; 627121-Gitf, Plasma or Serumwas developed and its performance characteristics determinedby LabVakastrp. It has not been cleared or approved by the Foodand Drug Administration.PATIENT NOT FASTINGPERFORMED BY: LabVakastTrinitas HospitalCpfylg2115 [facility] [id number] BY: [address] [id number] Potassium [Moles/Vol] 3.7 mmol/L Normal 3.5-5.2 [facility] Internal Medicine Work Phone: Comment on above: Test(s) 010762-Vcfyk ium, Plasma; 515092-Cjzi, Plasma or Serumwas developed and its performance characteristics determinedby LabBlueMessaging. It has not been cleared or approved by the Foodand Drug Administration.PATIENT NOT FASTINGPERFORMED BY: Kiha SoftwareTrinitas HospitalLgmjzr6870 [facility] [id number] BY: [employer] [id number] Protein [Mass/Vol] 6.7 g/dL Normal 6.0-8.5 [facility] Internal Medicine Work Phone: Comment on above: Test(s) 957841-Pflkp ium, Plasma; 528360-Qhzx, Plasma or Serumwas developed and its performance characteristics determinedby LabVakastrp. It has not been cleared or approved by the Foodand Drug Administration.PATIENT NOT FASTINGPERFORMED BY: Kiha SoftwareTrinitas HospitalWhoomi8528 [facility] [id number] BY: [employer] [id number] Sodium [Moles/Vol] 141 mmol/L Normal 134-144 [facility] Internal Medicine Work Phone: Comment on above: Test(s) 682690-Thtnj ium, Plasma; 205348-Rmli, Plasma or Serumwas developed and its performance characteristics determinedby LabBlueMessaging. It has not been cleared or approved by the Foodand Drug Administration.PATIENT NOT FASTINGPERFORMED BY: Kiha SoftwareTrinitas HospitalEkcsej5815 [facility] [id number] BY: BN [facility] [address] [id number] Urea nitrogen [Mass/Vol] 15 mg/dL Normal 6-24 [facility] Work Phone: Comment on above: Test(s) 857664-Vfiys ium, Plasma; 482296-Wcum, Plasma or Serumwas developed and its performance characteristics determinedby [employer]. It has not been cleared or approved by the Foodand Drug Administration.PATIENT NOT FASTINGPERFORMED BY: [employer] [facility] [id number] BY: [employer] [address] [id number] Urea nitrogen/Creatinine [Mass ratio] 14 mg/mg Normal 9-23 [facility] Work Phone: Comment on above: Test(s) 013620-Noyjb ium, Plasma; 847078-Qugy, Plasma or Serumwas developed and its performance characteristics determinedby [employer]. It has not been cleared or approved by the Foodand Drug Administration.PATIENT NOT FASTINGPERFORMED BY: [employer] [facility] [id number] BY: [employer] [address] [id number] PARATHORMONE (35619)Ordered By: Mushroom Laborer on 06-28-2020 Parathyrin.intact [Mass/Vol] 34 pg/mL Normal 15-65 [facility] Internal Medicine Work Phone: Comment on above: Test(s) 189769-Qurxy ium, Plasma; 445507-Ppsc, Plasma or Serumwas developed and its performance characteristics determinedby [employer]. It has not been cleared or approved by the Foodand Drug Administration.PATIENT NOT FASTINGPERFORMED BY: [employer]ward [employer]70 [facility] [id number] BY: [employer] [id number] Phosphorus (32002)Ordered By : Mushroom Laborer on 06-28-2020 Phosphate [Mass/Vol] 2.8 mg/dL Abnormal 3.0-4.3 Comp rehensive Internal Medicine Work Phone: Comment on above: Test(s) 677428-Dpwhw ium, Plasma; 329189-Nfch, Plasma or Serumwas developed and its performance characteristics determinedby [employer]. It has not been cleared or approved by the Foodand Drug Administration.PATIENT NOT FASTINGPERFORMED BY: [employer] Igiymc7045 Callio TechnologiesFormerly [facility] [id number] BY: [employer] [id number] RETICULOCYTE COUNT MANUL (85 044)Ordered By: Mushroom Laborer on 06-28-2020 Reticulocytes/100 RBC (Bld) 0.8 % Normal 0.6-2.6 [facility] Internal Medicine Work Phone: Comment on above: Test(s) 323362-Mibvs ium, Plasma; 817964-Xqco, Plasma or Serumwas developed and its performance characteristics determinedby [employer]. It has not been cleared or approved by the Foodand Drug Administration.PATIENT NOT FASTINGPERFORMED BY: fos4Xlin6370 Callio TechnologiesFormerly [facility] [id number] BY: [employer] [id number] TSH (52940)Ordered By: [employer] Rn on 06-28-2020 TSH Qn 1.200 {uIU/mL} Normal 0.450-4.50 0 [facility] Internal Medicine Work Phone: Comment on above: Test(s) 033556-Qthts ium, Plasma; 993994-Exhq, Plasma or Serumwas developed and its performance characteristics determinedby [employer]. It has not been cleared or approved by the Foodand Drug Administration.PATIENT NOT FASTINGPERFORMED BY: [employer] Vtprep5708 Callio TechnologiesFormerly [facility] [id number] BY: [employer] [address] [id number] VITAMIN A (15224)Ordered By: Mushroom Laborer on 06-28-2020 Retinol [Mass/Vol] 54.8 ug/dL Normal 20.1-62.0 [facility] Internal Medicine Work Phone: Comment on above: Reference intervals for vitamin A determined from [facility]Saint [facility] internalstudies. Individuals with vitamin A less than 20 ug/dL are consideredvitamin A deficient and those with serum concentrations less than10 ug/dL are considered severely deficient. .This test was developed and its performance characteristicsdetermined by [employer]. It has not been cleared or approvedby the Food and Drug Administration. Test(s) 820134-Jsvcq ium, Plasma; 529495-Kogi, Plasma or Serumwas developed and its performance characteristics determinedby [employer]. It has not been cleared or approved by the Foodand Drug Administration.PATIENT NOT FASTINGPERFORMED BY: [employer] [facility]6370 [place] [id number] BY: Kiha [employer] [id number] VITAMIN B-12 (CYANOCOBALAMIN ) (72071)Ordered By: Mushroom Laborer on 06-28-2020 Cobalamin (Vitamin B12) [Mass/Vol] 838 pg/mL Normal 232-1245 [facility] Internal Medicine Work Phone: Comment on above: Test(s) 792120-Drjgv ium, Plasma; 988186-Iype, Plasma or Serumwas developed and its performance characteristics determinedby [employer]. It has not been cleared or approved by the Foodand Drug Administration.PATIENT NOT FASTINGPERFORMED BY: fos4Xlin6370 Callio TechnologiesDublin [place] [id number] BY: Kiha Software[address] [id number] ZINC, BLOOD (72473)Ordered B y: Mushroom Laborer on 06-28-2020 Zinc [Mass/Vol] 63 ug/dL Normal 56-134 [facility] Internal Medicine Work Phone: Comment on above: Detection Limit = 5 Test(s) 817357-Whcsi ium, Plasma; 569200-Ndzr, Plasma or Serumwas developed and its performance characteristics determinedby [employer]. It has not been cleared or approved by the Foodand Drug Administration.PATIENT NOT FASTINGPERFORMED BY: [employer] Mnrqnh8730 Reid RoadDublin [place] [id number] BY: LabCoCentraState Healthcare SystemLqfdfavofl8126 [facility] [id number] PROGRESSon 05-09-2019 Protein mass conc HNO ID: [id number] Author: Horacio Hernandez Service: ? Author Type: Physician Type: Progress Notes Filed: 05/09/2019 7:42 AM Note Text: I spent 20+ minutes in the visit, with more than 50% of the total rwsh-wr-prtm time of the visit in counseling / [...] not being treated for arterial disease Normal [facility] CNOVon 05-04-2019 CNOV Office Visit (KIMBERLYNA ) ----- LUNA MAYERS ([id number]) 1975 F Date Time Provider Department 05/04/19 3:30 PM HORACIO HERNANDEZ During your visit today, we recorded the following information about you: Pulse Respiration Blood pressure Weight 74/minute 16/minute 108/70 104.3 kg Height 1.651 m Horacio Hernandez MD 05/09/2019 7:42 AM Signed I spent 20+ minutes in the visit, with more than 50% of the total domb-qi-fsbr time of the visit in counseling / [...] for arterial disease Referring Provider: BESSY FINNEGAN [[id number]] Allergies As of Date: 05/04/2019 (No Known [...] Take 50 mg by mouth once mayra* MAXALT-[employer]KS MANAGER 10 MG DISINTEGRATI* as directed FERROUS SULFATE [...] by HORACIO HERNANDEZ MD on 05/09/19 Normal [facility] CALCIFEDIOL (96482)Ordered B y: Mushroom Laborer on 04-06-2019 25-Hydroxyvitamin D2+25-Hydroxyvitamin D3 mass conc 40.4 ng/mL Normal 30.0-100.0 [facility] Work Phone: Comment on above: Vitamin D deficiency has been defined by the [place] and an Endocrine Society practice guideline as alevel of serum 25-OH vitamin D less than 20 ng/mL (1,2).The Endocrine Society went on to further define vitamin Dinsufficiency as a level between 21 and 29 ng/mL (2).1. IOM ([place] [employer]). 2010. Dietary reference intakes for calcium and D. [place]: The National Academies Press.2. Karlos MF, Alice [place], Marina JENKINS, et al. Evaluation, treatment, and prevention of vitamin D deficiency: an Endocrine Society clinical practice guideline. JCEM. 2010; 96(7):1911-30. PATIENT NOT FASTINGP ERFORMED BY: FOURward Thought70 TabloAmerican Healthcare Systems [id number] BY: [employer] [id number] Ferritin (31356)Ordered By: Mushroom Laborer on 04-06-2019 Ferritin mass conc 29 ng/mL Normal 15-150 [facility] Internal Medicine Work Phone: Comment on above: PATIENT NOT FASTINGP ERFORMED BY: [employer] Hunpem5727 [address] [facility] [id number] BY: [employer] [id number] Folic Acid Serum (05283)Orde red By: Mushroom Laborer on 04-06-2019 Folate mass conc ng/mL Normal Comprehe nsive Internal Medicine Work Phone: Comment on above: A serum folate lori ntration of less than 3.1 ng/mL isconsidered to represent clinical deficiency. PATIENT NOT FASTINGP ERFORMED BY: CB [facility] Piebxr8757 Reid RoadDublin [place] [id number] BY: [employer] [id number] Iron Binding Capacity (TIBC) (70443)Ordered By: Mushroom Laborer on 04-06-2019 Iron binding capacity mass conc 363 ug/dL Normal 250-450 [facility] Work Phone: Comment on above: PATIENT NOT FASTINGP ERFORMED BY: CB [facility] Fmgrhp6094 Reid RoadDublin [place] [id number] BY: [employer] [id number] Iron binding capacity.unsaturated mass conc 170 ug/dL Normal 131-425 [facility] Work Phone: Comment on above: PATIENT NOT FASTINGP ERFORMED BY: CB [facility] Ekwcuo6518 Reid RoadDublin [place] [id number] BY: Lab[address] [id number] Iron mass conc 193 ug/dL Abnormal 27-159 Comprehens velma Internal Medicine Work Phone: Comment on above: PATIENT NOT FASTINGP ERFORMED BY: CB [facility] Zumjos6808 Reid RoadDublin [place] [id number] BY: [facility] [address] [id number] Iron saturation mass fraction 53 % Normal 15-55 [facility] Work Phone: Comment on above: PATIENT NOT FASTINGP ERFORMED BY: CB [facility] Ctlwaw8519 Reid RoadDublin [place] [id number] BY: [address] [id number] Methymalonic Acid, Serum (83 921)Ordered By: Mushroom Laborer on 04-06-2019 Methylmalonate molar conc 178 nmol/L Normal 0-378 [facility] Work Phone: Comment on above: PATIENT NOT FASTINGP ERFORMED BY: SOFIE Archuleta6370 [facility] [id number] BY: Kiha Software[address] [id number] Methymalonic Acid, Serum (66198) RUST Normal [facility] Work Phone: Comment on above: This test was develo ped and its performance characteristicsdetermined by [employer]. It has not been cleared or approvedby the Food and Drug Administration. PATIENT NOT FASTINGP ERFORMED BY: SOFIE RowleyVakastgely ArchuletaCutrlz9552 [facility] [id number] BY: [employer]ha Software[address] [id number] TSH (THYROID STIMULATING HOR YAAKOV) (39979)Ordered By: Mushroom Laborer on 04-06-2019 Thyrotropin Qn 1.060 {uIU/mL} Normal 0.450-4.50 0 [facility] Work Phone: Comment on above: PATIENT NOT FASTINGP ERFORMED BY: SOFIE Archuleta6370 [facility] [id number] BY: [employer] [id number] Vitamin B-12 (cyanocobalamin ) (60109)Ordered By: Mushroom Laborer on 04-06-2019 Cobalamin (Vitamin B12) mass conc 1472 pg/mL Abnormal 232-1245 [facility] Work Phone: Comment on above: PATIENT NOT FASTINGP ERFORMED BY: SOFIE [employer] Bzucit1540 [facility] [id number] BY: [employer] [id number] Metabolic Panel, Basic (8004 8)Ordered By: Mushroom Laborer on 02-16-2018 Calcium mass conc 9.0 mg/dL Normal 8.7-10.2 Compreh ensive Internal Medicine Work Phone: Comment on above: PATIENT NOT FASTINGP ERFORMED BY: CB [facility] Yfhsia5513 Reid RoadDublin [place] [id number] Chloride molar conc 100 mmol/L Normal 96-106 Compr ehensive Internal Medicine Work Phone: Comment on above: PATIENT NOT FASTINGP ERFORMED BY: CB [facility] Ovsiop7587 Reid Roadblin [place] [id number] CO2 molar conc 25 mmol/L Normal 18-29 Comprehens velma Internal Medicine Work Phone: Comment on above: PATIENT NOT FASTINGP ERFORMED BY: CB [facility] Iusork7228 Reid Roadblin [place] [id number] Creatinine mass conc 1.12 mg/dL Abnormal 0.57-1.00 Comp rehensive Internal Medicine Work Phone: Comment on above: PATIENT NOT FASTINGP ERFORMED BY: CB [facility] Ejgiea9418 [address] [facility] [place] [id number] GFR/1.73 sq M predicted among blacks CKD-EPI vol rate/area (S/P/Bld) 71 mL/min/1.73 Normal Comprehensiv e Internal Medicine Work Phone: Comment on above: PATIENT NOT FASTINGP ERFORMED BY: CB [facility] Ncaktq9663 Reid RoadAdventhealth Hendersonvillein [place] [id number] GFR/1.73 sq M predicted among non-blacks CKD-EPI vol rate/area (S/P/Bld) 61 mL/min/1.73 Normal [facility] Work Phone: Comment on above: PATIENT NOT FASTINGP ERFORMED BY: CB [facility] Atdgwq7078 Reid RoadAdventhealth Hendersonvillein [place] [id number] Glucose mass conc 82 mg/dL Normal 65-99 Compreh ensive Internal Medicine Work Phone: Comment on above: PATIENT NOT FASTINGP ERFORMED BY: CB [facility] Cvutvp2008 [address] Roadblin [place] [id number] Potassium molar conc 3.7 mmol/L Normal 3.5-5.2 Comp rehensive Internal Medicine Work Phone: Comment on above: PATIENT NOT FASTINGP ERFORMED BY: CB [facility] Rvavon3043 [address] RoadDublin [place] [id number] Sodium molar conc 141 mmol/L Normal 134-144 Compreh ensive Internal Medicine Work Phone: Comment on above: PATIENT NOT FASTINGP ERFORMED BY: CB [facility] Uwhfyj4305 [address] RoadDublin [place] [id number] Urea nitrogen mass conc 17 mg/dL Normal 6-24 [facility] Work Phone: Comment on above: PATIENT NOT FASTINGP ERFORMED BY: CB [facility] Atmmej1480 [address] RoadDublin [place] [id number] Urea nitrogen/Creatinine mass ratio 15 mg/mg Normal 9-23 [facility] Work Phone: Comment on above: PATIENT NOT FASTINGP ERFORMED BY: CB [facility] Akwstk7812 [address] RoadDublin [place] [id number] PARATHORMONE (20313)Ordered By: Mushroom Laborer on 02-16-2018 Parathyrin.intact mass conc 27 pg/mL Normal 15-65 [facility] Work Phone: Comment on above: PATIENT NOT FASTINGP ERFORMED BY: CB [facility] Zkcyuz2080 [address] RoadDublin [place] [id number] URVASHI (ANTINUCLEAR ANTIBODY) ( 57359)Ordered By: Mushroom Laborer on 10-21-2017 Nuclear Ab Ql (S) Negative Normal Compreh ensive Internal Medicine Work Phone: Comment on above: PATIENT NOT FASTINGP ERFORMED BY: CB [facility] Odmmjh9984 [address] RoadDublin [place] [id number] BY: [address] [id number] Nuclear Ab Ql (S) Negative Normal Compreh ensive Internal Medicine; [facility] Work Phone: Comment on above: PATIENT NOT FASTINGP ERFORMED BY: CB [facility] Gwldiz4456 [address] RoadDublin [place] [id number] BY: [facility] [address] [id number] C-REACTIVE PROTEIN (08991)Or dered By: Mushroom Laborer on 10-21-2017 CRP mass conc 0.4 mg/L Normal 0.0-4.9 Comprehensi Internal Medicine Work Phone: Comment on above: PATIENT NOT FASTINGP ERFORMED BY: FOURward [employer]70 [facility] [id number] BY: [employer] [id number] CALCIFIDIOL (17303) VIT D 25 Ordered By: Mushroom Laborer on 10-21-2017 25-Hydroxyvitamin D2+25-Hydroxyvitamin D3 mass conc 39.8 ng/mL Normal 30.0-100.0 [facility] Internal Medicine Work Phone: Comment on above: Vitamin D deficiency has been defined by the [place] ofSt[facility] Hospitalcine and an Endocrine Society practice guideline as alevel of serum 25-OH vitamin D less than 20 ng/mL (1,2).The Endocrine Society went on to further define vitamin Dinsufficiency as a level between 21 and 29 ng/mL (2).1. IOM ([place] [employer]). 2010. Dietary reference intakes for calcium and D. [place]: The National Academies Press.2. Karlos MF, Alice CERNA, Marina JENKINS, et al. Evaluation, treatment, and prevention of vitamin D deficiency: an Endocrine Society clinical practice guideline. JCEM. 2010; 96(7):1911-30. PATIENT NOT FASTINGP ERFORMED BY: [employer] Center6370 [facility] [id number] BY: [employer] [id number] CBC (AUTO) (42422)Ordered By : Mushroom Laborer on 10-21-2017 Erythrocyte distribution width Auto Ratio (RBC) 14.2 % Normal 12.3-15.4 [facility] Internal Medicine Work Phone: Erythrocyte distribution width Ratio (RBC) 14.2 % Normal 12.3-15.4 [facility] Internal Medicine Work Phone: Comment on above: PATIENT NOT FASTINGP ERFORMED BY: [employer] Zaljjn4192 [facility] [id number] BY: [employer] [id number] Hematocrit Auto Volume Fraction (Bld) 40.6 % Normal 34.0-46.6 Comprehens [facility] Internal Medicine Work Phone: Hematocrit Volume Fraction (Bld) 40.6 % Normal 34.0-46.6 [facility] Work Phone: Comment on above: PATIENT NOT FASTINGP ERFORMED BY: SOFIE Kiha SoftwareMark [place] 5655870 [facility] [id number] BY: [employer] [id number] Hemoglobin mass conc (Bld) 13.5 g/dL Normal 11.1-15.9 [facility] Work Phone: Comment on above: Please note refere nce interval change PATIENT NOT FASTINGP ERFORMED BY: SOFIE [employer] Ihtbun4537 [facility] [id number] BY: [employer] [id number] MCH Auto Entitic mass (RBC) 28.6 pg Normal 26.6-33.0 [facility] Work Phone: MCH Entitic mass (RBC) 28.6 pg Normal 26.6-33.0 [facility] Work Phone: Comment on above: PATIENT NOT FASTINGP ERFORMED BY: SOFIE Kiha SoftwareMark [place] [id number] [facility] [id number] BY: [employer] [id number] MCHC Auto mass conc (RBC) 33.3 g/dL Normal 31.5-35.7 [facility] Work Phone: MCHC mass conc (RBC) 33.3 g/dL Normal 31.5-35.7 Comp rehensive Internal Medicine Work Phone: Comment on above: PATIENT NOT FASTINGP ERFORMED BY: SOFIE Kiha SoftwareMark [place] [id number] [facility] [id number] BY: [address] [id number] MCV Auto Entitic volume (RBC) 86 fL Normal 79-97 [facility] Work Phone: MCV Entitic volume (RBC) 86 fL Normal 79-97 [facility] Work Phone: Comment on above: PATIENT NOT FASTINGP ERFORMED BY: SOFIE [facility] Umxqik6116 [facility] [id number] BY: [address] [id number] Platelets #/vol (Bld) 321 {x10E3/uL} Normal 150-379 [facility] Work Phone: Comment on above: PATIENT NOT FASTINGP ERFORMED BY: SOFIE [facility] Qfmhhn9722 [facility] [id number] BY: [address] [id number] Platelets (Bld) [#/Vol] 321 10*3/uL Normal 150-379 [facility]; [facility] Work Phone: Comment on above: PATIENT NOT FASTINGP ERFORMED BY: SOFIE [facility] Jkaiab9975 [facility] [id number] BY: [address] [id number] Platelets Auto #/vol (Bld) 321 {x10E3/uL} Normal 150-379 [facility] Work Phone: RBC #/vol (Bld) 4.72 {x10E6/uL} Normal 3.77-5.28 Comp rust Internal Medicine Work Phone: Comment on above: PATIENT NOT FASTINGP ERFORMED BY: SOFIE [facility] Gfjbtk0617 [facility] [id number] BY: [address] [id number] RBC (Bld) [#/Vol] 4.72 10*6/uL Normal 3.77-5.28 [facility]; [facility] Work Phone: Comment on above: PATIENT NOT FASTINGP ERFORMED BY: SOFIE HalleyVakast Hanpdc7405 [facility] [id number] BY: [address] [id number] RBC Auto #/vol (Bld) 4.72 {x10E6/uL} Normal 3.77-5.28 [facility] Work Phone: WBC #/vol (Bld) 7.8 {x10E3/uL} Normal 3.4-10.8 [facility] Internal Medicine Work Phone: Comment on above: PATIENT NOT FASTINGP ERFORMED BY: Kiha SoftwareMark [place] 5655870 [facility] [id number] BY: [address] [id number] WBC (Bld) [#/Vol] 7.8 10*3/uL Normal 3.4-10.8 [facility]; [facility] Internal Medicine Work Phone: Comment on above: PATIENT NOT FASTINGP ERFORMED BY: SOFIE [employer] Sphekz8146 [facility] [id number] BY: [address] [id number] WBC Auto #/vol (Bld) 7.8 {x10E3/uL} Normal 3.4-10.8 [facility] Work Phone: CCP ANTIBODY ([id number])Ordered By: Mushroom Laborer on 10-21-2017 Cyclic citrullinated peptide IgA+IgG IA Qn 6 {units} Normal 0-19 Comprehens [facility] Internal Medicine Work Phone: Comment on above: Negative <20 Weak po sitive 20 - 39 Moderate positive 40 - 59 Strong positive >59 PATIENT NOT FASTINGP ERFORMED BY: LabVakast Fhdnhv9701 [facility] [id number] BY: [employer] [id number] CMV IGM ANTBDY (46962)Ordere d By: Mushroom Laborer on 10-21-2017 CMV IgM IA Qn <30.0 Normal 0.0-29.9 Comprehensi Internal Medicine Work Phone: Comment on above: Negative <30.0 Equiv ocal 30.0 - 34.9 Positive >34.9 A positive result is generally indicative of acute infection, reactivation or persistent IgM production. PATIENT NOT FASTINGP ERFORMED BY: FOURward Thought70 [address] [facility] [id number] BY: [employer] [address] [id number] EB ANTIBODY VIRAL CAPSID (86 665) [id number] By: Mushroom Laborer on 10-21-2017 EBV capsid IgG IA Qn (S) 579.0 U/mL Abnormal 0.0-17.9 [facility] Internal Medicine Work Phone: Comment on above: Negative <18.0 Equiv ocal 18.0 - 21.9 Positive >21.9 PATIENT NOT FASTINGP ERFORMED BY: [employer] Yrmggf6311 [facility] [id number] BY: [employer] [id number]; can review on 10/28 EBV capsid IgM IA Qn (S) <36.0 Normal 0.0-35.9 [facility] Work Phone: Comment on above: Negative <36.0 Equiv ocal 36.0 - 43.9 Positive >43.9 PATIENT NOT FASTINGP ERFORMED BY: [employer]6370 [facility] [id number] BY: [employer] [id number]; can review on 10/28 EBV early IgG Qn (S) <9.0 Normal 0.0-8.9 [facility] Work Phone: Comment on above: Negative < 9.0 Equiv ocal 9.0 - 10.9 Positive >10.9 PATIENT NOT FASTINGP ERFORMED BY: [employer]ward [employer]70 [address] [facility] [id number] BY: [employer] [id number]; can review on 10/28 EBV nuclear IgG IA Qn (S) 93.9 U/mL Abnormal 0.0-17.9 [facility] Work Phone: Comment on above: Negative <18.0 Equiv ocal 18.0 - 21.9 Positive >21.9 PATIENT NOT FASTINGP ERFORMED BY: [employer] [facility] [id number] BY: [employer] [id number]; can review on 10/28 Service comment Interp [...] Antibody Absent PATIENT NOT FASTINGP ERFORMED BY: [employer]6370 [facility] [id number] BY: [employer] [id number]; can review on 10/28 Folate (05939)Ordered By: stem Education Rn on 10-21-2017 Folate mass conc ng/mL Normal Comprehe nsive Internal Medicine Work Phone: Comment on above: A serum folate lori ntration of less than 3.1 ng/mL isconsidered to represent clinical deficiency. PATIENT NOT FASTINGP ERFORMED BY: [employer]6370 [facility] [id number] BY: [employer] [id number] METABOLIC PANEL, COMPREHENSI VE (25985)Ordered By: Mushroom Laborer on 10-21-2017 Albumin mass conc 4.3 g/dL Normal 3.5-5.5 Compreh ensive Internal Medicine Work Phone: Comment on above: PATIENT NOT FASTINGP ERFORMED BY: CB [facility] Htkfas4971 Reid RoadDublin [place] [id number] BY: Lab[address] [id number] Albumin/Globulin mass ratio 1.4 {ratio} Normal 1.2-2.2 [facility] Work Phone: Comment on above: PATIENT NOT FASTINGP ERFORMED BY: CB [facility] Yyoxgo0175 Reid RoadDublin [place] [id number] BY: LabCo[address] [id number] ALP [Catalytic activity/Vol] 60 U/L Normal 39-117 [facility]; [facility] Work Phone: Comment on above: PATIENT NOT FASTINGP ERFORMED BY: CB [facility] Prhjcq3244 Reid RoadDublin [place] [id number] BY: Lab[address] [id number] ALP enzyme act/vol 60 [iU]/L Normal 39-[address] [facility] Internal Medicine Work Phone: Comment on above: PATIENT NOT FASTINGP ERFORMED BY: CB [facility] Hmxnxy9333 Redi RoadDuin [place] [id number] BY: [facility] [address] [id number] ALT [Catalytic activity/Vol] 34 U/L Abnormal 0-32 [facility]; [facility] Work Phone: Comment on above: PATIENT NOT FASTINGP ERFORMED BY: CB [facility] Bqhkks8551 Reid RoadDublin [place] [id number] BY: Lab[address] [id number] ALT enzyme act/vol 34 [iU]/L Abnormal 0-32 Compre hensive Internal Medicine Work Phone: Comment on above: PATIENT NOT FASTINGP ERFORMED BY: SOFIE [facility] Rdjsvm6115 Reid RoadDublin [place] [id number] BY: LabCo[address] [id number] AST [Catalytic activity/Vol] 25 U/L Normal 0-40 [facility]; [facility] Work Phone: Comment on above: PATIENT NOT FASTINGP ERFORMED BY: SOFIE [facility] Mwqsko8848 Reid RoadDublin [place] [id number] BY: Lab[address] [id number] AST enzyme act/vol 25 [iU]/L Normal 0-40 [facility] Internal Medicine Work Phone: Comment on above: PATIENT NOT FASTINGP ERFORMED BY: SOFIE [facility] Vceamy7248 [address] RoadFormerly [facility] [id number] BY: Lab[address] [id number] Bilirubin [Mass/Vol] mg/dL Normal 0.0-1.2 [facility]; [facility] Internal Medicine Work Phone: Comment on above: PATIENT NOT FASTINGP ERFORMED BY: SOFIE [facility] Awiuqs9928 Reid Roadblin [place] [id number] BY: Lab[address] [id number] Bilirubin mass conc mg/dL Normal 0.0-1.2 [facility] Internal Medicine Work Phone: Comment on above: PATIENT NOT FASTINGP ERFORMED BY: SOFIE [facility] Qblzhs[address] [facility] Centerblin [place] [id number] BY: Lab[address] [id number] Calcium mass conc 9.1 mg/dL Normal 8.7-10.2 Compreh [facility] Internal Medicine Work Phone: Comment on above: PATIENT NOT FASTINGP ERFORMED BY: SOFIE [facility] Wwvpqr2868 [address] [facility] [id number] BY: [facility] [address] [id number] Chloride molar conc 99 mmol/L Normal 96-106 Compr ehensive Internal Medicine Work Phone: Comment on above: PATIENT NOT FASTINGP ERFORMED BY: CB [facility] Qkljxb5944 [address] RoadFormerly [facility] [id number] BY: BN [facility] [address] [id number] CO2 molar conc 25 mmol/L Normal 18-29 Comprehens [facility] Internal Medicine Work Phone: Comment on above: PATIENT NOT FASTINGP ERFORMED BY: CB [facility] Utgmml8615 [address] RoadFormerly [facility] [id number] BY: [facility] [address] [id number] Creatinine mass conc 0.98 mg/dL Normal 0.57-1.00 [facility] Work Phone: Comment on above: PATIENT NOT FASTINGP ERFORMED BY: CB [facility] Tkcnzy8148 [address] [facility] [id number] BY: [facility] [address] [id number] GFR/1.73 sq M predicted among blacks CKD-EPI vol rate/area (S/P/Bld) 83 mL/min/1.73 Normal Comprehensiv e Internal Medicine Work Phone: Comment on above: PATIENT NOT FASTINGP ERFORMED BY: CB [facility] Pdzmhc5987 [address] [facility] [id number] BY: [facility] [address] [id number] GFR/1.73 sq M predicted among non-blacks CKD-EPI vol rate/area (S/P/Bld) 72 mL/min/1.73 Normal [facility] Work Phone: Comment on above: PATIENT NOT FASTINGP ERFORMED BY: CB [facility] Fltzaw3139 [address] Formerly [facility] HospitalDublin [place] [id number] BY: [address] [id number] Globulin Calculated mass conc (S) 3.0 g/dL Normal 1.5-4.5 [facility] Work Phone: Globulin mass conc (S) 3.0 g/dL Normal 1.5-4.5 [facility] Work Phone: Comment on above: PATIENT NOT FASTINGP ERFORMED BY: [place] 1007870 [facility] [id number] BY: [address] [id number] Glucose mass conc 84 mg/dL Normal 65-99 Compreh ensive Internal Medicine Work Phone: Comment on above: PATIENT NOT FASTINGP ERFORMED BY: [place] 1007870 [facility] [id number] BY: [address] [id number] Potassium molar conc 3.4 mmol/L Abnormal 3.5-5.2 Comp rehensive Internal Medicine Work Phone: Comment on above: Client Requested [place] g PATIENT NOT FASTINGP ERFORMED BY: [place] 1007870 [facility] [id number] BY: [address] [id number] Protein mass conc 7.3 g/dL Normal 6.0-8.5 Compreh ensive Internal Medicine Work Phone: Comment on above: PATIENT NOT FASTINGP ERFORMED BY: LabCathy [place] [id number] [facility] [id number] BY: [address] [id number] Sodium molar conc 142 mmol/L Normal 134-144 Compreh ensive Internal Medicine Work Phone: Comment on above: PATIENT NOT FASTINGP ERFORMED BY: Lab90 [address] Streetblin [place] [id number] BY: LabCo[address] [id number] Urea nitrogen mass conc 19 mg/dL Normal 6-24 [facility] Work Phone: Comment on above: PATIENT NOT FASTINGP ERFORMED BY: SOFIE [facility] Lmebbz4114 Reid RoadDublin [place] [id number] BY: [facility] [address] [id number] Urea nitrogen/Creatinine mass ratio 19 mg/mg Normal 9- [facility] Work Phone: Comment on above: PATIENT NOT FASTINGP ERFORMED BY: SOFIE [facility] Lkyvjv3037 [address] [facility] [id number] BY: [facility] [address] [id number] RHEUMATOID FACTOR-QUANT (869 91)Ordered By: Mushroom Laborer on 10-21-2017 Rheumatoid factor Qn [IU]/mL Normal 0.0-13.9 [facility] Work Phone: Comment on above: PATIENT NOT FASTINGP ERFORMED BY: SOFIE [facility] Yutnxp6095 [address] [facility] [id number] BY: LabCo[address] [id number] Rheumatoid factor Qn [IU]/mL Normal 0.0-13.9 Comp rehensive Internal Medicine; [facility] Work Phone: Comment on above: PATIENT NOT FASTINGP ERFORMED BY: CB [facility] Qkzllj6905 Reid RoadDuAmerican Healthcare Systems [id number] BY: LabCo[address] [id number] SED RATE ERYTHROCYTE ([id number]) Ordered By: Mushroom Laborer on 10-21-2017 ESR Velocity (Bld) 9 mm/h Normal 0-[address] [facility] Internal Medicine Work Phone: Comment on above: PATIENT NOT FASTINGP ERFORMED BY: SOFIE [facility] Ryzmwq8359 [address] [facility]in [place] [id number] BY: Viridis LearningPatricia [place] 5[address]37 [facility] [id number] TSH ([id number])Ordered By: WealthEnginedominick m Education Rn on 10-21-2017 Thyrotropin Qn 0.766 {uIU/mL} Normal 0.450-4.50 0 [facility] Work Phone: Comment on above: PATIENT NOT FASTINGP ERFORMED BY: [employer] Sjhbig7599 [facility] [id number] BY: [employer]ha [employer] [id number] VITAMIN B-12 (CYANOCOBALAMIN ) (06461)Ordered By: Mushroom Laborer on 10-21-2017 Cobalamin (Vitamin B12) mass conc 902 pg/mL Normal 232-1245 [facility] Work Phone: Comment on above: Please note refere nce interval change PATIENT NOT FASTINGP ERFORMED BY: [employer] Slpwtc4558 [facility] [id number] BY: [employer] Njnqw[address] [id number] Comprehensive Metabolic Prof ilOrdered By: Mushroom Laborer on 07-03-2017 Comprehensive metabolic 2000 panel 0.85 [...] Medicine Work Phone: Folates, (Folic Acid)Ordered By: Mushroom Laborer on 07-03-2017 FOLATES 24.00 ng/mL Abnormal 3.1-17.5 [facility] Work Phone: Hemoglobin [id number] By: Sy stem Education Rn on 07-03-2017 Hemoglobin A1c/Hemoglobin.total mass fraction (Bld) 5.3 % Normal 4.2-6.3 Comprehensiv e Internal Medicine Work Phone: HomocysteineOrdered By: Syst em Education Rn on 07-03-2017 HOMOCYSTEINE 6.2 umol/L Normal 3.2-10.7 Comprehensiv e Internal Medicine Work Phone: IronOrdered By: System Manag er on 07-03-2017 Iron mass conc 48 ug/dL Abnormal 50-170 Comprehens [facility] Internal Medicine Work Phone: Lipid ProfileOrdered By: Hayley tem Education Rn on 07-03-2017 Cholesterol in HDL mass conc [...] > or = 500 mg/dL MagnesiumOrdered By: Mushroom Laborer on 07-03-2017 Magnesium mass conc 2.2 mg/dL Normal 1.8-2.4 Compr ensive Internal Medicine Work Phone: Miscellaneous Lab ProcedureO rdered By: Mushroom Laborer on 07-03-2017 [facility] [place] Comprehensi Internal Medicine Work Phone: Comment on above: TEST RESULT UNITS RE FERENCE INTERVALChromium, Plasma 1.1 ug/L 0.1 - 2.1 Detection Limit = 0.1 TESTING PERFORMED AT [facility]. ORIGINAL REPORT ON FILE IN LAB CONTAINS ADDITIONAL TEST SITE INFORMATION. PTH,INTACTOrdered By: Mushroom Laborer on 07-03-2017 PTH,Intact 55 pg/mL Normal 14-72 [facility] Work Phone: PhosphorusOrdered By: Mushroom Laborer on 07-03-2017 Phosphate mass conc 3.0 mg/dL Normal 2.5-4.9 Compr [facility] Internal Medicine Work Phone: Thyroid Stim Hormone (TSH)Or dered By: Mushroom Laborer on 07-03-2017 Thyrotropin Qn 1.12 {uIU/mL} Normal 0.358-3.74 Compreh ensive Internal Medicine Work Phone: Vitamin A, RetinolOrdered By : Mushroom Laborer on 07-03-2017 Retinol mass conc 53 ug/dL Normal 20-65 Compreh ensive Internal Medicine Work Phone: Comment on above: Performed at: [facility] [address] [id number] Director: Jewel Felipe MD, Phone: [phone] Vitamin T12Pcghqaz By: Yady merino Education Rn on 07-03-2017 Cobalamin (Vitamin B12) mass conc 428 pg/mL Normal 211-911 [facility] Work Phone: Vitamin D,25 HydroxyOrdered By: Mushroom Laborer on 07-03-2017 Vitamin D 25-OH 39.3 ng/mL Normal Comprehen sive Internal Medicine Work Phone: Comment on above: Vitamin D 25(OH) Sta tus Range Deficiency <20 ng/mL (50nmol/L) Insuffciency 20 - 30 ng/mL (50 - 75 nmol/L) Sufficiency 30 - 100 ng/mL (75 - 250 nmol/L) Toxicity >100 ng/mL (>250 nmol/L) Zinc, Plasma or SerumOrdered By: Mushroom Laborer on 07-03-2017 Zinc mass conc 67 ug/dL Normal 56-134 Comprehens [facility] Internal Medicine Work Phone: Comment on above: Detection Limit = 5 PTH,INTACTOrdered By: Mushroom Laborer on 11-02-2016 PTH,Intact 57 pg/mL Normal 14-72 [facility] Work Phone: Comprehensive Metabolic Prof ilOrdered By: Mushroom Laborer on 10-23-2016 Comprehensive metabolic 2000 panel 7.0 [...] Medicine Work Phone: Vitamin D,25 HydroxyOrdered By: Mushroom Laborer on 10-23-2016 Vitamin D 25-OH 39.2 ng/mL Normal Comprehen [facility] Internal Medicine Work Phone: Comment on above: Vitamin D 25(OH) Sta tus Range Deficiency <20 ng/mL (50nmol/L) Insuffciency 20 - 30 ng/mL (50 - 75 nmol/L) Sufficiency 30 - 100 ng/mL (75 - 250 nmol/L) Toxicity >100 ng/mL (>250 nmol/L) CHICHO CULTURE-OTHER ([id number])Ord ered By: Mushroom Laborer on 09-01-2016 Bacteria identified Respiratory culture Nom (Unsp spec) Final report Normal [facility] Work Phone: Comment on above: PATIENT NOT FASTINGP ERFORMED BY: LabVakast Tjwvrr0829 [facility] [id number] Information: SRC:TH Bacteria identified Respiratory culture Nom (Unsp spec) RRF Normal [facility] Work Phone: Comment on above: Routine respiratory kurt PATIENT NOT FASTINGP ERFORMED BY: LabVakast Plsrvf5282 [facility] [id number] Information: SRC:TH Rapid Strep Test, Office ([phone])on 09-01-2016 S. pyogenes Ag EIA Ql (Throat) Negative Normal [facility]; [facility] Work Phone: Rapid Strep Test, Office ([phone])Ordered By: Jay Ward on 09-01-2016 S. pyogenes Ag IA Ql (Unsp spec) Negative Normal [facility] Work Phone: CBC W/Diff, AutomatedOrdered By: Mushroom Laborer on 05-09-2016 Absolute Lymph 1.46 {X10_3/ul} Normal [...] IM GRAN % 0.200 % Normal 0.0-0.9 [facility] Internal Medicine Work Phone: Comment on above: IG% - Immature Granu locytes (promyelocytes, myelocytes andmetamyelocytes) > 1% indicates that a LEFT SHIFT is Present. Lymphocytes/100 WBC Auto (Bld) 22.4 % Normal 19-41 [facility] Work Phone: MCH Auto Entitic mass (RBC) 30.8 pg Normal 27.0-32.0 [facility] Internal Medicine Work Phone: MCHC Auto mass conc (RBC) 34.6 {g/gl} Normal 32-36 [facility] Internal Medicine Work Phone: MCV Auto Entitic volume (RBC) 89.2 fL Normal 81-99 [facility] Work Phone: Monocytes/100 WBC Auto (Bld) 8.1 % Normal 0-10 [facility] Internal Medicine Work Phone: Neutrophils/100 WBC Auto (Bld) 67.0 % Normal 47-70 [facility] Internal Medicine Work Phone: Platelet mean volume Auto Entitic volume (Bld) 10.2 fL Normal 6.2-12.0 [facility] Internal Medicine Work Phone: Platelets Auto #/vol (Bld) 258 10*3/uL Normal 150-450 [facility] Internal Medicine Work Phone: RBC Auto #/vol (Bld) 4.90 {M/mm3} Normal 4.2-5.4 Co mprehensive Internal Medicine Work Phone: RDW SD 44.2 fL Abnormal 35.1-43.9 [facility] Internal Medicine Work Phone: WBC Auto #/vol (Bld) 6.5 10*3/uL Normal 4.4-11.0 [facility] prehensive Internal Medicine Work Phone: Comprehensive Metabolic Prof ilOrdered By: Mushroom Laborer on 05-09-2016 metabolic 1999 panel 1.0 {RATIO} [...] mass conc 30 ng/mL Normal 8-252 [facility]pre [facility] Work Phone: Folates, (Folic Acid)Ordered By: Mushroom Laborer on 05-09-2016 FOLATES 39.90 ng/mL Abnormal 3.1-17.5 [facility] Work Phone: HomocysteineOrdered By: Syst em Education Rn on 05-09-2016 HOMOCYSTEINE 4.5 umol/L Normal 3.2-10.7 Comprehensiv e Internal Medicine Work Phone: Iron Binding Capacity,TotalO rdered By: Mushroom Laborer on 05-09-2016 Iron binding capacity mass conc 343 ug/dL Normal 250-450 [facility] Work Phone: Lipid ProfileOrdered By: Sykalpana tem Education Rn on 05-09-2016 Cholesterol in HDL mass conc [...] > or = 500 mg/dL MagnesiumOrdered By: Mushroom Laborer on 05-09-2016 Magnesium mass conc 1.9 mg/dL Normal 1.8-2.4 [facility] ehensive Internal Medicine Work Phone: Miscellaneous Lab ProcedureO rdered By: Mushroom Laborer on 05-09-2016 MIS LAB TEST Normal Comprehensi [...] Detection Limit = 0.1 TESTING PERFORMED AT [facility]. ORIGINAL REPORT ON FILE IN LAB CONTAINS ADDITIONAL TEST SITE INFORMATION. PTH,INTACTOrdered By: Mushroom Laborer on 05-09-2016 PTH,Intact 65 pg/mL Normal 14-72 [facility] Work Phone: PhosphorusOrdered By: Mushroom Laborer on 05-09-2016 Phosphate mass conc 2.9 mg/dL Normal 2.5-4.9 Compr ehensive Internal Medicine Work Phone: Protein Electroph, SOrdered By: Mushroom Laborer on 05-09-2016 Albumin mass conc Normal 3.2-5.6 [facility] ensive Internal Medicine Work Phone: Comment on above: RESULT UNITS REFEREN CE INTERVAL 3.5 g/dL 2.9 - 4.4 Albumin/Globulin mass ratio Normal 0.7-2.0 [facility] Internal Medicine Work Phone: Comment on above: RESULT UNITS REFEREN CE INTERVAL 1.1 0.7 - 1.7Please note:Protein electrophoresis scan will follow via computer, mail,or sql application developer delivery.P E Interpretation, S:The SPE pattern appears essentially unremarkable. Evidenceof monoclonal protein is not apparent. BETA GLOBULIN 1.1 g/dL Normal 0.7-1.3 Comprehensi Internal Medicine Work Phone: Globulin Calculated mass conc (S) Normal 2.0-4.5 [facility] Internal Medicine Work Phone: Comment on above: RESULT UNITS REFEREN CE INTERVAL 3.1 g/dL 2.2 - 3.9 M-SPIKE Normal 0.1-0.4 [facility] Internal Medicine Work Phone: Comment on above: Not Observed RESULT UNITS REFEREN CE INTERVAL 1.2 g/dL 0.4 - 1.8 RESULT UNITS REFEREN CE INTERVAL 0.7 g/dL 0.4 - 1.0 RESULT UNITS REFEREN CE INTERVAL 0.2 g/dL 0.0 - 0.4 NOTE: Comment Normal [facility] Internal Medicine Work Phone: Comment on above: The SPE pattern appe ars essentially unremarkable. Evidenceof monoclonal protein is not apparent. Protein electrophore sis scan will follow via computer,mail, or sql application developer delivery. Protein mass conc Comment Normal [facility] Internal Medicine Work Phone: Comment on above: Protein electrophore sis scan will follow via computer,mail, or sql application developer delivery. Protein mass conc Normal 6.0-8.5 [facility] [facility] Work Phone: Comment on above: RESULT UNITS REFEREN CE INTERVAL 6.6 g/dL 6.0 - 8.5 Thyroid Stim Hormone (TSH)Or dered By: Mushroom Laborer on 05-09-2016 Thyrotropin Qn 1.57 {uIU/mL} Normal 0.358-3.74 Compreh ens[facility] Work Phone: Vitamin A, RetinolOrdered By : Mushroom Laborer on 05-09-2016 Retinol mass conc 39 ug/dL Normal 20-65 Compreh ensive [facility] Work Phone: Vitamin [id number] By: Yady m Education Rn on 05-09-2016 Cobalamin (Vitamin B12) mass conc 1085 pg/mL Abnormal 211-911 [facility] Work Phone: Vitamin D,25 HydroxyOrdered By: Mushroom Laborer on 05-09-2016 Vitamin D 25-OH 51.9 ng/mL Normal Comprehen sive Internal Medicine Work Phone: Comment on above: Vitamin D 25(OH) Sta tus Range Deficiency <20 ng/mL (50nmol/L) Insuffciency 20 - 30 ng/mL (50 - 75 nmol/L) Sufficiency 30 - 100 ng/mL (75 - 250 nmol/L) Toxicity >100 ng/mL (>250 nmol/L) Zinc, Plasma or SerumOrdered By: Mushroom Laborer on 05-09-2016 Zinc mass conc 68 ug/dL [...] Limit = 5 Aerobic Bacterial Culture ([id number])Ordered By: Mushroom Laborer on 12-19-2015 Bacteria identified Aer cx Nom (Unsp spec) Final report Abnormal [facility] Work Phone: Comment on above: rt upper thigh; KENN ENT NOT FASTINGPERFORMED BY: [facility] Jgneak3086 [facility] [id number] Information: SRC:BRIGETTE [id number] RIGHT UPP ER THIGH Bacteria identified Cx [...] thigh; KENN ENT NOT FASTINGPERFORMED BY: [facility] Yrudjy9667 [facility] [id number] Information: SRC:BRIGETTE S11422 RIGHT UPP ER THIGH Other Antibiotic [facility] prehensive Internal Medicine Work Phone: Comment on above: S = Susceptible; I = Intermediate; R = Resistant P = Positive; N = Negative MICS are expressed in micrograms per mL Antibiotic RSLT#1 RSLT#2 RSLT#3 RSLT#4Ciprofloxacin SClindamycin SErythromycin RGentamicin SLevofloxacin SLinezolid SMoxifloxacin SOxacillin SPenicillin RQuinupristin/Dalfopristin SRifampin STetracycline STrimethoprim/Sulfa SVancomycin S rt upper thigh; KENN ENT NOT FASTINGPERFORMED BY: [facility]Saint [facility] Gvxeay5253 [facility] [id number] Information: SRC:BRIGETTE [id number] RIGHT UPP ER THIGH CALCIFIDIOL (10755) VIT D 25 Ordered By: Mushroom Laborer on 08-21-2015 25-Hydroxyvitamin D2+25-Hydroxyvitamin D3 mass conc 47.3 ng/mL Normal 30.0-100.0 [facility] Work Phone: Comment on above: Vitamin D deficiency has been defined by the [place] and an Endocrine Society practice guideline as alevel of serum 25-OH vitamin D less than 20 ng/mL (1,2).The Endocrine Society went on to further define vitamin Dinsufficiency as a level between 21 and 29 ng/mL (2).1. IOM ([place] [employer]). 2010. Dietary reference intakes for calcium and D. [place]: The National Academies Press.2. Karlos MF, Alice CERNA, Marina JENKINS, et al. Evaluation, treatment, and prevention of vitamin D deficiency: an Endocrine Society clinical practice guideline. JCEM. 2010; 96(7):1911-30. send results to dr valery cid; PATIENT NOT FASTINGPERFORMED BY: CB [facility] Ywjkru6904 Reid Roadblin [place] [id number] CBC, PLATELETS & AUT DIFF (4 5660)Ordered By: Mushroom Laborer on 08-21-2015 Basophils #/vol (Bld) 0.0 {x10E3/uL} Normal 0.0-0.2 [facility] Work Phone: Comment on above: PATIENT NOT FASTINGP ERFORMED BY: CB [facility] Rwfqoa0180 [address] RoadDublin [place] [id number] Information: [id number] Basophils (Bld) [#/Vol] 0.0 10*3/uL Normal 0.0-0.2 [facility]; [facility] Work Phone: Comment on above: PATIENT NOT FASTINGP ERFORMED BY: CB [facility] Fzvhtl2183 Reid RoadAdventhealth Hendersonvillein [place] [id number] Information: [id number] Basophils Auto #/vol (Bld) 0.0 {x10E3/uL} Normal 0.0-0.2 [facility] Work Phone: Basophils/100 WBC (Bld) 0 % Normal [facility] Work Phone: Comment on above: PATIENT NOT FASTINGP ERFORMED BY: CB [facility] Aaizjb0684 Reid RoadDublin [place] [id number] Information: [id number] Basophils/100 WBC Auto (Bld) 0 % Normal [facility] Work Phone: Eosinophils #/vol (Bld) 0.2 {x10E3/uL} Normal 0.0-0.4 [facility] Work Phone: Comment on above: PATIENT NOT FASTINGP ERFORMED BY: CB [facility] Ficqjz8896 [address] Em[address] Futuresblin [place] [id number] Information: [id number] Eosinophils (Bld) [#/Vol] 0.2 10*3/uL Normal 0.0-0.4 [facility]; [facility] Work Phone: Comment on above: PATIENT NOT FASTINGP ERFORMED BY: SOFIE LabSaint [facility] Spcyao9298 [facility] [id number] Information: [id number] Eosinophils Auto #/vol (Bld) 0.2 {x10E3/uL} Normal 0.0-0.4 [facility] Work Phone: Eosinophils/100 WBC (Bld) 2 % Normal [facility] Work Phone: Comment on above: PATIENT NOT FASTINGP ERFORMED BY: SOFIE Sibleylin6370 [facility] [id number] Information: [id number] Eosinophils/100 WBC Auto (Bld) 2 % Normal [facility] Work Phone: Erythrocyte distribution width Auto Ratio (RBC) 16.5 % Abnormal 12.3-15.4 [facility] Work Phone: Erythrocyte distribution width Ratio (RBC) 16.5 % Abnormal 12.3-15.4 [facility] Work Phone: Comment on above: PATIENT NOT FASTINGP ERFORMED BY: SOFIE LabDavid SibleyKoizxw7581 [facility] [id number] Information: [id number] Hematocrit Auto Volume Fraction (Bld) 39.0 % Normal 34.0-46.6 [facility] Internal Medicine Work Phone: Hematocrit Volume Fraction (Bld) 39.0 % Normal 34.0-46.6 [facility] Internal Medicine Work Phone: Comment on above: PATIENT NOT FASTINGP ERFORMED BY: SOFIE LabRutTrinitas HospitalQpsger2456 [facility] [id number] Information: [id number] Hemoglobin mass conc (Bld) 12.6 g/dL Normal 11.1-15.9 [facility] Work Phone: Comment on above: PATIENT NOT FASTINGP ERFORMED BY: SOFIE Archuleta6370 [facility] [id number] Information: [id number] Immature granulocytes #/vol (Bld) 0.0 {x10E3/uL} Normal 0.0-0.1 [facility] Work Phone: Comment on above: PATIENT NOT FASTINGP ERFORMED BY: SOFIE [address] [id number] Information: [id number] Immature granulocytes (Bld) [#/Vol] 0.0 10*3/uL Normal 0.0-0.1 [facility]; [facility] Work Phone: Comment on above: PATIENT NOT FASTINGP ERFORMED BY: [address] [id number] Information: [id number] Immature granulocytes/100 WBC (Bld) 0 % Normal [facility] Work Phone: Comment on above: PATIENT NOT FASTINGP ERFORMED BY: SOFIE [address] [id number] Information: [id number] Lymphocytes #/vol (Bld) 2.3 {x10E3/uL} Normal 0.7-3.1 [facility] Work Phone: Comment on above: PATIENT NOT FASTINGP ERFORMED BY: [place] 1007870 [facility] [id number] Information: [id number] Lymphocytes (Bld) [#/Vol] 2.3 10*3/uL Normal 0.7-3.1 [facility]; [facility] Work Phone: Comment on above: PATIENT NOT FASTINGP ERFORMED BY: [address] [id number] Information: [id number] Lymphocytes Auto #/vol (Bld) 2.3 {x10E3/uL} Normal 0.7-3.1 [facility] Work Phone: Lymphocytes/100 WBC (Bld) 29 % Normal [facility] Work Phone: Comment on above: PATIENT NOT FASTINGP ERFORMED BY: SOFIE [place] 1952370 [facility] [id number] Information: [id number] Lymphocytes/100 WBC Auto (Bld) 29 % Normal [facility] Work Phone: MCH Auto Entitic mass (RBC) 25.3 pg Abnormal 26.6-33.0 [facility] Work Phone: MCH Entitic mass (RBC) 25.3 pg Abnormal 26.6-33.0 [facility] Work Phone: Comment on above: PATIENT NOT FASTINGP ERFORMED BY: SOFIE [address] [id number] Information: [id number] MCHC Auto mass conc (RBC) 32.3 g/dL Normal 31.5-35.7 [facility] Work Phone: MCHC mass conc (RBC) 32.3 g/dL Normal 31.5-35.7 [facility] Internal Medicine Work Phone: Comment on above: PATIENT NOT FASTINGP ERFORMED BY: SOFIE [place] 1952370 [facility] [id number] Information: [id number] MCV Auto Entitic volume (RBC) 78 fL Abnormal 79-97 [facility] Work Phone: MCV Entitic volume (RBC) 78 fL Abnormal 79-97 [facility] Work Phone: Comment on above: PATIENT NOT FASTINGP ERFORMED BY: SOFIE [place] 1952370 [facility] [id number] Information: [id number] Monocytes #/vol (Bld) 0.7 {x10E3/uL} Normal 0.1-0.9 [facility] Work Phone: Comment on above: PATIENT NOT FASTINGP ERFORMED BY: SOFIE Archuleta6370 [facility] [id number] Information: [id number] Monocytes (Bld) [#/Vol] 0.7 10*3/uL Normal 0.1-0.9 [facility]; [facility] Work Phone: Comment on above: PATIENT NOT FASTINGP ERFORMED BY: SOFIE Bravo Bgq[address] [id number] Information: [id number] Monocytes Auto #/vol (Bld) 0.7 {x10E3/uL} Normal 0.1-0.9 [facility] Work Phone: Monocytes/100 WBC (Bld) 8 % Normal [facility] Work Phone: Comment on above: PATIENT NOT FASTINGP ERFORMED BY: SOFIE Bravo G[address]goz[address] [id number] Information: [id number] Monocytes/100 WBC Auto (Bld) 8 % Normal [facility] Work Phone: Neutrophils #/vol (Bld) 5.0 {x10E3/uL} Normal 1.4-7.0 [facility] Work Phone: Comment on above: PATIENT NOT FASTINGP ERFORMED BY: SOFIE [address] [id number] Information: [id number] Neutrophils (Bld) [#/Vol] 5.0 10*3/uL Normal 1.4-7.0 [facility]; [facility] Work Phone: Comment on above: PATIENT NOT FASTINGP ERFORMED BY: SOFIE Bravo Smdskz4267 [facility] [id number] Information: [id number] Neutrophils Auto #/vol (Bld) 5.0 {x10E3/uL} Normal 1.4-7.0 [facility] Work Phone: Neutrophils/100 WBC (Bld) 61 % Normal [facility] Work Phone: Comment on above: PATIENT NOT FASTINGP ERFORMED BY: SOFIE Vera [facility] [id number] Information: [id number] Neutrophils/100 WBC Auto (Bld) 61 % Normal [facility] Work Phone: Platelets #/vol (Bld) 334 {x10E3/uL} Normal 150-379 [facility] Work Phone: Comment on above: PATIENT NOT FASTINGP ERFORMED BY: SOFIE Tran Sibleylin6370 [facility] [id number] Information: [id number] Platelets (Bld) [#/Vol] 334 10*3/uL Normal 150-379 [facility]; [facility] Work Phone: Comment on above: PATIENT NOT FASTINGP ERFORMED BY: SOFIE Tran Sibleylin6370 [facility] [id number] Information: [id number] Platelets Auto #/vol (Bld) 334 {x10E3/uL} Normal 150-379 [facility] Work Phone: RBC #/vol (Bld) 4.99 {x10E6/uL} Normal 3.77-5.28 [facility] Internal Medicine Work Phone: Comment on above: PATIENT NOT FASTINGP ERFORMED BY: SOFIE Bravo Dgbjgr3601 [facility] [id number] Information: [id number] RBC (Bld) [#/Vol] 4.99 10*6/uL Normal 3.77-5.28 [facility] Internal Medicine; [facility] Work Phone: Comment on above: PATIENT NOT FASTINGP ERFORMED BY: SOFIE RowleyCathy [place] 5908770 [facility] [id number] Information: [id number] RBC Auto #/vol (Bld) 4.99 {x10E6/uL} Normal 3.77-5.28 [facility] Internal Medicine Work Phone: WBC #/vol (Bld) 8.2 {x10E3/uL} Normal 3.4-10.8 [facility] Internal Medicine Work Phone: Comment on above: PATIENT NOT FASTINGP ERFORMED BY: SOFIE [facility] Hnupxk1073 [address] RoadDublin [place] [id number] Information: [id number] WBC (Bld) [#/Vol] 8.2 10*3/uL Normal 3.4-10.8 [facility] Internal Medicine; [facility] Internal Medicine Work Phone: Comment on above: PATIENT NOT FASTINGP ERFORMED BY: SOFIE [facility] Cnldcl1807 Reid RoadDuin [place] [id number] Information: [id number] WBC Auto #/vol (Bld) 8.2 {x10E3/uL} Normal 3.4-10.8 [facility] Internal Medicine Work Phone: FERRITIN ([id number])Ordered By: Mushroom Laborer on 08-21-2015 Ferritin mass conc 12 ng/mL Abnormal 15-150 [facility] Internal Medicine Work Phone: Comment on above: PATIENT NOT FASTINGP ERFORMED BY: SOFIE [facility] Ewezcy0511 [address] Orange ChefAdventhealth Hendersonvillein [place] [id number] IRON BINDING CAPACITY (TIBC) (11247)Ordered By: Mushroom Laborer on 08-21-2015 Iron binding capacity mass conc 405 ug/dL Normal 250-450 [facility] Internal Medicine Work Phone: Comment on above: PATIENT NOT FASTINGP ERFORMED BY: CB [facility] Pllnld4030 [address] RoadDublin [place] [id number] Iron binding capacity.unsaturated mass conc 321 ug/dL Normal 150-375 [facility] Internal Medicine Work Phone: Comment on above: PATIENT NOT FASTINGP ERFORMED BY: CB [facility] Imhdpx5483 [address] RoadDublin [place] [id number] Iron mass conc 84 ug/dL Normal 35-155 Comprehens velma Internal Medicine Work Phone: Comment on above: PATIENT NOT FASTINGP ERFORMED BY: CB [facility] Ogkkyx6325 [address] RoadDublin [place] [id number] Iron saturation mass fraction 21 % Normal 15-55 [facility] Work Phone: Comment on above: PATIENT NOT FASTINGP ERFORMED BY: CB [facility] Uqcusj1236 [address] RoadDublin [place] [id number] METABOLIC PANEL, COMPREHENSI VE (47439)Ordered By: Mushroom Laborer on 08-21-2015 Albumin mass conc 4.1 g/dL Normal 3.5-5.5 Compreh ensive Internal Medicine Work Phone: Comment on above: send results to dr valery cid; PATIENT NOT FASTINGPERFORMED BY: CB [facility] Ekicao9456 [address] RoadDublin [place] [id number] Albumin/Globulin mass ratio 1.6 {ratio} Normal 1.1-2.5 [facility] Work Phone: Comment on above: send results to dr valery cid; PATIENT NOT FASTINGPERFORMED BY: CB [facility] Choget1514 [address] RoadDublin [place] [id number] ALP [Catalytic activity/Vol] 73 U/L Normal 39-117 [facility]; [facility] Work Phone: Comment on above: send results to dr valery cid; PATIENT NOT FASTINGPERFORMED BY: CB [facility] Ghsuhz1540 [address] RoadDublin [place] [id number] ALP enzyme act/vol 73 [iU]/L Normal 39-117 [facility] Work Phone: Comment on above: send results to dr valery cid; PATIENT NOT FASTINGPERFORMED BY: CB [facility] Hgrupq8177 [address] RoadDublin [place] [id number] ALT [Catalytic activity/Vol] 35 U/L Abnormal 0-32 [facility]; [facility] Work Phone: Comment on above: send results to dr valery cid; PATIENT NOT FASTINGPERFORMED BY: CB [facility] Tcaxtq8297 [address] RoadDublin [place] [id number] ALT enzyme act/vol 35 [iU]/L Abnormal 0-32 [facility] Internal Medicine Work Phone: Comment on above: send results to dr valery cid; PATIENT NOT FASTINGPERFORMED BY: CB [facility] Uoyfrd9935 [address] RoadDublin [place] [id number] AST [Catalytic activity/Vol] 30 U/L Normal 0-40 [facility]; [facility] Work Phone: Comment on above: send results to dr valery cid; PATIENT NOT FASTINGPERFORMED BY: CB [facility] Vsjhol2161 [address] RoadDublin [place] [id number] AST enzyme act/vol 30 [iU]/L Normal 0-40 [facility] Internal Medicine Work Phone: Comment on above: send results to dr valery cid; PATIENT NOT FASTINGPERFORMED BY: CB [facility] Ajloux6801 [address] RoadDublin [place] [id number] Bilirubin [Mass/Vol] mg/dL Normal 0.0-1.2 [facility]; [facility] Work Phone: Comment on above: send results to dr valery cid; PATIENT NOT FASTINGPERFORMED BY: CB [facility] Ekddwd8316 [address] RoadDublin [place] [id number] Bilirubin mass conc mg/dL Normal 0.0-1.2 [facility]: Comment on above: send results to dr valery cid; PATIENT NOT FASTINGPERFORMED BY: CB [facility] Upvipf7050 [address] RoadDublin [place] [id number] Calcium mass conc 9.3 mg/dL Normal 8.7-10.2 [facility] Work Phone: Comment on above: send results to dr valery cid; PATIENT NOT FASTINGPERFORMED BY: CB [facility] Sybedq6806 [address] RoadDublin [place] [id number] Chloride molar conc 98 mmol/L Normal 97-108 Compr ensive Internal Medicine Work Phone: Comment on above: send results to dr valery cid; PATIENT NOT FASTINGPERFORMED BY: CB [facility] Vnoegf4075 [address] RoadDublin [place] [id number] CO2 molar conc 27 mmol/L Normal 18-29 Comprehens velma Internal Medicine Work Phone: Comment on above: send results to dr valery cid; PATIENT NOT FASTINGPERFORMED BY: CB [facility] Dkvuvj5434 [address] RoadDublin [place] [id number] Creatinine mass conc 1.01 mg/dL Abnormal 0.57-1.00 [facility] Internal Medicine Work Phone: Comment on above: send results to dr valery cid; PATIENT NOT FASTINGPERFORMED BY: CB [facility] Glbsme7637 [address] RoadDuin [place] [id number] GFR/1.73 sq M predicted among blacks CKD-EPI vol rate/area (S/P/Bld) 82 mL/min/1.73 Normal Comprehensiv e Internal Medicine Work Phone: Comment on above: send results to dr valery cid; PATIENT NOT FASTINGPERFORMED BY: CB [facility] Rwfgiu3985 [address] RoadDuin [place] [id number] GFR/1.73 sq M predicted among non-blacks CKD-EPI vol rate/area (S/P/Bld) 71 mL/min/1.73 Normal [facility] Work Phone: Comment on above: send results to dr valery cid; PATIENT NOT FASTINGPERFORMED BY: CB [facility] Ikrysq0611 [address] RoadDuin [place] [id number] Globulin Calculated mass conc (S) 2.6 g/dL Normal 1.5-4.5 [facility] Work Phone: Globulin mass conc (S) 2.6 g/dL Normal 1.5-4.5 [facility] Work Phone: Comment on above: send results to dr valery cid; PATIENT NOT FASTINGPERFORMED BY: CB [facility] Jnutev7750 [address] RoadDublin [place] [id number] Glucose mass conc 78 mg/dL Normal 65-99 Compreh ensive Internal Medicine Work Phone: Comment on above: send results to dr valery cid; PATIENT NOT FASTINGPERFORMED BY: CB [facility] Mrotrb6919 [address] RoadDublin [place] [id number] Potassium molar conc 3.9 mmol/L Normal 3.5-5.2 Comp rehensive Internal Medicine Work Phone: Comment on above: send results to dr valery cid; PATIENT NOT FASTINGPERFORMED BY: CB [facility] Ogbdlp2238 [address] RoadDublin [place] [id number] Protein mass conc 6.7 g/dL Normal 6.0-8.5 Compreh ensive Internal Medicine Work Phone: Comment on above: send results to dr valery cid; PATIENT NOT FASTINGPERFORMED BY: CB [facility] Ujwfgt6366 [address] RoadDublin [place] [id number] Sodium molar conc 140 mmol/L Normal 134-144 Compreh ensive Internal Medicine Work Phone: Comment on above: send results to dr valery cid; PATIENT NOT FASTINGPERFORMED BY: CB [facility] Qwfnwn0291 [address] RoadDublin [place] [id number] Urea nitrogen mass conc 15 mg/dL Normal 6-20 [facility] Work Phone: Comment on above: send results to dr valery cid; PATIENT NOT FASTINGPERFORMED BY: CB [facility] Xooglo4910 [address] RoadDublin [place] [id number] Urea nitrogen/Creatinine mass ratio 15 mg/mg Normal 8-20 [facility] Work Phone: Comment on above: send results to dr valery cid; PATIENT NOT FASTINGPERFORMED BY: CB [facility] Unavjw7671 [address] RoadDublin [place] [id number] PARATHORMONE ([id number])Ordered By: Mushroom Laborer on 08-21-2015 Parathyrin.intact mass conc 36 pg/mL Normal 15-65 [facility] Work Phone: Comment on above: send results to dr valery cid; PATIENT NOT FASTINGPERFORMED BY: [facility] Iqwixx6133 [facility] [id number] CBC, PLATELETS & AUT DIFF (0 4920)Ordered By: Mushroom Laborer on 01-28-2015 Basophils #/vol (Bld) 0.0 {x10E3/uL} Normal 0.0-0.2 [facility] Work Phone: Comment on above: PATIENT NOT FASTINGP ERFORMED BY: LabCoTrinitas HospitalMccbyb8935 [facility] [id number] BY: [employer] [id number] Information: [id number] Basophils (Bld) [#/Vol] 0.0 10*3/uL Normal 0.0-0.2 [facility]; [facility] Work Phone: Comment on above: PATIENT NOT FASTINGP ERFORMED BY: LabVakastTrinitas HospitalAyfuug3883 [facility] [id number] BY: [employer] [id number] Information: [id number] Basophils Auto #/vol (Bld) 0.0 {x10E3/uL} Normal 0.0-0.2 [facility] Work Phone: Basophils/100 WBC (Bld) 0 % Normal [facility] Work Phone: Comment on above: PATIENT NOT FASTINGP ERFORMED BY: Kiha SoftwareTrinitas HospitalFegxpe9976 [facility] [id number] BY: [employer] [id number] Information: [id number] Basophils/100 WBC Auto (Bld) 0 % Normal [facility] Work Phone: Eosinophils #/vol (Bld) 0.2 {x10E3/uL} Normal 0.0-0.4 [facility] Work Phone: Comment on above: PATIENT NOT FASTINGP ERFORMED BY: CB [facility] Ffldmo4500 [address] [facility] [id number] BY: [employer] [id number] Information: [id number] Eosinophils (Bld) [#/Vol] 0.2 10*3/uL Normal 0.0-0.4 [facility]; [facility] Work Phone: Comment on above: PATIENT NOT FASTINGP ERFORMED BY: CB [facility] Fxfayy5766 [address] [facility] [id number] BY: [employer] [id number] Information: [id number] Eosinophils Auto #/vol (Bld) 0.2 {x10E3/uL} Normal 0.0-0.4 [facility] Work Phone: Eosinophils/100 WBC (Bld) 2 % Normal [facility] Work Phone: Comment on above: PATIENT NOT FASTINGP ERFORMED BY: CB [facility] Kkyfra0482 [facility] [id number] BY: [employer] [id number] Information: [id number] Eosinophils/100 WBC Auto (Bld) 2 % Normal [facility] Work Phone: Erythrocyte distribution width Auto Ratio (RBC) 16.8 % Abnormal 12.3-15.4 [facility] Work Phone: Erythrocyte distribution width Ratio (RBC) 16.8 % Abnormal 12.3-15.4 [facility] Work Phone: Comment on above: PATIENT NOT FASTINGP ERFORMED BY: CB [facility] Xvmsly7926 [address] [facility] [id number] BY: [address] [id number] Information: [id number] Hematocrit Auto Volume Fraction (Bld) 34.6 % Normal 34.0-46.6 [facility] Internal Medicine Work Phone: Hematocrit Volume Fraction (Bld) 34.6 % Normal 34.0-46.6 [facility] Work Phone: Comment on above: PATIENT NOT FASTINGP ERFORMED BY: CB [facility] Devjea0620 [facility] [id number] BY: [address] [id number] Information: [id number] Hemoglobin mass conc (Bld) 10.6 g/dL Abnormal 11.1-15.9 [facility] Work Phone: Comment on above: PATIENT NOT FASTINGP ERFORMED BY: CB [facility] Ahaljx3709 [facility] [id number] BY: [employer] [id number] Information: [id number] Immature granulocytes #/vol (Bld) 0.0 {x10E3/uL} Normal 0.0-0.1 [facility] Work Phone: Comment on above: PATIENT NOT FASTINGP ERFORMED BY: CB [facility] Szseli1555 [facility] [id number] BY: [address] [id number] Information: [id number] Immature granulocytes (Bld) [#/Vol] 0.0 10*3/uL Normal 0.0-0.1 [facility]; [facility] Work Phone: Comment on above: PATIENT NOT FASTINGP ERFORMED BY: CB [facility] Cpenmd3414 [facility] [id number] BY: [address] [id number] Information: [id number] Immature granulocytes/100 WBC (Bld) 0 % Normal [facility] Work Phone: Comment on above: PATIENT NOT FASTINGP ERFORMED BY: [employer] [facility] Nmyuui1267 [facility] [id number] BY: [employer] [id number] Information: [id number],[id number] Lymphocytes #/vol (Bld) 2.2 {x10E3/uL} Normal 0.7-3.1 [facility] Work Phone: Comment on above: PATIENT NOT FASTINGP ERFORMED BY: [employer] [facility] Xvrfoh9757 [facility] [id number] BY: [employer] [id number] Information: [id number],[id number] Lymphocytes (Bld) [#/Vol] 2.2 10*3/uL Normal 0.7-3.1 [facility]; [facility] Work Phone: Comment on above: PATIENT NOT FASTINGP ERFORMED BY: Last.fmrp Ifdkbq6056 [facility] [id number] BY: [employer] [id number] Information: 230966,[id number] Lymphocytes Auto #/vol (Bld) 2.2 {x10E3/uL} Normal 0.7-3.1 [facility] Work Phone: Lymphocytes/100 WBC (Bld) 29 % Normal [facility] Work Phone: Comment on above: PATIENT NOT FASTINGP ERFORMED BY: [employer] Ecekvu7682 [facility] [id number] BY: [employer] [id number] Information: 802038,[id number] Lymphocytes/100 WBC Auto (Bld) 29 % Normal [facility] Work Phone: MCH Auto Entitic mass (RBC) 22.2 pg Abnormal 26.6-33.0 [facility] Work Phone: MCH Entitic mass (RBC) 22.2 pg Abnormal 26.6-33.0 [facility] Work Phone: Comment on above: PATIENT NOT FASTINGP ERFORMED BY: [facility] Favhth2187 [facility] [id number] BY: [address] [id number] Information: 653311,[id number] MCHC Auto mass conc (RBC) 30.6 g/dL Abnormal 31.5-35.7 [facility] Work Phone: MCHC mass conc (RBC) 30.6 g/dL Abnormal 31.5-35.7 [facility] Internal Medicine Work Phone: Comment on above: PATIENT NOT FASTINGP ERFORMED BY: LabVakast Iylnxm[address] [id number] BY: [address] [id number] Information: 853745,[id number] MCV Auto Entitic volume (RBC) 72 fL Abnormal 79-97 [facility] Work Phone: MCV Entitic volume (RBC) 72 fL Abnormal 79-97 [facility] Work Phone: Comment on above: PATIENT NOT FASTINGP ERFORMED BY: LabVakastMark [place] 5655870 [facility] [id number] BY: [address] [id number] Information: [id number],[id number] Monocytes #/vol (Bld) 0.5 {x10E3/uL} Normal 0.1-0.9 [facility] Work Phone: Comment on above: PATIENT NOT FASTINGP ERFORMED BY: [facility] Ubpbnk4298 [facility] [id number] BY: [address] [id number] Information: [id number] Monocytes (Bld) [#/Vol] 0.5 10*3/uL Normal 0.1-0.9 [facility]; [facility] Work Phone: Comment on above: PATIENT NOT FASTINGP ERFORMED BY: SOFIE [facility] Tlsijd2720 [facility] [id number] BY: [address] [id number] Information: 369970,K44725 Monocytes Auto #/vol (Bld) 0.5 {x10E3/uL} Normal 0.1-0.9 [facility] Work Phone: Monocytes/100 WBC (Bld) 7 % Normal [facility] Work Phone: Comment on above: PATIENT NOT FASTINGP ERFORMED BY: [facility] Fbrltq7760 [facility] [id number] BY: [employer] [id number] Information: [id number],G10500 Monocytes/100 WBC Auto (Bld) 7 % Normal [facility] Work Phone: Neutrophils #/vol (Bld) 4.7 {x10E3/uL} Normal 1.4-7.0 [facility] Work Phone: Comment on above: PATIENT NOT FASTINGP ERFORMED BY: [facility] Zvtxwo2097 [facility] [id number] BY: [address] [id number] Information: 312368,[id number] Neutrophils (Bld) [#/Vol] 4.7 10*3/uL Normal 1.4-7.0 [facility]; [facility] Work Phone: Comment on above: PATIENT NOT FASTINGP ERFORMED BY: [facility] Ctxcqj3385 [facility] [id number] BY: [address] [id number] Information: 507139,[id number] Neutrophils Auto #/vol (Bld) 4.7 {x10E3/uL} Normal 1.4-7.0 [facility] Work Phone: Neutrophils/100 WBC (Bld) 62 % Normal [facility] Work Phone: Comment on above: PATIENT NOT FASTINGP ERFORMED BY: SOFIE [facility] Vyodxa0829 [facility] [id number] BY: [employer] [id number] Information: 566413,[id number] Neutrophils/100 WBC Auto (Bld) 62 % Normal [facility] Work Phone: Platelets #/vol (Bld) 354 {x10E3/uL} Normal 150-379 [facility] Work Phone: Comment on above: PATIENT NOT FASTINGP ERFORMED BY: SOFIE [facility] Kxzzah9900 [facility] [id number] BY: [employer] [id number] Information: 159503,[id number] Platelets (Bld) [#/Vol] 354 10*3/uL Normal 150-379 [facility]; [facility] Work Phone: Comment on above: PATIENT NOT FASTINGP ERFORMED BY: [employer] LabVakastrp Pvvdub4776 [facility] [id number] BY: [employer] [id number] Information: 731973,W20059 Platelets Auto #/vol (Bld) 354 {x10E3/uL} Normal 150-379 [facility] Work Phone: RBC #/vol (Bld) 4.78 {x10E6/uL} Normal 3.77-5.28 Comp rehensive Internal Medicine Work Phone: Comment on above: PATIENT NOT FASTINGP ERFORMED BY: [employer] [facility] Qatkxe1374 [facility] [id number] BY: [address] [id number] Information: 987243,M62671 RBC (Bld) [#/Vol] 4.78 10*6/uL Normal 3.77-5.28 [facility] Internal Medicine; [facility] Work Phone: Comment on above: PATIENT NOT FASTINGP ERFORMED BY: [facility] Eolvxw1964 [facility] [id number] BY: [address] [id number] Information: 227134,[id number] RBC Auto #/vol (Bld) 4.78 {x10E6/uL} Normal 3.77-5.28 [facility] Work Phone: WBC #/vol (Bld) 7.6 {x10E3/uL} Normal 3.4-10.8 [facility] Internal Medicine Work Phone: Comment on above: PATIENT NOT FASTINGP ERFORMED BY: [facility] Brvyvi6639 [facility] [id number] BY: [address] [id number] Information: 994451,[id number] WBC (Bld) [#/Vol] 7.6 10*3/uL Normal 3.4-10.8 [facility] Internal Medicine; [facility] Internal Medicine Work Phone: Comment on above: PATIENT NOT FASTINGP ERFORMED BY: [facility] Dlpcog9194 [facility] [id number] BY: [address] [id number] Information: 988530,[id number] WBC Auto #/vol (Bld) 7.6 {x10E3/uL} Normal 3.4-10.8 [facility] Work Phone: GERARDO TEST, DIRECT (57738)O rdered By: Mushroom Laborer on 01-28-2015 Direct antiglobulin test.poly specific reagent Ql (RBC) Negative Normal [facility] Work Phone: Comment on above: PATIENT NOT FASTINGP ERFORMED BY: CB [facility] Ovishk0374 Reid RoadDublin [place] [id number] BY: [employer] [id number] Direct antiglobulin test.poly specific reagent Ql (RBC) Negative Normal [facility]; [facility] Work Phone: Comment on above: PATIENT NOT FASTINGP ERFORMED BY: CB [facility] Tchffq7112 [facility] RoadFormerly [facility] [id number] BY: [employer] [id number] FERRITIN (72838)Ordered By: Mushroom Laborer on 01-28-2015 Ferritin mass conc 8 ng/mL Abnormal 15-150 [facility] Work Phone: Comment on above: PATIENT NOT FASTINGP ERFORMED BY: CB [facility] Ccjyjc6110 [address] [facility] [id number] BY: [employer] [id number] FOLIC ACID SERUM (22337)Orde red By: Mushroom Laborer on 01-28-2015 Folate mass conc ng/mL Normal Comprehe nsive Internal Medicine Work Phone: Comment on above: A serum folate lori ntration of less than 3.1 ng/mL isconsidered to represent clinical deficiency. PATIENT NOT FASTINGP ERFORMED BY: CB [facility] Nivppn4020 [address] [facility] [id number] BY: [employer] [id number] HAPTOGLOBIN (15588)Ordered B y: Mushroom Laborer on 01-28-2015 Haptoglobin mass conc 117 mg/dL Normal 34-200 Com prehensive Internal Medicine Work Phone: Comment on above: PATIENT NOT FASTINGP ERFORMED BY: CB [facility] Ucnmbz2915 [address] [facility] [place] [id number] BY: [facility] Gumnmevlhk3085 [facility] [id number] Hemoglobin Glyclated (HGB A1 C) (33324)Ordered By: Mushroom Laborer on 01-28-2015 Hemoglobin A1c/Hemoglobin.total mass fraction (Bld) 5.4 % Normal 4.8-5.6 Comprehensiv e Internal Medicine Work Phone: Comment on above: . Increased risk for diabetes: 5.7 - 6.4 Diabetes: >6.4 Glycemic control for adults with diabetes: <7.0 PATIENT NOT FASTINGP ERFORMED BY: SOFIE [facility] Xukwwf0889 [facility] [id number] Information: [id number] IRON BINDING CAPACITY (TIBC) (37240)Ordered By: Mushroom Laborer on 01-28-2015 Iron binding capacity mass conc 447 ug/dL Normal 250-450 [facility] Work Phone: Comment on above: PATIENT NOT FASTINGP ERFORMED BY: CB [facility] Adpplh2138 [facility] [id number] BY: [facility] [address] [id number] Iron binding capacity.unsaturated mass conc 425 ug/dL Abnormal 150-375 [facility] Work Phone: Comment on above: PATIENT NOT FASTINGP ERFORMED BY: CB [facility] Udyqya3740 [address] [facility] [id number] BY: [facility] [address] [id number] Iron mass conc 22 ug/dL Abnormal 35-155 Comprehens velma Internal Medicine Work Phone: Comment on above: PATIENT NOT FASTINGP ERFORMED BY: CB [facility] Hsicdk2427 [address] [facility] [id number] BY: [facility] [address] [id number] Iron saturation mass fraction 5 % Abnormal 15-55 [facility] Work Phone: Comment on above: PATIENT NOT FASTINGP ERFORMED BY: [facility] Qwlylz2904 Reid Roadblin [place] [id number] BY: [address] [id number] LDH (LD) (LACTATE DEHYDROGEN ASE) (66249)Ordered By: Mushroom Laborer on 01-28-2015 LDH [Catalytic activity/Vol] 176 U/L Normal 119-226 [facility]; [facility] Work Phone: Comment on above: PATIENT NOT FASTINGP ERFORMED BY: [facility] Soxfoa7362 [address] [facility] [id number] BY: [address] [id number] LDH enzyme act/vol 176 [iU]/L Normal 119-226 [facility] Internal Medicine Work Phone: Comment on above: PATIENT NOT FASTINGP ERFORMED BY: LabVakastTrinitas HospitalIbbfbn5734 [facility] [id number] BY: [address] [id number] Methymalonic Acid, Serum (83 921)Ordered By: Mushroom Laborer on 01-28-2015 Methylmalonate molar conc 200 nmol/L Normal 0-378 [facility] Work Phone: Comment on above: PATIENT NOT FASTINGP ERFORMED BY: [facility] Ssjbuq2107 [facility] [id number] BY: [address] [id number] RETICULOCYTE [facility] (85 044)Ordered By: Mushroom Laborer on 01-28-2015 Reticulocytes/100 RBC (Bld) 1.1 % Normal 0.6-2.6 [facility] Work Phone: Comment on above: PATIENT NOT FASTINGP ERFORMED BY: [facility] Rzhfmc3922 [address] [facility] [id number] BY: [address] [id number] Reticulocytes/100 RBC Auto (Bld) 1.1 % Normal 0.6-2.6 [facility] Work Phone: VITAMIN B-12 (CYANOCOBALAMIN ) (58038)Ordered By: Mushroom Laborer on 01-28-2015 Cobalamin (Vitamin B12) mass conc 916 pg/mL Normal 211-946 [facility] Work Phone: Comment on above: PATIENT NOT FASTINGP ERFORMED BY: CB [facility] Daakvy8610 [facility] [id number] BY: BN [facility] Gmeohigznf8316 [facility] [id number] BMPOrdered By: System Manage r on 10-06-2014 [...] Auto #/vol (Bld) 5.6 10*3/uL Normal 4.4-11.0 [facility] prehensive Internal Medicine Work Phone: CBC 46.1 fL Abnormal 35.1-43.9 [facility] Work Phone: DCOrdered By: Mushroom Laborer on 10-06-2014 DC Normal [facility] Work Phone: Comment on above: MICROCYTOSIS 2+ PTOrdered By: Mushroom Laborer on 10-06-2014 INR Coag RelTime (PPP) 1.1 {INR} Normal [facility] Work Phone: PT 14.0 s Normal 11.7-14.9 [facility] Work Phone: PTTOrdered By: System Manage r on 10-06-2014 aPTT Coag time (Bld) 28.1 s Normal 24.1-36.2 Comp rehensive Internal Medicine Work Phone: CBC W/AUTO DIFF WBC (92319)O rdered By: Mushroom Laborer on 09-21-2014 Basophils #/vol (Bld) 0.0 {x10E3/uL} Normal 0.0-0.2 [facility] Work Phone: Comment on above: PATIENT NOT FASTINGP ERFORMED BY: SOFIE [address] [id number] Information: 559387,C83790 Basophils (Bld) [#/Vol] 0.0 10*3/uL Normal 0.0-0.2 [facility]; [facility] Work Phone: Comment on above: PATIENT NOT FASTINGP ERFORMED BY: SOFIE [place] 1952370 [facility] [id number] Information: 226358,L79177 Basophils Auto #/vol (Bld) 0.0 {x10E3/uL} Normal 0.0-0.2 [facility] Work Phone: Basophils/100 WBC (Bld) 0 % Normal [facility] Work Phone: Comment on above: PATIENT NOT FASTINGP ERFORMED BY: [address] [id number] Information: 119531,E58600 Basophils/100 WBC Auto (Bld) 0 % Normal [facility] Work Phone: Eosinophils #/vol (Bld) 0.2 {x10E3/uL} Normal 0.0-0.4 [facility] Work Phone: Comment on above: PATIENT NOT FASTINGP ERFORMED BY: [place] 1007870 [facility] [id number] Information: 125631,S79987 Eosinophils (Bld) [#/Vol] 0.2 10*3/uL Normal 0.0-0.4 [facility]; [facility] Work Phone: Comment on above: PATIENT NOT FASTINGP ERFORMED BY: SOFIE Sibleylin6370 [facility] [id number] Information: 937606,V95529 Eosinophils Auto #/vol (Bld) 0.2 {x10E3/uL} Normal 0.0-0.4 [facility] Work Phone: Eosinophils/100 WBC (Bld) 2 % Normal [facility] Work Phone: Comment on above: PATIENT NOT FASTINGP ERFORMED BY: SOFIE Archuleta6370 [facility] [id number] Information: 911512,D44444 Eosinophils/100 WBC Auto (Bld) 2 % Normal [facility] Work Phone: Erythrocyte distribution width Auto Ratio (RBC) 17.1 % Abnormal 12.3-15.4 [facility] Work Phone: Erythrocyte distribution width Ratio (RBC) 17.1 % Abnormal 12.3-15.4 [facility] Work Phone: Comment on above: PATIENT NOT FASTINGP ERFORMED BY: SOFIE [address]ible[address]in[address] [place] [address] [id number] Information: 153600,D91916 Hematocrit Auto Volume Fraction (Bld) 34.9 % Normal 34.0-46.6 [facility] Internal Medicine Work Phone: Hematocrit Volume Fraction (Bld) 34.9 % Normal 34.0-46.6 [facility] Work Phone: Comment on above: PATIENT NOT FASTINGP ERFORMED BY: SOFIE LabDavid SibleyZfvyty4350 [facility] [id number] Information: 041205,J17166 Hemoglobin mass conc (Bld) 10.4 g/dL Abnormal 11.1-15.9 [facility] Work Phone: Comment on above: PATIENT NOT FASTINGP ERFORMED BY: [facility]6370 [facility] [id number] Information: 667519,E96557 Immature granulocytes #/vol (Bld) 0.0 {x10E3/uL} Normal 0.0-0.1 [facility] Work Phone: Comment on above: PATIENT NOT FASTINGP ERFORMED BY: [address] [id number] Information: 240190,V75368 Immature granulocytes (Bld) [#/Vol] 0.0 10*3/uL Normal 0.0-0.1 [facility]; [facility] Work Phone: Comment on above: PATIENT NOT FASTINGP ERFORMED BY: [address] [id number] Information: 057758,M73927 Immature granulocytes/100 WBC (Bld) 0 % Normal [facility] Work Phone: Comment on above: PATIENT NOT FASTINGP ERFORMED BY: [address] [id number] Information: 663488,V76081 Lymphocytes #/vol (Bld) 2.1 {x10E3/uL} Normal 0.7-3.1 [facility] Work Phone: Comment on above: PATIENT NOT FASTINGP ERFORMED BY: [address] [id number] Information: 802156,A14622 Lymphocytes (Bld) [#/Vol] 2.1 10*3/uL Normal 0.7-3.1 [facility]; [facility] Work Phone: Comment on above: PATIENT NOT FASTINGP ERFORMED BY: [place] 1007870 [facility] [id number] Information: 050864,Y44401 Lymphocytes Auto #/vol (Bld) 2.1 {x10E3/uL} Normal 0.7-3.1 [facility] Work Phone: Lymphocytes/100 WBC (Bld) 22 % Normal [facility] Work Phone: Comment on above: PATIENT NOT FASTINGP ERFORMED BY: SOFIE HalleyAzgely Jgcrkl1785 [facility] [id number] Information: 969046,P95763 Lymphocytes/100 WBC Auto (Bld) 22 % Normal [facility] Work Phone: MCH Auto Entitic mass (RBC) 21.6 pg Abnormal 26.6-33.0 [facility] Work Phone: MCH Entitic mass (RBC) 21.6 pg Abnormal 26.6-33.0 [facility] Work Phone: Comment on above: PATIENT NOT FASTINGP ERFORMED BY: SOFIE [address] [id number] Information: 094216,[id number] MCHC Auto mass conc (RBC) 29.8 g/dL Abnormal 31.5-35.7 [facility] Work Phone: MCHC mass conc (RBC) 29.8 g/dL Abnormal 31.5-35.7 [facility] Internal Medicine Work Phone: Comment on above: PATIENT NOT FASTINGP ERFORMED BY: SOFIE [facility] [address] [id number] Information: 301115,J11013 MCV Auto Entitic volume (RBC) 73 fL Abnormal 79-97 [facility] Work Phone: MCV Entitic volume (RBC) 73 fL Abnormal 79-97 [facility] Work Phone: Comment on above: PATIENT NOT FASTINGP ERFORMED BY: SOFIE [address] [id number] Information: 077881,Q21140 Monocytes #/vol (Bld) 0.7 {x10E3/uL} Normal 0.1-0.9 [facility] Work Phone: Comment on above: PATIENT NOT FASTINGP ERFORMED BY: [facility]6370 [facility] [id number] Information: 536020,D60411 Monocytes (Bld) [#/Vol] 0.7 10*3/uL Normal 0.1-0.9 [facility]; [facility] Work Phone: Comment on above: PATIENT NOT FASTINGP ERFORMED BY: [place] 1007870 [facility] [id number] Information: 260275,Y65239 Monocytes Auto #/vol (Bld) 0.7 {x10E3/uL} Normal 0.1-0.9 [facility] Work Phone: Monocytes/100 WBC (Bld) 8 % Normal [facility] Work Phone: Comment on above: PATIENT NOT FASTINGP ERFORMED BY: [place] 1007870 [facility] [id number] Information: 536126,[id number] Monocytes/100 WBC Auto (Bld) 8 % Normal [facility] Work Phone: Neutrophils #/vol (Bld) 6.5 {x10E3/uL} Normal 1.4-7.0 [facility] Work Phone: Comment on above: PATIENT NOT FASTINGP ERFORMED BY: [place] 1007870 [facility] [id number] Information: 732182,C21245 Neutrophils (Bld) [#/Vol] 6.5 10*3/uL Normal 1.4-7.0 [facility]; [facility] Work Phone: Comment on above: PATIENT NOT FASTINGP ERFORMED BY: [place] 1007870 [facility] [id number] Information: 473557,C58593 Neutrophils Auto #/vol (Bld) 6.5 {x10E3/uL} Normal 1.4-7.0 [facility] Work Phone: Neutrophils/100 WBC (Bld) 68 % Normal [facility] Work Phone: Comment on above: PATIENT NOT FASTINGP ERFORMED BY: SOFIE Vera [facility] [id number] Information: 838984,M79568 Neutrophils/100 WBC Auto (Bld) 68 % Normal [facility] Work Phone: Platelets #/vol (Bld) 364 {x10E3/uL} Normal 150-379 [facility] Work Phone: Comment on above: PATIENT NOT FASTINGP ERFORMED BY: SOFIE Sibleylin6370 [facility] [id number] Information: 684024,P81671 Platelets (Bld) [#/Vol] 364 10*3/uL Normal 150-379 [facility]; [facility] Work Phone: Comment on above: PATIENT NOT FASTINGP ERFORMED BY: SOFIE Sibleylin6370 [facility] [id number] Information: 552382,[id number] Platelets Auto #/vol (Bld) 364 {x10E3/uL} Normal 150-379 [facility] Work Phone: RBC #/vol (Bld) 4.81 {x10E6/uL} Normal 3.77-5.28 [facility] Internal Medicine Work Phone: Comment on above: PATIENT NOT FASTINGP ERFORMED BY: SOFIE Sibleylin6370 [facility] [id number] Information: 595023,K85053 RBC (Bld) [#/Vol] 4.81 10*6/uL Normal 3.77-5.28 [facility] Internal Medicine; [facility] Work Phone: Comment on above: PATIENT NOT FASTINGP ERFORMED BY: SOFIE Sibleylin6370 [facility] [id number] Information: [id number] RBC Auto #/vol (Bld) 4.81 {x10E6/uL} Normal 3.77-5.28 [facility] Work Phone: WBC #/vol (Bld) 9.5 {x10E3/uL} Normal 3.4-10.8 [facility]: Comment on above: PATIENT NOT FASTINGP ERFORMED BY: SOFIE [facility] Neebmj1586 Reid RoadAdventhealth Hendersonvillein [place] [id number] Information: 418194,[id number] WBC (Bld) [#/Vol] 9.5 10*3/uL Normal 3.4-10.8 [facility] Internal Medicine; [facility] Work Phone: Comment on above: PATIENT NOT FASTINGP ERFORMED BY: SOFIE [facility] Islsgk4027 [address] [facility] [id number] Information: 748617,[id number] WBC Auto #/vol (Bld) 9.5 {x10E3/uL} Normal 3.4-10.8 [facility] Work Phone: MAGNESIUM (12148)Ordered By: Mushroom Laborer on 09-21-2014 Magnesium mass conc 2.0 mg/dL Normal 1.6-2.6 [facility] Work Phone: Comment on above: PATIENT NOT FASTINGP ERFORMED BY: [facility] Tmxlqa5898 [facility] [id number] URINE CHICHO CULTURE-IDENTIFICA [place] (21207)Ordered By: Mushroom Laborer on 09-21-2014 Bacteria identified Cx Nom (U) Escherichia coli Abnormal [facility] Work Phone: Comment on above: Greater than 100,000 colony forming units per mL PATIENT NOT FASTINGP ERFORMED BY: [facility] Pzuvjz5241 [address] [facility] [place] [id number] Information: [id number] Bacteria identified Cx Nom (U) Final report Abnormal [facility] Work Phone: Comment on above: PATIENT NOT FASTINGP ERFORMED BY: [facility] [id number] [address] [facility] [place] [id number] Information: [id number] Other Antibiotic susc [facility] prehensive Internal Medicine Work Phone: Comment on above: S = Susceptibl e; I = Intermediate; R = Resistant P = Positive; N = Negative MICS are expressed in micrograms per mL Antibiotic RSLT#1 RSLT#2 RSLT#3 RSLT#4Amoxicillin/Clavulanic Acid SAmpicillin RCefepime SCeftriaxone SCefuroxime SCephalothin RCiprofloxacin RErtapenem SGentamicin SImipenem SLevofloxacin RNitrofurantoin SPiperacillin RTetracycline STobramycin STrimethoprim/Sulfa S PATIENT NOT FASTINGP ERFORMED BY: SOFIE [facility] [id number] Reid RoadDuAmerican Healthcare Systems [id number] Information: [id number] Urinalysis, Office ([id number])Or dered By: Heather Basilio on 09-21-2014 Bilirubin [...] Internal Medicine Work Phone: Vitamin D Hydroxy ([id number])Ord ered By: Mushroom Laborer on 09-21-2014 25-Hydroxyvitamin D2+25-Hydroxyvitamin D3 mass conc 33.5 ng/mL Normal 30.0-100.0 [facility] Work Phone: Comment on above: Vitamin D deficiency has been defined by the [place] and an Endocrine Society practice guideline as alevel of serum 25-OH vitamin D less than 20 ng/mL (1,2).The Endocrine Society went on to further define vitamin Dinsufficiency as a level between 21 and 29 ng/mL (2).1. IOM ([place] [employer]). 2010. Dietary reference intakes for calcium and D. [place]: The National Academies Press.2. Karlos MF, [place], Marina JENKINS, et al. Evaluation, treatment, and prevention of vitamin D deficiency: an Endocrine Society clinical practice guideline. JCEM. 2010; 96(7):1911-30. PATIENT NOT FASTINGP ERFORMED BY: [facility]CoTrinit[facility] [id number] [facility] [id number] VITAOrdered By: System Manag er on 07-06-2014 NAZ 40 ug/dL Normal 18-77 [facility] Work Phone: Comment on above: Performed at: - L [address] [id number] Director: Jewel Felipe MD, Phone: [phone] [id number] By: System Chunnel.TV r on 06-30-2014 Hemoglobin A1c/Hemoglobin.total mass fraction (Bld) 4.9 % Normal 4.2-6.3 Comprehensiv e Internal Medicine Work Phone: [id number] By: System Manage r on 06-30-2014 Cobalamin (Vitamin B12) mass conc 702 pg/mL Normal 211-911 [facility] Work Phone: CBCDOrdered By: Candescent SoftBase er on 06-30-2014 Erythrocyte distribution width Auto [...] enzyme act/vol 79 U/L Normal 45-[address] [facility] Internal Medicine Work Phone: ALT enzyme act/vol 36 U/L Normal 12-[address] [facility] Internal Medicine Work Phone: AST enzyme act/vol 25 U/L Normal 15-[facility] Internal Medicine Work Phone: Bilirubin mass conc [...] [facility] Work Phone: FEOrdered By: Mushroom Laborer on 06-30-2014 FE 23 ug/dL Abnormal 50-170 [...] [facility] Work Phone: MGOrdered By: Mushroom Laborer on 06-30-2014 Magnesium mass conc 1.7 mg/dL Abnormal 1.8-2.4 Compr ehensive Internal Medicine Work Phone: MISCOrdered By: System Manag er on 06-30-2014 MISC Normal [facility] Work Phone: Comment on above: TEST RESULT LIMITSCh romium, Plasma 0.6 ug/L 0.1 - 2.1Detection Limit = 0.1 TEST ING PERFORMED AT [facility]. ORIGINAL REPORT ONFILE IN LAB CONTAINS ADDITIONAL [...] nmol/L)Toxicity >100 ng/mL (>250 nmol/L) ZIOrdered By: Mushroom Laborer on 06-30-2014 ZI 96 ug/dL Normal 56-134 [facility] Work Phone: Comment on above: PLASMA NOT FROMCELLS. May cause falseelevation of plasmalevels due to intracellulartransfer into the plasma.It is recommeded tocentrifuge the royal blue-stoppered Vacutainerimmediately after collectionand to separate the plasmafrom the cells. Storeplasma in a plastic trans-iam tube for shipment tot laboratory.Detection Limit = 5 ABDOMEN/PELVIS WITHOUT CONTO rdered By: Mushroom Laborer on 05-10-2013 ABDOMEN/PELVIS WITHOUT CONT See Note [...] Ochoa M.D.May 10, 2013 at 12:12:35 PM [id number] Signed GP/GP If you are the referring physician and would like to consult with theradiologist who provided this interpretation, please contact Brandee Junior at [phone]. If this radiologist is unavailable, youwill be directed to another radiologist to assist. If you are a patient with a question regarding this report, pleasecontactyour referring physician directly. Professional Interpretation Provided By: [email or web address], Phone , These documents contain legally protected [...] #/vol (Bld) 4.19 {M/mm3} Abnormal 4.2-5.4 [facility] Work Phone: WBC Auto #/vol (Bld) 10.2 {k/mm3} Normal 4.4-11.0 [facility] Work Phone: CBCMD 0.4 % [...] enzyme act/vol 25 U/L Normal 12-[address] [facility] Internal Medicine Work Phone: AST enzyme act/vol 17 U/L Normal 15-[address] [facility] Internal Medicine Work Phone: Calcium mass conc [...] Phone: URINE CHICHO CULTURE-EDUARDA COL C OUNT ([id number])Ordered By: Mushroom Laborer on 05-10-2013 Bacteria identified Cx Nom (U) Escherichia coli Normal [facility] Work Phone: Comment on above: 25,000-50,000 colony forming units per mL PATIENT NOT FASTINGP ERFORMED BY: SOFIE [employer] [id number] [address] [employer] [place] [id number] Information: SRC:UR [id number] Bacteria identified Cx Nom (U) Final report Normal [facility] Work Phone: Comment on above: PATIENT NOT FASTINGP ERFORMED BY: [employer] [id number] [address] [employer] [place] [id number] Information: SRC:UR [id number] [facility] pre[facility] Work Phone: Comment on above: S = Susceptibl e; I = Intermediate; R = Resistant P = Positive; N = Negative MICS are expressed in micrograms per mL Antibiotic RSLT#1 RSLT#2 RSLT#3 RSLT#4Amoxicillin/Clavulanic Acid IAmpicillin RCefazolin SCefepime SCeftriaxone SCefuroxime SCephalothin ICiprofloxacin SESBL NErtapenem SGentamicin SImipenem SLevofloxacin SNitrofurantoin SPiperacillin RTetracycline STobramycin STrimethoprim/Sulfa S PATIENT NOT FASTINGP ERFORMED BY: LabVakastrp [id number] Reid [employer] [facility] ChefFormer[facility] [id number] Information: SRC:UR [id number] Urinalysis, Office ([id number])Or dered By: Savannah Malin on 05-10-2013 Bilirubin [...] Internal Medicine Work Phone: HgA1C , Office ([id number])Ordere d By: Leela Moreno on 10-24-2012 Hemoglobin [...] High > or = 500 mg/dL GLUCOSE ([id number])Ordered By: Megan Malik on 06-10-2012 Glucose mass conc 110 mg/dL Abnormal 75 - 105 Compreh ensive Internal Medicine Work Phone: Hemoglobin Glyclated (HGB A1 C) ([id number])Ordered By: Stefany Malik on 06-10-2012 Hemoglobin A1c/Hemoglobin.total mass fraction (Bld) 5.8 % Normal 4.6 - 7.1 Comprehensiv e Internal Medicine Work Phone: Vital Signs Date Time Vital Sign Value Performing Clinician Facility 04-27-2025 14:04-0400 Body height 164.5 cm Debbie Prescott APRN.CNM Work Phone: [facility] 04-27-2025 14:04-0400 Body mass index (BMI) [Ratio] 33.71 kg/m2 Debbie Prescott APRN.CNM Work Phone: [facility] 04-27-2025 14:04-0400 Body weight 91.17 kg Debbie Prescott APRN.CNM Work Phone: [facility] 04-27-2025 14:04-0400 Diastolic blood pressure 64 mm[Hg] Debbie Prescott APRN.CNM Work Phone: [facility] 04-27-2025 14:04-0400 Systolic blood pressure 102 mm[Hg] Debbie Prescott APRN.CNM Work Phone: [facility] 10-06-2024 10:47-0500 Body height 165.1 cm Beau Theodore MD Work Phone: [facility] [employer] 10-06-2024 10:47-0500 Body mass index (BMI) [Ratio] 40.77 kg/m2 Beau Theodore MD Work Phone: [facility] [employer] 10-06-2024 10:47-0500 Body weight 111.13 kg Beau Theodore MD Work Phone: [facility] [employer] 09-08-2024 14:17-0400 Body height 165.1 cm Beau Theodore MD Work Phone: [facility] [employer] 09-08-2024 14:17-0400 Body mass index (BMI) [Ratio] 40.82 kg/m2 Beau Theodore MD Work Phone: [facility] [employer] 09-08-2024 14:17-0400 Body weight 111.27 kg Beau Theodore MD Work Phone: [facility] [employer] 09-08-2024 14:17-0400 Diastolic blood pressure 66 mm[Hg] Beau Theodore MD Work Phone: [facility] [employer] 09-08-2024 14:17-0400 Heart rate 57 /min Beau Theodore MD Work Phone: [facility] [employer] 09-08-2024 14:17-0400 Systolic blood pressure 114 mm[Hg] Beau Theodore MD Work Phone: [facility] [employer] 05-28-2023 09:08-0400 Body height 165.1 cm Johnnie Golden LPN [facility]; [facility] Work Phone: 05-28-2023 09:08-0400 Body mass index (BMI) [Ratio] 39.98 kg/m2 [facility]; [facility] Work Phone: 05-28-2023 09:08-0400 Body surface area Derived from formula 2.14 m2 [facility]; [facility] Work Phone: 05-28-2023 09:08-0400 Body temperature 96.9 [degF] [facility]; [facility] Work Phone: 05-28-2023 09:08-0400 Body weight 108.98 kg [facility]; [facility] Work Phone: 05-28-2023 09:08-0400 Diastolic blood pressure 60 mm[Hg] [facility]; [facility] Work Phone: Comment on above: Patient Position: Sitting; Cuff Location : Left Arm; Cuff Size: Standard 05-28-2023 09:08-0400 Heart rate 69 /min [facility]; [facility] Work Phone: Comment on above: Pattern: Regular 05-28-2023 09:08-0400 Respiratory rate 18 /min [facility]; [facility] Work Phone: Comment on above: Pattern: Unlabored 05-28-2023 09:08-0400 SaO2% (BldA) [Mass fraction] 95 % [facility]; [facility] Work Phone: Comment on above: Room air 05-28-2023 09:08-0400 Systolic blood pressure 108 mm[Hg] [facility]; [facility] Work Phone: Comment on above: Patient Position: Sitting; Cuff Location : Left Arm; Cuff Size: Standard 05-15-2022 09:57-0400 Body height 165.1 cm Ashlie Mart [facility]; [facility] Work Phone: 05-15-2022 09:57-0400 Body mass index (BMI) [Ratio] 43.27 kg/m2 Ashlie Carlosrb [employer] [facility]; [facility] Work Phone: 05-15-2022 09:57-0400 Body surface area Derived from formula 2.21 m2 Ashlie Gonzalezrb [employer] [facility]; [facility] Work Phone: 05-15-2022 09:57-0400 Body temperature 97.3 [degF] Ashlie Gonzalezrb [employer] [facility]; [facility] Work Phone: 05-15-2022 09:57-0400 Body weight 117.94 kg Ashlie Carlosrb [employer] [facility]; [facility] Work Phone: 05-15-2022 09:57-0400 Diastolic blood pressure 84 mm[Hg] Ashlie Carlosrb [employer] [facility]; [facility] Work Phone: Comment on above: Patient Position: Sitting; Cuff Location : Left Arm; Cuff Size: Standard 05-15-2022 09:57-0400 Heart rate 55 /min Ashlie Gonzalezrb [employer] [facility]; [facility] Work Phone: Comment on above: Pattern: Regular 05-15-2022 09:57-0400 Respiratory rate 17 /min Ashlie Carlosrb [employer] [facility]; [facility] Work Phone: Comment on above: Pattern: Unlabored 05-15-2022 09:57-0400 SaO2% (BldA) [Mass fraction] 99 % Ashlie Slarb [employer] [facility]; [facility] Work Phone: Comment on above: Room air 05-15-2022 09:57-0400 Systolic blood pressure 124 mm[Hg] Ashlie Slarb [employer] [facility]; [facility] Work [...] 01-12-2022 10:22-0500 Systolic blood pressure 130 mm[Hg] Bessy Sivan DO Work Phone: [facility]; [facility] Work Phone: Comment on above: Patient Position: Sitting partial vs taken as this is phone encounter due to covid 09-19-2020 13:48-0500 BMI (Body Mass Index) 41.16 kg/m2 Evelia [facility] Work Phone: Comment on above: no vs taken as this is phone encounter d ue to covid 09-19-2020 13:48-0500 Body weight 112.21 kg Evelia Gravius [facility] Work Phone: Comment on above: no vs taken as this is phone encounter d ue to covid 09-19-2020 13:48-0500 BSA (Body Surface Area) 2.17 m2 Evelia Gravius [facility] Work Phone: Comment on above: no vs taken as this is phone encounter d ue to covid 09-19-2020 13:48-0500 Height 165.1 cm Evelia Gravius [facility] Work Phone: Comment on above: no vs taken as this is phone encounter d ue to covid 07-26-2020 13:42-0400 BMI (Body Mass Index) 41.16 kg/m2 Evelia Gravius [facility] Work Phone: Comment on above: no vs taken as this is phone encounter d ue to covid 07-26-2020 13:42-0400 Body weight 112.21 kg Evelia Gravius [facility] Work Phone: Comment on above: no vs taken as this is phone encounter d ue to covid 07-26-2020 13:42-0400 BSA (Body Surface Area) 2.17 m2 Evelia Gravius [facility] Work Phone: Comment on above: no vs taken as this is phone encounter d ue to covid 07-26-2020 13:42-0400 Height 165.1 cm Evelia Gravius [facility] Work Phone: Comment on above: no vs taken as this is phone encounter d ue to covid 06-28-2020 13:37-0400 BMI (Body Mass Index) 41.16 kg/m2 Evelia Gravius [facility] Work Phone: 06-28-2020 13:37-0400 Body Temperature 97.5 [degF] Evelia Marin [facility] Comprehensiv e Internal Medicine Work Phone: Comment [...] (Body Surface Area) 2.17 m2 Evelia Marin [facility] Work Phone: 06-28-2020 13:37-0400 [...] (BldA) [Mass fraction] 98 % Evelia Marin [facility]; [facility] Work Phone: Comment on above: Room air 04-20-2019 10:21-0400 BMI (Body Mass Index) 41.16 kg/m2 Evelia Marin [employer] [facility] Work Phone: 04-20-2019 10:21-0400 [...] 10:-0400 Pulse Oximetry 94 % Bessy Finnegan [facility] Internal Medicine Work Phone: Comment on above: Room air 04-20-2019 10:0400 Respiratory Rate 18 /min Evelia Marin CMA Comprehensiv e Internal Medicine Work Phone: Comment on above: Pattern: Unlabored 04-20-2019 10:21-0400 SaO2% (BldA) [Mass fraction] 94 % Evelia Marin [facility]; [facility] Work Phone: Comment on above: Room air 04-20-2019 10:0400 Weight 112.21 kg Bessy Finnegan [facility] Internal Medicine Work Phone: 01-05-2018 16:04-0500 BMI [...] (Body Mass Index) 35.16 kg/m2 Savannah Malin [facility] Internal Medicine Work Phone: 02-01-2017 09:30-0400 Body weight 95.85 kg Savannah Malin [facility] Internal Medicine Work Phone: 02-01-2017 09:30-0400 BP Diastolic 74 mm[Hg] Savannah Malin [facility] Internal Medicine Work Phone: Comment on above: Patient Position: Sitting; Cuff Location : Left Arm; Cuff Size: Standard 02-01-2017 09:30-0400 BP Systolic 122 mm[Hg] Savannah Malin [facility] Internal Medicine Work Phone: Comment on above: Patient Position: Sitting; Cuff Location : Left Arm; Cuff Size: Standard 02-01-2017 09:30-0400 BSA (Body Surface Area) 2.03 m2 Savannah Malin [facility] Internal Medicine Work Phone: 02-01-2017 09:30-0400 Height 165.1 cm Savannah Malin [facility] Internal Medicine Work Phone: 02-01-2017 09:30-0400 Pulse (Heart Rate) 68 /min Savannah Malin [facility] Internal Medicine Work Phone: Comment on above: Pattern: Regular 02-01-2017 09:30-0400 Pulse Oximetry 97 % Bessy Finnegan [facility] Internal Medicine Work Phone: Comment on above: Room air 02-01-2017 09:30-0400 Respiratory Rate 16 /min Savannah Malin [facility] Internal Medicine Work Phone: Comment on above: Pattern: Unlabored 02-01-2017 09:30-0400 SaO2% (BldA) [Mass fraction] 97 % Savannah Malin [facility] Internal Medicine; [facility] Work Phone: Comment on above: Room air 02-01-2017 09:30-0400 Weight 95.85 kg Bessy Finnegan [facility] Work Phone: 09-01-2016 08:12-0400 BMI (Body Mass Index) 35.11 kg/m2 Ashlie Slarb [employer] [facility] Work Phone: 09-01-2016 08:12-0400 Body Temperature 97.7 [degF] Ashlie Slarb [employer] [facility] Work Phone: 09-01-2016 08:12-0400 Body weight 95.71 kg Ashlie Slarb [employer] [facility] Work Phone: 09-01-2016 08:12-0400 BP Diastolic 76 mm[Hg] Ashlie Slarb [employer] [facility] Work Phone: Comment on above: Patient Position: Sitting; Cuff Location : Left Arm; Cuff Size: Standard 09-01-2016 08:12-0400 BP Systolic 112 mm[Hg] Ashlie Slarb [employer] [facility] Work Phone: Comment on above: Patient Position: Sitting; Cuff Location : Left Arm; Cuff Size: Standard 09-01-2016 08:12-0400 BSA (Body Surface Area) 2.02 m2 Ashlie Slarb [employer] [facility] Work Phone: 09-01-2016 08:12-0400 Height 165.1 cm Ashlie Slarb [employer] [facility] Work Phone: 09-01-2016 08:12-0400 Pulse (Heart Rate) 68 /min Ashlie Slarb [employer] Comprehensiv e Internal Medicine Work Phone: Comment on above: Pattern: Regular 09-01-2016 08:12-0400 Pulse Oximetry 97 % Bessy Finnegan [facility] Internal Medicine Work Phone: Comment on above: Room air 09-01-2016 08:12-0400 Respiratory Rate 16 /min Ashlie Slarb [employer] [facility] Work Phone: Comment on above: Pattern: Unlabored 09-01-2016 08:12-0400 SaO2% (BldA) [Mass fraction] 97 % Ashlie Slarb [employer] [facility]; [facility] Work Phone: Comment on above: Room air 09-01-2016 08:12-0400 Weight 95.71 kg Bessy Finnegan [facility] Work Phone: 07-24-2016 09:11-0400 BMI (Body Mass Index) 37.28 kg/m2 Ashlie Slarb [employer] [facility] Work Phone: 07-24-2016 09:110400 Body Temperature 97.8 [degF] Ashlie Slarb [employer] [facility] Work Phone: 07-24-2016 09:11-0400 Body weight 101.61 kg Ashlie Slarb [employer] [facility] Work Phone: 07-24-2016 09:11-0400 BP Diastolic 68 mm[Hg] Ashlie Slarb [employer] [facility] Work Phone: Comment on above: Patient Position: Sitting; Cuff Location : Left Arm; Cuff Size: Standard 07-24-2016 09:11-0400 BP Systolic 102 mm[Hg] Ashlie Slarb [employer] [facility] Work Phone: Comment on above: Patient Position: Sitting; Cuff Location : Left Arm; Cuff Size: Standard 07-24-2016 09:11-0400 BSA (Body Surface Area) 2.08 m2 Ashlie Slarb [employer] [facility] Work Phone: 07-24-2016 09:11-0400 Height 165.1 cm Ashlie Slarb [employer] [facility] Work Phone: 07-24-2016 09:11-0400 Pulse (Heart Rate) 64 /min Ashlie Slarb [employer] Comprehensiv e Internal Medicine Work Phone: Comment on above: Pattern: Regular 07-24-2016 09:11-0400 Pulse Oximetry 98 % Bessy Finnegan [facility] Work Phone: Comment on above: Room air 07-24-2016 09:11-0400 Respiratory Rate 17 /min Ashlie Slarb [employer] [facility] Work Phone: Comment on above: Pattern: Unlabored 07-24-2016 09:11-0400 SaO2% (BldA) [Mass fraction] 98 % Ashlie Mart LPN [facility]; [facility] Work Phone: Comment on above: Room air 07-24-2016 09:11-0400 Weight 101.61 kg Bessy Finnegan [facility] Internal Medicine Work Phone: 05-04-2016 16:10-0400 BMI (Body Mass Index) 37.28 kg/m2 [facility] Work Phone: 05-04-2016 16:10-0400 Body weight 101.61 kg [facility] Work Phone: 05-04-2016 16:10-0400 BP Diastolic 68 mm[Hg] [facility] Work Phone: Comment on above: Patient Position: Sitting; Cuff Location : Left Arm; Cuff Size: Standard 05-04-2016 16:10-0400 BP Systolic 114 mm[Hg] [facility] Work Phone: Comment on above: Patient Position: Sitting; Cuff Location : Left Arm; Cuff Size: Standard 05-04-2016 16:10-0400 BSA (Body Surface Area) 2.08 m2 [facility] Work Phone: 05-04-2016 16:10-0400 Height 165.1 cm [facility] Work Phone: 05-04-2016 16:10-0400 Pulse (Heart Rate) 68 /min [facility] Work Phone: Comment on above: Pattern: Regular 05-04-2016 16:10-0400 Pulse Oximetry 97 % Bessy Finnegan [facility] Internal Medicine Work Phone: Comment on above: Room air 05-04-2016 16:10-0400 Respiratory Rate 16 /min [facility] Work Phone: Comment [...] 08-21-2015 11:30-0400 BP Systolic 136 mm[Hg] Chinyere Link RN [facility] [...] BSA (Body Surface Area) 2.31 m2 Heather Bsailio RN [facility] Work Phone: 01-22-2014 13:040 Height 165.1 cm Heather Basilio RN [facility] Work Phone: 01-22-2014 13:21-0400 Pulse (Heart Rate) 92 /min Heather Basilio RN Comprehens [facility] Internal Medicine Work Phone: Comment on above: Pattern: Regular 01-22-2014 13:-0400 Pulse Oximetry 98 % Bessy Finnegan [facility] Internal Medicine Work Phone: Comment on above: Room air 01-22-2014 13:21-0400 Respiratory Rate 18 /min Heather Basilio RN Comprehensiv e Internal Medicine Work Phone: Comment on above: Pattern: Unlabored 01-22-2014 13:21-0400 SaO2% (BldA) [Mass fraction] 98 % Heather Basilio RN [facility]; [facility] Work Phone: Comment on above: Room air 01-22-2014 13:21-0400 Weight 130.35 kg Bessy Finnegan [facility] Internal Medicine Work Phone: 05-30-2013 16:09-0400 BMI (Body Mass Index) 46.18 kg/m2 Bessy Finnegan [facility] Internal Medicine Work Phone: 05-30-2013 16:09-0400 Body weight 125.87 kg Bessy Finnegan [facility] Internal Medicine Work Phone: 05-30-2013 16:09-0400 BP Diastolic 68 mm[Hg] Bessy Finnegan [facility] Work Phone: Comment on above: Patient Position: Sitting; Cuff Location : Left Arm; Cuff Size: Standard 05-30-2013 16:09-0400 BP Systolic 100 mm[Hg] Bessy Finnegan [facility] Work Phone: Comment on above: Patient Position: Sitting; Cuff Location : Left Arm; Cuff Size: Standard 05-30-2013 16:09-0400 BSA (Body Surface Area) 2.27 m2 Bessy Finnegan [facility] Work Phone: 05-30-2013 16:09-0400 Height 165.1 cm Bessy Finnegan [facility] Work Phone: 05-30-2013 16:09-0400 Pulse [...] 05-24-2013 16:41-0400 Weight 125.87 kg Bessy Finnegan [facility] Work Phone: 05-10-2013 09:50-0400 BMI (Body Mass Index) 46.93 kg/m2 Gosia Nobles [facility] Work Phone: 05-10-2013 09:50-0400 Body Temperature 98 [degF] Gosia Nobles [facility] Work Phone: 05-10-2013 09:50-0400 Body weight 127.92 kg Gosia Nobles [facility] Work Phone: 05-10-2013 09:50-0400 BP Diastolic 70 mm[Hg] Gosia Nobles [facility] Work Phone: Comment on above: Patient Position: Sitting; Cuff Location : Left Arm; Cuff Size: Large 05-10-2013 09:50-0400 BP Systolic 122 mm[Hg] Gosia Nobles [facility] Work Phone: Comment on above: Patient Position: Sitting; Cuff Location : Left Arm; Cuff Size: Large 05-10-2013 09:50-0400 BSA (Body Surface Area) 2.29 m2 Gosia Nobles [facility] Work Phone: 05-10-2013 09:50-0400 Height 165.1 cm Gosia Nobles [facility] Work Phone: 05-10-2013 09:50-0400 Pulse [...] Phone: 10-24-2012 13:29-0500 Height 165.1 cm Heather Basilio RN [facility] [...] encounter status Debbie Prescott YUSUF Work Phone: [facility] Start: 04-27-2025 End: 04-27-2025 ambulatory DEBBIE PRESCOTT Facility:[facility] Start: 04-27-2025 Encounter for gynecological examination (general) (routine) without abnormal findings DEBBIE PRESCOTT [facility] Start: 04-27-2025 ambulatory Bessy Finnegan Facilit y:[facility] Start: 02-08-2025 End: 02-08-2025 ambulatory Humphrey Brush Facility[facility] Start: 12-23-2024 End: 12-23-2024 ambulatory Karen Fabienne Facility:[facility] Start: 11-07-2024 End: 11-07-2024 ambulatory Thee WHITEHEAD Facility:[facility] Start: 11-07-2024 End: 11-07-2024 ambulatory Thee WHITEHEAD Facility:[facility] Start: 10-06-2024 End: 10-06-2024 Subsequent hospital visit by physician Beau Theodore MD Work Phone: [facility] Comment on above: Ascending aorta dila tation (HCC); Precordial pain Start: 10-06-2024 End: 10-06-2024 ambulatory BESSY SIVAN [facility] Start: 09-08-2024 End: 09-08-2024 Office outpatient new 45 minutes Beau Theodore MD Work Phone: [facility] - Nini Maria Comment on above: Precordial pain (Meeta charlette Dx); Encounter to establish care with new doctor; Ascending aorta dilatation (HCC) Start: 09-08-2024 End: 09-08-2024 ambulatory BESSY ARREGUINON [facility] Start: 07-14-2024 End: 07-14-2024 ambulatory Bessy Sivan Facility:[facility] Start: 06-30-2024 End: 06-30-2024 ambulatory Bessycharisma Finnegan Facility:[facility] Start: 05-28-2023 End: 05-28-2023 Office outpatient visit 15 minutes Bessy Sivan DO Work Phone: [facility] Start: 05-15-2022 End: 05-15-2022 Office outpatient visit 10 minutes Bessy Sivna DO Work Phone: [facility] Start: [...] End: 04-06-2019 Phone Encounter Bessy Finnegan [facility] Start: 01-05-2018 End: 01-05-2018 Office outpatient visit 25 minutes Bessy Finnegan [facility] Start: 10-28-2017 End: 10-29-2017 Office outpatient visit 15 minutes Bessy Finnegan [facility] Start: 10-21-2017 End: 10-21-2017 Office outpatient visit 15 minutes Bessy Finnegan [facility] Start: 07-05-2017 End: 07-05-2017 Phone Encounter Bessy Finnegan [facility] Start: 06-30-2017 End: 06-30-2017 Office outpatient visit 25 minutes Bessy Finnegan [facility] Start: 04-27-2017 End: 04-27-2017 Phone Encounter Bessy Crespo [facility] Start: 02-01-2017 End: 02-01-2017 Office outpatient visit 15 minutes Bessy Finnegan [facility] Start: 09-01-2016 End: 09-01-2016 Office outpatient visit 15 minutes Bessy Finnegan [facility] Start: 07-24-2016 End: 07-24-2016 Office outpatient visit 10 minutes Bessy Finnegan [facility] Start: 05-11-2016 End: 05-11-2016 Phone Encounter Bessyrigoberto Arreguindashawn [facility] Start: 05-04-2016 End: 05-04-2016 Office outpatient visit 25 minutes Bessy Crespo [facility] Start: 12-23-2015 End: 12-23-2015 Phone Encounter Bessy Finnegan [facility] Start: 12-18-2015 End: 12-18-2015 Phone Encounter Bessyrigoberto Arreguindashawn [facility] Start: 12-18-2015 End: 12-18-2015 Office outpatient visit 15 minutes Bessy Crespo [facility] Start: 08-23-2015 End: 08-23-2015 Lab Order Bessy Sivan [facility] Start: 08-21-2015 End: 08-21-2015 Office outpatient visit 25 minutes Bessy Crespo [facility] Start: 07-11-2015 End: 07-11-2015 Office outpatient visit 10 minutes Bessy Crespo [facility] Start: 01-28-2015 End: 01-28-2015 Office outpatient visit 25 minutes Bessy Crespo [facility] Start: 10-09-2014 End: 10-09-2014 Phone Encounter Bessyrigoberto Arreguindashawn [facility] Start: 09-21-2014 End: 09-21-2014 Office outpatient visit 15 minutes Bessy Crespo [facility] Start: 07-18-2014 End: 07-18-2014 Office outpatient visit 15 minutes Bessy Sivan [facility] Start: 06-27-2014 End: 06-27-2014 Office outpatient visit 25 minutes Bessy Crespo [facility] Start: 01-22-2014 End: 01-22-2014 Patient encounter Bessyrigoberto Arreguindashawn [facility] Start: 05-30-2013 End: 05-30-2013 Office outpatient visit 25 minutes Bessy Crespo [facility] Start: 05-24-2013 End: 05-24-2013 Patient encounter Bessy Sivandashawn [facility] Start: 05-10-2013 End: 05-11-2013 Patient encounter Bessy Sivandashawn [facility] Start: 10-24-2012 End: 10-24-2012 Patient encounter Bessy Sivan [facility] Start: 06-10-2012 End: 06-10-2012 Patient encounter Bessy Sivandashawn [facility] Start: 06-10-2012 End: 06-10-2012 Patient encounter status Bessy Finnegan DO Work Phone: [facility] Patient encounter status Evelia Guzman MA [facility]; [facility] Work Phone: Patient encounter status Evelia Guzman MA [facility]; [facility] Work Phone: Patient encounter status Ashlie Mart BELLOWS ASSEMBLER [facility]; [facility] Work Phone: Patient encounter status Johnnie Golden BELLOWS ASSEMBLER [facility]; [facility] Work Phone: Procedures Date Procedure Procedure Detail Performing Clinician Start: 10-06-2024 Echo tthrc r-t 2d w/wom-mode compl spec&colr d Beau Theodore MD Work Phone: Start: 09-08-2024 Ecg routine ecg w/least 12 lds w/i&r Beau Theodore MD Work Phone: Start: 05-03-2023 End: 05-03-2023 Neurology Visit Report Procedure Note: See Note; NOTES: [facility] [address], [address] [place] [address] OFFICE VISIT Date of Service: 05/03/23 MR#: [id number] Acct: [id number] Name: LUNA MAYERS Rep #: [id number] : 1975 Provider: Dr. Humphrey may MD Age/Sex: 47/F Location: [facility] Status: Signed Intake Vital Signs 05/03/23 08:55 Height 5 ft 5.5 in Weight: 244 lb 6 oz BMI 40.0 BP 110/64 Blood Pressure Location Lt brachial Position Sitting Respiration 17 Pulse 83 Pulse Source Monitor Temp 98.4 F Temp Source Temporal Pulse Oximetry (%) 94 Oxygen Delivery Method room air Intake Visit Reasons: 6 M FU Chief Complaint: Transporter Driver Required: No Accompanied by: Self Allergies No [...] wine substance use type: does not use diego/jew: Quaker seatbelt use: always HPI HPI Chief Complaint: [...] with ropinirole 0.5 mg nightly and an yenu-mip-cdlnyvw iron supplementation. She has a history of [...] dose of 0.5 mg nightly and an lwjg-dud-xzotdth iron supplement. She has a history of iron deficiency anemia and previously completed a course of prescription ferrous sulfate. - Ropinirole 0.5 mg nightly will be continued. - I will have her continue intermittent use of ihdm-rzy-hlnmhgx iron supplementation. I will have her return for reassessment in 10 months. 05/03/23 0924 <Electronically signed by Humphrey Brush MD> Date Humphrey Brush MD Cosigner Signature: Date (if applicable) CC: Bessy Finnegan DO Work Phone: Start: 07-14-2022 End: 07-14-2022 Neurology Visit Report Procedure Note: See Note; NOTES: [facility] [address] [place] [address], [address] [place] [address] OFFICE VISIT Date of Service: 07/14/22 MR#: [id number] Acct: [id number] Name: MAYERSLUNA Rep #: [id number] : 1975 Provider: Dr. Humphrey may MD Age/Sex: 46/F Location: [facility]. Status: Signed Intake Vital Signs 07/14/22 16:22 Height 5 ft 5.5 in Weight: 244 lb 6 oz BMI 40.0 BP 106/64 Blood Pressure Location Lt brachial Position Sitting Respiration 16 Pulse 61 Pulse Source Monitor Temp 99.1 F Temp Source Temporal Pulse Oximetry (%) 96 Oxygen Delivery Method simple mask Intake Visit Reasons: 1 Y FU Chief Complaint: F/U Migraines Transporter Driver Required: No Accompanied by: Self Is patient [...] wine substance use type: does not use diego/jew: Quaker seatbelt use: always HPI HPI Chief Complaint: [...] is well controlled with ropinirole and intermittent owgy-cav-meevieg iron supplementation (daily use of iron supplementation [...] with ropinirole and as needed use of rfon-yns-mxyowrz iron supplementation. She has a history of iron deficiency anemia and completed a course of prescription ferrous sulfate. - Ropinirole 0.25 mg nightly will be continued. - I will have her continue intermittent use of rhmu-yuu-birwlul iron supplementation (daily use of iron supplementation causes constipation). I will have her return for reassessment in 6 months. 07/14/221826 <Electronically signed by Humphrey Brush MD> Date Humphrey Brush MD Cosigner Signature: Date (if applicable) CC: Dr. Bessy Finnegan, DO Bessy Finnegan DO Work Phone: Start: 08-19-2021 End: 08-20-2021 Neurology Visit Report Comments: See Note; NOTES: [facility] [address] [place] [address] OFFICE VISIT Date of Service: 08/19/21 MR#: [id number] Acct: [id number] Name: LUNA MAYERS Joie Rep #: [id number] : 1975 Provider: TANK joshua Age/Sex: 45/F Location: [facility] Status: Signed Intake Vital Signs 08/19/21 15:29 BP 100/58 L Blood Pressure Location Lt brachial Position Sitting Pulse 65 Pulse Source Monitor Pulse Oximetry (%) 98 Oxygen Delivery Method room air Intake Visit Reasons: 6 M FU Chief Complaint: F/U Migraines Transporter Driver Required: No Accompanied by: Self Is patient [...] mg PO BID #60 tab 08/20/21 [Rx] [facility] Medical History (Updated 08/19/21 @ 15:54 by Bárbara Del Castillo FERMENTATION MANAGER, FERMENTATION MANAGER-C) Anemia Chronic migraine Depression Fatigue History of [...] G25.81, E61.1 Plan - Bárbara Del Castillo FERMENTATION MANAGER, FERMENTATION MANAGER-C: The patient has migraine headaches with visual [...] <Electronically signed by Bárbara Del Castillo NP FERMENTATION MANAGER- C> Date Bárbara Del Castillo NP FERMENTATION MANAGER-C Cosigner Signature: Date (if applicable) CC: Dr. Bessy Finnegan, DO Bessy Finnegan DO Work Phone: Start: 02-13-2021 End: 02-13-2021 Neurology Visit Report Comments: See Note; NOTES: [facility] [address] [place] [address] OFFICE VISIT Date of Service: 02/13/21 MR#: [id number] Acct: [id number] Name: LUNA MAYERS Rep #: [id number] : 1975 Provider: Dr. Humphrey may MD Age/Sex: 45/F Location: [facility]. Status: Signed Intake Vital Signs 02/13/21 Height 5 ft 5.75 in 02/13/21 Weight: 250 lb 02/13/21 BMI 40.6 02/13/21 BP 116/72 02/13/21 Blood Pressure Location Lt brachial 02/13/21 Position Sitting 02/13/21 Pulse 77 02/13/21 Pulse Source Monitor 02/13/21 Pulse Oximetry (%) 99 02/13/21 Oxygen Delivery Method room air Intake Visit Reasons: MIGRAINES Chief Complaint: Migraines Transporter Driver Required: No Accompanied by: Self Is patient [...] PRN #9 tablet 02/13/21 [Rx Confirmed 02/13/21] [facility] Medical History (Updated 02/13/21 @ 10:[address] Humphrey Brush MD) Anemia (Acute) Depression (Acute) Fatigue (Acute) History of kidney stones (Acute) Parathyroid abnormality (Acute) Rheumatoid arthritis (Acute) Severe headache (Acute) Shortness of breath (Acute) Chronic migraine (Chronic) Surgical History History of (Acute) History of cholecystectomy (Acute) History of gastric bypass (Acute) Social History (Updated 02/13/21 @ 10:[address] Humphrey Brush MD) Smoking Status: Never smoker Electronic Cigarette [...] this is no longer available from the hydro pneumatic tester). She is tolerating her medications well. She [...] (CAD) W/ANDREW BILAT Comments: See Note; NOTES: [facility] Imaging Services [address] [place] [address] SCREEN MAMM (CAD) W/ANDREW BILAT MR#: [id number] Acct: [id number] Name: LUNA MAYERS Rep #: [id number] : 1975 F 43 From: Danny Ochoa MD PCP: Bessy Finnegan DO Status: REG CLI Study: SCREEN MAMM (CAD) W/ANDREW BILAT Date of Exam: 05/16/19 Exam# [id number] Ordering Dr: Griffin Sorto MD MAMMOGRAPHY - [...] delay biopsy of a clinically suspicious abnormality. [id number] Electronically Signed: Danny Ochoa, at 13:47 EDT , Service support , CC: Griffin Sorto MD; Bessy Finnegan DO Waterproofing Machine Operator: Signed Bessy Finnegan Start: 01-16-2019 End: 01-16-2019 Urgent Care Visit Report Comments: See Note; NOTES: [facility] [address] [place] [address] [address] [place] [address] OFFICE VISIT Date of Service: 01/16/19 MR#: [id number] Acct: [id number] Name: LUNA MAYERS Rep #: [id number] : 1975 Provider: Donald WHITEHEAD Age/Sex: 43/F Location: [facility] Status: Signed Intake Vital Signs01/16/19 Body Mass Index (BMI) 39.8 01/16/19 Height 5 ft 4 in Intake Visit Reasons: EAR ACHE Chief Complaint: ear ache Transporter Driver Required: No Accompanied by: self Is patient [...] or sore throat. She has taken no zjei-feg-ioatdvx products to assist with her symptoms. She [...] the above. This note was generated with Daegisation software. It may contain incorrect words, spelling, [...] Care Visit Report Comments: See Note; NOTES: [address] [address] OFFICE VISIT Date of Service: 10/16/18 MR#: [id number] Acct: [id number] Name: LUNA MAYERS Joie Rep #: [id number] : 1975 Provider: CHARLEY Caicedo Age/Sex: 42/F Location: [facility] Status: Signed Intake Vital Signs10/16/18 Height 5 ft 4 in 10/16/18 Weight: 232 lb 10/16/18 Body Mass Index (BMI) 39.8 10/16/18 Blood Pressure 122/84 H Intake Visit Reasons: SINUS INFECTION Chief Complaint: nasal congestion, headache, sore throat Transporter Driver Required: No Accompanied by: SELF Is patient [...] Nutritional Appearance: overweight Orientation: alert, oriented x3 [facility] Head: normal to inspection, normocephalic Ears: hearing [...] 07-14-2018 Echocardiogram Complete Comments: See Note; NOTES: [facility] Cardiovascular Services [address] [place] [address] Echo Complete 07/13/18 1100 MR#: [id number] Acct: [id number] Name: LUNA MAYERS Rep #: [id number] : 1975 42 From: Gene Machuca MD Attending Dr: Status: REG CLI Ordering Dr: BEAU THEODORE Date: 07/13/18 Location: [facility] Sex: F C Admitted: Reason For Study: [...] Date Dictated: 07/13/18 1100 Date Transcribed: 07/14/181721 Waterproofing Machine Operator: Signed Bessy Finnegan Start: 04-05-2018 End: 04-06-2018 SCREENING MAMM (CAD), BILAT Comments: See Note; NOTES: [facility] Imaging Services [address] [place] [address] SCREENING MAMM (CAD), BILAT MR#: [id number] Acct: [id number] Name: LUNA MAYERS Rep #: [id number] : 1975 F 42 From: Danny Ochoa MD PCP: Bessy Finnegan DO Status: REG CLI Study: SCREENING MAMM (CAD), BILAT Date of Exam: 04/05/18 Exam# [id number] Ordering Dr: Griffin Sorto MD MAMMOGRAPHY - [...] delay biopsy of a clinically suspicious abnormality. [id number] Electronically Signed: Danny Ochoa MD at 8:13 EDT Tel [phone], Service support , CC: Griffin Sorto MD; Bessy Finnegan DO Waterproofing Machine Operator: Signed Bessy Finnegan Start: 07-08-2016 End: 07-08-2016 Echocardiogram Complete Comments: See Note; NOTES: [facility] Cardiovascular Services [address] [place] [address] Echo Complete 07/08/16 1004 MR#: [id number] Acct: [id number] Name: LUNA MAYERS Rep #: [id number] : 1975 40 From: Gene Machuca MD Attending Dr: OUT OF TOWN DOCTOR Status: REG CLI Ordering Dr: BEAU THEODORE Date: 07/08/16 Location: [facility] Sex: F C Admitted: Reason For Study: [...] Dictated: 07/08/16 1004 Date Transcribed: 07/08/16 1237 Waterproofing Machine Operator: Signed Bessy Finnegan Start: 08-28-2015 End: 08-28-2015 Abdomen/Pelvis without Cont Comments: See Note; NOTES: [facility] Imaging Services [address] [place] [address] CAT Scan Report MR#: [id number] Acct: [id number] Name: LUNA MAYERS Rep #: [id number] : 1975 F 39 From: Elpidio Pretty MD PCP: OUT OF TOWN DOCTOR Status: REG CLI Study: Abdomen/Pelvis without Cont Date of Exam: 08/28/15 Exam# [id number] Ordering Dr: Shade Padilla MD STUDY: CT [...] at 16:49 EDT Tel , Service support [phone], CC: Shade Padilla MD; Bessy Finnegan DO; OUT OF TOWN DOCTOR Waterproofing Machine Operator: Signed Bessy Finnegan Start: 06-13-2014 End: 06-14-2014 CTA Chest W/WO Contrast Comments: See Note; NOTES: [facility] Imaging Services [address] [place] [address] CAT Scan Report MR#: [id number] Acct: [id number] Name: LUNA MAYERS Rep #: [id number] : 1975 F 38 From: Danny Ochoa MD PCP: Bessy Finnegan DO Status: REG CLI Study: CTA Chest W/WO Contrast Date of Exam: 06/13/14 Exam# [id number] Ordering Dr: Johnny Garcia STUDY: CTA CHEST [...] Danny Ochoa MD at 15:06 EDT Tel [phone], Service support [phone], CC: JOHNNY GARCIA; Bessy Finnegan DO Waterproofing Machine Operator: Signed Bessy Finnegan Work Phone: Start: 12-28-2005 Lipid 1996 panel - Serum or Plasma Debbie Prescott APRN.CNM Work Phone: Adenoid excision Heather parr Adenoid excision Evelia Grav ius Adenoid excision Evelia Grav ius Adenoid excision Evelia Grav ius Adenoid excision Evelia Grav ius Adenoid excision Evelia Grav ius SHEET METAL MECHANIC Adenoid excision Ashlie Slar b BELLOWS ASSEMBLER Adenoid excision Johnnie Pryo r BELLOWS ASSEMBLER Cholecystectomy Heather mohamud Comment on above: 08/11/12 Cholecystectomy Evelia Gravi us Comment on above: 08/11/12 Cholecystectomy Evelia Gravi us Comment on above: 08/11/12 Cholecystectomy Evelia Gravi us Comment on above: 08/11/12 Cholecystectomy Evelia Gravi us Comment on above: 08/11/12 Cholecystectomy Evelia Gravi us SHEET METAL MECHANIC Comment on above: 08/11/12 Cholecystectomy Ashlie Slarb BELLOWS ASSEMBLER Comment on above: 08/11/12 Cholecystectomy Johnnie [place] BELLOWS ASSEMBLER Comment on above: 08/11/12 H/O: section Section Ja smin Gravius SHEET METAL MECHANIC Comment on above: H/O: section Section Ja smin Gravius SHEET METAL MECHANIC Comment on above: H/O: section Section An gokul Slarb BELLOWS ASSEMBLER Comment on above: H/O: section Section Da agusto [place] BELLOWS ASSEMBLER Comment on above: Kidney stone removal Heather hong Comment on above: 05/12/13 Kidney stone removal Evelia Gravius Comment on above: 05/12/13 Kidney stone removal Evelia Gravius Comment on above: 05/12/13 Kidney stone removal Evelia Gravius Comment on above: 05/12/13 Kidney stone removal Evelia Gravius Comment on above: 05/12/13 Kidney stone removal Evelia Gravius SHEET METAL MECHANIC Comment on above: 05/12/13 Kidney stone removal Ashlie Slarb BELLOWS ASSEMBLER Comment on above: 05/12/13 Kidney stone removal Johnnie [place] BELLOWS ASSEMBLER Comment on above: 05/12/13 Ligation of fallopia n tube Heather Messenger Ligation of fallopia n tube Evelia Gravius Ligation of fallopia n tube Evelia Gravius Ligation of fallopia n tube Evelia Gravius Ligation of fallopia n tube Evelia Gravius Ligation of fallopia n tube Evelia Gravius SHEET METAL MECHANIC Ligation of fallopia n tube Ashlie Slarb BELLOWS ASSEMBLER Ligation of fallopia n tube Johnnie [place] BELLOWS ASSEMBLER Tonsillectomy Heather Huynh r Tonsillectomy Evelia Gravius Tonsillectomy Evelia Gravius Tonsillectomy Evelia Gravius Tonsillectomy Evelia Gravius Tonsillectomy Evelia Gravius SHEET METAL MECHANIC Tonsillectomy Ashlie Slarb L PN Tonsillectomy Johnnie [place] L PN Tubes in ears Heather Messenge r Tubes in ears Evelia Gravius Tubes in ears Evelia Gravius Tubes in ears Evelia Gravius Tubes in ears Evelia Gravius Tubes in ears Evelia Gravius SHEET METAL MECHANIC Tubes in ears Ashlie Slarb L PN Tubes in ears Johnnie [place] L PN Plan of Treatment Date Care Activity Detail Author Start: 2051 RSV Immunization for Adults (1 - 1-dose 75+ series) RSV Immunization for Adults (1 - 1-dose 75+ series) [facility] Start: 2026 Zoster Vaccines (1 of 2) Zoster Vaccines (1 of 2) [facility] Start: 05-06-2026 End: 05-06-2026 Patient encounter procedure 05/06/2026 4:00 PM EDT Office Visit OB/Gynecology [address] [place], [place] [id number] Debbie Prescott APRN.CNM [address] [place], [place] [address] Annual OB/Gynecology Comment on above: Annual Start: 07-16-2025 Influenza vaccination Influenza Vaccine (Season Ended) [facility] Start: 10-06-2024 End: 10-06-2024 Patient encounter procedure 10/06/2024 10:00 AM EST Appointment [facility] [address] [place] [address] Beau Theodore MD [address] [place] [address] [address] [place], [place] [id number] [facility] Start: 09-08-2024 End: 09-08-2026 US Heart Transthoracic Transthoracic echocardiogram (TTE) complete with contrast, bubble, strain, and 3D PRN CV Echocardiography Routine Ascending aorta dilatation (HCC) Precordial pain Expected: 09/08/2024 (Approximate), Expires: 09/08/2026 [facility] Work Phone: Comment on above: Expected: 09/08/2024 (Approximate), Expi res: 09/08/2026 Start: 07-16-2024 COVID-19 Vaccine ( season) COVID-19 Vaccine () [facility] Start: 07-16-2024 Influenza vaccination Influenza Vaccine (#1) [facility] Start: 05-28-2023 Procedure Education Eprescribed prescriptions (G8553) [...] Phone: Start: 2021 Diabetes Screening Diabetes Screening [facility] Start: 2021 Lipid panel Lipid Screening [facility] Start: 2021 Screening for malignant neoplasm of colon [facility] Start: 09-19-2020 Procedure Education Eprescribed prescriptions (G8553) [facility] Work Phone: Start: 07-26-2020 Procedure Education Eprescribed prescriptions (G8553) [facility] Work Phone: Start: 07-26-2020 Provider Instructions for Treatment [facility] Work Phone: Start: 06-28-2020 Assay of magnesium Magnesium (80810) [facility]; [facility] Work Phone: Start: 06-28-2020 Phosphate [Mass/Vol] Phosphorus (52699) [facility] Work Phone: Start: 06-28-2020 Assay of zinc ZINC, BLOOD (98230) [facility] Work Phone: Start: 06-28-2020 Lipid panel Lipid Panel (03885) [facility] Work Phone: Start: 06-28-2020 Assay of vitamin a VITAMIN A (12957) [facility] Work Phone: Start: 06-28-2020 TSH Qn TSH (91602) [facility] Work Phone: Start: 06-28-2020 Comprehensive metabolic panel Metabolic Panel, Comprehensive (27679) [facility] Work Phone: Start: 06-28-2020 Magnesium [Mass/Vol] Magnesium (20038) [facility] Work Phone: Start: 06-28-2020 Assay of folic acid serum Folic Acid Serum (09487) [facility] Work Phone: Start: 06-28-2020 Assay of chromium CHROMIUM (54321) [facility] Work Phone: Start: 06-28-2020 Assay of homocysteine ASSAY, HOMOCYSTINE (18552) [facility] Work Phone: Start: 06-28-2020 Assay of parathormone PARATHORMONE (28589) [facility] Work Phone: Start: 06-28-2020 25 hydroxy includes fractions if performed CALCIFEDIOL (05756) [facility] Work Phone: Start: 06-28-2020 Cobalamin (Vitamin B12) [Mass/Vol] VITAMIN B-12 (CYANOCOBALAMIN) (61285) [facility] Work Phone: Start: 06-28-2020 Blood count reticulocyte automated RETICULOCYTE COUNT [facility] (38541) [facility] Work Phone: Start: 06-28-2020 Iron binding capacity IRON BINDING CAPACITY (TIBC) (10512) [facility] Work Phone: Start: 06-28-2020 Assay of iron IRON (05265) [facility]; [facility] Work Phone: Start: 06-28-2020 Iron [Mass/Vol] IRON (76352) [facility] Work Phone: Start: 06-28-2020 Ferritin [Mass/Vol] FERRITIN (34036) [facility] Work Phone: Start: 06-28-2020 Blood count complete auto&auto difrntl wbc CBC, PLATELETS & AUT DIFF (48898) [facility] Work Phone: Start: 06-28-2020 [...] 25 hydroxy includes fractions if performed CALCIFEDIOL (28393) [facility] Work Phone: Start: 04-06-2019 Organic acid 1 quantitative Methymalonic Acid, Serum (07501) [facility] Work Phone: Start: 04-06-2019 Cobalamin (Vitamin B12) mass conc Vitamin B-12 (cyanocobalamin) (21632) [facility] Work Phone: Start: 04-06-2019 Iron binding capacity Iron Binding Capacity (TIBC) (59216) [facility] Work Phone: Start: 04-06-2019 Assay of iron Iron (13774) [facility]; [facility] Work Phone: Start: 04-06-2019 Ferritin mass conc Ferritin (60973) [facility] Work Phone: Start: 04-06-2019 Iron mass conc Iron (64831) [facility] Work Phone: Start: 04-06-2019 Assay of folic acid serum Folic Acid Serum (87172) [facility] Work Phone: Start: 04-06-2019 Thyrotropin Qn TSH (THYROID STIMULATING HORMONE) (37374) [facility] Work Phone: Start: 01-05-2018 Provider Instructions for Treatment Reviewed Lab [facility] Work Phone: Start: 10-28-2017 Provider Instructions for Treatment Reviewed Lab [facility] Work Phone: Start: 10-28-2017 Potassium molar conc POTASSIUM SERUM (89930) [facility] Work Phone: Start: 10-28-2017 Potassium serum plasma/whole blood POTASSIUM SERUM (18749) [facility]; [facility] Work Phone: Start: 10-28-2017 Assay of magnesium MAGNESIUM (91858) [facility]; [facility] Work Phone: Start: 10-28-2017 Magnesium mass conc MAGNESIUM (24339) [facility] Work Phone: Start: 10-21-2017 Procedure Education Eprescribed prescriptions (G8553) [facility] Work Phone: Start: 10-21-2017 Provider Instructions for Treatment [facility] Work Phone: Start: 10-21-2017 Antibody justice-hurd eb virus nuclear ag ebna EB ANTIBODY NUCLR ANTIGN (14916) [facility] Work Phone: Start: 06-30-2017 Hemoglobin A1c/Hemoglobin.total mass fraction (Bld) HGB A1C (33700) [facility] Work Phone: Start: 06-30-2017 Hemoglobin glycosylated a1c HGB A1C (23071) [facility]; [facility] Work Phone: Start: 06-30-2017 25 hydroxy includes fractions if performed CALCIFEDIOL (58698) [facility] Work Phone: Start: 06-30-2017 Assay of parathormone PARATHORMONE (75758) [facility] Work Phone: Start: 06-30-2017 Assay of phosphorus inorganic Phosphorus (03304) [facility]; [facility] Work Phone: Start: 06-30-2017 Phosphate mass conc Phosphorus (22128) [facility] Work Phone: Start: 06-30-2017 Assay of iron IRON (33252) [facility]; [facility] Work Phone: Start: 06-30-2017 Iron mass conc IRON (60340) [facility] Work Phone: Start: 06-30-2017 Assay of ferritin FERRITIN (60083) [facility] Work Phone: Start: 06-30-2017 Ferritin mass conc FERRITIN (46323) [facility] Work Phone: Start: 06-30-2017 Assay of zinc ZINC, BLOOD (06592) [facility] Work Phone: Start: 06-30-2017 Cobalamin (Vitamin B12) mass conc Vitamin B-12 (cyanocobalamin) (71238) [facility] Work Phone: Start: 06-30-2017 Cyanocobalamin vitamin b-12 Vitamin B-12 (cyanocobalamin) (33767) [facility]; [facility] Work Phone: Start: 06-30-2017 Assay of vitamin a VITAMIN A (62306) [facility] Work Phone: Start: 06-30-2017 Assay of thyroid stimulating hormone tsh TSH (21644) [facility]; [facility] Work Phone: Start: 06-30-2017 Comprehensive metabolic panel Metabolic Panel, Comprehensive (90845) [facility] Work Phone: Start: 06-30-2017 Thyrotropin Qn TSH (16594) [facility] Work Phone: Start: 06-30-2017 Assay of magnesium Magnesium (27956) [facility]; [facility] Work Phone: Start: 06-30-2017 Magnesium mass conc Magnesium (71151) [facility] Work Phone: Start: 06-30-2017 Lipid panel Lipid Panel (02416) [facility] Work Phone: Start: 06-30-2017 Assay of folic acid serum Folic Acid Serum (85293) [facility] Work Phone: Start: 06-30-2017 Assay of chromium CHROMIUM (52832) [facility] Work Phone: Start: 06-30-2017 Assay of homocysteine ASSAY, HOMOCYSTINE (86702) [facility] Work Phone: Start: 06-30-2017 Provider Instructions for Treatment [facility] Work Phone: Start: 02-01-2017 Patient Education Bursitis: elbow [facility] Work Phone: Start: 02-01-2017 Procedure Education Eprescribed prescriptions (G8553) [facility] Work Phone: Start: 02-01-2017 Provider Instructions for Treatment Follow up in 2 weeks [facility] Work Phone: Start: 2016 Screening for malignant neoplasm of breast [facility] Start: 09-01-2016 Patient Education Sore throat: diagnosis and treatment [facility] Work Phone: Start: 09-01-2016 Procedure Education Eprescribed prescriptions (G8553) [facility] Work Phone: Start: 09-01-2016 Provider Instructions for Treatment [facility] Work Phone: Start: 07-24-2016 Provider Instructions for Treatment [facility] Work Phone: Start: 05-04-2016 Assay of phosphorus inorganic Phosphorus (34058) [facility]; [facility] Work Phone: Start: 05-04-2016 Phosphate mass conc Phosphorus (79721) [facility] Work Phone: Start: 05-04-2016 Assay of zinc ZINC, BLOOD (77190) [facility] Work Phone: Start: 05-04-2016 Cobalamin (Vitamin B12) mass conc Vitamin B-12 (cyanocobalamin) (83062) [facility] Work Phone: Start: 05-04-2016 Cyanocobalamin vitamin b-12 Vitamin B-12 (cyanocobalamin) (05687) [facility]; [facility] Work Phone: Start: 05-04-2016 Assay of vitamin a VITAMIN A (44775) [facility] Work Phone: Start: 05-04-2016 Assay of magnesium Magnesium (68960) [facility]; [facility] Work Phone: Start: 05-04-2016 Magnesium mass conc Magnesium (14685) [facility] Work Phone: Start: 05-04-2016 Lipid panel Lipid Panel (97451) [facility] Work Phone: Start: 05-04-2016 Assay of folic acid serum Folic Acid Serum (33803) [facility] Work Phone: Start: 05-04-2016 Assay of chromium CHROMIUM (52515) [facility] Work Phone: Start: 05-04-2016 Assay of homocysteine ASSAY, HOMOCYSTINE (87457) [facility] Work Phone: Start: 05-04-2016 Chemiluminescent assay Parathyroid Hormone-related Peptide (PTH-rP) (85528) [facility] Work Phone: Start: 05-04-2016 Iron binding capacity IRON BINDING CAPACITY (TIBC) (37819) [facility] Work Phone: Start: 05-04-2016 Assay of ferritin FERRITIN (33387) [facility] Work Phone: Start: 05-04-2016 Ferritin mass conc FERRITIN (68575) [facility] Work Phone: Start: 05-04-2016 Comprehensive metabolic panel METABOLIC PANEL, COMPREHENSIVE (16248) [facility] Work Phone: Start: 05-04-2016 Blood count complete auto&auto difrntl wbc CBC W/AUTO DIFF WBC (97629) [facility] Work Phone: Start: 05-04-2016 Assay of thyroid stimulating hormone tsh TSH (87414) [facility]; [facility] Work Phone: Start: 05-04-2016 Thyrotropin Qn TSH (00322) [facility] Work Phone: Start: 05-04-2016 Protein mass conc (U) Urine Protein Electrophoresis (UPEP) (91691) [facility] Work Phone: Start: 05-04-2016 Protein electrophoretic fractj&quantj serum [facility] Work Phone: Start: 05-04-2016 Protein mass conc Serum Protein Electrophoresis (SPEP) (70656) [facility] Work Phone: Start: 05-04-2016 Patient Education Anxiety: anxiety [facility] Work Phone: Start: 05-04-2016 Procedure Education Eprescribed prescriptions (G8553) [facility] Work Phone: Start: 05-04-2016 Provider Instructions for Treatment [facility] Work Phone: Start: 12-18-2015 Culture bacterial blood aerobic w/id isolates CHICHO CULTURE-BLOOD (16566) [facility] Work Phone: Start: 12-18-2015 Procedure Education Eprescribed prescriptions (G8553) [facility] Work Phone: Start: 08-23-2015 Comprehensive metabolic panel Metabolic Panel, Comprehensive (51222) [facility] Work Phone: Comment on above: recheck in 4 weeks Start: 08-21-2015 Provider Instructions for Treatment Follow up in 6 months [facility] Work Phone: Start: 08-21-2015 Assay of iron IRON (97648) [facility]; [facility] Work Phone: Start: 08-21-2015 Iron mass conc IRON (81834) [facility] Work Phone: Start: 07-11-2015 Procedure Education Eprescribed prescriptions (G8553) [facility] Work Phone: Start: 01-28-2015 25 hydroxy includes fractions if performed CALCIFIDIOL (30384) VIT D 25 [facility] Work Phone: Start: 10-09-2014 Blood occult fecal hgb deter ia qual feces 1-3 FECAL OCCULT- Tubes sent home (61814) [facility] Work Phone: Start: 10-09-2014 Assay of iron IRON (89042) [facility]; [facility] Work Phone: Start: 10-09-2014 Iron mass conc IRON (12031) [facility] Work Phone: Start: 09-21-2014 [...] mass fraction (Bld) Hemoglobin Glyclated (HGB A1C) (90326) [facility] Work Phone: Start: 06-27-2014 Hemoglobin glycosylated a1c Hemoglobin Glyclated (HGB A1C) (67322) [facility]; [facility] Work Phone: Start: 06-27-2014 25 hydroxy includes fractions if performed CALCIFEDIOL (55452) [facility] Work Phone: Start: 06-27-2014 Assay of parathormone PARATHORMONE (14202) [facility] Work Phone: Start: 06-27-2014 Assay of phosphorus inorganic Phosphorus (43721) [facility]; [facility] Work Phone: Start: 06-27-2014 Phosphate mass conc Phosphorus (86882) [facility] Work Phone: Start: 06-27-2014 Assay of iron IRON (07535) [facility]; [facility] Work Phone: Start: 06-27-2014 Iron mass conc IRON (94484) [facility] Work Phone: Start: 06-27-2014 Assay of ferritin FERRITIN (73160) [facility] Work Phone: Start: 06-27-2014 Ferritin mass conc FERRITIN (72212) [facility] Work Phone: Start: 06-27-2014 Assay of zinc ZINC, BLOOD (39210) [facility] Work Phone: Start: 06-27-2014 Cobalamin (Vitamin B12) mass conc Vitamin B-12 (cyanocobalamin) (32489) [facility] Work Phone: Start: 06-27-2014 Cyanocobalamin vitamin b-12 Vitamin B-12 (cyanocobalamin) (85034) [facility]; [facility] Work Phone: Start: 06-27-2014 Assay of vitamin a VITAMIN A (31125) [facility] Work Phone: Start: 06-27-2014 Assay of thyroid stimulating hormone tsh TSH (91750) [facility]; [facility] Work Phone: Start: 06-27-2014 Thyrotropin Qn TSH (11400) [facility] Work Phone: Start: 06-27-2014 Assay of magnesium Magnesium (24787) [facility]; [facility] Work Phone: Start: 06-27-2014 Comprehensive metabolic panel Metabolic Panel, Comprehensive (97939) [facility] Work Phone: Start: 06-27-2014 Magnesium mass conc Magnesium (78054) [facility] Work Phone: Start: 06-27-2014 Lipid panel Lipid Panel (78586) [facility] Work Phone: Start: 06-27-2014 Assay of folic acid serum Folic Acid Serum (20134) [facility] Work Phone: Start: 06-27-2014 Assay of chromium CHROMIUM (55614) [facility] Work Phone: Start: 06-27-2014 Blood count manual cell count each CBC with manual diff (56866) [facility] Work Phone: Start: 06-27-2014 Assay of homocysteine ASSAY, HOMOCYSTINE (92584) [facility] Work Phone: Start: 06-27-2014 [...] 05-10-2013 Comprehensive metabolic panel METABOLIC PANEL, COMPREHENSIVE (97044) [facility] Work Phone: Comment on above: stat Start: 05-10-2013 Blood count manual cell count each CBC WITH MANUAL DIFF (04701) [facility] Work Phone: Start: 10-24-2012 Provider Instructions for Treatment [facility] Work Phone: Start: 10-11-2012 Lipid panel LIPID PANEL (84479) [facility] Work Phone: Start: 01-09-2012 Screening for malignant neoplasm of cervix Cervical Cancer Screening [facility] Start: 2006 Screening for malignant neoplasm of cervix [facility] Start: 1997 Screening for malignant neoplasm of cervix Pap Smear [facility] Start: 1995 DTaP/Tdap/Td Vaccines (1 - Tdap) DTaP/Tdap/Td Vaccines (1 - Tdap) [facility] Start: 1995 Hepatitis B Vaccine (1 of 3 - 19+ 3-dose series) Hepatitis B Vaccine (1 of 3 - 19+ 3-dose series) [facility] Start: 1995 Hepatitis B Vaccines (1 of 3 - 19+ 3-dose series) Hepatitis B Vaccines (1 of 3 - 19+ 3-dose series) [facility] Start: 1995 Urine microalbumin profile DTaP,Tdap,Td Vaccine (1 - Tdap) [facility] Start: 1994 Anxiety Screening Anxiety Screening [facility] Start: 1994 Depression Screening Depression Screening [facility] Start: 1994 Diabetes mellitus screening Diabetes Screening [facility] Start: 1994 Hepatitis C screening Hepatitis C Screening [facility] Start: 1994 HIV screening HIV Screening [facility] Start: 1988 Depression Monitoring Depression Monitoring [facility] Start: 1977 MMR Vaccines (1 of 1 - Standard series) MMR Vaccines (1 of 1 - Standard series) [facility] Start: 1976 HIV screening HIV Screening [facility] Start: 1976 Lipid panel Lipid Panel [facility] Start: 1976 Screening for malignant neoplasm of colon [facility] End: 05-27-2026 DBT Breast - bilateral screening MIHIR SCREENING W ANDREW Radiology Routine Encounter for gynecological examination (general) (routine) without abnormal findings Encounter for screening mammogram for breast cancer 1 Occurrences starting 04/27/2025 until 05/27/2026 [facility] Work Phone: Comment on above: 1 Occurrences starting 04/27/2025 until 05/27/2026 HIGH RISK HUMAN PAPILLOMA VIRUS (HPV), PCR FOR DETECTION AND GENOTYPING HIGH RISK HUMAN PAPILLOMA VIRUS (HPV), PCR FOR DETECTION AND GENOTYPING Lab Routine Encounter for gynecological examination (general) (routine) without abnormal findings Screening for cervical cancer Encounter for screening for human papillomavirus (HPV) 04/27/2025 2:34 PM EDT [facility] PAP TEST PAP TEST Lab [place] Encounter for gynecological examination (general) (routine) without abnormal findings Screening for cervical cancer Encounter for screening for human papillomavirus (HPV) 04/27/2025 2:34 PM EDT [facility] Work Phone: [facility] Work Phone: [facility] Work Phone: [facility] Work Phone: [facility] Work Phone: [facility] Work Phone: [facility] Work Phone: [facility] Work Phone: [facility] Work Phone: [facility]; [facility] Work Phone: Payers Date Payer Category Payer Unknown [id number] 2024 Medicaid [employer] [id number] 2024 Medicaid HMO [id number] 2024 Medicaid [id number] 2024 Self-pay Unknown [facility] Unknown [id number] Unknown [id number] Unknown [id number] Unknown [id number] Unknown [id number] Unknown [id number] Unknown [id number] Social History Date Type Detail Facility Start: 09-08-2024 End: 04-27-2025 Caffeine Use Never smoker [facility] Work Phone: Comment on above: qd Exercise History: Exercises regularly. [facility] Work Phone: Living Situation: Lives with spouse. [facility] Work Phone: Number of Child (age 0-17) Dependents: 4. [facility] Work Phone: Pets/Animals: Dog. Cat. [facility] Work Phone: Tobacco use: Never smoker. [facility] Work Phone: [facility] Work [facility]: Living Situation: Living Situation: [facility]; [facility] Work Phone: Number of Child (age 0-17) Dependents: Number of Child (age 0-17) Dependents: [facility]; [facility] Work Phone: Pets/Animals: Pets/Animals: [facility]; [facility] Work Phone: Tobacco use: Tobacco use: [facility]; [facility] Work Phone: Start: 11-28-2011 Tobacco smoking status NHIS Never smoked tobacco [facility] Start: 09-08-2024 End: 04-27-2025 Alcoholic beverage intake Current non-drinker of alcohol (finding) [facility] Start: 09-08-2024 End: 04-27-2025 Tobacco use panel [facility] Start: 1976 Sex assigned at Not on file [facility] Start: 06-15-2022 Sex Female (finding) [facility] Start: 11-28-2011 Tobacco use and exposure Smokeless tobacco non-user [facility] National Score (1-100), lower number is lower risk 89 [facility] Clinical Notes 09-08-2024 to 04-30-2025 Patient Debbie [...] please call: Dr. Hsu or Dr. Bustamante [phone] Ellie Johnston [phone] Dr. Gonzales [phone] [facility] nurses [phone] documented in this encounter [facility] 04-27-2025 Note HNO ID: [id number] Author: DEBBIE PRESCOTT APRN.CNM Service: ? Author Type: Low Raw Sugar Cutter Type: Progress Notes Filed: 04/30/2025 12:15 Note Text: Luna is a 49 year old who presents for an annual gynecologic exam. Obstetrics and Gynecology [place] Annual Exam Subjective Recording using [employer] software for draft documentation of the visit was discussed with the patient/authorized customer engagement representative; all questions welcomed and answered. Patient/authorized customer engagement representative agreed to proceed CHIEF COMPLAINT: Annual [...] Living4 SAB2 IAB0 Ectopic0 Multiple0 Live Births2 Quality Control Assessor History LMP: 04/07/2025 (Exact Date), Having periods Age at Menarche: Age at First : Age at Menopause: Quality Control Assessor History Comments: Sexual Activity: Yes; Male Contraception: [...] discussed with the Patient or Patient's Authorized Explosive Operator Bomb. As applicable, any other physician, advance practice provider, medical student, or other health professional student that will be observing or involved in the sensitive examination for educational or training purposes was discussed with the Patient or Authorized Explosive Operator Bomb. The Patient or Authori (more content not included)... [facility] 04-27-2025 History of Presen t illness Narrative Images from the original note were not included. Luna is a 49 year old who presents for an annual gynecologic exam. Obstetrics and Gynecology [facility] Annual Exam Subjective Recording using [employer] software for draft documentation of the visit was discussed with the patient/authorized customer engagement representative; all questions welcomed and answered. Patient/authorized customer engagement representative agreed to proceed CHIEF COMPLAINT: Annual [...] Living4 SAB2 IAB0 Ectopic0 Multiple0 Live Births2 Quality Control Assessor History LMP: 04/07/2025 (Exact Date), Having periods Age at Menarche: Age at First : Age at Menopause: Quality Control Assessor History Comments: Sexual Activity: Yes; Male Contraception: [...] discussed with the Patient or Patient's Authorized Explosive Operator Bomb. As applicable, any other physician, advance practice provider, medical student, or other health professional student that will be observing or involved in the sensitive examination for educational or training purposes was discussed with the Patient or Authorized Explosive Operator Bomb. The Patient or Authorized Explosive Operator Bomb has agreed to proceed with the sensitive [...] external genitalia normal, normal Bartholin's glands, urethra, Belvue's glands, no vulvar lesions, no cervical lesions, [...] or frequency of symptoms. Debbie Prescott APRN.CNM [facility] OPEN ACCESS QUESTIONNAIRE 1. Are you [...] Please send all open access questionnaires to [facility] Pool #[id number] documented in this encounter [facility] 09-08-2024 History of Presen t illness Narrative Images from the original note were not included. [facility] [place] [address] [facility] [id number] Dept: [phone] Dept Visit type: New : 1975 Chief [...] in this patient's care. Beau Theodore MD, [facility] This note was dictated by speech recognition. I apologize for minor errors in the pediatric radiologist that may be present. [facility] Diagnosis Precordial pain- [...] due to menopause [facility] Name Dates Details How to access health [...] tion Online using Patient Portal and 3rd Libertarian Apps Indication:Non-smoker Start:12-Jan-2022 Instruction Type:Patient Education How [...] tion Online using Patient Portal and 3rd [employer] Apps Indication:Non-smoker Start:12-Jan-2022 Instruction Type:Patient Education How [...] tion Online using Patient Portal and 3rd [employer] Apps Indication:Non-smoker Start:15-May-2022 Instruction Type:Patient Education Patient Instructions Indication:Non-smoker Start:12-Jan-2022 Instruction Type:Provider Instructions for Treatment How to Access Health Informa tion Online using Patient Portal and 3rd [employer] Apps Indication:Non-smoker Start:12-Jan-2022 Instruction Type:Patient Education How [...] tion Online using Patient Portal and 3rd [employer] Apps Indication:Non-smoker Start:15-May-2022 Instruction Type:Patient Education Patient Instructions Indication:Non-smoker Start:12-Jan-2022 Instruction Type:Provider Instructions for Treatment How to Access Health Informa tion Online using Patient Portal and 3rd [employer] Apps Indication:Non-smoker Start:12-Jan-2022 Instruction Type:Patient Education How [...] tion Online using Patient Portal and 3rd [employer] Apps Indication:Non-smoker Start:15-May-2022 Instruction Type:Patient Education Patient Instructions Indication:Non-smoker Start:12-Jan-2022 Instruction Type:Provider Instructions for Treatment How to Access Health Informa tion Online using Patient Portal and 3rd [employer] Apps Indication:Non-smoker Start:12-Jan-2022 Instruction Type:Patient Education How [...] tion Online using Patient Portal and 3rd [employer] Apps Indication:Non-smoker Start:28-May-2023 Instruction Type:Patient Education Patient Instructions Indication:Non-smoker Start:15-May-2022 Instruction Type:Provider Instructions for Treatment How to Access Health Informa tion Online using Patient Portal and [employer] Apps Indication:Non-smoker Start:15-May-2022 Instruction Type:Patient Education Patient Instructions Indication:Non-smoker Start:12-Jan-2022 Instruction Type:Provider Instructions for Treatment How to Access Health Informa tion Online using Patient Portal and 3rd [employer] Apps Indication:Non-smoker Start:12-Jan-2022 Instruction Type:Patient Education How [...] tion Online using Patient Portal and 3rd Libert[employer] Apps Indication:Non-smoker Start:28-May-2023 Instruction Type:Patient Education Patient Instructions Indication:Non-smoker Start:15-May-2022 Instruction Type:Provider Instructions for Treatment How to Access Health Informa tion Online using Patient Portal and 3rd [employer] Apps Indication:Non-smoker Start:15-May-2022 Instruction Type:Patient Education Patient Instructions Indication:Non-smoker Start:12-Jan-2022 Instruction Type:Provider Instructions for Treatment How to Access Health Informa tion Online using Patient Portal and 3rd [employer] Apps Indication:Non-smoker Start:12-Jan-2022 Instruction Type:Patient Education How [...] Start:27-Jun-2014 Instruction Type:Patient Education How to access Wote online - Detail Indication:NONABSORPTION, INTESTINAL POSTSURGICAL Start:27-Jun-2014 [...] with contrast, bubble, strain, and 3D PRN LA ECHO TTHRC R-T 2D W/WOM-MODE COMPL SPEC&COLR D LA TTE W OR WO FOL WCON,DOPPLER Beau Theodore MD 1 [facility] [address] [place] [id number] Phone: tel: fax: Referral ID Status Reason Start Date Expiration Date Visits Re quested Visits Authorized [id number] Closed 10/05/2024 09/08/2025 1 1 [employer] Family History No Family History Records FoundUnknown [...] section and content) DATE CREATED AUTHOR 05/10/2019 [facility] DATE CREATED AUTHOR AUTHOR'S ORGANIZ ATION 10/12/2024 [facility] DATE CREATED AUTHOR AUTHOR'S ORGANIZ ATION 04/30/2025 [facility] DATE CREATED AUTHOR AUTHOR'S ORGANIZ ATION 05/02/2025 [facility] Reason for Visit (unrecogniz ed section and content) Reason Comments New Patient Reason Comments Yearly Exam Care Teams (unrecognized sec tion and content) Cra Relationship Specialty Start Date End Date Bessy Finnegan DO [address] [place] [phone] PCP - General 05/06/16 Cra Relationship Specialty Start Date End Date Bessy Finnegan DO [address] [place] [phone] PCP - General 05/06/16 Cra Relationship Specialty Start Date End Date Bessy [...] or prosecute any alcohol or drug abuse patient.[facility] FOR RECORDS PERTAINING TO PATIENTS WHO ARE [...] BE BASED ON THE PRIMARY CLINICAL RECORDS. [facility] [employer] [facility]. provides no warranty or guarantee of the accuracy or completeness of information in this document.
[2025-05-04 07:14] LABS: Absolute Lymphocyte Count 1.87 X10^3/uL (0.83-4.51); Absolute Neutrophil Count 5.3 X10^3/uL (2.0-7.7); Basophil# 0.06 X10^3/uL; Basophil% 0.7 % (0-1); Eosinophil# 0.17 X10^3/uL; Eosinophils% 2.1 % (0-5); Hematocrit 43.6 % (37-47); Hemoglobin 15.4 g/dL (12.0-15.0); Lymphocyte # 1.87 X10^3/ul (0.83-4.51); Lymphocyte % 22.7 % (19-41); Mean Corp Hgb Conc 35.3 g/dL (32-36); Mean Corpuscular Hgb 31.5 pg (27.0-32.0); Mean Corpuscular Volume 89.2 fL (81-99); Mean Platelet Vol. 9.4 fl (6.2-12.0); Monocyte# 0.83 X10^3/uL; Monocyte% 10.1 % (0-10); NRBC Flagged by Analyzer 0 % (0-5); Neutrophil # 5.27 X10^3/uL (2.7-7.7); Platelet Count 290 K/mm3 (150-450); RBC Distribution Width CV 12.8 % (11.6-14.6); RBC Distribution Width SD 41.6 fl (35.1-43.9); Red Blood Count 4.89 M/mm3 (4.2-5.4); White Blood Count 8.2 K/mm3 (4.4-11.0)
[2025-05-04 07:41] LABS: Ferritin 150 ng/mL (22-378); Iron 74 ug/dL (50-170); Iron Binding Capacity,Total 286 ug/dL (250-450); Iron Binding Capacity,Unsat 212 ug/dL (228-428)
== END 2025-05-04 23:59 | disposition home or self-care (01) ==
LOC: LAB 06:48
PROVIDERS: PCP Internal Medicine; Referring Provider Internal Medicine; Visit Provider Internal Medicine
DX: R53.83 Other fatigue (principal)
CPT/HCPCS: 36415; 82728; 83540; 83550; 84443; 85025